=== PATIENT | female | born 1965 | race Caucasian/White ===

== ENCOUNTER 2018-04-21 09:03 | Emergency (ER) | payer MEDICAID, SELFPAY ==
--- NOTE | 2018-04-21 09:15 | W.ED.GENAD ---
Discharge Plan Disposition Patient Disposition: HOME Condition: Good Discharge Details Chief Complaint: Nk/Back Pain Clinical Impression: Muscle strain, UTI (urinary tract infection) Primary Care Provider: Chantel Ruiz ED Provider: Romero Edwards Home Meds and New Rx's Prescriptions: New cyclobenzaprine 10 mg tablet 10 mg PO TID Qty: 14 RF: 0 sulfamethoxazole-trimethoprim [Bactrim DS] 800-160 mg tablet 1 tab PO Q12H 10 Days Qty: 20 RF: 0 Discharge Instructions Instructions: Muscle Strain (ED), Urinary Tract Infection in Women (ED) Additional Instructions: Please take the muscle relaxant pill as needed. Please take Tylenol and Motrin as needed for pain. Please continue to use a heating pad as often as possible. If you notice any worsening of your symptoms, or any new symptoms such as vomiting, diarrhea, fever, chills, shortness of breath, chest pain, numbness, weakness, or fainting , please return immediately to the emergency department for reevaluation. Please follow up with your primary care provider as soon as possible for reassessment and reevaluation. As always, it was a pleasure participating in your medical care today. While taking the medication you should not drive, operate machinery, climb heights (such as a ladder), swim, or bathe alone or do anything else which could be dangerous as the medication may make you slightly sleepy. Referrals: Chantel Ruiz [Primary Care Provider] - Medical Decision Making This is a very pleasant 52-year-old female who presents with right-sided back pain. She denies any recent trauma or falls. She denies any concerning red flags of saddle anesthesia or bowel or bladder incontinence, numbness tingling or weakness. The pain is located in the right back, no midline spinal tenderness. No significant reproducible pain on palpation. She describes it as an achiness. No concerning physical exam findings for cauda equina syndrome or spinal impingement. Because of the patient's history will evaluate for UTI however I feel this very unlikely. No concern for referred gallbladder pain with no abdominal tenderness or GI symptoms. I feel her symptoms are clinically consistent with a musculoskeletal strain is her symptoms improved completely with a heating pad. We will get a urine to rule out infection however I feel this unlikely. Patient will be given a Lidoderm patch and Flexeril. I feel that she can be safely discharged home with close follow-up pending UA. 10 AM After application of Lidoderm patch and Flexeril the patient has complete resolution of her symptoms. Patient's urinalysis has returned and the urinalysis does demonstrate positive leuk esterase, as well as RBCs and WBCs. The patient has no history of kidney stones and no family history of kidney stones. With no reproducible pain, flank or CVA tenderness, or signs or symptoms consistent with urolithiasis I do not think CT imaging is indicated at this time. However I did discuss this with the patient and gave the option and she would like to hold off on imaging at this time as well. I do feel that the patient does likely have a mild urinary tract infection though, we will treat for this. We will continue the musculoskeletal treatment component, with recommendations for close PCP follow-up. I have extensively reviewed the treatment plan and discharge instructions with the patient. I have addressed all patient concerns at this time. The patient was made aware of what symptoms to monitor for that would warrant a return to the emergency department. Discussed the plan with the patient, they demonstrate verbal understanding and agreement with our assessment and plan at this time. HPI General Date/Time Provider Initiated Documentation: 04/21/18 09:07. HPI Narrative: This is a pleasant 52-year-old female with no significant past medical history who presents today for evaluation of right flank/back pain. Patient states that the symptoms have been present for the last week. She does not recall any inciting event. Pain is made worse with movement particularly when trying to rotate right. Improved by a heating pad. She has no associated radiation of the pain to the abdomen flank or groin. She denies any dysuria, hematuria or increase in urinary frequency. She denies a history of kidney stones or recent UTI. She denies any numbness or tingling in the groin. She denies any bowel or bladder incontinence. She denies any weakness or numbness or tingling in her legs. She denies any previous abdominal surgeries. She denies any nausea, vomiting, diarrhea, chest pain, shortness of breath. Patient denies any other modifying factors. She has no other complaints at this time. Related Data Home Medications Medication Instructions Recorded Confirmed cyclobenzaprine 10 mg PO TID #14 tab 04/21/18 sulfamethoxazole-trimethoprim 1 tab PO Q12H 10 Days #20 tab 04/21/18 [Bactrim DS] Previous Rx's Medication Instructions Recorded cyclobenzaprine 10 mg PO TID #14 tab 04/21/18 sulfamethoxazole-trimethoprim 1 tab PO Q12H 10 Days #20 tab 04/21/18 [Bactrim DS] Allergies Allergy/AdvReac Type Severity Reaction Status Date / Time Penicillins Allergy Mild Hives Unverified 04/21/18 09:23 seasonal Allergy Mild uri smptoms Uncoded 04/21/18 09:23 General Stated Complaint: Nk/Back Pain SABINA: 4 Review of Systems Review of Systems All systems reviewed & are unremarkable except as noted in HPI and below PFSH Social History Smoking and Tabacco status: Former Tobacco Use Exam Narrative Exam Narrative: 1.Const: Well-nourished, Well-developed, appearing stated age 2.Eyes: PERRL, no conjunctival injection, and symmetrical lids. 3.ENT: Atraumatic external nose and ears. Moist MM. Neck: Symmetric, trachea midline, No thyromegaly. 4.CVS: +S1/S2, No murmurs or gallops. Peripheral pulses 2+ and equal in all extremities. Brisk capillary refill in all extremities. 5.RESP: Unlabored respiratory effort. Clear to auscultation bilaterally. No wheezes rales or rhonchi 6.GI: Soft, Nontender/Nondistended, No hepatosplenomegaly. No guarding or rebound. No tenderness in the right upper quadrant, negative Vences sign, no pain at McBurney's point. No CVA tenderness. 7.MSK: Normocephalic/Atraumatic, Extremities w/o deformity or ttp No cyanosis or clubbing, Normal movement of all extremities. No midline tenderness to palpation over the CTLS spine. Normal ROM in flexion, extension, side bend, and rotation. Patient has +5 out of 5 strength in the lower extremities in dorsiflexion and plantarflexion, knee flexion and extension, hip flexion and extension. There is +2 over 2 dorsalis pedis pulses bilaterally. There is normal sensation to the skin with light touch at the foot, knee, and hip. Normal saddle sensation. Good sensation over the deep sural nerve area bilaterally. Rectal exam deferred. Reflexes are +2 over 4 in the patellar reflex bilaterally. +5 out of 5 strength in the medial, ulnar, radial nerve distribution bilaterally in the hands as well as intact light touch sensation to these dermatomes on the hands. Negative straight leg raise. 8.Skin: Warm, Dry. No rashes or lesions. 9.Neuro: stack yield engineer II-XII grossly intact. Sensation grossly intact, no focal neurologic deficits. 10.Psych: (AAO) x3. Appropriate mood and affect
[2018-04-21] MEDS: Lidocaine 5% Patch 1 PATCH TP (09:19)
[2018-04-21] MEDS: Cyclobenzaprine 10 MG TAB PO (09:19)
[2018-04-21 09:21] VITALS: BP 151/82; PULSE 65; RESP 15; TEMP 36.3; O2SAT 96
--- NOTE | 2018-04-21 09:28 | NUR.NOTE ---
patient medicated per MDOrder Nursing Note:
[2018-04-21 09:46] LABS: Bilirubin Negative (Negative); Blood Large (Negative); Clarity Cloudy; Glucose Negative (Negative); Ketones Negative (Negative); Leukocyte Esterase Moderate (Negative); Nitrite Negative (Negative); Specific Gravity 1.025 (1.005-1.025); Urobilinogen 0.2 EU/dL (Up TO 0.2); pH 5.5 (5-8)
[2018-04-21 09:54] LABS: Bacteria Moderate HPF (Negative); C & S Indicated? No/Sq. Contamination; Casts Negative LPF (Negative); Crystals Negative HPF (Negative); Epithelial Cells Many HPF (Negative); Mucus Trace (Negative); RBC >50 (0-2); WBC >50 HPF (0-5)
[2018-04-21 10:12] VITALS: BP 151/82; PULSE 65; RESP 15; TEMP 36.3; O2SAT 96
== END 2018-04-21 10:12 | disposition home or self-care (01) ==
PROVIDERS: Emergency Provider Student in an Organized Health Care Education/Training Program; PCP Nurse Practitioner Family
DX: S29.012A Strain of muscle and tendon of back wall of thorax, initial encounter (principal); N39.0 Urinary tract infection, site not specified; X58.XXXA Exposure to other specified factors, initial encounter
CPT/HCPCS: 99283; 81003; 81015

== ENCOUNTER 2020-08-10 19:43 | Outpatient (REF) | payer MEDICAID, SELFPAY ==
--- NOTE | 2020-08-10 17:30 | PAPFT_PTH ---
PATIENT: Lynn King LOC: [facility]#:[id number] AGE/SX: 55/F ROOM: RE08/10/[address]: Trent Varner : 1965 BED: DIS: 08/10/2020 SPEC #: [id number] RECD: 08/13/20 12:35 STATUS: LAVINIA REMya #: [id number] ENRICO: 08/10/20 17:[address]: Trent Varner [facility] Cytology RECD BY: Tenisha Ibarra ENTERED: 08/13/20 12:36 SP TYPE: PAPFT OTHR DR: Chantel Ruiz Tissues: 1 - CX/ENDOCX FOR PAP SMEARS Procedures: PAP THIN PREP/UVM Screening HPV DNA PROBE Comments: [id number]
[2020-08-10 19:25] LABS: Calculated LDL 74 mg/dL (<100); Cholesterol 135 mg/dL (<200); HDL Cholesterol 40 mg/dL (40-60); Triglyceride 105 mg/dL (<150); Vitamin B12 438 pg/mL (193-986)
[2020-08-13 10:03] LABS: Hepatitis C Ab w Rflx HCV PCR Negative (Negative)
== END 2020-08-10 19:44 | disposition home or self-care (01) ==
LOC: NCHCN 19:43
PROVIDERS: PCP Nurse Practitioner Family; Visit Provider Family Medicine
DX: R20.0 Anesthesia of skin (principal); Z11.59 Encounter for screening for other viral diseases; Z12.4 Encounter for screening for malignant neoplasm of cervix; Z11.51 Encounter for screening for human papillomavirus (HPV); R87.619 Unspecified abnormal cytological findings in specimens from cervix uteri
CPT/HCPCS: 80061; 86803; 88142; 82607; 87624

== ENCOUNTER 2020-08-24 04:19 | Outpatient (CLI) | payer MEDICAID, SELFPAY ==
--- NOTE | 2020-08-24 12:25 | DI.MAMMO_ITS ---
Exam(s) MAMMO SCREENING EXAM: MAMMO SCREENING CLINICAL HISTORY: SCREENING, [facility],Z00.00 TECHNIQUE: Mammograms were interpreted according to the usual protocol including computer analysis w [employer] CAD system, tomosynthesis and C-view imaging. COMPARISON: 2017 FINDINGS: The breasts are composed of mainly fatty density , Breast Density category A. No suspicious masses or suspicious microcalcifications are seen. No skin thickening or abnormal axillary lymph nodes are seen. There has been no significant change from prior exams. IMPRESSION: BI-RADS Category 1, Negative mammogram Yearly screening mammography is recommended. Breast Density - Category A, fatty density. A negative radiographic report should not delay biopsy if a dominant or clinically suspicious mass is present. Up to ten percent of cancers are not identified on mammography. A negative report may reinforce clinical impression. Adenosis and dense breasts may obscure an underlying neoplasm. False positive reports average 6 to 10%. Patient will receive a letter notifying them of these results.
== END 2020-08-24 04:39 ==
PROVIDERS: PCP Nurse Practitioner Family; Visit Provider Family Medicine
DX: Z12.31 Encounter for screening mammogram for malignant neoplasm of breast (principal)
CPT/HCPCS: 77063; 77067

== ENCOUNTER 2020-11-03 14:51 | Outpatient (REF) | payer MEDICAID, SELFPAY ==
[2020-11-03 15:22] LABS: ALT 52 U/L (14-59); AST 32 U/L (15-37); Albumin 3.5 g/dL (3.4-5.0); Alkaline Phosphatase 85 U/L (46-116); Anion Gap 6.1 mmol/L (3-11); BUN 12 mg/dL (7-18); Bilirubin, Total 0.4 mg/dL (0.2-1.0); CO2 29.9 mmol/L (21.0-32.0); CREATININE 0.7 mg/dL (0.55-1.02); Calcium 8.7 mg/dL (8.5-10.1); Chloride 105 mmol/L (98-107); Glucose 224 mg/dL (74-106); Potassium 3.9 mmol/L (3.5-5.1); Sodium 141 mmol/L (136-145); Total Protein 6.9 g/dL (6.4-8.2)
== END 2020-11-03 14:52 | disposition home or self-care (01) ==
LOC: LBN 14:51
PROVIDERS: PCP Nurse Practitioner Family; Visit Provider Nurse Practitioner Family
DX: R73.9 Hyperglycemia, unspecified (principal); R03.0 Elevated blood-pressure reading, without diagnosis of hypertension
CPT/HCPCS: 80053

== ENCOUNTER 2020-11-20 15:50 | Outpatient (REF) | payer MEDICAID, SELFPAY ==
--- NOTE | 2020-11-20 12:10 | ENDOMET_PTH ---
PATIENT: Lynn King LOC: [facility] U#:[id number] AGE/SX: 55/F ROOM: RE11/20/[address]: Andria Marlow MD : 1965 BED: DIS: 11/20/2020 SPEC #: [id number] RECD: 11/20/20 16:15 STATUS: LAVINIA REQ #: [id number] ENRICO: 11/20/20 12:[address]: Andria Marlow DEPT: Surgical Specimen RECD BY: Tenisha Ibarra ENTERED: 11/20/20 16:16 SP TYPE: Endomet OTHR DR: Chantel Ruiz Tissues: 1 - ENDOMETRIUM BX/CARLOS Procedures: GROSS AND MICRO LEVEL 4 IMMUNOPEROXIDASE STAIN Comments: [id number]
== END 2020-11-20 15:51 | disposition home or self-care (01) ==
LOC: LBN 15:50
PROVIDERS: PCP Nurse Practitioner Family; Visit Provider Obstetrics & Gynecology
DX: N84.0 Polyp of corpus uteri (principal); R87.610 Atypical squamous cells of undetermined significance on cytologic smear of cervix (ASC-US); N85.01 Benign endometrial hyperplasia
CPT/HCPCS: 88305; 88361

== ENCOUNTER 2021-11-26 20:26 | Outpatient (REF) | payer MEDICAID, SELFPAY ==
[2021-11-26 18:30] LABS: ALT 31 U/L (14-59); AST 20 U/L (15-37); Albumin 3.7 g/dL (3.4-5.0); Alkaline Phosphatase 72 U/L (46-116); Anion Gap 7.7 mmol/L (3-11); BUN 22 mg/dL (7-18); Bilirubin, Total 0.4 mg/dL (0.2-1.0); CO2 28.3 mmol/L (21.0-32.0); CREATININE 0.8 mg/dL (0.55-1.02); Calcium 9.1 mg/dL (8.5-10.1); Chloride 106 mmol/L (98-107); Glucose 99 mg/dL (74-106); Potassium 4.1 mmol/L (3.5-5.1); Sodium 142 mmol/L (136-145); Total Protein 7.3 g/dL (6.4-8.2)
== END 2021-11-26 20:27 | disposition home or self-care (01) ==
LOC: NCHCN 20:26
PROVIDERS: PCP Nurse Practitioner Family; Visit Provider Family Medicine
DX: E11.9 Type 2 diabetes mellitus without complications (principal)
CPT/HCPCS: 80053

== ENCOUNTER → 2022-01-07 02:34 | Outpatient (CLI) | payer MEDICAID, SELFPAY ==
--- NOTE | 2022-01-07 | DI.MAMMO_ITS ---
Exam(s) MAMMO SCREENING EXAM: MAMMO SCREENING CLINICAL HISTORY: SCREENING,[facility], Z00.00 TECHNIQUE: Bilateral full field digital CC and MLO mammographic images were obtained with 3D tomosyn thesis and utilizing computer aided detection (CAD). COMPARISON: Available for comparison. FINDINGS: Masses/Architectural Distortion: None seen. Microcalcifications: No suspicious pleomorphic-type are seen. Skin Thickening/Nipple Retraction: None. IMPRESSION: 1. No significant interval change with no specific features of malignancy noted. 2. Unless there is more urgent need, screening mammography is recommended, as per [place] [employer] guidelines. BI-RADS Category 1 - Negative Breast Density - Category B - Scattered areas of fibroglandular density Breast density category C or D implies that the patient has dense breast tissue. Dense breast tissue is very common and is not abnormal but dense breast tissue can make it harder to find cancer on a ma mmogram. Also, dense breast tissue may increase their breast cancer risk. This information about the result of the mammogram report was provided to the patient to raise their awareness. Use this report when you speak with the patient about their risks for breast cancer, which includes their family hist ory. At that time, you may recommend for more screening tests (Ultrasound or MRI) as they might be us eful based on their risk. A negative radiographic report should not delay biopsy if a dominant or clinically suspicious mass is present. Up to ten percent of cancers are not identified on mammography. A negative report may reinforce clinical impression. Adenosis and dense breasts may obscure an underlying neoplasm. False positive reports average 6 to 10%. Patient will receive a letter notifying them of these results.
== END ==
PROVIDERS: PCP Nurse Practitioner Family; Visit Provider Family Medicine
DX: Z12.31 Encounter for screening mammogram for malignant neoplasm of breast (principal); R92.8 Other abnormal and inconclusive findings on diagnostic imaging of breast
CPT/HCPCS: 77063; 77067

== ENCOUNTER 2022-02-10 07:32 | Emergency (ER) | payer MEDICAID, SELFPAY ==
[2022-02-10] VITALS (33 sets, daily range): BP systolic 118–195; BP diastolic 65–122; PULSE 63–104; RESP 20; TEMP 36.8–36.9; O2SAT 91–100
--- NOTE | 2022-02-10 08:24 | W.ED.GENAD ---
Discharge Plan Disposition Patient Disposition: Home Condition: Stable Discharge Details Clinical Impression: Cough, Bronchitis, Hypoxia Primary Care Provider: Trent Varner ED Provider: Avery Rai Home Meds and New Rx's Prescriptions: New doxycycline hyclate 100 mg tablet 100 mg PO BID Qty: 13 0RF albuterol sulfate 90 mcg/actuation HFA aerosol inhaler 2 puff inhalation Q6H PRNQty: 8.5 0RF prednisone 20 mg tablet 40 mg PO DAILY Qty: 8 0RF Continued metformin 500 mg tablet 1,000 mg PO BID ibuprofen 200 mg tablet 200 mg PO Q6H PRN losartan 25 mg tablet 25 tab PO DAILY atorvastatin 10 mg tablet 10 tab PO HS Label Comments: TAKE ONE TABLET BY MOUTH EVERY DAY AT BEDTIME TO PREVENT HEART DISEASE Discharge Instructions Instructions: Acute Bronchitis (ED) Additional Instructions: Please contact your primary care physician to arrange follow-up. I am concerned that you may have COPD and should have pulmonary testing performed. Please discuss this with your doctor soon as possible. Return to the ER immediately for any worsening or new concerning symptoms. Referrals: Trent Varner [Primary Care Provider] - Discharge Data Discharge Date/Time-TO BE ENTERED AT DEPARTURE: 02/10/22 11:43 Medical Decision Making 829 --56-year-old female with history of jke-gikfofn-ltpbncxtg diabetes, hypertension, former smoker, here with shortness of breath persistent and progressive over the past 3 to 4 days, associated orthopnea and dyspnea on exertion, nonproductive cough. Patient is afebrile. Hypertensive on arrival, saturating in the upper 80s - low 90s on room air with mild respiratory distress. Patient does have some expiratory wheeze bilaterally. I will trial DuoNeb. Concern for acute CHF exacerbation versus pneumonia versus less likely COPD. 1053--labs reviewed and nondiagnostic. BNP is negative. Troponin is negative. No leukocytosis. Chest x-ray was reviewed and interpreted by radiology: No acute cardiopulmonary disease. Patient was reassessed after neb treatment and notes significant improvement. She states she was able to get up and walk to the bathroom without any difficulty. I suspect she has bronchitis with COPD exacerbation. Plan to continue treatment with albuterol inhaler, prednisone, and doxycycline. Usual customary discharge instructions reviewed with the patient. Lab Data Lab results reviewed: Yes I reviewed the patient's lab results. Sign Out No HPI General Mode of arrival: ambulatory. Date/Time Provider Initiated Documentation: 02/10/22 07:34. Limitations to Documentation: no limitations. Information obtained by: patient. HPI Narrative: 56-year-old female former smoker, history of cje-cfxepmn-eyyqsnghy diabetes, hypertension, here with chief complaint of shortness of breath. Patient notes progressive shortness of breath over the past 4 days. She notes shortness of breath is worse with exertion and with lying flat. She has associated nonproductive cough. She denies associated leg swelling. No calf pain. No chest pain. Patient notes she has felt similar in the past when she has had bronchitis. Patient denies associated fever. Related Data Home Medications Medication Instructions Recorded Confirmed ibuprofen 200 mg tablet 200 mg PO Q6H PRN 09/25/20 02/10/22 metformin 500 mg tablet 1,000 mg PO BID 12/04/20 02/10/22 albuterol sulfate 90 mcg/actuation 2 puff inhalation Q6H PRN #8.5 02/10/22 aerosol inhaler grams atorvastatin 10 mg tablet 10 tab PO HS 02/10/22 02/10/22 doxycycline hyclate 100 mg tablet 100 mg PO BID #13 tabs 02/10/22 losartan 25 mg tablet 25 tab PO DAILY 02/10/22 02/10/22 prednisone 20 mg tablet 40 mg PO DAILY #8 tabs 02/10/22 Previous Rx's Medication Instructions Recorded albuterol sulfate 90 mcg/actuation 2 puff inhalation Q6H PRN #8.5 02/10/22 aerosol inhaler grams doxycycline hyclate 100 mg tablet 100 mg PO BID #13 tabs 02/10/22 prednisone 20 mg tablet 40 mg PO DAILY #8 tabs 02/10/22 Allergies Allergy/AdvReac Type Severity Reaction Status Date / Time Penicillins Allergy Mild Hives Unverified 02/10/22 07:41 seasonal Allergy Mild uri smptoms Uncoded 02/10/22 07:41 General Stated Complaint: SOB SABINA: 3 Review of Systems All systems reviewed & are unremarkable except as noted in HPI and below Constitutional Constitutional: Denies fever(s) Respiratory Respiratory: Reports as per HPI PFSH All Active Problems (Updated 02/20/22 @ 13:50 by Latoya Aguilar RN) Cough (Acute) Bronchitis (Acute) Hypoxia (Acute) Hypertension (Chronic) Complex atypical endometrial hyperplasia (Acute) BMI 40.0-44.9, adult (Acute) Diabetes (Chronic) Screening for colon cancer (Acute) Medical History (Updated 02/20/22 @ 13:50 by Latoya Aguilar RN) Atypical glandular cells on cervical Pap smear Endometrial cancer Hirsutism History of tobacco use Numbness in feet Surgical History Delivery by section Social History Smoking/Tobacco Use Status: Former Tobacco Use Smoking risk assessment performed?: Yes Alcohol Intake: never Drug use: Never Substance use type: does not use Household members: spouse Number of Children: 2 What type of physical activity do you participate in: walking Do you feel safe in your relationship?: Yes Female Reproductive History Menstrual Age of Menarche: 15 Duration of menses: 3-5 days control method: permanent sterilization History Past Pregnancies Del. Date GA/Weeks # Preg Succ Route Wgt Sex Labor Lgth Anesthesia Location [facility] 11/26/90 42 Male [place] 10/23/92 40 Male [place] Exam Const General: cooperative and no acute distress HENMT Head: normocephalic Eyes Conjunctivae: normal conjunctivae Sclera: normal sclerae Neck Neck: trachea midline Resp Effort & Inspection: able to speak in complete sentences, labored and tachypneic Auscultation: no rales, no rhonchi, wheezes (trace) expiratory wheezes and other (diminished bs b/l) Cardio Rate: regular rate and not tachycardic Rhythm: regular rhythm GI Palpation: soft, not firm, no guarding, no masses, not rigid and nontender Skin General skin exam: no rashes or lesions noted Neuro General: patient alert, patient awake, patient oriented x3 and tone normal Extrem General: no calf tenderness and edema Laterality: bilateral (trace b/l) Psych Appearance: grossly normal Mental Status: mental status grossly normal Course Vital Signs Vital signs: Vital Signs Temperature 36.8 C 02/10/22 07:35 Pulse 63 02/10/22 07:35 Respiratory Rate 20 02/10/22 07:35 Blood Pressure 195/73 H 02/10/22 07:35 Pulse Oximetry 94 02/10/22 07:35 Temperature 36.8 C 02/10/22 07:35 Temperature Source Temporal Artery Scan 02/10/22 07:35 Pulse 63 02/10/22 07:35 Respiratory Rate 20 02/10/22 07:42 Respiratory Effort 02/10/22 07:42 Respiratory Depth Shallow 02/10/22 07:42 Respiratory Pattern Normal 02/10/22 07:42 Blood Pressure 195/73 H 02/10/22 07:35 Pulse Oximetry 94 02/10/22 07:35 Oxygen Delivery Method Room Air 02/10/22 07:35 Oxygen Flow Rate 0 02/10/22 07:35 Pain Level 0 02/10/22 07:35
[2022-02-10 08:29] LABS: Abs Immature Grans 0.02 10^3/uL (0.0-0.06); Absolute Basophil Count 0.07 10^3/uL (0.0-0.2); Absolute Eosinophil Count 0.54 10^3/uL (0.0-0.7); Absolute Lymphocyte Count 0.76 10^3/uL (1.2-3.4); Absolute Monocyte Count 0.75 10^3/uL (0.1-0.8); Absolute Neutrophil Count 8.65 10^3/uL (1.2-6.7); Basophils % 0.6; HCT 41.7 % (36.0-46.0); HGB 13.1 g/dL (11.2-15.7); Immature Grans % 0.2; MCH 26.9 pg (27.0-33.0); MCHC 31.4 % (32.0-36.0); MCV 86 fL (80-95); MPV 9.6 fL (8.0-11.0); Neutrophils % 80.2; Platelet Count 249 10^3/uL (130-400); RBC 4.87 10^6/uL (3.93-5.22); RDW 14.2 % (11.7-14.6); RDW-SD 44.9 fL; WBC 10.79 10^3/uL (4.4-10.8)
--- NOTE | 2022-02-10 08:30 | RT.EKG_ITS ---
APPROVED REPORT Exam: Resting ECG Reason for Exam: sob Patient Location: E HR:106 bpm ECG Measurements Heart Rate 106 AXIS [place] 171 P 56 QRSd 86 QRS 46 QT 283 T 38 QTc 377 Conclusion Sinus tachycardia...rate> 99 Multiple ventricular premature complexes...V complexes w/ short R-R intervls Nonspecific repol abnormality, diffuse leads...ST dep, T flat/neg, ant/lat/inf
[2022-02-10] MEDS: Albuterol/Ipratropium 3 ML UPD VIAL UPD (08:38)
[2022-02-10 08:51] LABS: ALT 31 U/L (14-59); AST 19 U/L (15-37); Albumin 3.8 g/dL (3.4-5.0); Alkaline Phosphatase 76 U/L (46-116); Anion Gap 7.6 mmol/L (3-11); BUN 12 mg/dL (7-18); Bilirubin, Total 0.6 mg/dL (0.2-1.0); CO2 29.4 mmol/L (21.0-32.0); CREATININE 0.7 mg/dL (0.55-1.02); Calcium 8.9 mg/dL (8.5-10.1); Chloride 101 mmol/L (98-107); Estimated GFR 102.71 (mL/min/1.73m2); Glucose 138 mg/dL (74-106); NT-proBNP 219 pg/mL (<300); Potassium 3.6 mmol/L (3.5-5.1); Sodium 138 mmol/L (136-145); Total Protein 8.1 g/dL (6.4-8.2); Troponin I < 50 ng/L (<or=60)
[2022-02-10 08:58] LABS: COVID-19 PCR Negative (Negative); Influenza A PCR Negative (Negative); Influenza B PCR Negative (Negative); RSV PCR Negative (Negative)
[2022-02-10 09:14] LABS: Source Nasopharynx
--- NOTE | 2022-02-10 09:27 | DI.RAD_ITS ---
Exam(s) XR PORTABLE CHEST AP EXAM: XR PORTABLE CHEST AP CLINICAL HISTORY: sob, pui. TECHNIQUE: 2D digital imaging was performed. COMPARISON: No exams were available for comparison FINDINGS: Single AP portable view. Heart size is upper normal. The mediastinum is not widened. Lungs are clear. No infiltrates nor obvious pleural effusions. Scoliosis convex right-mild IMPRESSION: No acute pulmonary findings on this single AP portable view of the chest. DATA REPOSITORY: RADIATION DOSE DELIVERED:
[2022-02-10] MEDS: predniSONE 20 MG TAB 60 MG PO (10:44)
[2022-02-10] MEDS: Doxycycline Hyclate 100 MG CAP PO (11:03)
[2022-02-10] MEDS: Inhaler, Assist Device 1 EACH MC (11:30)
[2022-02-10] MEDS: Albuterol HFA 8 GM 60 PUFF INH IH (11:31)
[2022-02-10 11:33] LABS: Troponin I < 50 ng/L (<or=60)
== END 2022-02-10 11:43 | disposition home or self-care (01) ==
PROVIDERS: Emergency Provider Student in an Organized Health Care Education/Training Program; PCP Family Medicine
DX: J40 Bronchitis, not specified as acute or chronic (principal); R09.02 Hypoxemia; E11.9 Type 2 diabetes mellitus without complications; I10 Essential (primary) hypertension; Z87.891 Personal history of nicotine dependence; Z79.84 Long term (current) use of oral hypoglycemic drugs; Z20.822 Contact with and (suspected) exposure to COVID-19
CPT/HCPCS: 80053; 87637; 93005; 99284; 71045; 83735; 83880; 84484; 85025; 93010; 99285; J7512; J7620

== ENCOUNTER 2022-06-02 06:42 | Day surgery (SDC) | payer MEDICAID, SELFPAY ==
--- NOTE | 2022-06-02 06:32 | ANES.PREOP_ITS ---
General Info Date of Service Date Performed: 06/02/22 Height: 5 ft 3.5 in Weight: 97.522 kg Body Mass Index (BMI): 37.5 Surgical Procedure: Operation Date: 06/02/22 08:40 Proposed Procedure Side Surgeon p Cataract Extraction with IOL Implant Left Noel Campbell MD Meds Allergies and Home Medications Allergies Allergy/AdvReac Type Severity Reaction Status Date / Time Penicillins Allergy Mild Hives Unverified 06/02/22 07:10 lisinopril Allergy Other (See Unverified 06/02/22 07:10 Comment) seasonal Allergy Mild uri smptoms Uncoded 06/02/22 07:10 Home Medication Medication Instructions Recorded ibuprofen 200 mg tablet 200 mg PO Q6H PRN 09/25/20 metformin 500 mg tablet 1,000 mg PO BID 12/04/20 albuterol sulfate 90 mcg/actuation 2 puff inhalation Q6H PRN #8.5 02/10/22 aerosol inhaler grams atorvastatin 10 mg tablet 10 tab PO HS 02/10/22 doxycycline hyclate 100 mg tablet 100 mg PO BID #13 tabs 02/10/22 losartan 25 mg tablet 25 tab PO DAILY 02/10/22 Current Visit Medications: Current Medications Generic Name Dose Route Start Last Admin Trade Name Freq PRN Reason Stop Dose Admin Acetaminophen 1,000 mg 06/02/22 06:00 Acetaminophen 500 Mg Tab PO Q4H PRN PRN Miscellaneous Medication 0 ml 06/02/22 06:00 Tropicam./Phenyleph. 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 eye H25.042 Nuclear age-related cataract, left eye H25.12 Screening for colon cancer Z12.11 BMI 40.0-44.9, adult Z68.41 Diabetes E11.9 Complex atypical endometrial hyperplasia N85.02 Hypertension I10 Medical History Medical History (Updated 03/31/23 @ 13:35 by Noel Campbell MD) Atypical glandular cells on cervical Pap smear Endometrial cancer Hirsutism History of tobacco use Numbness in feet Surgical History Surgical History (Updated 05/30/22 @ 10:31 by Damon Brooks) Delivery by section History of hysterectomy Tobacco Smoking/Tobacco Use Status: Former Tobacco Use Alcohol Alcohol Intake: never Substance Use Substance use: Never Substance use type: does not use Prental History Past Pregnancies Del. Date GA/Weeks # Preg Succ Route Wgt Sex Labor Lgth Anesth esia Location Prov Complic 11/26/90 42 Male [place] 10/23/92 40 Male [place] Vital Signs and Lab Results Vital Signs Most Recent Vital Signs in EMR: Temp Pulse Resp BP Pulse Ox 36.5 C 80 18 176/90 H 96 06/02/22 06:57 06/02/22 06:57 06/02/22 06:57 06/02/22 06:57 06/02/22 06:57 Lab Results Blood Type / Crossmatch: No Data to Display Complete Blood Count: No Data to Display Complete Metabolic Panel: No Data to Display Liver Function Panel: No Data to Display Coagulation Panel: No Data to Display Cardiac Panel: No Data to Display Arterial Blood Gas: No Data to Display Venous Blood Gas: No Data to Display Pancreas Panel: No Data to Display Thyroid Panel: No Data to Display Infectious Disease: No Data to Display Blood Cultures: No Data to Display Toxicology Panel: No Data to Display Panel: No Data to Display Imaging and Studies Imaging and Studies Study information below may be from another EMR and interpreted by another provider. Please see original notes in EMR for more complete details. EKG Summary: 02/20: sinus tach, PVCs, nonspecific repol abnormality. Anesthesia Assessment and Plan Anesthesia History Personal History: No History of Anesthesia Complications Family History: No Family History of Anesthesia Complications Exercise Tolerance Exercise Tolerance: Metabolic Equivalents>4 Cardiac & Pulmonary Exam Cardiac Exam: Normal S1/S2 Heart Sounds Pulmonary Exam: Clear Bilateral Breath Sounds Implantable Cardiac Device Does patient have a Pacemaker or an ICD?: No Airway Exam Known Difficult Airway: No Mallampati Class: 3 Mouth Opening: Narrow (< 3cm) Thyromental Distance: Less than 3 cm Neck Range of Motion: Full ROM Neck Circumference: Thick Teeth Condition: Generalized Poor Dentition ASA Classification ASA Score: ASA 2 Emergency Case?: No NPO Status NPO Status: NPO Clears >2 hours, Solids >8 hours Status Status: Not Relevant due to Medical History Anesthesia Plan Resuscitation Status: Full Code Anesthesia Technique: MAC Anesthesia Airway Planned: Natural Airway Monitors Used: Standard Monitors Preoperative Comments:: 56 yo female for cataract removal. Sig PMHx: DM (metformin), HTN (losartan), former smoker. Does not want MKO/sedation.
[2022-06-02 06:57] VITALS: BP 176/90; PULSE 80; RESP 18; TEMP 36.5; O2SAT 96
[2022-06-02 07:11] VITALS: BMI 37.5
[2022-06-02] MEDS: Tropicam./Phenyleph. (1/2.5%) 5 ML BTL OS ×3 (07:19→07:30)
[2022-06-02] MEDS: Tetracaine 0.5% 4 ML BTL OS (08:10)
[2022-06-02] MEDS: Lidocaine 1% Pres-Free 5 ML VIAL (08:10)
[2022-06-02] MEDS: Duovisc Viscoelastic System EACH 1 EACH (08:11)
[2022-06-02] MEDS: Balanced Salt Soln.-PLUS 500 ML BAG (08:11)
[2022-06-02] MEDS: Phenylephrine/Lidocaine (15/10) MG/ML 1 ML VIAL (08:12)
[2022-06-02] MEDS: Povidone-Iodine Ophth 30 ML BTL (08:12)
[2022-06-02 08:25] VITALS: BP 172/95; PULSE 62; RESP 18; TEMP 36.1; O2SAT 100
--- NOTE | 2022-06-02 08:25 | W.PM.DSUDISC ---
Date of service: 06/02/22 Time of Service: 08:25 Discharge Plan Disposition Patient Disposition: Home Discharge Details Attending Provider: Noel Campbell Primary Care Provider: Trent Varner [place] Meds and New Rx's Prescriptions: No Action metformin 500 mg tablet 1,000 mg PO BID ibuprofen 200 mg tablet 200 mg PO Q6H PRN losartan 25 mg tablet 25 tab PO DAILY atorvastatin 10 mg tablet 10 tab PO HS Patient Comments: TAKE ONE TABLET BY MOUTH EVERY DAY AT BEDTIME TO PREVENT HEART DISEASE doxycycline hyclate 100 mg tablet 100 mg PO BID Qty: 13 0RF albuterol sulfate 90 mcg/actuation HFA aerosol inhaler 2 puff inhalation Q6H PRNQty: 8.5 0RF Discharge Instructions Stand Alone Forms: Post-op Topical Cataract, Erlinda Mcknight (DSU) Discharge Orders Discharge Orders: Discharge Order (Routine); Ordered 06/02/22 Ordered By: Noel Campbell DS: Diagnosis Discharge Diagnosis (1) Posterior subcapsular age-related cataract of left eye: Status: Resolved (2) Nuclear age-related cataract, left eye: Status: Resolved
--- NOTE | 2022-06-02 08:25 | W.PM.OP ---
Date of service: 06/02/22 Time of Service: 08:25 Operative Note Operative Note DATE OF PROCEDURE: 06/02/22 PRE-OP DIAGNOSIS: Nuclear/posterior subcapsular cataract, left eye POST-OP DIAGNOSIS: same PROCEDURE: Cataract extraction using phacoemulsification with intraocular lens implant, left eye SURGEON: Noel Campbell ANESTHESIA TYPE: Local By Surgeon and MAC Refer to Anesthesia Record PATHOLOGY: none sent COMPLICATIONS: None Patient was transported to: same day Patient's condition: stable Implants: Gerald and Gerald Tecnis Eyhance DIB00 Indications: Progressive decreased vision due to cataract, left eye Procedure Description: CATARACT SURGERY OPERATIVE REPORT PREOPERATIVE DIAGNOSIS: 1. Nuclear/posterior subcapsular cataract, left eye POSTOPERATIVE DIAGNOSIS: Same OPERATION: 1. Cataract extraction using phacoemulsification with posterior chamber intraocular lens implant, left eye. IOL: IOL Tire Builder Operator/Model: Greald & Gerald Tecnis Eyhance DIB00 IOL Power: + 19.5 diopters IOL Serial Number: [id number] Optic Diameter: 6.0 mm Haptic/Overall Diameter: 13.0 mm PHACO INFO: CarlIntellioneurion Vision System with OZil and Active Fluidics Cumulative Dispersed Energy (CDE): 5.80 seconds SURGEON: Noel Campbell MD, TERRIE ANESTHESIA: Monitored A [facility] (MAC), with local sub-tenon's anesthetic infiltration COMPLICATIONS: None SPECIMENS: None INDICATIONS FOR PROCEDURE: The patient is a 56-year-old lady with history of diminished visual acuity in her left eye. She is noted to have a significant nuclear/posterior subcapsular cataract in the left eye. The option of cataract surgery was offered to the patient and she felt she was symptomatic enough that she wished to proceed. PROCEDURE: The correct surgical eye was identified and marked as the left eye and the pupil was dilated in the preoperative area using mydriatics and cycloplegics. The dilated pupil size was 7.0 mm. . The patient elected to proceed without oral sedation. The patient was brought to the operating room where cardiopulmonary monitoring was instituted and surgical time-out was performed, confirming the correct operative eye and IOL power. Topical anesthesia was administered and ophthalmic povidone-iodine 5% was instilled into the conjunctival fornices. Lidocaine gel was applied to the cornea and the lópez-ocular area was prepped with Betadine 10% solution and draped in the usual sterile fashion for intraocular surgery, including an aperture drape. A Tegaderm transparent film dressing was cut in half and used to cover the lashes and lid margins. Care was taken to sequester the lashes and lid margins under the Tegaderm dressing. A lid speculum was placed between the lids of the operative eye and the Carl LuxOR Revalia operating microscope was maneuvered into position. Madina scissors were then used to make a conjunctival buttonhole approximately 6mm posterior to the limbus in the inferonasal quadrant. Blunt dissection was carried out to expose bare sclera, and a blunt-tipped sub-tenon?s anesthesia cannula was introduced and passed posteriorly along the globe where non-preserved plain lidocaine was injected into posterior sub-Tenon?s space. A sideport knife was used to make a paracentesis port superiorly/superiortemporally. Intraocular phenylephrine/lidocaine was injected int the anterior chamber.. The anterior chamber was filled with viscoelastic. A keratome knife was used to construct a 2-plane near-clear corneal tunnel extending 2.0mm into clear cornea temporally. A flap was raised on the anterior capsule and capsulorhexis forceps were used to complete a continuous curvilinear capsulorhexis of 5.5 mm. Balanced salt solution was then used to perform cortical cleaving hydrodissection and nuclear hydrodelineation until the lens could be freely rotated within the capsular bag. The lens nucleus was then disassembled and removed within the capsular bag and iris plane using phacoemulsification. Residual cortical material was removed using the 45-degree angled silicone I/A tip with 0.3mm port. The posterior capsule was carefully polished to remove as much residual lens epithelial cells as safely possible. The capsular bag was then inflated and the anterior chamber deepened with viscoelastic. The lens implant described above was inserted into the capsular bag using the Gerald and Gerald Simplicity pre-loaded injector. . A Kuglen hook was used to dial the IOL into position. Residual viscoelastic was then removed first from posterior to the IOL, then from the anterior chamber using the I/A handpiece. The lens implant was noted to center nicely within the capsular bag. The incisions were stromally hydrated, and the anterior chamber was reformed using BSS. Then 0.5cc of moxifloxacin 1.0mg/ml were injected into the capsular bag and anterior chamber. The incisions were checked with a Weck spear and found to be secure. Several drops of ophthalmic povidone-iodine 5% were then applied to the eye followed by two drops of Imprimis combination prednisolone/moxifloxacin/nepafenac solution. The drapes were removed and a clear plastic protective eye shield was placed over the eye. The patient was then returned to Same Day Surgery in stable condition.
--- NOTE | 2022-06-02 08:52 | W.ANESPOSTOP ---
Postoperative Evaluation Date, Time and Location Date Performed: 06/02/22 Time Performed: 08:34 Patient Location: Day Surgery Unit Vital Signs Most Recent Imported Vital Signs: Most Recent Vital Signs Temp Pulse Resp BP Pulse Ox 36.5 C 80 18 176/90 H 96 06/02/22 06:57 06/02/22 06:57 06/02/22 06:57 06/02/22 06:57 06/02/22 06:57 Pain Score Most Recent Pain Score: Most Recent Pain Score Pain Level 0 06/02/22 06:57 Assessment Mental Status: Awake (Alert & Oriented to Patient Baseline) Airway and Respiratory Function: Patent airway with normal (patient baseline) respiratory exam Cardiovascular Function: Hemodynamically Stable Hydration Status: Adequately Hydrated Nausea & Vomiting: No Nausea or Vomiting Pain: Pt. Denies Any Pain Peripheral Nerve Block: Patient did not receive a nerve block Postoperative Comments:: vss stable, see DSU documentation.
== END 2022-06-02 08:38 | disposition home or self-care (01) ==
LOC: SUR 06:42
PROVIDERS: PCP Family Medicine; Visit Provider Ophthalmology
PROC: (CPT 66984; principal; 2022-06-02 08:30)
DX: H25.042 Posterior subcapsular polar age-related cataract, left eye (principal); H25.12 Age-related nuclear cataract, left eye; E11.9 Type 2 diabetes mellitus without complications; I10 Essential (primary) hypertension; Z87.891 Personal history of nicotine dependence
CPT/HCPCS: 66984; V2632

== ENCOUNTER 2022-09-25 12:38 | Day surgery (SDC) | payer MEDICAID, SELFPAY ==
--- NOTE | 2022-09-25 12:52 | W.PM.DSUDISC ---
Date of service: 09/25/22 Time of Service: 12:52 Discharge Plan Disposition Patient Disposition: Home Condition: Good Discharge Details Reason For Visit: colon scope Attending Provider: Aggie Diana Primary Care Provider: Trent Varner Home Meds and New Rx's Prescriptions: Continued metformin 500 mg tablet 500 mg PO BID ibuprofen 200 mg tablet 200 mg PO Q6H PRN atorvastatin 10 mg tablet 10 mg PO HS Patient Comments: TAKE ONE TABLET BY MOUTH EVERY DAY AT BEDTIME TO PREVENT HEART DISEASE losartan 25 mg tablet 25 mg PO DAILY Discontinued bisacodyl [Dulcolax (bisacodyl)] 5 mg tablet,delayed release (DR/EC) 5 mg PO ONCE Qty: 4 0RF Rx Instructions: Take per colonoscopy instructions provided by ordering providers office polyethylene glycol 3350 17 gram/dose powder 17 g PO ONCE Qty: 238 0RF Rx Instructions: Take per colonoscopy instructions provided by ordering providers office Discharge Instructions Additional Instructions: DSU Colonoscopy Post-Op Instructions Instructions for Everyone who is given Anesthesia: For your safety, please do the following for the next twenty-four (24) hours: *Do Not operate a motor vehicle (car, truck, motorcycle, etc.) *Do Not drink alcoholic beverages or use any recreational drugs for the first 24 hours or while taking pain medications. The medications in your body may have a reaction that can be dangerous. *Do Not make any important decisions or sign any important papers. Findings: normal colon Follow up: Repeat in 10 yrs time 1. No lifting over 20 pounds or strenuous activity for the first 24 hours after your procedure. After 24 hours there are no restrictions on your activity but you may feel fatigued for a few days. 2. After you arrive home you may have a light meal and return to your normal diet as you can tolerate it without feeling sick to your stomach. 3. You may have a bloated, gaseous feeling in your belly (abdomen) after a colonoscopy. Passing gas and belching will help. Walking or lying down on your left side with your knees flexed may relieve the discomfort. Call the office at [phone] (Office) or [phone] (Hospital) right away if you notice any of the following: a.Vomiting of blood or ?coffee ground stools?. b.Rectal bleeding 1Tbsp, blood clots or continuous bleeding. c.Severe belly (abdominal) pain. d.A hard distended belly (abdomen) and an inability to pass gas. 4. Please don?t expect to have a normal BM (bowel movement) for 2-3 days after your procedure. 5. If there are questions regarding the findings of your procedure, please contact your doctor 6. If you are unable to contact your doctor with a problem, contact the hospital at [phone]. 7. Continue all your regular medications unless directed otherwise. I understand the above instructions and have no questions. Signature of Patient or Adult Escort Name of Responsible Adult Escort Signature of Nurse Date/Time Activity:: see above Diet:: see above Discharge Orders Discharge Orders: Discharge Order (Routine); Ordered 09/25/22 Ordered By: Aggie Diana DS: Diagnosis Discharge Diagnosis (1) Screening for malignant neoplasm performed: Status: Acute Asessment and Plan: ? The patient is seen and examined after their colonoscopy.? The patient has been able to pass gas.? They are not having abdominal pain.? They have been able to tolerate liquids and a snack.? They do not have any nausea or vomiting.? They are not having any chest pain or shortness of breath.??? They are not having any rectal bleeding. Their vital signs have been stable-see nursing notes.? ? We discussed findings during their colonoscopy, and any biopsies that were done/polyps that were removed. The patient will be sent a letter with any biopsy results, and when to repeat the colonoscopy.-see discharge instructions.? ? Patient was given explicit instructions to follow-up regarding colonoscopy-refer to discharge instructions.? We reviewed resumption of medications.? Patient verbalized understanding and discharged in stable and satisfactory condition- See nursing notes.?
[2022-09-25 13:02] VITALS: BP 175/82; PULSE 56; RESP 16; TEMP 36.3; O2SAT 100
--- NOTE | 2022-09-25 20:18 | W.COLOREPORT ---
Date of service: 09/25/22 Time of Service: 20:18 Colonoscopy Report Date of procedure: 09/25/22 Pre-op diagnosis general: crc screening Post-op diagnosis procedure note: same Surgeon: Aggie Diana Anesthesia Type: General:No Airway Estimated blood loss (mL): 0 Pathology: none sent Complications: None Disposition: no change Prep: Miralax/Dulcolax Retraction Time: 10 Procedure Description: After informed consent was obtained the patient was taken to the procedure room and placed in a left decubitous position. Monitors were applied and a time out was done. The patients name, date of , procedure, allergies to medications and metal in their body was reviewed. The patient was then sedated. Once sedated and comfortable a rectal exam was done. External exam was normal. Internal exam revealed a normal sphincter tone and no palpable masses. The scope was then introduced and retrofelexed. No internal hemorrhoids were identified. The scope was then advanced to the cecum without difficulty. The TI and appendiceal orifice were identified. The prep was a BBPS 3 in all segments for total of 9. The scope was then slowly retracted over 10 minutes back into the rectum. There are no polyps, AVMs, or diverticula visualized today. The mucosa is pink and healthy with a normal vascular pattern. The scope was removed and the patient was woken up and taken back to Same day surgery in stable condition. The patient tolerated the procedure well and there were no immediate complications. Follow up: The patient should follow up in 10 years unless they develop changes in bowel habits or other new gastrointestinal complaints.
== END 2022-09-25 14:55 | disposition home or self-care (01) ==
PROVIDERS: PCP Family Medicine; Visit Provider Surgery
PROC: 0DJD8ZZ Inspection of Lower Intestinal Tract, Via Natural or Artificial Opening Endoscopic (ICD-10-PCS; CPT 45378; principal; 2022-09-25 13:00)
DX: Z12.11 Encounter for screening for malignant neoplasm of colon (principal); E11.9 Type 2 diabetes mellitus without complications; Z79.84 Long term (current) use of oral hypoglycemic drugs; I10 Essential (primary) hypertension; E78.5 Hyperlipidemia, unspecified
CPT/HCPCS: 45378

== ENCOUNTER 2023-01-08 09:51 | Outpatient (REF) | payer MEDICAID, SELFPAY ==
[2023-01-08 16:25] LABS: Anion Gap 7.7 mmol/L (3-11); BUN 11 mg/dL (7-18); CO2 29.3 mmol/L (21.0-32.0); CREATININE 0.7 mg/dL (0.55-1.02); Calcium 9.3 mg/dL (8.5-10.1); Chloride 106 mmol/L (98-107); Estimated GFR 102.07 (mL/min/1.73m2); Glucose 116 mg/dL (74-106); Potassium 3.9 mmol/L (3.5-5.1); Sodium 143 mmol/L (136-145)
== END 2023-01-08 09:52 | disposition home or self-care (01) ==
LOC: NCHCN 09:51
PROVIDERS: PCP Family Medicine; Visit Provider Family Medicine
DX: I10 Essential (primary) hypertension (principal)
CPT/HCPCS: 80048

== ENCOUNTER → 2023-01-13 00:30 | Outpatient (CLI) | payer MEDICAID, SELFPAY ==
--- NOTE | 2023-01-13 | DI.MAMMO_ITS ---
Exam(s) MAMMO SCREENING EXAM: MAMMO SCREENING CLINICAL HISTORY: prevenative Z00.00, screening TECHNIQUE: Mammograms were interpreted according to the usual protocol including computer analysis w ReaMetrix CAD system, tomosynthesis and C-view imaging. COMPARISON: 2016 through 2021 FINDINGS: The breasts are composed of mainly fatty density , Breast Density category A. No suspicious masses or suspicious microcalcifications are seen. No skin thickening or abnormal axillary lymph nodes are seen. There has been no significant change from prior exams. IMPRESSION: BI-RADS Category 1, Negative mammogram Yearly screening mammography is recommended. Breast Density - Category A, fatty density. A negative radiographic report should not delay biopsy if a dominant or clinically suspicious mass is present. Up to ten percent of cancers are not identified on mammography. A negative report may reinforce clinical impression. Adenosis and dense breasts may obscure an underlying neoplasm. False positive reports average 6 to 10%. Patient will receive a letter notifying them of these results.
== END ==
PROVIDERS: PCP Family Medicine; Visit Provider Family Medicine
DX: Z12.31 Encounter for screening mammogram for malignant neoplasm of breast (principal)
CPT/HCPCS: 77063; 77067

== ENCOUNTER 2023-11-13 15:24 | Outpatient (REF) | payer MEDICAID, SELFPAY ==
--- OUTSIDE RECORDS SUMMARY | 2023-11-13 15:26 | XMS_ITS | Encounter Summary ---
Author Organization [facility] Address [address] [place] [address] Care Team Providers Care Iron Caster Name Role Phone Unavailable Primary Care Provider Unavailabl e Encounter Details Date Type Department Care Team (Late st Contact Info) Description 04/28/2012 Results Only [facility] - [facility] ([facility] [address], [place] [id number] Mariana Yoon NP [address] [facility],[address] [id number] Social History Tobacco Use Types Packs/Day Years Used Date Smoking Tobacco: Never Assessed Sex and Gender Information Value Date Recorded Sex Assigned at Not on file Gender Identity Not on file Sexual Orientation Not on file documented as of this encounter Plan of Treatment Not on file documented as of this encounter Procedures Procedure Name Priority Date/Time Associated Diagnosis Comments PAP TEST- RESULT ONLY Routine 04/28/2012 0:00 EST documented in this encounter Results * PAP TEST- RESULT ONLY (04/28/2012 0:00 EST) Pathology Report: CYTOPATHOLOGY REPORT Reports generated via electronic interface contain original data; however they are lacking the format of the original report. Caution should be taken when reading/interpreti ng unformatted reports. Name: ? DEEPAK MUNGUIAA ? Accession #: ? [id number] : ? 1965 (Age: 46) ??F ?Collect Date: ? 04/28/2012 Location: ? [facility] ? Receive Date: ? 04/29/2012 Provider: ?MARIANA YOON [employer] INSTITUTIONAL CLEANER Copy to: ? Specimen/Source: ?Pap Test, Cervix/Endocervix, ThinPrep Imaging System with manual evaluation Last Menstrual Period: ? 04/12/2012 Hormonal/Contracep tive Status: ? Tubal ligation ? SPECIMEN ADEQUACY ? Satisfactory for Evaluation - transformation zone component present GENERAL CATEGORIZATION ? Negative for Intraepithelial Lesion or Malignancy INTERPRETATION ? Reactive cellular changes associated with inflammation present (includes repair). ? Document reviewed and electronically signed by: ? ALMA ANGULO MD ? Report Date: ??05/05/2012 16:31 HPV with Pap Test ? Date Ordered: ? 05/05/2012 ? Status: ?? Signed Out ?Date Complete: ? 05/07/2012 ? By: ??System Interface ? Date Reported: ? 05/07/2012 ? Interpretation RESULT: Negative for HPV. No E6 or E7 mRNA is detected from HPV types 16,18,31,33,35, 39,45,51,52,56,58, 59,66, and 68 by medical imaging tech mediated amplification. Comments Document reviewed and electronically signed by: ? System Interface ? Report date: 05/07/2012 By the signature above, the attending physician certifies that he/she has personally conducted a gross and/or microscopic examination of the described specimens and rendered or confirmed the above diagnosis. End of Report [facility] 04/28/2012 04/29/2012 Mariana Yoon NP PATHOLOGY ORDERABLES Performing Organization Address City/State/[facility] Co de Phone Number [facility] [address] [place] [address] documented in this encounter Visit Diagnoses Not on filedocumented in this encounter
--- OUTSIDE RECORDS SUMMARY | 2023-11-13 15:26 | XMS_ITS | Encounter Summary ---
Author Organization [place] [address] Care Team Providers Care Press Breaker Name Role Phone Trent Varner MD Primary Care Provider [phone] Encounter Details Date Type Department Care Team (Late st Contact Info) Description 03/01/2021 Telephone Obstetrics [place] [address] Juani Daly MD [facility] DR OBSTETRICS & [place] [address] Social History Tobacco Use Types Packs/Day Years Used Date Smoking Tobacco: Former Cigarettes 0.3 21 0 07/1980 - 2001 Smokeless Tobacco: Never Alcohol Use Standard Drinks/Week Comments Not Currently 0 (1 standard drink = 0.6 oz pur e alcohol) Sex and Gender Information Value Date Recorded Sex Assigned at Not on file Gender Identity Not on file Sexual Orientation Not on file documented as of this encounter Miscellaneous Notes * Telephone Encounter - Juani Daly MD - 03/01/2021 6:04 PM EST Called this patient to check in and ask that she collect her HgA1C prior to her surgery on Thursday.Patient reports that she had her HgA1C drawn on 02/08 with her primary care physician and that it was 5.6%. She will bring her paperwork in on the day of her surgery. Juani Dlay MD PGY-4 documented in this encounter Plan of Treatment Not on file documented as of this encounter Visit Diagnoses Not on filedocumented in this encounter Care Teams Press Breaker Relationship Specialty Start Date End Date Trent Varner MD PCP - General Family Medicine 12/17/20 documented as of this encounter
--- OUTSIDE RECORDS SUMMARY | 2023-11-13 15:26 | XMS_ITS | Encounter Summary ---
Author Organization [facility] [place] [address] Care Team Providers Care Change Management Lead Name Role Phone Trent Varner MD Primary Care Provider [phone] Encounter Details Date Type Department Care Team (Late st Contact Info) Description 04/23/2021 Notes Only Radiation Oncology at [address] [phone] America Wise, [facility] OFFICE OF CARE MANAGEMENT Social History Tobacco Use Types Packs/Day Years Used Date Smoking Tobacco: Former Cigarettes 0.3 21 0 07/1980 - 2001 Smokeless Tobacco: Never Alcohol Use Standard Drinks/Week Comments Not Currently 0 (1 standard drink = 0.6 oz pur e alcohol) Overall Financial Resource Strain (CARDIA) Answe r Date Recorded How hard is it for you to pa y for the very basics like food, housing, medical care, and heating? Not hard at all 04/08/2021 Hunger Vital Sign Answer Date Recorded Within the past 12 months, y ou worried that your food would run out before you got the money to buy more. Never true 04/08/19 22 Ran Out of Food in the Last Year Not on file 04/08/2021 PRAPARE - Transportation Answer Date Re corded In the past 12 months, has l ack of transportation kept you from medical appointments or from getting medications? No 04/08/2021 Lack of Transportation (Non-Medical) Not on file 04/08/2021 Housing Stability Vital Sign Answer Bharath e Recorded In the last 12 months, was t here a time when you were not able to pay the mortgage or rent on time? No 04/08/2021 In the last 12 months, how many places have you lived? 1 04/08/2021 In the last 12 months, was t here a time when you did not have a steady place to sleep or slept in a chcf (including now)? No 04/08/2021 Sex and Gender Information Value Date Recorded Sex Assigned at Not on file Gender Identity Not on file Sexual Orientation Not on file documented as of this encounter Progress Notes * America Wise MSW - 04/23/2021 9:12 AM EST Reason for Referral: Brief assessment of social and emotional needs. Met with pt after her sim today to introduce myself and role of social work job titles to assess/address barriers to getting to and throughtreatments; address support needs and connect with community services and resources as needed. Family/Social Supports: Pt identified her of 21 years as her primary support. She has 2 sons. One lives in [place] and the other lives in [place]. Pt also identified her mother in law as a support. Living Situation/Daily Activities/Transportation:Pt lives with her and dog. She lives localto this facility. Pt manages her daily chores and activities. [place] [facility]. She does not expect any issues with transportation. 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 She and her are able to manage their financial obligations. She has Medicaid for insurance. Advance Directives: Pt indicated she has completed her directives and requested a copy for her record. Utilization of Community Resources: Food assistance; fuel assistance Adjustment to Illness/Mental Health Concerns: Pt indicated she is coping as best she can. She has support from her and others. Offered support. Identified Needs: Pt did not identify any specific needs at this time. Referrals: None at this time. Social Work Interventions: Brief assessment Supportive Counseling Plan: Informed pt of DUST COLLECTOR TREATER availability and contact information. Will follow to assess/address psychosocial needs. ALVIN Cui, BOOKBINDER APPRENTICE, OSW-C Regional Clinical Director [facility] documented in this encounter Plan of Treatment Not on file documented as of this encounter Visit Diagnoses Not on filedocumented in this encounter Care Teams Change Management Lead Relationship Specialty Start Date End Date Trent Varner MD PCP - General Family Medicine 12/17/20 documented as of this encounter
--- OUTSIDE RECORDS SUMMARY | 2023-11-13 15:26 | XMS_ITS | Encounter Summary ---
Author Organization Formerly [facility] [place] [address] Care Team Providers Care Radio Interference Expert Name Role Phone Trent Varner MD Primary Care Provider [phone] Encounter Details Date Type Department Care Team (Latest Contact Info) Description 12/19/2020 11:20 AM EDT - 12/19/2020 11:59 PM EDT [place] [id number] Discharge Disposition: Home Social History Tobacco Use Types Packs/Day Years Used Date Smoking Tobacco: Never Assessed Sex and Gender Information Value Date Recorded Sex Assigned at Not on file Gender Identity Not on file Sexual Orientation Not on file documented as of this encounter Medications at Time of Discharge Medication Sig Dispensed Refills Start Date End Date OneTouch Ultra2 Meter Misc USE TWICE DAILY 11/06/2020 documented as of this encounter Plan of Treatment Not on file documented as of this encounter Procedures Procedure Name Priority Date/Time Associated Diagnosis Comments SURGICAL PATHOLOGY REPORT Routine 12/19/2020 11:20 AM EDT documented in this encounter Results * Surgical Pathology Report (12/19/2020 11:20 AM EDT) Final Diagnosis [id number] ? Location: [facility] The signing pathologist has (i) examined the relevant preparation(s) for the specimen(s) and (ii) rendered or confirmed the diagnosis(es). . ?Surgical Pathology DIAGNOSIS CONSULTATION CASE Outside slides labeled [id number], collection date 11/20/2020. A - Endometrium (procedure not specified): ??- Fragments of endometrial polyp(s) with focal complex atypical ?hyperplasia. ??- Endocervical mucosa with microglandular hyperplasia. Electronically signed by: ?Vy ARAYA, Francia Diehl Verified: ??12/25/2020 9:25 ?? Pathologist Performed at: ??-[facility] [place] Dept. of Pathology, [place], [place] SPECIMEN(S) SUBMITTED CONSULTATION CASE A - 12 slides labeled [id number], collection date 11/20/2020. [id number] Report to: [facility] Surgical Pathology Department [facility], [facility], [address]nd Floor [address], [place] ??[address] CLINICAL INFORMATION Atypical endometrial cells on PAP SPECIMEN PROCESSING [facility] ([facility]) pathology slide(s) are reviewed. ??Refer to Diagnosis and Specimen Submitted for specific case information. For the full text of the [facility] report(s) please refer to Non- Documentation Pathology in the electronic health record ( ?? eDH). 12/25/2020 9:25 AM EDT [facility] Consult Case 12/19/2020 11:2 0 AM EDT 12/19/2020 11:20 AM EDT Tayo Blanco MD PATHOLOGY/CYTOLOGY O RDERABLES [facility] [place] [address] documented in this encounter Visit Diagnoses Not on filedocumented in this encounter Care Teams Radio Interference Expert Relationship Specialty Start Date End Date Trent Varner MD PCP - General Family Medicine 12/17/20 documented as of this encounter
--- OUTSIDE RECORDS SUMMARY | 2023-11-13 15:26 | XMS_ITS | Referral Summary ---
Author Organization [facility] Address [address] [place] [address] Care Team Providers Care Datapower Developer Name Role Phone Joseph Chantel Alves TENONER OPERATOR Primary Care Provider [phone] Social History Tobacco Use Types Packs/Day Years Used Date Smoking Tobacco: Never Assessed Sex and Gender Information Value Date Recorded Sex Assigned at Not on file Gender Identity Not on file Sexual Orientation Not on file Plan of Treatment Not on file Procedures Procedure Name Priority Date/Time Associated Diagnosis Comments HEPATITIS C AB W REFLEX TO HCV RNA BY PCR Routine 08/10/2020 17:00 EDT from Last 3 Months or Most Recently Relevant to Health Maintenance Results * HEPATITIS C AB W REFLEX TO HCV RNA BY PCR (08/10/2020 17:00 EDT) Hep C Antibody Negative Negative 08/13/2020 9:58 EDT [facility] Blood VENOUS BLOOD / Unknown 08/10/2020 17:00 EDT 08/12/2020 15:57 EDT Provider Outr Resulting Lab CHEMISTRY & BLOOD GAS ORDERABLES [facility] [address] [place] [address] from Last 3 Months or Most Recently Relevant to Health Maintenance Care Teams Datapower Developer Relationship Specialty Start Date End Date Chantel Ruiz NP [address] [place] [address] PCP - General 07/31/20
--- OUTSIDE RECORDS SUMMARY | 2023-11-13 15:26 | XMS_ITS | Encounter Summary ---
Author Organization [facility] Address [address] [place] [address] Care Team Providers Care High School Coordinator Name Role Phone Joseph Chantel Joselyn FIRER LOCOMOTIVE CRANE Primary Care Provider [phone] Encounter Details Date Type Department Care Team (Late st Contact Info) Description 11/21/2020 Lab Requisition [facility] Pathology & Laboratory Medicine - [facility] [address] [place] [address] Andria Marlow MD [address] [place] [phone] Encounter for other general examination Social History Tobacco Use Types Packs/Day Years Used Date Smoking Tobacco: Never Assessed Sex and Gender Information Value Date Recorded Sex Assigned at Not on file Gender Identity Not on file Sexual Orientation Not on file documented as of this encounter Plan of Treatment Not on file documented as of this encounter Procedures Procedure Name Priority Date/Time Associated Diagnosis Comments SURGICAL PATHOLOGY Today 11/20/2020 12 :10 EDT Encounter for other general examination documented in this encounter Results * SURGICAL PATHOLOGY (11/20/2020 12:10 EDT) Note to Patient The following pathology results have been interpreted by your pathologist and may be available to you before your health provider has had the opportunity to review them. Please allow time for your provider to receive these results and explore management options, if applicable. 11/27/2020 14:30 EDT [facility] Final Diagnosis A. ENDOMETRIUM, PROCEDURE NOT SPECIFIED: - Endometrial polyp with focal complex atypical hyperplasia. See comment. - Endocervical tissue with microglandular hyperplasia. 11/27/2020 14:30 [facility] Diagnosis Comment Deeper sections of (A1)-(A5) have been examined. Appliance Repairer slides of this case were reviewed at the intradepartmental consultation conference. Immunostaining for PAX-2 (EP235, Cell Xiang) shows reduced expression in the crowded atypical glandular foci (block A3). The atypical endometrial cells on the Pap test ([id number]) show cytologic features similar to the atypical endometrial glands seen in this specimen. If this tissue was procured via biopsy, endometrial curettage may be considered. NOTE: One or more of the reagents used in immunoperoxidase testing in this case may not have been cleared or approved by the U.S. Food and Drug Administration (FDA). The FDA has determined that such clearance or approval is not necessary. These tests are used for clinical purposes. They should not be regarded as investigational or for research. These reagents' performance characteristics have been determined by [facility] and/or by the referring laboratory. The positive and negative controls worked appropriately. If immunoperoxidase staining has been performed on alcohol fixed cytology specimens, which has not been fully validated, the assays should be interpreted with caution and correlated with clinical data. This laboratory is certified under the Clinical Laboratory Improvement Amendments of 1988 (CLIA-88) as qualified to perform high complexity clinical laboratory testing.? 11/27/2020 14:30 [facility] Attestation By the signature below, the attending physician certifies that they have 1) personally conducted a gross and/or microscopic examination of the described specimen(s), and/or personally interpreted the results of laboratory testing of the described specimen(s), and 2) personally rendered or confirmed the above diagnosis. 11/27/2020 14:30 [facility] at 1430 Clinical History Atypical endometrial cells on PAP 11/27/2020 14:30 [facility] Gross Description A. Received in formalin labelled with proper patient identification (initials M, C) and endometrium is an aggregate of herrera-brown opaque mucus and dark brown blood clot (4.1 x 2.1 x 0.6 cm). The specimen is submitted entirely in A1 to A5. HALIMA CASPER(ASCP) 11/21/2020 9:03 11/27/2020 14:30 EDT [facility] Performing Lab [facility] 11/27/2020 14:30 EDT [facility] Scanned Images 11/27/2020 14:30 EDT [facility] Tissue ENTIRE ENDOMETRIUM / Unknown 11/20/2020 12:10 EDT 11/21/2020 8:27 EDT Andria Marlow MD PATHOLOGY ORDERABLES [facility] [address] [place] [address] documented in this encounter Visit Diagnoses Diagnosis Encounter for other general examination documented in this encounter Care Teams High School Coordinator Relationship Specialty Start Date End Date Chantel Ruiz, FIRER LOCOMOTIVE CRANE [address] [place] [address] PCP - General 07/31/20 documented as of this encounter
--- OUTSIDE RECORDS SUMMARY | 2023-11-13 15:26 | XMS_ITS | Encounter Summary ---
Author Organization [facility] Address [address] [place] [address] Care Team Providers Care Truck Washer Name Role Phone Unavailable Primary Care Provider Unavailabl e Encounter Details Date Type Department Care Team (Late st Contact Info) Description 11/01/2003 Results Only [facility] - Maple conversion [address] [place] [address] Mariana Yoon, TIMI [address] [place] [address],[address] [phone] Social History Tobacco Use Types Packs/Day Years Used Date Smoking Tobacco: Never Assessed Sex and Gender Information Value Date Recorded Sex Assigned at Not on file Gender Identity Not on file Sexual Orientation Not on file documented as of this encounter Plan of Treatment Not on file documented as of this encounter Procedures Procedure Name Priority Date/Time Associated Diagnosis Comments CYTOPATHOLOGY Routine 11/01/2003 0:00 EDT documented in this encounter Results * CYTOPATHOLOGY (11/01/2003 0:00 EDT) Pathology Report: CYTOPATHOLOGY REPORT Reports generated via electronic interface contain original data; however they are lacking the format of the original report. Caution should be taken when reading/interpreti ng unformatted reports. Name: ? BECKY MUNGUIA ? Accession #: ? [id number] : ? 1965 (Age: 38) ??F ?Collect Date: ? 11/01/2003 Location: ? [facility] ? Receive Date: ? 11/03/2003 Provider: ?MARIANA YOON NP Copy to: ? Specimen/Source: ?ThinPrep Pap Test, Vagina/Cervix Last Menstrual Period: ? 10/23/03 ? SPECIMEN ADEQUACY ? Satisfactory for Evaluation - transformation zone component present GENERAL CATEGORIZATION ? Negative for Intraepithelial Lesion or Malignancy ? Document reviewed and electronically signed by: ? Sherley Gunderson, SCT(ASCP) ? Report Date: ??11/07/2003 16:23 End of Report [facility] 11/01/2003 11/03/2003 Mariana Yoon NP PATHOLOGY ORDERABLES [facility] [address] [place] [address] documented in this encounter Visit Diagnoses Not on filedocumented in this encounter
--- OUTSIDE RECORDS SUMMARY | 2023-11-13 15:26 | XMS_ITS | Encounter Summary ---
[place] [address] Care Team Providers Care Manager Income Tax Name Role Phone Trent Varner MD Primary Care Provider [phone] Reason for Visit * Reason Comments Establish Care endometrial intraepi thelial neoplasia * Consultation (Routine) - Closed Specialty Diagnoses / Procedures Referred By Contac t Referred To Contact Gynecology Oncology Diagnoses Endometrial intraepithelial neoplasia (EIN) Andria Marlow MD [address] [place] [place] [address] [facility] [employer] [address] [place] [address] Referral ID Status Reason Start Date Expiration Date V isits Requested Visits Authorized [id number] Closed Consult, Test & Treat Connection [facility] PCP Updated and/or Approved 12/12/2020 12/12/2021 6 6 Encounter Details Date Type Department Care Team (Late st Contact Info) Description 01/04/2021 10:00 AM EDT Office Visit [place] [address] Nimisha Prado MD [facility] [place] [address] Endometrial hyperplasia with atypia (Primary Dx) Social History Tobacco Use Types Packs/Day Years [...] on file documented as of this encounter Last Filed Vital Signs Vital Sign Reading Time Taken Comments Blood Pressure 148/98 01/04/2021 9:56 AM EDT Pulse 70 01/04/2021 9:56 AM EDT Temperature 37.1 ??C (98.7 ??F) 01/04/2021 9:56 AM ED T Respiratory Rate 18 01/04/2021 9:56 AM EDT Oxygen Saturation 98% 01/04/2021 9:56 AM EDT Inhaled Oxygen Concentration - - Weight 95.3 kg (210 lb) 01/04/2021 9:56 AM EDT Height 161.3 cm (5' 3.5) 01/04/2021 9:56 AM EDT Body Mass Index 36.62 01/04/2021 9:56 AM EDT documented in this encounter Progress Notes * Keiko Bhat MD - 01/04/2021 10:00 AM EDT Images from the original note were not included. Division of Gynecologic Oncology Liana Sanabria MD [facility] Nimisha Prado MD [facility] [place] [address] Tesha Hawk MD New Outpatient Visit: Reason for Visit: Lynn King is a 55 y.o. female is being seen in the clinic today at the request of Andria Marlow MD [address] [place] [address] [place] [address] for the evaluation of endometrial intraepithelial neoplasia. I have reviewed the available records,interviewed and examined the patient. History of Present Illness: Lynn is a 55 yo female with DM with peripheral neuropathy (diagnosed 10/2020, started on metformin, HbA1c 10%), HTN (on lisinopril), elevated BMI (40.9), hirsutism, remote hx of tobacco use (40yrs,quit in 2001), and new diagnosis of endometrial intraepithelial neoplasia. Lynn receives her care at [facility]. A routine pap smear on 08/10/20 showed atypical glandular/endometrial cells, HPV negative, which was followed by a endometrial biopsy on 11/20/20 which revealed endometrial polyp with focal complex atypical hyperplasia and endocervical tissue with microglandular hyperplasia. Lynn presents today to discuss treatment for EIN. She reports she reached menopause in March 2018; however, she has not had 1 year free of periods. Her periods became more irregular since that time, but per her report, she has generally had monthly periods that are sometimes heavy and sometimes just spotting. She follows with her PCP and was recently diagnosed in DM, having a blood sugar >200 in clinic and was started on metformin in October. Her HbA1c at that time was around 10%. Shestates her doctor has considered starting her on insulin. She has made a lot of dietary changes to decrease her sugar intake (stopped drinking renzo aid, iced tea) and is working on increasing her exercise (walks to work, does not have a car). She reports her sugars have ranged from 97 to a high of 233 when she checks at home. Past Medical History: Diagnosis Date ??? Abnormal Pap smear of cervix 08/10/2020 atypical glandular cells ??? Diabetes would like numbers better-working on ??? 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 High blood pressure usually controlled with medication ??? Hirsutism ??? Hypertension Obstetric History OB History Para Term AB Living 2 1 1 0 0 0 SAB IAB Ectopic Multiple Live Births 0 0 0 0 2 11/26/90 - G1, male, c/s 10/23/92 - G2, male, c/s Gynecologic History/Health Maintenance Menarche 15 LMP/Menopause - pt reports 03/02/2018 as date of menopause; appears that is when periods became more irregular, patient reports monthly/cyclic bleeding Contraception - s/p BTL OCP/Hormone use - took OCPs before having children (30 years ago Last Pap 08/10/20 - glandular cell abnormality, atypical endometrial cells, HPV negative Last mammogram - 2020 Last colonoscopy - 03/2021 scheduled History reviewed. No pertinent surgical history. Two sections Current Outpatient Medications on File Prior to Visit Medication Sig Dispense Refill ??? OneTouch Ultra Test Strip TEST TWICE DAILY ??? OneTouch Ultra2 Meter Misc USE TWICE DAILY ??? OneTouch Delica Plus Lancet 30 gauge Misc TEST TWICE DAILY ??? metFORMIN (GLUCOPHAGE) 1,000 mg Tablet Take 1 tablet by mouth 2 times daily. ??? lisinopriL (Zestril) 10 mg Tablet Take 10 mg by mouth daily. Take one 10 mg tablet by mouth daily No current facility-administered medications on file prior to visit. Allergies Allergen Reactions ??? Penicillins Hives PAT Penicillin Allergy Risk Assessment 01/04/2021: Low risk penicillin allergy. OK to receive full dose of cefazolin, cefuroxime, or any 3rd or 4th+ generation cephalosporin. 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 Physical Exam Constitutional: Appearance: Normal appearance. She is obese. HENT: Head: Normocephalic and atraumatic. Eyes: Extraocular Movements: Extraocular movements intact. Conjunctiva/sclera: Conjunctivae normal. Pupils: Pupils are equal, round, and reactive to light. Cardiovascular: Rate and Rhythm: Normal rate and regular rhythm. Pulmonary: Effort: Pulmonary effort is normal. Musculoskeletal: General: Normal range of motion. Neurological: General: No focal deficit present. Mental Status: She is alert and oriented to person, place, and time. Psychiatric: Mood and Affect: Mood normal. Behavior: Behavior normal. Vitals reviewed. Labs - n/a Imaging - n/a Impression/Plan: Lynn is a 55 y.o. with a biopsy revealing EIN. The pathology was [place] [facility] [place] [facility] and is inagreement with the outside pathology. Upon review of these findings with Lynn, I explained that this finding is a precancerous condition that can develop into uterine cancer. Based on these findings, a decision was made to proceed with surgery for definitive treatment, specifically a robotic-assisted hysterectomy and bilateral salpingo-oophorectomy and lymph node dissection. I reassured Lynn that in the majority of endometrial cancer cases, they are diagnosed early and that the intent of therapy is curative. I told her that in as many has half of cases, there is invasive cancer present at the time of surgery, which is why we do a lymph node dissection and typically remove 1-2 lymph nodes in the pelvis to check for spread. We also discussed the link between obesity and this most common obesity associated cancer, endometrial cancer. Obesity is thought to account for approximately 20% of all malignancies. I also mentioned that there approximately a dozen obesity associated malignancies. In a meta-analysis of 141 studies that included 282,137 cancer cases, in women, a 5 kg/m2 increase was associated with endometrial, gallbladder, esophageal, and renal cancers (RR 1.59, 1.59, 1.51, and 1.34, respectively). Conversionof peripheral androgens to estrogen in adipose tissue was briefly reviewed. The importance of weight control was also reviewed and will be readdressed in the postoperative setting as obesity also increases the likelihood of dying from cancer. We discussed that given her recent diagnosis of diabetes, with a HbA1c of 10%, we would like her to continue to work on her diet and exercise regimen in anticipation of surgery. We discussed that when you have high blood sugars, it is harder to heal from howell rgery, and one is more prone is complications such as hernia formation and infection. We will plan to recheck her HbA1c 1 week prior to surgery, with the hope that the medication and lifestyle changes will have brought her HbA1c down to less than 8%. Freda Foster will assist with helping this patient get her HbA1c checked prior to surgery. With the aid of a diagram, I reviewed the surgical approach, need for general anesthesia, and the expected postoperative recovery. The patient was informed that patient's undergoing this procedure typically are safe to go home the day of surgery. We discussed that the pain from minimally invasive surgery is often quite tolerable usually requiring the use of ibuprofen and Tylenol alternating. A heating pad can also be very soothing. I will also prescribe her 5 oxycodone tablets with the expectation that she should not fill this prescription unless she needs it. Additionally, I discussed the risks of the procedure including infection, bleeding, chronic leg swelling (lymphedema), DVT/PE, , damage to pelvic or abdominal structures such as the bowel, bladder, ureters, blood vessels, nerves, and the possibility of needing to convert to an open surgery. All of Lynn's questions were answered to her satisfaction and she verbalized understanding of the plan of care. Surgical consent wasobtained and surgery was scheduled. Surgical date: 02/05/21 Procedure: robotic assisted total laparoscopic hysterectomy, bilateral, sentinel lymphadenectomy Discharge: Same day Surgical site infection bundle to be followed Preop antibiotics: Ancef and Flagyl. VTE prophylaxis: SCDs, heparin 5000 units OCTOR Additional notes: HbA1c to be checked 1 week prior, please notify if >8% Thank you for referring this serge patient to [facility] [place] her [place]. I will keep you apprised of her progress. Patient seen and the plan formulated with Dr. Nimisha Prado, Gynecologic Oncologist. Keiko Bhat MD, PGY1 Obstetrics and Gynecology 01/05/2021 I have seen and examined the patient and reviewed and edited the resident's above history and I agree with the details as written. The assessment and plan were formulated in discussion with me and I agree with them as documented. Nimisha Prado MD documented in this encounter Plan of Treatment Not on file documented as of this encounter Results * Creatinine (01/04/2021 12:37 PM EDT) Creatinine 0.76 0.70 - 1.20 mg/dL [facility] Est Glomerular Filtration Rate 90 >=60 mL/min/1. 73 m?? [facility] Comment: This patient? s estimated glomerular filtration rate (eGFR) is between 90 mL/min/1.73 m2 (patients with less muscle mass) and 104 mL/min/1.73 m2 (patients with more muscle mass) as determined by the CKD-EPI equation. Assessment of eGFR is not appropriate when creatinine concentrations are rapidly changing. For clinical decisions where creatinine clearance will affect therapy, a 24-hour urine creatinine clearance may be advised. Assignment of CKD stage 1 - 5 for patients with an eGFR near the transition point between stages may be based on clinical assessment of muscle mass and symptoms in addition to eGFR. Blood 01/04/2021 12:3 7 PM EDT 01/04/2021 12:46 PM EDT Narrative Resulting Agency Comment Spec In Lab Nimisha Prado MD CHEMISTRY ORDERABLES [facility] [place] [address] documented in this encounter Visit Diagnoses Diagnosis Endometrial hyperplasia with atypia- Primary documented in this encounter Care Teams Manager Income Tax Relationship Specialty Start Date End Date Trent Varner MD PCP - General Family Medicine 12/17/20 documented as of this encounter
--- OUTSIDE RECORDS SUMMARY | 2023-11-13 15:26 | XMS_ITS | Encounter Summary ---
Author Organization [facility] Address [facility] [place] [address] Care Team Providers Care Software Test Technician Name Role Phone Trent Varner MD Primary Care Provider [phone] Reason for Visit * Consultation (Routine) - Closed Specialty Diagnoses / Procedures Referred By Efrain mims Referred To Contact Radiation Oncology Diagnoses Endometrial ca Procedures Simulation for Radiation Therapy Planning Jemima Woods MD [facility] [place] [address] [facility] Rad Onc Office [address] [place] [phone] Referral ID Status Reason Start Date Expiration Date V isits Requested Visits Authorized [id number] Closed Consult, Test & Treat 04/08/2021 04/08/2022 1 1 Encounter Details Date Type Department Care Team (Latest Contact Info) Description 04/23/2021 8:00 AM EST Ancillary Appointment Radiation Oncology at [address] [address] Jemima Woods MD [facility] [place] [address] Endometrial ca Social History Tobacco Use Types Packs/Day Years [...] place to sleep or slept in a residential (including now)? No 04/08/2021 Sex and Gender Information Value Date Recorded Sex Assigned at Not on file Gender Identity Not on file Sexual Orientation Not on file documented as of this encounter Patient Instructions * Patient Instructions* Dyana Padilla RN - 04/23/2021 8:14 AM EST General instructions for Radiation therapy Radiation Oncology Team Radiation Oncologist -The doctor who will direct all aspects of your radiation treatments Nurse Practitioner - They assist your doctor in treating your side effects and with follow up appointments. Registered Nurse - They assist you in learning about you radiation treatments, , and things you shell to help manage the side effects. Matlab Developer - They take the doctors radiation prescription and customize it into doses (or days of treatments) specific for you. Physicist - They make sure all the machines are operating correctly and double check calculations for your treatment. Radiation Technologists - They operate the machines which deliver your radiation. You see them daily and they schedule your treatments. Simulation CT/ Planning Session Your first step after deciding to start radiation treatments is done on a special CAT scanner in the radiation department. The images obtained are used to plan your treatments. This may be scheduled the same day you meet your doctor or in a separate visit. This usually takes between 30 minutes to one hour. You may need an IV for contrast. If so our nurse will let you know that day along with any other special instructions. During this visit we may hayder Your skin with a tiny ???tattoos?? , take pictures or make special molds or masks to help us place you in the exact treatment position every day. After this session it takes up to two weeks for your plan to be developed and checked by your doctor, the dosimetrists and the physicist. Skin Care - Your nurse will provide you with the necessary creams and supplies as you need them during your treatments. Please make sure you keep the treatment area clean and dry. Be sure to notice if your clothing rubs or digs into the treatment area and try to wear clothes which are less abrasive, like cotton or loose fitting. Do not use harsh soaps, ointments, deodorants or tapes in the treatment area unless directed by your nurse or doctor. Keep the treatment area out of the sun during treatments. General precautions DO NOT USE heating pads, hot water bottles, hot poultices, heat lamps, heat in any form, or ice packs to the area of your body being treated. It is common to start feeling fatigue after a few weeks of being treated. You can help minimize this by getting regular exercise or walking and getting plenty of rest. In general a well balanced diet is recommended. The car wash attendant automatic and nurse will inform you of any special diet requirements. Avoid shaving the treatment area with a razor. If you must shave use an electric razor. >>>>Please remember: Do not urinate before your radiation treatment. Try to have a comfortably full bladder if possible. This will help reduce side effects on the long run. If you have any questions or concerns about these directions,please inform your nurse. >>> >Diarrhea management for patients receiving pelvic radiation: For watery stools: Follow a low roughage, low fiber diet.Also avoid any foods/beverages with high acid content. For example:Tomatoes, citrus and vinegar. Drink plenty of water;8-10 glasses/day Take 1 imodium tablet after each loose watery stool. Do not take more than 8 tabs per day. Notify physician if diarrhea is not relieved after 8 tabs. You will have a weekly on-treatment visit every Thursday with Dr Woods after your treatment. Nursing is available daily if needed. Contact numbers Section of Radiation Oncology Our normal business hours are: Thursday - Thursday 8 AM to [address] [facility] phone# [phone] [facility] If you have questions about your radiation appointments please ask to speak to one of our secretarystaff. If you have questions for a nurse/doctor about radiation treatments, radiation side effects or you are not feeling well it is best to call early in the day. This allows a nurse to return your call by5 PM the same day. If you call after 4 PM, a nurse will return your call by 5 PM the following day unless it is emergent. If you experience any of the following you need to seek emergency care immediately by calling 911 1. Sudden and unexpected breathing difficulty without any exertion 2. Sudden onset of chest pain 3. Sudden onset of severe pain or uncontrolled pain 4. Sudden onset of severe weakness and/or unable to ambulate 5. Sudden new onset of a seizure 6. Fall resulting in injury A Radiation Oncology doctor is tennis professional after our normal hours and on weekends. To call for urgent medical issues from radiation treatments that can not wait until normal business hours, please call for either location and have the pole lift operator page the Radiation Oncologist tennis professional. documented in this encounter Progress Notes * Jemima Woods MD - 04/23/2021 8:00 AM EST Here for sim. Sim: Full bladder, 25 mm universal stump cylinder placed into vagina flush w/apex; CT through pelvis; 3D isodose brachytherapy planned. She tolerated sim well, w/o problem. Tx Plan: Intravaginal brachytherapy w/cylinder; 3D isodose plan. Start xrt 04/26/21. documented in this encounter Plan of Treatment Scheduled Orders Name Type Priority Associated Diagnoses Orde r Schedule Simulation for Radiation Therapy Planning Procedures Routine Endometrial ca Ordered: 04/08/2021 documented as of this encounter Visit Diagnoses Diagnosis Endometrial ca Malignant neoplasm of corpus uteri, except isthmus documented in this encounter Care Teams Software Test Technician Relationship Specialty Start Date End Date Trent Varner MD PCP - General Family Medicine 12/17/20 documented as of this encounter
--- OUTSIDE RECORDS SUMMARY | 2023-11-13 15:26 | XMS_ITS | Encounter Summary ---
Author Organization [facility] Address [address] [place] [address] Care Team Providers Care Gambling Cashier Name Role Phone Unavailable Primary Care Provider Unavailabl e Encounter Details Date Type Department Care Team (Late st Contact Info) Description 11/14/2004 Results Only [facility] [address] [place] [address] Mariana Yoon, TIMI [address] [place] [address],[address] [address] Social History Tobacco Use Types [...] Priority Date/Time Associated Diagnosis Comments CYTOPATHOLOGY Routine 11/14/2004 0:00 EDT documented in this encounter Results * CYTOPATHOLOGY (11/14/2004 0:00 EDT) Pathology Report: CYTOPATHOLOGY REPORT Reports generated via electronic interface contain original data; however they are lacking the format of the original report. Caution should be taken when reading/interpreti ng unformatted reports. Name: ? BECKY MUNGUIA ? Accession #: ? [id number] : ? 1965 (Age: 39) ??F ?Collect Date: ? 11/14/2004 Location: ? [facility] ? Receive Date: ? 11/18/2004 Provider: ?MARIANA YOON NP Copy to: ? Specimen/Source: ?ThinPrep Pap Test, Cervix/Endocervix, processed on SpokenLayer ThinPrep Imaging System, with manual evaluation Last Menstrual Period: ? 11/04/04 Other: ? HPVA - HPV testing requested if ASC-US on the current ThinPrep Pap test. ? SPECIMEN ADEQUACY ? Satisfactory for Evaluation - transformation zone component present GENERAL CATEGORIZATION ? Negative for Intraepithelial Lesion or Malignancy INTERPRETATION ? Reactive cellular changes associated with inflammation present (includes repair). ? Document reviewed and electronically signed by: ? GABE AIKEN MD ? Report Date: ??11/26/2004 15:00 End of Report LAQUITA NAVA 11/14/2004 11/18/2004 Mariana Yoon NP PATHOLOGY ORDERABLES Performing Organization Address City/State/[facility] Co de Phone Number LAQUITA NAVA [address] [place] [address] documented in this encounter Visit Diagnoses Not on filedocumented in this encounter
--- OUTSIDE RECORDS SUMMARY | 2023-11-13 15:26 | XMS_ITS | Encounter Summary ---
Author Organization [facility] [place] [address] Care Team Providers Care Transformation Manager Name Role Phone Trent Varner MD Primary Care Provider Encounter Details Date Type Department Care Team (Late st Contact Info) Description 01/29/2021 Notes Only [place] [address] Freda Foster, TIME STUDY STATISTICIAN [facility] OBSTETR[facility] [place] [address] Social History Tobacco Use Types Packs/Day Years [...] on filedocumented in this encounter Care Teams Transformation Manager Relationship Specialty Start Date End Date Trent Varner MD PCP - General Family Medicine 12/17/20 documented as of this encounter
--- OUTSIDE RECORDS SUMMARY | 2023-11-13 15:26 | XMS_ITS | Encounter Summary ---
Author Organization [facility] [place] [address] Care Team Providers Care Prop Setter Name Role Phone Trent Varner MD Primary Care Provider [phone] Encounter Details Date Type Department Care Team (Late st Contact Info) Description 04/01/2021 Telephone [place] [phone] Ibis Loya RN Social History Tobacco Use Types Packs/Day Years [...] encounter Miscellaneous Notes * Telephone Encounter - Ibis Loya RN - 04/01/2021 3:54 PM EST Patient called back to our clinic. Informed patient that per she will need to follow up with her local personnel research scientist for the first 3-month follow up. Patient verbalized understanding and states that she [facility] in [facility]. Denies any questions or concerns at thistime. * Telephone Encounter - Ibis Loya RN - 04/01/2021 8:24 AM EST Attempted to call patient, no answer. Left message on voicemail with phone number for patient to call the clinic back. Called to inform patient that per , patient needs a follow-up with herlocal personnel research scientist in 3 months. * Telephone Encounter - Ibis Loya RN - 04/01/2021 8:24 AM EST ----- Message from Nimisha Prado MD sent at 03/28/2021 2:39 PM EST ----- Please refer to radiation oncology in [place] for vaginal cuff brachytherapy. When she is done with this treatment she will then need to see her local personnel research scientist for her first 3-month follow-up. Thank you documented in this encounter Plan of Treatment Not on file documented as of this encounter Visit Diagnoses Not on filedocumented in this encounter Care Teams Prop Setter Relationship Specialty Start Date End Date Trent Varner MD PCP - General Family Medicine 12/17/20 documented as of this encounter
--- OUTSIDE RECORDS SUMMARY | 2023-11-13 15:26 | XMS_ITS | Encounter Summary ---
Author Organization [facility] [place] [address] Care Team Providers Care Relief Driller Name Role Phone Trent Varner MD Primary Care Provider [phone] Encounter Details Date Type Department Care Team (Late st Contact Info) Description 04/11/2021 Telephone [place] [phone] Blessing Walton Social History Tobacco Use Types Packs/Day Years [...] place to sleep or slept in a [facility] (including now)? No 04/08/2021 Sex and Gender Information Value Date Recorded Sex Assigned at Not on file Gender Identity Not on file Sexual Orientation Not on file documented as of this encounter Plan of Treatment Not on file documented as of this encounter Visit Diagnoses Not on filedocumented in this encounter Care Teams Relief Driller Relationship Specialty Start Date End Date Trent Varner MD PCP - General Family Medicine 12/17/20 documented as of this encounter
--- OUTSIDE RECORDS SUMMARY | 2023-11-13 15:26 | XMS_ITS | Encounter Summary ---
[place] [address] Care Team Providers Care Director Regulatory Affairs Name Role Phone Trent Varner MD Primary Care Provider [phone] Reason for Referral * Consultation (Routine) - Closed Specialty Diagnoses / Procedures Referred By Contjeff t Referred To Contact Radiation Oncology Diagnoses Endometrial intraepithelial neoplasia (EIN) Nimisha Prado MD [facility] [place] [address] [address] Rad Onc Treatment [address] [place] [phone] Referral ID Status Reason Start Date Expiration Date V isits Requested Visits Authorized [id number] Closed Consult, Test & Treat 03/28/2021 03/28/2022 1 1 Encounter Details Date Type Department Care Team (Late st Contact Info) Description 03/28/2021 Orders Only Gyne[place] [address] Ibis Loya RN Endometrial intraepithelial neoplasia (EIN) Social History Tobacco Use Types Packs/Day Years [...] as of this encounter Plan of Treatment Scheduled Referrals Name Type Priority Associated Diagnoses Orde r Schedule Referral to Radiation Oncology Outpatient Referral Routine Endometrial intraepithelial neoplasia (EIN) Ordered: 03/28/2021 documented as of this encounter Visit Diagnoses Diagnosis Endometrial intraepithelial neoplasia (EIN) documented in this encounter Care Teams Director Regulatory Affairs Relationship Specialty Start Date End Date Trent Varner MD PCP - General Family Medicine 12/17/20 documented as of this encounter
--- OUTSIDE RECORDS SUMMARY | 2023-11-13 15:26 | XMS_ITS | Encounter Summary ---
Author Organization [facility] Address [address] [place] [address] Care Team Providers Care Paper Sorter And Counter Name Role Phone Jonomavis Chantel Mavis NYLON HOT WIRE CUTTER Primary Care Provider [phone] Encounter Details Date Type Department Care Team (Latest Contact Info) Description 08/14/2020 Lab Requisition [facility] Pathology & Laboratory Medicine - [facility] [address] [place] [address] Trent Varner MD [address] [place], [place] [address] Encounter for general adult medical examination without abnormal findings; Encounter for screening for malignant neoplasm of cervix; Encounter for screening for human papillomavirus (HPV) Social History Tobacco Use Types Packs/Day Years Used Date Smoking Tobacco: Never Assessed Sex and Gender Information Value Date Recorded Sex Assigned at Not on file Gender Identity Not on file Sexual Orientation Not on file documented as of this encounter Plan of Treatment Not on file documented as of this encounter Procedures Procedure Name Priority Date/Time Associated Diagnosis Comments PAP TEST Today 08/10/2020 17:30 EDT Encounter for general adult medical examination without abnormal findings Encounter for screening for malignant neoplasm of cervix Encounter for screening for human papillomavirus (HPV) HPV DNA DETECTION WITH GENOTYPING, PCR Today 08/10/2020 17:30 EDT Encounter for general adult medical examination without abnormal findings Encounter for screening for malignant neoplasm of cervix Encounter for screening for human papillomavirus (HPV) documented in this encounter Results * HUMAN PAPILLOMAVIRUS (HPV) DETECTION-HIGH RISK TYPES (08/10/2020 17:30 EDT) HPV other High Risk types, PCR Negative Negative 08/24/2020 14:40 T [facility] Comment:No E6 or E7 mRNA is detected from HPV types 16,18,31,33,35,39,45,51,52,56,58,59,66, and 68 by soil science teacher mediated amplification. Papanicolaou smear specimen (specimen) CERVIX UTERI STRUCTURE / Unknown 08/10/2020 17:30 EDT 08/23/2020 14:14 EDT Trent Varner MD MICROBIOLOGY - GENER AL ORDERABLES Performing Organization Address City/State/[facility] Co de Phone Number [facility] [address] [place] [address] * PAP TEST (08/10/2020 17:30 EDT) Specimens A. Cervix and/or Endocervix , ThinPrep Imaging System with Manual Evaluation 08/24/2020 14:40 [facility] Specimen Adequacy Satisfactory for Evaluation - transformation zone component present Scant squamous epithelial component 08/24/2020 14:40 [facility] General Categorization Epithelial Cell Abnormality 08/24/2020 14:40 [facility] Descriptive Diagnosis Glandular Cell Abnormality - Atypical endometrial cells. 08/24/2020 14:40 [facility] Educational Comments [facility] recommends following ASCCP's 2012 Updated Consensus Guidelines for the Management of Abnormal Cervical Cancer Screening Tests and Cancer Precursors (JLGTD, 2013; 17(5):S1-S27). Consensus guidelines are available online at www.asccp.org. 08/24/2020 14:40 [facility] Attestation By the signature below, the attending physician certifies that they have personally conducted a gross and/or microscopic examination of the described specimens and rendered or confirmed the above diagnosis. 08/24/2020 14:40 [facility] at 1440 Clinical History See below 08/25/19 14:40 [facility] HPV The result for the Human Papillomavirus (HPV) Detection-High Risk Types is Negative. No E6 or E7 mRNA is detected from HPV types 16,18,31,33,35,3 9,45,51,52,56,58 ,59,66, and 68 by soil science teacher mediated amplification.Te sting was performed on specimen [id number] and was resulted on 08/24/2020 1435 EDT by GABE, LAB INSTRUMENT RESULTS IN 08/24/2020 14:40 EDT [facility] Performing Lab [facility] 08/24/2020 14:40 EDT [facility] Scanned Images 08/24/2020 14:40 EDT [facility] Papanicolaou smear specimen (specimen) CERVIX UTERI STRUCTURE / Unknown 08/10/2020 17:30 EDT 08/14/2020 15:06 EDT Trent Varner MD PATHOLOGY ORDERABLES Performing Organization Address City/State/[facility] Co de Phone Number [facility] [address] [place] [address] documented in this encounter Visit Diagnoses Diagnosis Encounter for general adult medical examination without abnormal findings Unspecified general medical examination Encounter for screening for malignant neoplasm of cervix Screening for malignant neoplasm of the cervix Encounter for screening for human papillomavirus (HPV) Special screening examination for human papillomavirus (HPV) documented in this encounter Care Teams Paper Sorter And Counter Relationship Specialty Start Date End Date Chantel Ruiz NP [address] [place] [address] PCP - General 07/31/20 documented as of this encounter
--- OUTSIDE RECORDS SUMMARY | 2023-11-13 15:26 | XMS_ITS | Encounter Summary ---
Author Organization [facility] Address [facility] [place] [address] Care Team Providers Care Design Printing Machine Setter Name Role Phone Trent Varner MD Primary Care Provider [phone] Encounter Details Date Type Department Care Team (Late st Contact Info) Description 05/17/2021 Notes Only [place] [address] Jemima Woods MD [facility] [place] [address] Social History Tobacco Use Types Packs/Day Years [...] place to sleep or slept in a intermediate (including now)? No 04/08/2021 Sex and Gender Information Value Date Recorded Sex Assigned at Not on file Gender Identity Not on file Sexual Orientation Not on file documented as of this encounter Progress Notes * Jemima Woods MD - 05/17/2021 11:59 PM EDT Lynn King has completed xrt for endometrial ca, endometrioid type w/squamous diff, FIGO gr 1, s/p laparoscopic robotic assisted total hys-BSO, B SNB, pT1b pN0, FIGO stage IB, tumor > 3 cm. The course of xrt is summarized as follows: Treatment was given from 05/03/21 to 05/17/21. 21 Gy in 3 fxs was given to vaginal apex with Ir-192 HDR using a vaginal cylinder, dose @ 0.5 cm depth. The course of xrt was tolerated well. Exam near completion of xrt showed no vulvovaginal abnlty. Rtc 08/12/21. documented in this encounter Plan of Treatment Not on file documented as of this encounter Visit Diagnoses Not on filedocumented in this encounter Care Teams Design Printing Machine Setter Relationship Specialty Start Date End Date Trent Varner MD PCP - General Family Medicine 12/17/20 documented as of this encounter
--- OUTSIDE RECORDS SUMMARY | 2023-11-13 15:26 | XMS_ITS | Encounter Summary ---
[place] [address] Care Team Providers Care Information Security Director Name Role Phone Trent Varner MD Primary Care Provider [phone] Encounter Details Date Type Department Care Team (Latest Contact Info) Description 01/04/2021 12:15 PM EDT Laboratory Appointment Lab [address] [place] [phone] Endometrial hyperplasia with atypia Social History Tobacco Use Types Packs/Day Years [...] Procedure Name Priority Date/Time Associated Diagnosis Comments HC VENIPUNCTURE Routine 01/04/2021 12:37 PM EDT Endometrial hyperplasia with atypia documented in this encounter Results * Creatinine (01/04/2021 12:37 PM EDT) Creatinine 0.76 0.70 - 1.20 mg/dL [facility] Est Glomerular Filtration Rate 90 >=60 mL/min/1. 73 m?? [facility] Comment: This patient? s estimated glomerular [...] In Lab Nimisha Prado MD CHEMISTRY ORDERABLES [facility] [place] [place] [address] documented in this encounter Visit Diagnoses Diagnosis Endometrial hyperplasia with atypia documented in this encounter Care Teams Information Security Director Relationship Specialty Start Date End Date Trent Varner MD PCP - General Family Medicine 12/17/20 documented as of this encounter
--- OUTSIDE RECORDS SUMMARY | 2023-11-13 15:26 | XMS_ITS | Encounter Summary ---
Author Organization [facility] Address [facility] [place] [address] Care Team Providers Care Grocery Checker Name Role Phone Trent Varner MD Primary Care Provider [phone] Reason for Visit * Auth/Cert Specialty Diagnoses / Procedures Referred By Efrain t Referred To Contact Diagnoses Endometrial intraepithelial neoplasia (EIN) EIN Procedures PRO LAPAROSCOPY W TOT HYSTERECTUTERUS <=250 GRAM W TUBE/OVARY PRO LAP, PELVIC LYMPHADENECTOMY/BX PRO INTRAOP SENTINEL LYMPH ID W/DYE INJECTION LAPAROSCOPY,TOTAL HYST, UTERUS<250GM, REM TUBE &/OR OVARY, ROBOTIC ASSIST (WRVU 15) LAPAROSCOPY,W\BILATERAL TOTAL PELVIC LYMPHADENECTOMY, PERIAORTIC LYMPH NODE SAMPLING, ROBOTIC (WRVU 15.6) INTRAOPERATIVE ID (MAPPING) SENTINEL LYMPH NODE,INCLUDES INJECTION (WRVU 2.5) MODIFIER ROBOT,DAVINCI XI Referral ID Status Reason Start Date Expiration Date Visits Re quested Visits Authorized [id number] 1 1 Encounter Details Date Type Department Care Team (Latest Contact Info) Description 03/05/2021 8:27 AM EST - 03/05/2021 6:38 PM [facility] Hospital [place] [id number] Maribell Cowan MD [facility] [address] G[place]EC[place] [address] Endometrial intraepithelial neoplasia (EIN) Discharge Disposition: Home Social History Tobacco Use [...] Sign Reading Time Taken Comments Blood Pressure 157/91 03/05/2021 4:15 PM EST Pulse 59 03/05/2021 4:15 PM EST Temperature 36.4 ??C (97.5 ??F) 03/05/2021 10:[address] Respiratory Rate 9 03/05/2021 4:15 PM EST Oxygen Saturation 100% 03/05/2021 4:15 PM EST Inhaled Oxygen Concentration - - Weight 95.3 kg (210 lb 1.6 oz) 03/05/2021 10:44 AM EST Height 161.3 cm (5' 3.5) 03/05/2021 10:44 AM ES T Body Mass Index 36.63 03/05/2021 10:44 AM EST documented in this encounter Discharge Instructions * Patient Instructions* Juani Daly MD - 03/05/2021 9:23 AM EST Images from the original note were not included. PATIENT DISCHARGE INSTRUCTIONS Gynecologic Oncology phone number: [phone]. After hours and on weekends please call hospital cable ferry operator at [phone] and ask for Gynecologic Oncologist monomer recovery supervisor. Call your doctor if you develop: --A fever over 101 degrees --Severe pain --Increasing pain, redness, or discharge at any of your incisions --Heavy vaginal bleeding-soaking through a pad an hour --It is normal to have continuous or intermittent light spotting from the vagina for up to 6 weeks following hysterectomy -Follow-up with Dr. Cowan on 03/28/2021, 9 AM, telehealth visit . Future Appointments Date Time Provider Department Center 03/28/2021 9:00 AM Maribell Cowan MD [facility]ACHINE STRIPER 3K [facility] Activity level: Let your body guide you- try to avoid grunting/groaning/straining for about 2 weeks. If you feel you did too much please listen to your body and back off. No sexual intercourse, no tampons, nothing in the vagina for 8 weeks. Diet: You may resume your regular diet. Be sure you drink plenty of fluids. Bowel Regimen: Please use lópez-colace (senna-S or docusate-senna) 1-2 tablets twice daily for the entire time that you are taking narcotic pain medication to keep your bowel movements soft and regular. You may consider using this post- operatively even if you are not using narcotic pain medication. You can increase this to up to 8 tablets a day (and may take 6-12 hours for effect). If you are constipated or have not had a bowel movement in 2 days, you may add in polyethylene glycol (Miralax) 17g(one capful) 1-2 times daily (may take 1-2 days for effect). If this is ineffective you may add Milk of Magnesia 30mL (2 Tablespoons) daily (may take 30minutes - 6 hours to work). The next step is to use Magnesium Citrate 1 bottle (295mL)- this usually produces a bowel movement in 30 minutes-3 hours. Please call if you have not had a bowel movement in 3-4 days. Driving: Do not drive until you are off of all narcotic medications and you are not feeling pain; usually between a couple of days to 2 weeks. Shower/Bath: Showering is fine. Short baths are okay but you should avoid having any abdominal incision submerged for more than 10-15 minutes for the next 2 weeks. Wound Care: Your incisions are closed with dissolvable stitches and surgical glue. The glue will dissolve on its own over time - do not pick at or rub the glue. The stitches do not need to be removed- they will dissolve on their own. Pain Control: For your post-operative pain please use ibuprofen, acetaminophen, heating pad, and narcotic pain medication (oxycodone) for your pain management. Your goal is to be able to take severalshort walks every day (increase the duration each day) and to be able to sleep at night. If you areunable to do these things using the ibuprofen and acetaminophen and heating pad then you will need to use the narcotic pain medication (oxycodone) for breakthrough pain. You should be able to use less oxycodone every couple days and require no breakthrough narcotic pain medication in about 1-4 days. Do not use ibuprofen (Advil/Motrin) or naproxen (Aleve/Naprosyn) as you are using . 1. Please use ibuprofen (Advil/Motrin) 600mg every 6 hours around the clock (with food) for the next 5-7 days. After that, use as needed. 2. Please use acetaminophen (Tylenol) 650mg every 6 hours as needed (or 1000mg every 8 hours as needed). Do not exceed 3000mg of acetaminophen from any source in 24 hours. 3. Please use oxycodoneevery 4-6 hours as needed for pain that ???breaks through?? the ibuprofen and acetaminophen. Please take your medication exactly as prescribed. Read all instructions that come with your medication. ?? Using narcotic pain medication (such as oxycodone, hydrocodone, hydromorphone [Dilaudid], morphine, fentanyl, or tramadol [Ultram]) may cause addiction. While addiction is more common in people with a personal or family history of addiction, it can occur in anyone. ?? Taking more than the prescribed amount of medication or using with alcohol or other drugs can cause you to stop breathing resulting in coma, brain damage, or . ?? Opioids (oxycodone, hydrocodone, hydromorphone [Dilaudid], morphine, fentanyl, tramadol [Ultram]) can slow reaction time, cause drowsiness, or cloud judgement. It is unsafe for you to drive or operate heavy machinery while taking this medication. ?? Opioids (oxycodone, hydrocodone, hydromorphone [Dilaudid], morphine, fentanyl, tramadol [Ultram]) are at risk of being diverted by anyone with access to your home. Opioids should be stored in a safe and secure place, such as a locked cabinet or safe. Unused opioids (oxycodone, hydrocodone, hydromorphone [Dilaudid], morphine, fentanyl, tramadol [Ultram]) should be disposed of according to the label or patient information. If there are no specific instructions, medications may be returned to a take-back location or mixed with a small amount of water and an undesirable waste substance such as coffee grounds or cat litter. documented in this encounter Medications at Time of Discharge Medication Sig Dispensed Refills Start Date End Date acetaminophen (Tylenol) 325 mg Tablet Take 2 tablets by mouth every 6 hours as needed for Pain. 30 tablet 03/05/2021 ibuprofen (Advil) 600 mg Tablet Take 1 tablet by mouth every 6 hours as needed for Pain. 30 tablet 12 03/05/2021 OneTouch Ultra Test Strip TEST TWICE DAILY 12/20/2020 OneTouch Ultra2 Meter Misc USE TWICE DAILY 11/06/2020 OneTouch Delica Plus Lancet 30 gauge Misc TEST TWICE DAILY 12/20/2020 metFORMIN (GLUCOPHAGE) 1,000 mg Tablet Take 1 tablet by mouth 2 times daily. 12/29/2020 lisinopriL (Zestril) 10 mg Tablet Take 10 mg by mouth daily. Take one 10 mg tablet by mouth daily 12/29/2020 oxyCODONE (Roxicodone) 5 mg Tablet Take 1 tablet by mouth every 6 hours as needed for Pain. 10 tablet 03/05/2021 04/23/2021 polyethylene glycoL (Miralax) 17 gram/dose Powder Take 17 g by mouth daily. 255 g 03/05/2021 04/23/2021 documented as of this encounter Progress Notes * Anila Mclean RN - 03/05/2021 6:34 PM EST Bladder backfill performed per MD order, pt tolerated procedure well. Pt attempted to void but unable to do so. Per MD order, mendiola catheter re-inserted. AVS reviewed with pt with good understanding.IV removed without difficulty. Pt meets discharge criteria at this time. Pt discharged home with . Tyree JAIN documented in this encounter H&P Notes * Maribell Cowan MD - 03/05/2021 10:17 AM EST MACHINE STRIPER H&P Patient Active Problem List Diagnosis Code ??? Endometrial intraepithelial neoplasia (EIN) N85.02 ??? Diabetes mellitus E11.9 ??? Hypertension I10 ??? Hirsutism L68.0 ID/CC: Lynn is a 55 yo female with DM with peripheral neuropathy (diagnosed 10/2020, started on metformin, HbA1c 10%), HTN (on lisinopril), elevated BMI (40.9), hirsutism, remote hx of tobacco use (40yrs, quit in 2001), and new diagnosis of endometrial intraepithelial neoplasia. A routine pap smear on 08/10/20 showed atypical glandular/endometrial cells, HPV negative, which wasfollowed by a endometrial biopsy on 11/20/20 which revealed endometrial polyp with focal complex atypical hyperplasia and endocervical tissue with microglandular hyperplasia. She reports that her glucoses are under better control, with a recent HbA1c of ~5.6% (she has her papers with her). Past Medical History: Diagnosis Date ??? Abnormal Pap smear of cervix 08/10/2020 atypical glandular cells ??? Diabetes would like numbers better-working on ??? 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 High blood pressure usually controlled with medication ??? Hirsutism ??? Hypertension No past surgical history on file. 2 CS No current facility-administered medications on file prior to encounter. Current Outpatient Medications on File Prior to Encounter Medication Sig Dispense Refill ??? OneTouch Ultra [...] one 10 mg tablet by mouth daily ??? Ibuprofen 200 mg Capsule Take 1-2 capsules by mouth 4 times daily as needed. Allergies Allergen Reactions ??? Penicillins Hives PAT Penicillin Allergy Risk Assessment 01/04/2021: Low risk penicillin allergy. OK to receive full dose of cefazolin, cefuroxime, or any 3rd or 4th+ generation cephalosporin. Vitals No data found. Vitals are pending. GEN: NAD Card: RRR, nl S1 S2 REsp: CTAB Abd: soft nondistended, large panniculus overlying her Ext: no edema A/P: Lynn King is a 55 y.o. P2 who presents today for her surgery. She reports improved glucose control and reports no changes to her history. --Surgical consent was signed previously in clinic. --ORT - Low risk (negative to all questions) , Opioid consent signed, Rx to [facility] --CHX washes complete --planning for surgery and same day discharge Juani Daly MD PGY-4?? I have seen and examined the patient and reviewed and edited the resident's above history and I agree with the details as written. The assessment and plan were formulated in discussion with me and I agree with them as documented. Maribell Cowan MD documented in this encounter Miscellaneous Notes * Op Note - Maribell Cowan MD - 03/05/2021 11:54 AM EST [facility] Operative [place] Patient Name: Lynn King : [id number] MR#: [id number] Case Date: 03/05/2021 Surgeon: Surgeon(s) and Role: * Maribell Cowan MD - Primary * Juani Daly MD - Resident Registered Nurse Regional Sales Director: Kriss Harper RN Preoperative diagnosis: Endometrial intraepithelial neoplasia Postoperative diagnosis: same Procedure(s) (LRB): LAPAROSCOPY,TOTAL HYST, UTERUS<250GM, REM TUBE &/OR OVARY, ROBOTIC ASSIST (WRVU 15) (N/A) LAPAROSCOPY,W\BILATERAL TOTAL PELVIC LYMPHADENECTOMY, PERIAORTIC LYMPH NODE SAMPLING, ROBOTIC (WRVU15.6) (N/A) INTRAOPERATIVE ID (MAPPING) SENTINEL LYMPH NODE,INCLUDES INJECTION (WRVU 2.5) (N/A) MODIFIER ROBOT,LEONA XI (N/A) Anesthesia: General Estimated Blood Loss: 50 mL Specimens removed during surgery: Order Name Source Comment Collection Info Order Time SPECIMEN TO PATHOLOGY EIN left pelvic sentinel lymph nodes biopsy 03/05/2021 12:42 PM Time specimen removed from patient: 12:42 PM Number of tissue samples (in container) 1 SPECIMEN TO PATHOLOGY EIN uterus cervix tubes ovaries resection 03/05/2021 12:59 PM Time specimen removed from patient: 12:58 PM Number of tissue samples (in container) 1 SPECIMEN TO PATHOLOGY EIN right pelvic sentinel lymph node biopsy 03/05/2021 12:59 PM Time specimen removed from patient: 12:59 PM Number of tissue samples (in container) 1 Drains: * No LDAs found * Surgical Closure: Primary Closure - skin incision is completely closed without any wires, bess, drains or other devices Disposition: awakened from anesthesia, extubated and taken to the recovery room in a stable condition, having suffered no apparent untoward event. Condition: doing well without problems (Please see the Surgical Encounter Summary for any Implant and Specimen details pertinent to this patient.) HPI/Surgical Indications: Lynn King is a 55 y.o. female with a preoperative biopsy in [facility] of postmenopausal bleeding which revealed endometrial intraepithelial neoplasia. She is here after informed consent for definitive surgical treatment. Procedure Description: The patient was identified and consent was reaffirmed. She was taken to the operating room and placed in low lithotomy position with yellowfin stirrups after induction of anesthesia. Her arms were tucked at her sides and padded with gelpads in a neurophysiologically neutral position. An exam was conducted and there was a small anteverted uterus. An antiseptic preparation of the abdomen, perineum, and vagina was performed and the patient was sterilely draped. A surgical pause was performed, correctly identifying the intended procedures, for this patient. A Mendiola catheter was inserted into the bladder. Exam under anesthesia was conducted with unremarkable findings as above. Isocyanine green was injectedinto the cervix, 1 cc at 3:00 and 9:00 submucosally followed by 1 cc at the same locations 1 cm deep into the substance of the cervix. A Wishdatesare uterine manipulator was placed without perforation. An 8-mm transverse incision was made at the umbilicus, through which a Veress needle was inserted and the abdomen was insufflated to tympany with carbon dioxide gas. An 8mm trocar was then inserted and the camera was placed, verifying a successful atraumatic entry. 3 additional 8-mm trocars and an 8-mm right upper quadrant freezer assistant port were placed in the usual locations without difficulty, under direct visualization for a total of 5 ports. The patient was placed in steep Trendelenburg position. Using sharp and electrosurgical dissection, the round ligaments were desiccated and divided bilaterally. The retroperitoneum was opened and the ureters identified. The pelvic jose e basins were opened and the ureter, obturator nerve, superior vesicle artery, psoas muscle and iliac vessels delineated bilaterally. Using the Firefly technology, the sentinel lymph nodes were assessed. The nodes mapped bilaterally to the obturator space and these were removed with cautery and sent as such. Next, the hysterectomy ensued.The ovarian vessels were identified and taking care not to injure theunderlying ureter, a window was created in the pelvic sidewall peritoneum. The vessels were cauterized with bipolar cautery and divided. The mesosalpinx was then opened to the level of the uterine vessels. A bladder flap was developed to a point over the upper vagina with sharp and electrosurgical dissection advancing the bladder off of the lower uterine segment, cervix and upper vagina. The uterine vessels were skeletonized and then cauterized with bipolar cautery and divided bilaterally as were the uterosacral ligaments. The hysterectomy was completed by making a circumferential colpotomy incision over the VCare cup with monopolarcautery and then the specimen was withdrawn through the vagina. This was difficult due to her narrow introitus and ultimately, the uterus needed to be placed in an endocatch bag for retrieval. There was a left vaginal sidewall laceration notedthat was repaired from above with the 2-0 v-loc suture for excellent hemostasis. The vaginal cuff was closed in the usual fashion with 2-0 VLoc suture in a running fashion. The robot was undocked. The skin incisions were closed with 4-0 Vicryl. Dermaflex was applied to each site. The vagina was inspected and noted to be intact and hemostatic after the above-noted repair. The patient was returned to a supine position as anesthesia was discontinued. She was then extubated and taken to the PACU in stable condition, and accompanied by the anesthesiologist and surgeons. Dr. Maribell Cowan, the attending physician, was present for the entire procedure.[facility] Sharp and sponge counts were correct x two. No surgical instrument counts were performed as per [facility] policy. Complications: None. DVT Prophylaxis: 5000 units of heparin subcutaneously and SCDs continuously applied to the lower extremities. Infection Bundle used? Yes Infection present at time of surgery?: No Chlorhexidine wipes in Same Day prior to surgery: Yes Expected bowel surgery? No. Fingerstick glucose checked in Same Day: Yes Chlorhexidine-alcohol skin prep: Yes Pre-op IV antibiotics: Cefazolin + Metronidazole Vaginal prep: Yes. Chlorhexidine Open case? No. Attestation: Case Date: 03/05/2021 I was present and I participated during the entire procedure (does not need to include opening and closing). MARIBELL COWAN MD 03/05/2021 documented in this encounter Plan of Treatment Not on file documented as of this encounter Procedures Procedure Name Priority Date/Time Associated Diagnosis Comments POCT GLUCOSE Routine 03/05/2021 2:22 PM EST SPECIMEN TO PATHOLOGY Routine 03/05/2021 12:59 PM EST SPECIMEN TO PATHOLOGY Routine 03/05/2021 12:59 PM EST SURGICAL PATHOLOGY REPORT Routine 03/05/2021 12:42 PM EST SPECIMEN TO PATHOLOGY Routine 03/05/2021 12:42 PM EST MODIFIER ROBOT,DAVINCI XI 03/05/2021 11:12 AM EST EIN Intraop [place] Lymph Id W/Dye Injection (22579) 03/05/2021 11:12 AM EST EIN Lap, Pelvic Lymphadenectomy/Bx (29994) 03/05/2021 11:12 AM EST EIN Laparoscopy W Tot Hysterectuterus <=250 Gram W Tube/Ovary (14867) 03/05/2021 11:12 AM EST EIN POCT GLUCOSE Routine 03/05/2021 10:35 AM EST documented in this encounter Results * POCT Glucose (03/05/2021 2:22 PM EST) Glucose, POC 120 65 - 199 mg/dL [facility] Comment: Supplemental ranges: <140 mg/dL before meals <180 mg/dL all other times of the day Blood 03/05/2021 2:22 PM EST 03/05/2021 2:22 PM EST Maribell Cowan MD POINT OF CARE TEST O LEONEL Performing Organization Address [facility] [place] [address] * Specimen to Pathology (03/05/2021 12:59 PM EST) AP Specimen 03/05/2021 12:5 9 PM EST 03/05/2021 12:59 PM EST Narrative [facility] - 03/05/2021 12:59 PM EST Specimen requisition ordered. ??Separate Pathology report to follow Maribell Cowan MD PATHOLOGY/CYTOLOGY O LEONEL Performing Organization Address [facility] [place] [address] * Specimen to Pathology (03/05/2021 12:59 PM EST) AP Specimen 03/05/2021 12:5 9 PM EST 03/05/2021 12:59 PM EST Narrative [facility] - 03/05/2021 12:59 PM EST Specimen requisition ordered. ??Separate Pathology report to follow Maribell Cowan MD PATHOLOGY/CYTOLOGY O LEONEL Performing Organization Address [facility] [place] [address] * Surgical Pathology Report (03/05/2021 12:42 PM EST) Final Diagnosis [id number] ? Location: [facility]; [facility]; A The signing pathologist has (i) examined the relevant preparation(s) for the specimen(s) and (ii) rendered or confirmed the diagnosis(es). . ? Immunohistochemistry DIAGNOSIS Endometrial carcinoma with intact nuclear staining for ??MLH1, MSH2, MSH6, and PMS2 in tumor cells. Electronically signed by: ?Bryan Rodriguez MD Verified: ??03/12/2021 12:34 ??Pathologist Performed at: ??-[facility] Dept. [place], [place], [place] INTERPRETATION Block ? Antibody ? Result (Positive/Negative) B-11 ? MLH1 ?Positive, intact nuclear staining ? MSH2 ?Positive, intact nuclear staining ? MSH6 ?Positive, intact nuclear staining ? PMS2 ?Positive, intact nuclear staining Interpretation: Immunostains for MLH1, MSH2, MSH6, and PMS2 reveal intact nuclear staining in tumor cells. ??In a very small percentage of tumors, there may still be an underlying hereditary defect in these DNA mismatch repair genes despite intact nuclear expression of the protein in tumor cells ?? . Genetic counseling and/or additional workup is indicated in patients with a family history that meets current criteria for HNPCC screening. Immunohistochemical assay was performed on paraffin-embedded tissue sections fixed in 10% neutral buffered formalin for 6-72 hours using the polymer system technique with appropriate controls. The assay was performed according to the cryptologic linguist's intructions using anti-MLH-1 ([id number]), anti-MSH-2 ([id number]), anti-MSH-6 (44), and anti-PMS-2 ([id number]) antibodies. ?Surgical Pathology DIAGNOSIS A - Left pelvic sentinel lymph nodes, excision: ?Two lymph nodes, no evidence of malignancy (0/2). B - Uterus, bilateral fallopian tubes and ovaries ?(hysterectomy and bilateral salpingo-oophorectomy): ?1. 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 into the outer 1/2 of the myometrium (see Synoptic ? report). ?2. Adenomyosis involved by carcinoma with ? squamous morule formation (see Discussion). ?3. Uterine leiomyomas. ?4. Bilateral benign fallopian tubes and ovaries. ?5. Ovarian stromal hyperthecosis. ?6. Paratubal cysts. ?7. Tumor hormonal status: ? a. Estrogen receptors - Positive. ? b. Progesterone receptors - Positive. C - Right pelvic sentinel lymph nodes, excision: ?Three lymph nodes, no evidence of malignancy (0/3). . DIAGNOSIS CR-0 Electronically signed by: ?Michael ARAYA, Bryan Cobb Verified: ??03/12/2021 12:34 ??Pathologist Performed at: ??-[facility]. [place], [place], [place] SYNOPTIC Specimen ? Procedure: ??Total hysterectomy and bilateral salpingo-oophorectomy; ?Bilateral pelvic sentinel lymph nodes, excision Tumor ? Tumor Size: ??Cannot be determined - Not clearly grossly discernible; greater ?than 3.0 cm in diameter ? Histologic Type: ??Endometrioid carcinoma, NOS ?Histologic Type Comment: ??With squamous differentiation ? Histologic Grade: ??FIGO grade 1 ? Two-Tier Grading System: ??Low grade (encompassing FIGO 1 and 2) ? Myometrial Invasion: ??Present ?Depth of Myometrial Invasion: ??10.0 mm ?Myometrial Thickness: ??15.0 mm ?Percentage of Myometrial Invasion: ??67% ? Adenomyosis: ??Present, involved by carcinoma ? Uterine Serosa Involvement: ??Not identified ? Lower Uterine Segment Involvement: ??Not identified ? Cervical Stromal Involvement: ??Not identified ? Other Tissue / Organ Involvement: ??Not identified ? Peritoneal / Ascitic Fluid: ??Not submitted / unknown ? Lymphovascular Invasion (LVI): ??Not identified Regional Lymph Nodes ? Regional Lymph Node Status: ??All regional lymph nodes negative for tumor ?cells ? Lymph Nodes Examined ?Total Number of Pelvic Nodes Examined: ??5 ?Number of Pelvic [place] Nodes Examined: ??5 ?Total Number of Para-aortic Nodes Examined: ??0 Pathologic Stage Classification (pTNM, AJCC 8th Edition) ? pT Category: ??pT1b ? pN Category: ??pN0 FIGO Stage ? FIGO Stage: ??IB Tumor Block(s): ??B7-B9 Normal Block(s): ??B2 CAP eCC December 2020 Release DISCUSSION There is extensive adenomyosis involved by squamous morules admixed with neoplastic glands also with squamous morules which in foci are associated with a stromal reaction compatible with invasive carcinoma. Immunohistochemical HNPCC studies are pending and a supplemental report will follow. The sentinel lymph node protocol as [facility] (referenced below) was followed for each of the lymph node tissue blocks that lacked metastatic tumor on routine H&E sections. Alondra CH, Melly RA, et al. Pathologic Ultrastaging Improves Micrometastasis Detection in [place] Lymph Nodes During Endometrial Cancer Staging. ?Int J Gynecol Cancer 2013;23: 964-970. Scanned slides: [id number] . DISCUSSION [id number] ADDITIONAL STUDIES IHC [place] Lymph Node Protocol For Endometrial Carcinoma: Formalin-fixed, paraffin-embedded tissue sections are studied using the B-SA system technique with appropriate positive and negative controls. Block ? Antibody ?Result (Degree of immunoreactivity) A-1 Level 1 ?CKAE1/3 ?Negative A-1 Level 2 ?CKAE1/3 ?Negative A-2 Level 1 ?CKAE1/3 ?Negative A-2 Level 2 ?CKAE1/3 ?Negative A-3 Level 1 ?CKAE1/3 ?Negative A-3 Level 2 ?CKAE1/3 ?Negative C-1 Level 1 ?CKAE1/3 ?Negative C-1 Level 2 ?CKAE1/3 ?Negative C-2 Level 1 ?CKAE1/3 ?Negative C-2 Level 2 ?CKAE1/3 ?Negative C-3 Level 1 ?CKAE1/3 ?Negative C-3 Level 2 ?CKAE1/3 ?Negative C-4 Level 1 ?CKAE1/3 ?Negative C-4 Level 2 ?CKAE1/3 ?Negative C-5 Level 1 ?CKAE1/3 ?Negative C-5 Level 2 ?CKAE1/3 ?Negative C-6 Level 1 ?CKAE1/3 ?Negative C-6 Level 2 ?CKAE1/3 ?Negative B-11 ? ER ? Positive B-11 ? ND ? Positive IHC studies provide the pathologist with adjunctive diagnostic information. Antibody specificity has been verified by testing antibodies on a series of in-house tissues with known immunohistochemical performance characteristics. The clinical interpretation of any antibody positive staining or its absence is evaluated within the context of clinical presentation, morphology, ??histopathological criteria and other diagnostic tests. SPECIMEN(S) SUBMITTED A - Left pelvic sentinel lymph nodes, excision B - Uterus, cervix, tubes, and ovaries, resection C - Right pelvic sentinel lymph nodes, excision CLINICAL INFORMATION EIN SPECIMEN PROCESSING A - Labeled/Fixative: Left pelvic sentinel lymph nodes, fresh. Quantity/Size: Single, 2.8 x 2.3 x 0.8 cm. Tissue Description: Adipose tissue with two lymph nodes, up to 2.4 cm. Entirely submitted in 3 cassettes as follows: ?A1: Smaller node ?A2-A3: Larger node B - Labeled/Fixative: Uterus, cervix tubes and ovaries, fresh. Quantity: Single. Cornu to cornu: 6.7 cm. Anterior to posterior: 5.2 cm. Dome to Cervix: 9.9 cm. . SPECIMEN PROCESSING Weight (overall): 160.0 grams. Tissue Description: Intact total hysterectomy and bilateral salpingo-oophorectomy. UTERUS Endometrium: Up to 0.7 cm, granular, martinez-pink. Myometrium: Averages 1.4 cm, with a bulging posterior wall mass, 3.4 x 2.5 cm with whorled martinez-white cut surfaces. A second smaller 0.8 cm nodule is also noted in the posterior wall. Serosa: Glistening and pink-martinez. CERVIX Diameter: 2.8 cm. Os: 0.8 cm, slit-like. RIGHT OVARY ?? Size: 2.5 x 1.3 x 0.9 cm. ?? Outer Surface: Martinez-pink, smooth. ?? Cut Surface: Unremarkable. Right Fallopian Tube: 5.7 x 0.5 cm, fimbriated. LEFT OVARY ?? Size: 1.9 x 1.5 x 1.1 cm. ?? Outer Surface: Martinez-pink, cerebriform. ?? Cut Surface: Unremarkable. Left Fallopian Tube: 3.1 x 0.4 cm, fimbriated. Range Technician sections in 68 cassettes as follows: ?B1: Anterior cervix, blue endometrial side ?B2-B4: Anterior lower uterine segment, blue cervical side ?B5-B15: Anterior endomyometrium, full thickness sections in B5-B7 ?B16: Posterior cervix, blue ink endometrial sign ?B17-B20: Posterior lower uterine segment, blue ink cervical side ?B21-B35: Posterior endomyometrium including full-thickness sections and B21-B23 ?B36-B39: Circumscribed masses, posterior wall ?B40: Range Technician right ovary ?B41-B43: Right fallopian tube ?B44: Range Technician left ovary ?B45-B46: Left fallopian tube ?B47-B51: Remaining myometrium from LEONARDO, cervical aspect inked red ?B52-B68: Remaining myometrium C - Labeled/Fixative: Right pelvic sentinel lymph node, fresh. Quantity/Size: Single, 6.1 x 3.4 x 1.1 cm. Tissue Description: Adipose tissue with three lymph nodes, up to 3.8 cm. The jose e tissue is totally submitted. Range Technician sections in 6 cassettes as follows: ?C1: Single node ?C2: Single node ?C3-C6: Largest node pps 03/12/2021 12:34 PM EST [facility] SENTINEL LYMPH NODE / Unknown 03/05/2021 12:42 PM EST 03/05/2021 12:42 PM EST Uterine Corpus 03/05/2021 12 :42 PM EST 03/05/2021 12:42 PM EST SENTINEL LYMPH NODE / Unknown 03/05/2021 12:42 PM EST 03/05/2021 12:42 PM EST Maribell Cowan MD PATHOLOGY/CYTOLOGY O RDAMALIA Performing Organization Address City/[facility]/ZIP Co de Phone Number [facility] [place] [place] [address] * Specimen to Pathology (03/05/2021 12:42 PM EST) AP Specimen 03/05/2021 12:4 2 PM EST 03/05/2021 12:42 PM EST Narrative [facility] - 03/05/2021 12:42 PM EST Specimen requisition ordered. ??Separate Pathology report to follow Maribell Cowan MD PATHOLOGY/CYTOLOGY O LEONEL Performing Organization Address [facility] Co de Phone Number [facility] [place] [address] * POCT Glucose (03/05/2021 10:35 AM EST) Glucose, POC 99 65 - 199 mg/dL [facility] Comment: Supplemental ranges: <140 mg/dL before meals <180 mg/dL all other times of the day Blood 03/05/2021 10:3 5 AM EST 03/05/2021 10:35 AM EST Maribell Cowan MD POINT OF CARE TEST O LEONEL Performing Organization Address [facility] Co de Phone Number [facility] [place] [address] documented in this encounter Visit Diagnoses Diagnosis Endometrial intraepithelial neoplasia (EIN) documented in this encounter Administered Medications Inactive Administered Medications - up to 3 most recent administrations Medication Order MAR Action Action Date Dose Rate Site acetaminophen (Tylenol) tablet 1,000 mg 1,000 mg, Oral, ONCE, 1 dose, On Thu03/05/21 at 1100, Administer with SIP of H2O only., Day of Surgery (Day of Procedure), Routine Given 03/05/2021 10:59 AM EST 1,000 mg heparin (porcine) (5,000 units/1 mL) subcutaneous injection 5,000 Units 5,000 Units, Subcutaneous, ONCE, 1 dose, On Thu03/05/21 at 1100, Day of Surgery (Day of Procedure), Routine Given 03/05/2021 10:58 AM EST 5,000 Units Left Lower Quadrant documented in this encounter Active and Recently Administered Medications Times are shown in EST. Scheduled Medication Order 03/03/2021 03/04/2021 03/05/2021 acetaminophen (Tylenol) tablet 1,000 mg (COMPLETED) 1,000 mg, Oral, ONCE, 1 dose, On Thu03/05/21 at 1100, Administer with SIP of H2O only., Day of Surgery (Day of Procedure), Routine 1059 (Given - Provid er: Teresita Abrams RN) ceFAZolin (Ancef) 2 g in dextrose 5% 100 mL infusion (COMPLETED)(Linked Group 1) 2 g, Intravenous, ONCE, 1 dose, On Thu03/05/21 at 1100, Administer over 30 Minutes, White Goods Appliance Tech to OR Infuse over 30 minutes., Day of Surgery (Day of Procedure), Indication for (Active or Suspected): Prophylaxis 1126 (Given - Provid er: Blessing Dennis CRNA) heparin (porcine) (5,000 units/1 mL) subcutaneous injection 5,000 Units (COMPLETED) 5,000 Units, Subcutaneous, ONCE, 1 dose, On Thu03/05/21 at 1100, Day of Surgery (Day of Procedure), Routine 1058 (Given - Provid er: Teresita Abrams RN) metroNIDAZOLE (Flagyl) 500 mg in sodium chloride 0.9% 100 mL infusion (COMPLETED)(Linked Group 1) 500 mg, Intravenous, ONCE, 1 dose, On Thu03/05/21 at 1100, Administer over 30 Minutes, White Goods Appliance Tech to OR Infuse over 30 minutes., Day of Surgery (Day of Procedure), Indication for (Active or Suspected): Prophylaxis 1140 (Given - Provid er: Blessing Dennis CRNA) Continuous Medication Order 03/03/2021 03/04/2021 03/05/2021 lactated ringers infusion 1,000 mL, at 100 mL/hr, Intravenous, CONTINUOUS, Starting on Thu03/05/21 at 1415, Until Thu03/05/21 at 2043 1415 (Due) PRN Medication Order 03/03/2021 03/04/2021 03/05/2021 acetaminophen (Tylenol) tablet 650 mg 650 mg, Oral, EVERY 6 HOURS PRN, Starting on Thu03/05/21 at 1352, Until Thu03/05/21 at 2042, Pain, If multiple pain medications ordered, use acetaminophen first. Maximum dose of acetaminophen is 4000 mg from all sources in 24 hours. When ordered for pain, acetaminophen should be given even when other ordered pain medications are indicated., Routine BUpivacaine (pf) (Marcaine) (5 mg/mL) 0.5% injection (CANCELED) ONCE PRN, Starting on Thu03/05/21 at 1209, Until Thu03/05/21 at 2042, Intra-Operative (Intra-Procedure), Routine 1209 (Given - Provid er: Maribell Cowan MD)1337 (Given - Provider: Juani Daly MD) indocyanine green (Ic-Green) injection (CANCELED) ONCE PRN, Starting on Thu03/05/21 at 1210, Until Thu03/05/21 at 2042, Intra-Operative (Intra-Procedure), Routine 1210 (Given - Provid er: Maribell Cowan MD) oxyCODONE (Roxicodone) tablet 5-10 mg 5-10 mg, Oral, EVERY 3 HOURS PRN, Starting on Thu03/05/21 at 1352, Until Thu03/05/21 at 2042, Pain, - If multiple pain medications ordered, use acetaminophen first. - If pain not relieved by acetaminophen first, administer oxycodone. - Initial dose 5 mg. - If pain control not adequate in 60 minutes, give additional 5 mg., Routine Linked Groups Order Group 1: ceFAZolin (Ancef) 2 g in dextrose 5% 100 mL infusion (COMPLETED)Jump to med 2 g, Intravenous, ONCE, 1 dose, On Thu03/05/21 at 1100, Administer over 30 Minutes, White Goods Appliance Tech to OR Infuse over 30 minutes., Day of Surgery (Day of Procedure), Indication for (Active or Suspected): Prophylaxis And metroNIDAZOLE (Flagyl) 500 mg in sodium chloride 0.9% 100 mL infusion (COMPLETED)Jump to med 500 mg, Intravenous, ONCE, 1 dose, On Thu03/05/21 at 1100, Administer over 30 Minutes, White Goods Appliance Tech to OR Infuse over 30 minutes., Day of Surgery (Day of Procedure), Indication for (Active or Suspected): Prophylaxis documented in this encounter Care Teams Grocery Checker Relationship Specialty Start Date End Date Trent Varner MD PCP - General Family Medicine 12/17/20 documented as of this encounter
--- OUTSIDE RECORDS SUMMARY | 2023-11-13 15:26 | XMS_ITS | Encounter Summary ---
[place] [address] Care Team Providers Care Mangle Tender Cloth Name Role Phone Trent Varner MD Primary Care Provider [phone] Encounter Details Date Type Department Care Team (Latest Contact Info) Description 03/07/2021 11:00 AM EST Clinical Support [place] [id number] Cash Management Coordinator, Onc Nurse Encounter for Lundberg catheter removal Social History Tobacco Use Types Packs/Day Years [...] as of this encounter Progress Notes * Ibis Loya RN - 03/07/2021 11:00 AM EST Voiding Trial Instilled 225 cc's of saline into bladder via catheter before removed. Catheter then removed and patient voided 300 cc's. Results Allowed for Catheter removed. Results routed to . Reviewed s/s of UTI with patient. Patient left with no questions or concerns. documented in this encounter Plan of Treatment Not on file documented as of this encounter Visit Diagnoses Diagnosis Encounter for Lundberg catheter removal Fitting and adjustment of urinary device documented in this encounter Care Teams Mangle Tender Cloth Relationship Specialty Start Date End Date Trent Varner MD PCP - General Family Medicine 12/17/20 documented as of this encounter
--- OUTSIDE RECORDS SUMMARY | 2023-11-13 15:26 | XMS_ITS | Clinical Summary ---
Author Organization [facility] Address [address] [place] [address] Care Team Providers Care Mechanism Inspector Name Role Phone Chantel Ruiz BUSINESS RISK ANALYST Primary Care Provider [phone] Social History Tobacco Use Types Packs/Day Years Used Date Smoking Tobacco: Never Assessed Sex and Gender Information Value Date Recorded Sex Assigned at Not on file Gender Identity Not on file Sexual Orientation Not on file Plan of Treatment Health Maintenance Due Date Last Done Comments Hepatitis B Vaccine (1 of 3 - 19+ 3-dose series) 06/09 COVID-19 Vaccine ( season) 2023 Hepatitis C Screen Completed 08/10/2020 Procedures Procedure Name Priority Date/Time Associated Diagnosis Comments HEPATITIS C AB W REFLEX TO HCV RNA BY PCR Routine 08/10/2020 17:00 EDT from Last 3 Months or Most Recently Relevant to Health Maintenance Results * HEPATITIS C AB W REFLEX TO HCV RNA BY PCR (08/10/2020 17:00 EDT) Hep C Antibody Negative Negative 08/13/2020 9:58 EDT [facility] Blood VENOUS BLOOD / Unknown 08/10/2020 17:00 EDT 08/12/2020 15:57 EDT Provider Outr Resulting Lab CHEMISTRY & BLOOD GAS ORDERABLES [facility] [address] [place] [address] from Last 3 Months or Most Recently Relevant to Health Maintenance Care Teams Mechanism Inspector Relationship Specialty Start Date End Date Chantel Ruiz NP [address] [place] [address] PCP - General 07/31/20
--- OUTSIDE RECORDS SUMMARY | 2023-11-13 15:26 | XMS_ITS | Encounter Summary ---
Author Organization [facility] [place] [address] Care Team Providers Care Turn Laster Name Role Phone Trent Varner MD Primary Care Provider Encounter Details Date Type Department Care Team (Late st Contact Info) Description 01/07/2021 Orders Only [place] [address] Freda Foster APRN [facility] [place] [address] Type 2 diabetes mellitus with diabetic neuropathy, without long-term current use of insulin Social History Tobacco Use Types Packs/Day Years [...] as of this encounter Visit Diagnoses Diagnosis Type 2 diabetes mellitus with diabetic neuropathy, without long-term current use of insulin documented in this encounter Care Teams Turn Laster Relationship Specialty Start Date End Date Trent Varner MD PCP - General Family Medicine 12/17/20 documented as of this encounter
--- OUTSIDE RECORDS SUMMARY | 2023-11-13 15:26 | XMS_ITS | Encounter Summary ---
Author Organization [facility] [place] [address] Care Team Providers Care Geriatric Care Manager Name Role Phone Trent Varner MD Primary Care Provider [phone] Encounter Details Date Type Department Care Team (Latest Contact Info) Description 03/14/2021 Multidisciplinary Ca re Committee [place] [phone] Ibis Loya RN Social History Tobacco Use [...] Progress Notes * Ibis Loya RN - 03/14/2021 8:44 AM EST Presenting Symptoms: EIN after a routine pap demonstrated glandular cells Imaging/Labs: none Surgery: ??- RATLH-BSO, SLND Path: Stage 1B grade 1 endometrial carcinoma Genetics: Valenzuela intact Recommendations: Per NCCN, vaginal brachytherapy is preferred. documented in this encounter Plan of Treatment Not on file documented as of this encounter Visit Diagnoses Not on filedocumented in this encounter Care Teams Geriatric Care Manager Relationship Specialty Start Date End Date Trent Varner MD PCP - General Family Medicine 12/17/20 documented as of this encounter
--- OUTSIDE RECORDS SUMMARY | 2023-11-13 15:26 | XMS_ITS | Encounter Summary ---
Author Organization [facility] Address [facility] [place] [address] Care Team Providers Care Child Care Attendant Name Role Phone Trent Varner MD Primary Care Provider [phone] Reason for Visit * Reason Comments Procedure Encounter Details Date Type Department Care Team (Late st Contact Info) Description 05/03/2021 1:00 PM EST Procedure visit [place] [address] Jemima Woods MD [facility] [place] [address] Endometrial ca Social History Tobacco Use Types [...] place to sleep or slept in a fpc (including now)? No 04/08/2021 Sex and Gender Information Value Date Recorded Sex Assigned at Not on file Gender Identity Not on file Sexual Orientation Not on file documented as of this encounter Last Filed Vital Signs Vital Sign Reading Time Taken Comments Blood Pressure 150/90 05/03/2021 12:56 PM EST Pulse 69 05/03/2021 12:56 PM EST Temperature 36.4 ??C (97.5 ??F) 05/03/2021 12:[address] Respiratory Rate 20 05/03/2021 12:56 PM EST Oxygen Saturation 100% 05/03/2021 12:56 PM EST Inhaled Oxygen Concentration - - Weight 93.6 kg (206 lb 6.4 oz) 05/03/2021 12:56 PM EST Height - - Body Mass Index 35.99 03/05/2021 10:44 AM EST documented in this encounter Patient Instructions * Patient Instructions* Jemima Woods MD - 05/03/2021 1:38 PM EST Drink lots of water over the next 48 hours. If you have a burning sensation in bladder, drinking cranberry juice can decrease the burning. A medication called AZO, which is available over the counterwithout a prescription can be used to decrease burning sensation in bladder; take as directed. If you develop diarrhea, cut back on fresh fruits & veges, foods with fiber/roughage & greasy food. Imodium is a medication available over the counter without a prescription which can be usedto treat the diarrhea; take as directed. For questions/concerns during radiotherapy, call the Radiation Oncology clinic @ [phone] during clinic hours. When the clinic is closed (@ night/on weekend), call the [facility] hospital enhanced environmental operator @ [phone] & ask for the radiation oncologist solution advisor. documented in this encounter Progress Notes * Jemima Woods MD - 05/03/2021 1:00 PM EST Images from the original note were not included. DIAGNOSIS: Endometrial ca, endometrioid type w/squamous diff, FIGO gr 1, s/p laparoscopic robotic assisted total hys-BSO, B SNB, pT1b pN0, FIGO stage IB, tumor > 3 cm. Here to start intravag brachy. CURRENT TREATMENT DOSE: 0 Gy (seen prior to brachy) ANTICIPATED TOTAL DOSE: 21 Gy Current # of xrt received: 0 (seen prior to brachy) Anticipated total # of xrt txs: 3 Evaluation of port verification films: Approved. For details, see electronic film record in [employer] System. Changes in Medical Condition: None. Pain?: No. Your Medications Accurate as of May 03, 2021 2:38 PM. If you have any questions, ask your nurse or doctor. Continued medications, unchanged Dose Details acetaminophen 325 mg Tab Commonly known as: Tylenol Take 2 tablets by mouth every 6 hours as needed for Pain. 650 mg Quantity: 30 tablet Refills: 0 ibuprofen 600 mg Tab Commonly known as: Advil Take 1 tablet by mouth every 6 hours as needed for Pain. 600 mg Quantity: 30 tablet Refills: 12 lisinopriL 10 mg Tab Commonly known as: Zestril Take 10 mg by mouth daily. Take one 10 mg tablet by mouth daily 10 mg Refills: 0 metFORMIN 1,000 mg Tab Commonly known as: GLUCOPHAGE Take 1 tablet by mouth 2 times daily. 1 tablet Refills: 0 OneTouch Delica Plus Lancet 30 gauge Misc TEST TWICE DAILY Generic drug: lancets Refills: 0 OneTouch Ultra Test Strp TEST TWICE DAILY Generic drug: blood sugar diagnostic strips Refills: 0 OneTouch Ultra2 Meter Misc USE TWICE DAILY Generic drug: Blood-Glucose Meter Refills: 0 Physical Exam: 206.5 lbs 97.5 F 69 20 150/90 SpO2 100% A&Ox3, NAD. No vulvovag abnlty. Imagin04/23/21 Dx'ic Rad Interp CTsim: No suspicious lesion. Performance Status: KPS 100% Response to xrt: As expected. Irradiation Related Symptoms: None. Treatment for Symptom Control: None needed. Pain Management: Not needed. Recommendation on Continuing Course of xrt: Start intravag brachy today. After drinking water to fill bladder, Lynn was brought to brachytherapy suite and she was positioned supine on brachytherapy stretcher wearing fancy pants. Timeout by physician & nurse with patient confirmed patient identity, allergies, medications & procedure to be performed. [id number] mm universal stump cylinder then inserted into patient's vagina until resistance from vaginal apex encountered. Cylinder secured in place with velcro flap. Patient's ankles placed on triangle cushion. Dummy seeded catheter then threaded into hollow tube in cylinder. Fluoro used to confirm correct cylinder position. Dummy seeded catheter then removed & cylinder connected to vault with connecting tube. Physicist, physician & nurse then exited room, maintaining audio & visual contact with Lynn. Timeout by physicist, physician & nurse confirmed patient name, cylinder size & radiotherapy dose to be given. Patient then treated with afterloading Ir-192 HDR, delivering 7 Gy @ 0.5 cm depth. After treatment completed, physicist surveyed brachytherapy suite with [place] counter, confirming return of Ir-192 source into vault. Physician & nurse then re-entered treatment room. Cylinder removed. Patient informed of possible side effects from the treatment & given printout with instructions for managing side effects and appointment for next brachytherapy. She tolerated procedure well, without adverse effect. documented in this encounter Plan of Treatment Not on file documented as of this encounter Visit Diagnoses Diagnosis Endometrial ca Malignant neoplasm of corpus uteri, except isthmus documented in this encounter Care Teams Child Care Attendant Relationship Specialty Start Date End Date Trent Varner MD PCP - General Family Medicine 12/17/20 documented as of this encounter
--- OUTSIDE RECORDS SUMMARY | 2023-11-13 15:26 | XMS_ITS | Encounter Summary ---
Author Organization [facility] [place] [address] Care Team Providers Care Deputy Sheriff/Investigator Name Role Phone Trent Varner MD Primary Care Provider [phone] Reason for Visit * Auth/Cert Specialty Diagnoses [...] SENTINEL LYMPH NODE,INCLUDES INJECTION (WRVU 2.5) MODIFIER ROBOT,SANCHOI XI Referral ID Status Reason Start Date Expiration Date Visits Re quested Visits Authorized [id number] 1 1 Encounter Details Date Type Department Care Team (Late st Contact Info) Description 03/05/2021 11:13 AM EST Anesthesia [place] [address] Melida Sultana MD [facility] [place] [address] Anesthesia Record Procedure Summary Procedure Name Responsible Anesthesiologist Anesthesia Start Time Anesthesia Stop Time ROBOTIC LAPAROSCOPY,TOTAL HYST, UTERUS<250GM, REM TUBE &/OR OVARY (WRVU 15) (Uterus) Melida Sultana MD 03/05/21 1113 03/05/21 1432 Events Date Time Event Comment 03/05/2021 1044 1113 AN Verify 1113 Start 1113 An Start Data 1119 An Induction 1124 An Intubation 1124 Anesthesia Ready 1128 IV Start 1150 Procedure Start 1153 Quick Note Local infiltrat ion 1200 Quick Note Abdominal insuf flation 1330 Quick Note Robot dedocked 1337 Quick Note Local infiltrat ion 1339 Procedure Stop 1430 Extubation/LMA Out 1431 an stop data 1432 Recovery or ICU Handoff Alice ent care was transferred to the destination unit staff after review of the patient's medical history, current anesthetic/surgical status and plan, according to the Provider Handoff Checklist. 1432 Stop Meds Name Total fentaNYL 150 mcg Propofol 130 mg Rocuronium 90 mg ePHEDrine 10 mg Ondansetron 4 mg Neostigmine 3 mg Glycopyrrolate 0.6 mg Dexmedetomidine INF 82.28 mcg Propofol INF 2,216.68 mg ceFAZolin (Ancef) 2 g in dextrose 5% 100 mL infusion 2 g metroNIDAZOLE (Flagyl) 500 mg in sodium chloride 0.9% 100 mL infusion 500 mg Esmolol 10 mg ketorolac (Toradol) (30 mg/mL) injection 15 mg Sugammadex 200 mg Lactated Ringers 900 mL Lactated Ringers 500 mL * Agents Name O2 Air N2O Sevoflurane (et) * Blood No blood administrations on file. Lines, Drains, and Airways Type Details Placement Removal Incision 03/05/21; Bilateral; abdomen; laparoscopic puncture 03/05/21 0000 by Luly Sabillon RN Urethral Catheter 03/05/21; Physician order; indwelling double lumen catheter; latex; 14; inserted at this facility; 1; 10; 10; drainage bag to dependent drainage; 03/05/21; 1650 03/05/21 0000 by Luly Sabillon RN 03/05/21 1650 by Anila Mclean RN (RETIRED) Peripheral IV Line - Single Lumen 03/05/21; 1109; median vein (underside of arm), left; [id number] catheter system; Anatomical Landmarks; US Not Used; 22 gauge; Aliza RN; distraction, intradermal injection, tolerated well, appears comfortable; 03/05/21; 1829 03/05/21 1109 by Teresita Abrams RN 03/05/211828 by Jessica Nascimento RN ETT Mask Ventilation: Adjunct (2); ETT Type: Cuffed; ETT Size: 7.5 mm; Mac Blade: 3; Notes: Asleep, Pre-O2, Cricoid Pressure, Stylette; Attempts: 1; Laryngoscopy Grade: 1; ETT Placement Verified By: Auscultation, Capnometry, Visual; Secured at Teeth: 22 cm; Inserted by: Blessing Dennis CRNA; Removal Date: 03/05/21; Removal Time: 14303/05/21 112 by Blessing Dennis CRNA 03/05/21 1430 by Blessing Dennis CRNA (RETIRED) Peripheral IV Line - Single Lumen 03/05/21; 1128; dorsal arch vein (top of hand), right; [id number] catheter system; Anatomical Landmarks; 18 gauge; Dr. Knight; 03/05/21; 18203/05/21 112 by Blessing Dennis CRNA 03/05/211828 by Jessica Nascimento RN documented in this encounter Social History Tobacco Use Types Packs/Day Years [...] on file documented as of this encounter OR Notes * Anesthesia Postprocedure Evaluation - Melida Sultana MD - 03/05/2021 6:02 PM EST Department of Anesthesiology Post-procedure Note Patient: Lynn King Procedure Summary Date: 03/05/21 Room / Location: [facility] MAIN OR Anesthesia Start: 1113 Anesthesia Stop: 1431 Procedures: LAPAROSCOPY,TOTAL HYST, UTERUS<250GM, REM TUBE &/OR OVARY, ROBOTIC ASSIST (WRVU 15) (N/A Uterus) LAPAROSCOPY,W\BILATERAL TOTAL PELVIC LYMPHADENECTOMY, PERIAORTIC LYMPH NODE SAMPLING, ROBOTIC (WRVU15.6) (N/A Uterus) INTRAOPERATIVE ID (MAPPING) SENTINEL LYMPH NODE,INCLUDES INJECTION (WRVU 2.5) (N/A ) MODIFIER ROBOT,DAVINCI XI (N/A ) Diagnosis: (EIN) Surgeons: Nimisha Prado MD Responsible Provider: Melida Sultana MD Anesthesia Type: general ASA Status: 3 All Anesthesia Providers: Anesthesiologist: Melida Sultana MD HEALTH ADVOCATE: Blessing Dennis CRNA Vitals Value Taken Time BP 157/91 03/05/21 1615 Temp Pulse 58 03/05/21 1629 Resp 11 03/05/21 1629 SpO2 100 % 03/05/21 1629 Pain Level 0 03/05/21 1439 Vitals shown include unvalidated device data. Patient Location: PACU/[facility] Level of Consciousness: Conscious but Sleepy Pain Management: Satisfactory Analgesia PONV: None Cardiovascular Status: At Baseline Respiratory Status: At Baseline Postoperative Fluid Status: Intravascular EUvolemia Possible Anesthetic Complications: NONE apparent at time of evaluation Final Primary Anesthesia Type: General (The anesthetic type performed was the same as planned.) Comments: Slow emergence but otherwise no issues. * Anesthesia Preprocedure Evaluation - Melida Sultana MD - 03/05/2021 10:34 AM EST Pre-Anesthesia Evaluation for: Lynn King a 55 y.o. female. Procedure(s): LAPAROSCOPY,TOTAL HYST, UTERUS<250GM, REM TUBE &/OR OVARY, ROBOTIC ASSIST (WRVU 15) LAPAROSCOPY,W\BILATERAL TOTAL PELVIC LYMPHADENECTOMY, PERIAORTIC LYMPH NODE SAMPLING, ROBOTIC (WRVU15.6) INTRAOPERATIVE ID (MAPPING) SENTINEL LYMPH NODE,INCLUDES INJECTION (WRVU 2.5) MODIFIER ROBOT,DAVINCI XI Patient Active Problem List Diagnosis ??? Endometrial intraepithelial neoplasia (EIN) ??? Diabetes mellitus ??? Hypertension ??? Hirsutism Past Medical History: Diagnosis Date ??? Abnormal Pap smear of cervix 08/10/2020 atypical glandular cells ??? Diabetes would like numbers better-working on ??? 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 High blood pressure usually controlled with medication ??? Hirsutism ??? Hypertension No past surgical history on file. Social History Tobacco Use ??? Smoking status: Former Smoker Packs/day: 0.25 Years: 21.00 Pack years: 5.25 Types: Cigarettes Quit date: 2001 Years since quittin.6 ??? Smokeless tobacco: Never Used Substance Use Topics ??? Alcohol use: Not Currently Alcohol/week: 0.0 standard drinks Social History Substance and Sexual Activity Drug Use Never Allergies Allergen Reactions ??? Penicillins Hives PAT Penicillin Allergy Risk Assessment 01/04/2021: Low risk penicillin allergy. OK to receive full dose of cefazolin, cefuroxime, or any 3rd or 4th+ generation cephalosporin. Medications: MAR and/or home medications have been reviewed. Physical Exam: Preprocedure Vitals Current as of 03/05/21 1034 No BP, pulse, respiration, SpO2, or temperature recorded. Height: Weight: BMI: IBW: Airway Assessment: Mallampati: II TM distance: >3 FB Neck ROM: limited Cardiovascular Assessment: Rhythm: regular Pulmonary Assessment: unlabored breathing Dental Assessment: Comment: Poor dentition Misc Assessment: IV access: Peripheral line Last Filed Perioperative Cognitive Screening None Anesthesia Plan: ASA 3 general, with a(n) intravenous induction 55 year old female with a PMH significant for obesity (BMI 37), HTN, DM2, and uterine CA who presents for robotic hysterectomy. She has recently increased her activity and watched her diet resulting in a 20 pound weight loss. 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 She quit smoking over 20 years ago. Denies any cardiopulmonary symptoms Otherwise negative ROS Had COVID around thanksgiving but did not require hospitalization. Appropriately NPO Plan: GETA; risks/benefits discussed, questions answered and patient wishes to proceed. Region - Other Informed Consent: Anesthetic plan and risks discussed with patient. Use of blood products discussed with who consented to blood products. Plan discussed with HEALTH ADVOCATE. Anesthesia Screening documented in this encounter Plan of Treatment Not on file documented as of this encounter Visit Diagnoses Not on filedocumented in this encounter Administered Medications Inactive Administered Medications - up to 3 most recent administrations Medication Order MAR Action Action Date Dose Rate Site ceFAZolin (Ancef) 2 g in dextrose 5% 100 mL infusion 2 g, Intravenous, ONCE, 1 dose, On Thu03/05/21 at 1100, Administer over 30 Minutes, Food Products Tester to OR Infuse over 30 minutes., Day of Surgery (Day of Procedure), Indication for (Active or Suspected): Prophylaxis Given 03/05/2021 11:26 AM EST 2 g dexmedetomidine (Precedex) (4 mcg/mL) in sodium chloride 0.9% 50 mL infusion Intravenous, CONTINUOUS PRN, Starting on Thu03/05/21 at 1119, Until Thu03/05/21 at 1432, Anesthesia Intra-op Rate/Dose Change 03/05/2021 1:22 PM EST 0.4 mcg/kg/hr 9.53 mL/hr Rate/Dose Change 03/05/2021 12:55 PM EST 0.6 mcg/kg/hr 14. 295 mL/hr Rate/Dose Change 03/05/2021 11:51 AM EST 0.4 mcg/kg/hr 9.5 3 mL/hr ePHEDrine sulfate (5 mg/mL) multi-dose injection Intravenous, PRN, Starting on Thu03/05/21 at 1154, Until Thu03/05/21 at 1432, Anesthesia Intra-op, Routine Given 03/05/2021 11:54 AM EST 10 mg esmoloL (Brevibloc) (10 mg/mL) injection Intravenous, PRN, Starting on Thu03/05/21 at 1201, Until Thu03/05/21 at 1432, Anesthesia Intra-op, Routine Given 03/05/2021 12:01 PM EST 10 mg fentaNYL (pf) (50 mcg/mL) multi-dose injection Intravenous, PRN, Starting on Thu03/05/21 at 1119, Until Thu03/05/21 at 1432, Anesthesia Intra-op, Routine Given 03/05/2021 1:02 PM EST 50 mcg Given 03/05/2021 11:19 AM EST 100 mcg glycopyrrolate (Robinul) (0.2 mg/mL) multi-dose injection Intravenous, PRN, Starting on Thu03/05/21 at 1338, Until Thu03/05/21 at 1432, Anesthesia Intra-op, Routine Given 03/05/2021 1:38 PM EST 0.6 mg ketorolac (Toradol) (30 mg/mL) injection Intravenous, PRN, Starting on Thu03/05/21 at 1331, Until Thu03/05/21 at 1432, Anesthesia Intra-op, Routine Given 03/05/2021 1:31 PM EST 15 mg lactated ringers infusion Intravenous, CONTINUOUS PRN, Starting on Thu03/05/21 at 1113, Until Thu03/05/21 at 1432, Anesthesia Intra-op New Bag 03/05/2021 11:13 AM EST lactated ringers infusion Intravenous, CONTINUOUS PRN, Starting on Thu03/05/21 at 1128, Until Thu03/05/21 at 1432, Anesthesia Intra-op New Bag 03/05/2021 11:28 AM EST metroNIDAZOLE (Flagyl) 500 mg in sodium chloride 0.9% 100 mL infusion 500 mg, Intravenous, ONCE, 1 dose, On Thu03/05/21 at 1100, Administer over 30 Minutes, Food Products Tester to OR Infuse over 30 minutes., Day of Surgery (Day of Procedure), Indication for (Active or Suspected): Prophylaxis Given 03/05/2021 11:40 AM EST 500 mg neostigmine (Bloxiver) (1 mg/mL) injection Intravenous, PRN, Starting on Thu03/05/21 at 1338, Until Thu03/05/21 at 1432, Anesthesia Intra-op, Routine Given 03/05/2021 1:38 PM EST 3 mg ondansetron (pf) (Zofran) (2 mg/mL) injection Intravenous, PRN, Starting on Thu03/05/21 at 1334, Until Thu03/05/21 at 1432, Anesthesia Intra-op, Routine Given 03/05/2021 1:34 PM EST 4 mg propofoL (Diprivan) (10 mg/mL) infusion Intravenous, CONTINUOUS PRN, Starting on Thu03/05/21 at 1119, Until Thu03/05/21 at 1432, Anesthesia Intra-op, Routine Rate/Dose Change 03/05/2021 1:25 PM EST 75 mcg/kg/min 42.885 mL/hr Rate/Dose Change 03/05/2021 1:17 PM EST 100 mcg/kg/min 57. 18 mL/hr Rate/Dose Change 03/05/2021 1:14 PM EST 175 mcg/kg/min 100 .065 mL/hr propofoL (Diprivan) 10 mg/mL bolus injection (Anesthesia) Intravenous, PRN, Starting on Thu03/05/21 at 1119, Until Thu03/05/21 at 1432, Anesthesia Intra-op Given 03/05/2021 11:21 AM EST 30 mg Given 03/05/2021 11:19 AM EST 100 mg rocuronium (Zemuron) (10 mg/mL) multi-dose injection Intravenous, PRN, Starting on Thu03/05/21 at 1121, Until Thu03/05/21 at 1432, Anesthesia Intra-op, Routine Given 03/05/2021 12:57 PM EST 10 mg Given 03/05/2021 11:54 AM EST 30 mg Given 03/05/2021 11:21 AM EST 50 mg sugammadex (Bridion) 100 mg/mL injection Intravenous, PRN, Starting on Thu03/05/21 at 1410, Until Thu03/05/21 at 1432, Anesthesia Intra-op, Routine Given 03/05/2021 2:10 PM EST 200 mg documented in this encounter Care Teams Deputy Sheriff/Investigator Relationship Specialty Start Date End Date Trent Varner MD PCP - General Family Medicine 12/17/20 documented as of this encounter
--- OUTSIDE RECORDS SUMMARY | 2023-11-13 15:26 | XMS_ITS | Encounter Summary ---
Author Organization [facility] [place] [address] Care Team Providers Care Director Diabetes Name Role Phone Trent Varner MD Primary Care Provider [phone] Reason for Visit * Reason Comments Follow-up Encounter Details Date Type Department Care Team (Late st Contact Info) Description 08/12/2021 4:00 PM EDT Office Visit Radiation Oncology at [address] [phone] Jemima Woods MD [facility] [place] [address] S/P radiotherapy Social History Tobacco Use Types Packs/Day Years [...] place to sleep or slept in a detention (including now)? No 04/08/2021 Sex and Gender Information Value Date Recorded Sex Assigned at Not on file Gender Identity Not on file Sexual Orientation Not on file documented as of this encounter Last Filed Vital Signs Vital Sign Reading Time Taken Comments Blood Pressure 124/67 08/12/2021 4:07 PM EDT Pulse 77 08/12/2021 4:07 PM EDT Temperature 36.7 ??C (98.1 ??F) 08/12/2021 4 :07 PM EDT Respiratory Rate 18 08/12/2021 4:07 PM EDT Oxygen Saturation 100% 08/12/2021 4:0 7 PM EDT Inhaled Oxygen Concentration - - Weight 92.6 kg (204 lb 3.2 oz) 08/12/2021 4:07 PM EDT with flip flops Height - - Body Mass Index 35.61 03/05/2021 10:44 AM EST documented in this encounter Patient Instructions * Patient Instructions* Jemima Woods MD - 08/12/2021 4:40 PM EDT VAGINAL DILATOR What is a vaginal dilator? A vaginal dilator, also called an obturator, is a smooth plastic tube measuring four inches in length and one-half inch or one inch in circumference. Why do I need to use the dilator? A potential side effect of radiation treatment is the formation of scar tissue which can result in closure of the vagina. Over time radiation causes a decrease in blood supply to treated areas. Decreased blood supply shrinks or slows the growth of the cancer but can also lead to less elastic, veneer drier, tender tissues in the vagina. This can be prevented in two ways: by regularly using the dilator with a prescribed cream or jelly, or by having regular sexual intercourse. Use of the dilator or intercourse will keep the vagina open and the tissues more supple. This is important as it provides more comfort during pelvic exams. How do I use the dilator? 1. Wash the dilator with hot soapy water and rinse well before use. 2. Lie down with your knees bent and apart. 3. Put the cream your physician ordered on the rounded end of the dilator. Use K-Y Jelly or anotherwater-based lubricant if estrogen cream has not been prescribed for you. Do NOT use Vaseline, baby oil, or other oil based lubricants because they can irritate your vagina. 4. Separate your labia, and with firm gentle pressure, put the rounded end into your vagina as far as possible. 5. When you have the dilator inserted as far as possible, use continuous gentle pressure for 5 to 10 minutes to hold it in place. 6. Remove the dilator. Wash it with hot soapy water, rinse well and let dry. When do I need to dilate my vagina? Use the dilator 2 times/week, 5-10 minutes each time. You will need to do this for the rest of yourlife to keep your vagina healthy. There may be some spotting of blood after using the dilator. If you have heavy bleeding, call your physician. Your exam is without worrisome finding. Start with the small dilator & once that fits comfortably, then change to the medium dilator. Agoal of vaginal dilation is to stretch the vaginal clark & prevent vaginal narrowing/shortening. Someone will contact you to schedule followup with me in 6 months. documented in this encounter Progress Notes * Jemima Woods MD - 08/12/2021 4:00 PM EDT Images from the original note were not included. CC: Sched'd followup s/p brachytherapy completion. HPI: Lynn is a 56 y/o f who completed intravaginal brachytherapy 3 mos ago (05/17/21) for endometrial ca, endometrioid type w/squamous diff, FIGO gr 1, s/p laparoscopic robotic assisted total hys-BSO, B SNB, pT1b pN0, FIGO stage IB, tumor > 3 cm. Subjective: No pain. No vag disch/bleeding. No bowel/bladder problem. No swelling of lower exts. Energy level good. Continues to work as teacher. Past Medical History: Diagnosis Date ??? Abnormal Pap smear of cervix 08/10/2020 atypical glandular cells ??? Diabetes would like numbers better-working on ??? 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 High blood pressure usually controlled with medication ??? Hirsutism ??? Hypertension No lupus/scleroderma. Past Surgical History: Procedure Laterality Date ??? PRO INTRAOP SENTINEL LYMPH ID W/DYE INJECTION N/A 03/05/2021 INTRAOPERATIVE ID (MAPPING) SENTINEL LYMPH NODE,INCLUDES INJECTION (WRVU 2.5) performed by Nimisha Prado MD at [facility] MAIN OR ??? PRO LAP, PELVIC LYMPHADENECTOMY/BX N/A 03/05/2021 LAPAROSCOPY,W\BILATERAL TOTAL PELVIC LYMPHADENECTOMY, PERIAORTIC LYMPH NODE SAMPLING, ROBOTIC (WRVU15.6) performed by Nimisha Prado MD at [facility] MAIN OR ? ? PRO LAPAROSCOPY W TOT HYSTERECTUTERUS <=250 GRAM W TUBE/OVARY N/A 03/05/2021 LAPAROSCOPY,TOTAL HYST, UTERUS<250GM, REM TUBE &/OR OVARY, ROBOTIC ASSIST (WRVU 15) performed by Nimisha Prado MD at [facility] MAIN OR Your Medications Accurate as of August 12, 2021 11:59 PM. If you have any questions, ask your nurse or doctor. Continued medications, unchanged Dose Details acetaminophen 325 mg Tab Commonly known as: Tylenol Take 2 tablets by mouth every 6 hours as needed for Pain. 650 mg Quantity: 30 tablet Refills: 0 atorvastatin 10 mg Tab Commonly known as: Lipitor Take 10 mg by mouth nightly. 10 mg Refills: 0 ibuprofen 600 mg Tab Commonly known as: Advil Take 1 tablet by mouth every 6 hours as needed for Pain. 600 mg Quantity: 30 tablet Refills: 12 lisinopriL 10 mg Tab Commonly known as: Zestril Take 10 mg by mouth daily. Take one 10 mg tablet by mouth daily 10 mg Refills: 0 metFORMIN 1,000 mg Tab Commonly known as: Glucophage Take 1 tablet by mouth 2 times daily. 1 tablet Refills: 0 OneTouch Delica Plus Lancet 30 gauge Misc TEST TWICE DAILY Generic drug: lancets Refills: 0 OneTouch Ultra Test Strp TEST TWICE DAILY Generic drug: blood sugar diagnostic strips Refills: 0 OneTouch Ultra2 Meter Misc USE TWICE DAILY Generic drug: Blood-Glucose Meter Refills: 0 Physical Exam Constitutional: General: She is not in acute distress. Comments: BP 124/67 (Patient Position: Sitting) Pulse 77 Temp 36.7 ??C (98.1 ??F) (Temporal) Resp 18 Wt 92.6 kg (204 lb 3.2 oz) Comment: with flip flops SpO2 100% BMI 35.61 kg/m?? HENT: Head: Normocephalic. Eyes: General: No scleral icterus. Right eye: No discharge. Left eye: No discharge. Extraocular Movements: Extraocular movements intact. Conjunctiva/sclera: Conjunctivae normal. Pulmonary: Effort: Pulmonary effort is normal. No respiratory distress. Breath sounds: Normal breath sounds. No stridor. No wheezing, rhonchi or rales. Chest: Breasts: Right: No supraclavicular adenopathy. Left: No supraclavicular adenopathy. Abdominal: General: There is no distension. Palpations: Abdomen is soft. There is no mass. Tenderness: There is no abdominal tenderness. There is no guarding or rebound. Genitourinary: General: Normal vulva. Vagina: No vaginal discharge. Rectum: Normal. Comments: Pelvic exam in dorsolithotomy position showed nl external genitalia w/1.5 cm soft skin tag R perianal area. Speculum exam showed nl urethra & vag vault w/o lesion. Bimanual & rectovag exams w/o worrisome finding. Musculoskeletal: Cervical back: Normal range of motion and neck supple. No tenderness. Right lower leg: No edema. Left lower leg: No edema. Lymphadenopathy: Head: Right side of head: No submental, submandibular, preauricular, posterior auricular or occipital adenopathy. Left side of head: No submental, submandibular, preauricular, posterior auricular or occipital adenopathy. Cervical: No cervical adenopathy. Upper Body: Right upper body: No supraclavicular adenopathy. Left upper body: No supraclavicular adenopathy. Lower Body: No right inguinal adenopathy. No left inguinal adenopathy. Skin: General: Skin is warm and dry. Neurological: Mental Status: She is alert and oriented to person, place, and time. Coordination: Coordination normal. Gait: Gait normal. Psychiatric: Mood and Affect: Mood normal. Behavior: Behavior normal. Thought Content: Thought content normal. Judgment: Judgment normal. A: Healing well s/p xrt. P: Vag dilator given (Thompson small & med); explained rationale for use & gave instructions. Rtc 6 mos. documented in this encounter Plan of Treatment Not on file documented as of this encounter Visit Diagnoses Diagnosis S/P radiotherapy Convalescence following radiotherapy documented in this encounter Care Teams Director Diabetes Relationship Specialty Start Date End Date Trent Varner MD PCP - General Family Medicine 12/17/20 documented as of this encounter
--- OUTSIDE RECORDS SUMMARY | 2023-11-13 15:26 | XMS_ITS | Encounter Summary ---
Author Organization [facility] Address [address] [place] [address] Care Team Providers Care Baseball Club Manager Name Role Phone Unavailable Primary Care Provider Unavailabl e Encounter Details Date Type Department Care Team (Late st Contact Info) Description 11/23/2002 Results Only [facility] - [facility] conversion [address] [place] [address] Mariana Yoon, TIMI [address] [place] [address],[address] [phone] Social History Tobacco Use Types [...] Priority Date/Time Associated Diagnosis Comments CYTOPATHOLOGY Routine 11/23/2002 0:00 EDT documented in this encounter Results * CYTOPATHOLOGY (11/23/2002 0:00 EDT) Pathology Report: CYTOPATHOLOGY REPORT Reports generated via electronic interface contain original data; however they are lacking the format of the original report. Caution should be taken when reading/interpreti ng unformatted reports. Name: ? BECKY MUNGUIA ? Accession #: ? [id number] : ? 1965 (Age: 37) ??F ?Collect Date: ? 11/23/2002 Location: ? [facility] ? Receive Date: ? 11/25/2002 Provider: ?MARIANA YOON TELEPHONE REPAIRER Copy to: ? Specimen/Source: ?ThinPrep Pap Test, Cervix/Endocervix Last Menstrual Period: ? 11/02/02 Other: ? HPVL - HPV testing requested if LSIL/ASCUS/SANTIAGO on the current ThinPrep Pap test. ? SPECIMEN ADEQUACY ? Satisfactory for Evaluation - transformation zone component present GENERAL CATEGORIZATION ? Negative for Intraepithelial Lesion or Malignancy ? Document reviewed and electronically signed by: ? RENETTA Baltazar(ASCP) ? Report Date: ??11/30/2002 08:07 End of Report LAQUITA NAVA 11/23/2002 11/25/2002 Mariana Yoon NP PATHOLOGY ORDERABLES LAQUITA NAVA [address] [place] [address] documented in this encounter Visit Diagnoses Not on filedocumented in this encounter
--- OUTSIDE RECORDS SUMMARY | 2023-11-13 15:26 | XMS_ITS | Encounter Summary ---
Author Organization [facility] Address [address] [place] [address] Care Team Providers Care Cake Icer Name Role Phone Unavailable Primary Care Provider Unavailabl e Encounter Details Date Type Department Care Team (Late st Contact Info) Description 07/18/2008 Orders Only [facility] Laboratory Services - [facility] [place] [address] [place] [address] Mariana Yoon, TIMI [address] [facility],[address] [phone] Social History Tobacco Use Types Packs/Day Years Used Date Smoking Tobacco: Never Assessed Sex and Gender Information Value Date Recorded Sex Assigned at Not on file Gender Identity Not on file Sexual Orientation Not on file documented as of this encounter Plan of Treatment Not on file documented as of this encounter Procedures Procedure Name Priority Date/Time Associated Diagnosis Comments CYTOPATHOLOGY Routine 07/18/2008 0:00 EDT documented in this encounter Results * CYTOPATHOLOGY (07/18/2008 0:00 EDT) Pathology Report: CYTOPATHOLOGY REPORT ? Reports generated via electronic interface contain original data; ? however they are lacking the format of the original report. ? Caution should be taken when reading/interpreti ng unformatted reports. ? Name: ? BECKY MUNGUIA ? Accession #: ? [id number] ? : ? 1965 (Age: 43) ??F ?Collect Date: ? 07/18/2008 ? Location: ? [facility] ? Receive Date: ? 07/19/2008 ? Provider: ?MARIANA YOON PREVOCATIONAL/REHABILITATION COUNSELOR ? Copy to: ? Specimen/Source: ?Pap Test, Cervix/Endocervix, ThinPrep Imaging System ? with manual evaluation ? Last Menstrual Period: ? 05/09/09 ? Hormonal/Contracep tive Status: ? Tubal ligation ? Other: ? HPVA - HPV testing requested if ASC-US on the current ThinPrep Pap test. ? SPECIMEN ADEQUACY ? Satisfactory for Evaluation ? - transformation zone component present ? GENERAL CATEGORIZATION ? Negative for Intraepithelial Lesion or Malignancy ? Document reviewed and electronically signed by: ? Manju Galvan. Ivanna, SCT(ASCP) ? Report Date: ??07/21/2008 09:22 ? End of Report ? LAQUITA NAVA 07/18/2008 07/19/2008 Mariana Yoon PREVOCATIONAL/REHABILITATION COUNSELOR PATHOLOGY ORDERABLES [facility] [address] [place] [address] documented in this encounter Visit Diagnoses Not on filedocumented in this encounter
--- OUTSIDE RECORDS SUMMARY | 2023-11-13 15:26 | XMS_ITS | Encounter Summary ---
Author Organization [facility] Address [facility] [place] [address] Care Team Providers Care Cancer Researcher Name Role Phone Trent Varner MD Primary Care Provider Reason for Referral * Consultation (Routine) - Closed Specialty Diagnoses / Procedures Referred By Contac t Referred To Contact Radiation Oncology Diagnoses Endometrial ca Procedures Simulation for Radiation Therapy Planning Jemima Woods MD [facility] [place] [address] [facility] Rad Onc Office [address] [place] [phone] Referral ID Status Reason Start Date Expiration Date V isits Requested Visits Authorized [id number] Closed Consult, Test & Treat 04/08/2021 04/08/2022 1 1 Reason for Visit * Reason Comments Radiation Consult * Consultation (Routine) - Closed Specialty Diagnoses / Procedures Referred By Contac t Referred To Contact Radiation Oncology Diagnoses Endometrial intraepithelial neoplasia (EIN) Nimisha Prado MD [facility] [place] [address] [facility] Rad Onc Treatment [address] [place] [phone] Referral ID Status Reason Start Date Expiration Date V isits Requested Visits Authorized [id number] Closed Consult, Test & Treat 03/28/2021 03/28/2022 1 1 Encounter Details Date Type Department Care Team (Late st Contact Info) Description 04/08/2021 10:00 AM EST Office Visit Radiation Oncology at [address] [phone] Jemima Woods MD [facility] [place] [address] Endometrial ca Social History Tobacco Use Types [...] place to sleep or slept in a correction (including now)? No 04/08/2021 Sex and Gender Information Value Date Recorded Sex Assigned at Not on file Gender Identity Not on file Sexual Orientation Not on file documented as of this encounter Last Filed Vital Signs Vital Sign Reading Time Taken Comments Blood Pressure 136/75 04/08/2021 9:56 AM EST Pulse - - Temperature 36.9 ??C (98.5 ??F) 04/08/2021 9 :56 AM EST Respiratory Rate 18 04/08/2021 9:56 AM EST Oxygen Saturation 100% 04/08/2021 9:5 6 AM EST Inhaled Oxygen Concentration - - Weight 95.7 kg (211 lb) 04/08/2021 9:56 AM EST with boots (reports 195# yesterday first thing in morning) Height - - Body Mass Index 36.79 03/05/2021 10:44 AM EST documented in this encounter Patient Instructions * Patient Instructions* Jemima Woods MD - 04/08/2021 4:29 PM EST Someone will call you to schedule CTsimulation to be done T., 04/23/21 & 1st radiotherapy will likely be given F., 04/26/21. documented in this encounter Progress Notes * Nydia Guzman RN - 04/08/2021 10:00 AM EST RADIATION ONCOLOGY NURSING INITIAL NURSING ASSESSMENT IDENTIFICATION: Lynn King is a 55 y.o. year-old female with EIN. PRESENTING SYMPTOMS/CHIEF COMPLAINT: Abnormal routine pap 08/10/20. REVIEW OF SYSTEMS: Review of Systems Constitutional: Negative for appetite change and unexpected weight change. Genitourinary: Negative for difficulty urinating, dysuria, vaginal bleeding (first week post op only) and vaginal discharge. Musculoskeletal: Negative for back pain. Neurological: Negative for dizziness. IN THE PAST 12 MONTHS HAVE YOU: Fallen more than one time? No Injured yourself as result of the fall? N/A Experienced difficulty with walking/problems with balance? No Do you use any assistive devices? No Any history of collagen vascular diseases:No Any Implanted Devices/Hardware: No If yes please put alert in ARIA patient summary Prior Radiotherapy: No Prior Chemotherapy: No Prior Hormone Therapy: No LEARNING ASSESSMENT REVIEWED: No ADVANCED DIRECTIVE: PAIN ASSESSMENT: 0 out of 10 *eD-H Adult PCS Flow Sheet if 4 or above SOCIAL ASSESSMENT: See EDH social assessment information entered. Support Systems: family Barriers to treatment: works Referrals/Interventions: GENERAL OFFICE DISPATCHER per routine RADIATION SPECIFIC TEACHING: [facility] Radiation Therapy and You Site specific teaching : Site specific teaching to be done by nursing on day of simulation. Other: PLAN: Per Dr. Woods * Jemima Woods MD - 04/08/2021 10:00 AM EST Images from the original note were not included. CC: Referred by Dr. Varner for eval for xrt for endometrial ca. HPI: Lynn is a 55 y/o f who presented w/routine pap smear 08/10/20 showing glandular cell abnormality-atypical endometrial calls, HPV neg. 11/20/20 endometrial bx. Path: Endometrial polyp w/focal complex atypical hyperplasia & endocervical tissue w/microglandular hyperplasia. 01/04/21 Dr. Prado, h/o irregular menses. 03/05/21 laparoscopic robotic assisted total hys-BSO, SNB, repair of L vaginal sidewall laceration. Path: Endometrioid ca w/squamous diff, FIGO gr 1, > 3 cm diameter, 67% myometrial invasion (10 mm depth, 15 mm thickness), 2 L sentinel lymph nodes (both neg, 0/2), 3 R sentinel lymph nodes (all neg, 0/3), pT1b pN0, FIGO stage IB. 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 03/28/21 Dr. Prado postop, referral for vag cuff brachy, followup w/local sewing machinist. Subjective: Healing well. No pain. No vag disch/bleeding. Urinating w/o problem. No urinary incontinence. No bowel problem. No swelling lower exts. Energy level improving. 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 Past Medical History: Diagnosis Date ??? Abnormal Pap smear of cervix 08/10/2020 atypical glandular cells ??? Diabetes would like numbers better-working on ??? 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 High blood pressure usually controlled with medication ??? Hirsutism ??? Hypertension No lupus/scleroderma. No prior xrt. Past Surgical History: Procedure Laterality Date ??? PRO INTRAOP SENTINEL LYMPH ID W/DYE INJECTION N/A 03/05/2021 INTRAOPERATIVE ID (MAPPING) SENTINEL LYMPH NODE,INCLUDES INJECTION (WRVU 2.5) performed by Nimisha Prado MD at [facility] MAIN OR ??? PRO LAP, PELVIC LYMPHADENECTOMY/BX N/A 03/05/2021 LAPAROSCOPY,W\BILATERAL TOTAL PELVIC LYMPHADENECTOMY, PERIAORTIC LYMPH NODE SAMPLING, ROBOTIC (WRVU15.6) performed by Nimisha Prado MD at [facility] MAIN OR ? ? PRO LAPAROSCOPY W TOT HYSTERECTUTERUS <=250 GRAM W TUBE/OVARY N/A 03/05/2021 LAPAROSCOPY,TOTAL HYST, UTERUS<250GM, REM TUBE &/OR OVARY, ROBOTIC ASSIST (WRVU 15) performed by Nimisha Prado MD at [facility] MAIN OR Your Medications Accurate as of April 08, 2021 10:09 AM. If you have any questions, ask your [...] DAILY Generic drug: Blood-Glucose Meter Refills: 0 oxyCODONE 5 mg Tab Commonly known as: Roxicodone Take 1 tablet by mouth every 6 hours as needed for Pain. 5 mg Quantity: 10 tablet Refills: 0 polyethylene glycoL 17 gram/dose Powd Commonly known as: Miralax Take 17 g by mouth daily. 17 g Quantity: 255 g Refills: 0 FHx: + ca, breast in cousin, pancreas in fa P&SHx: Quit smoking 2001 Physical Exam Constitutional: General: She is not in acute distress. Comments: BP 136/75 Temp 36.9 ??C (98.5 ??F) (Temporal) Resp 18 Wt 95.7 kg (211 lb) Comment: with boots (reports 195# yesterday first thing in morning) SpO2 100% BMI 36.79 kg/m?? HENT: Head: Normocephalic. Eyes: General: No [...] General: Normal vulva. Vagina: No vaginal discharge. Comments: Pelvic exam in dorsolithotomy position showed nl external genitalia w/1.5 cm soft skin tag R perianal area. Speculum exam showed nl urethra & vag vault healing well, w/o lesion. Bimanual exam w/o worrisome finding. Musculoskeletal: Cervical back: Normal [...] Thought content normal. Judgment: Judgment normal. A: Endometrial ca, endometrioid type w/squamous diff, FIGO gr 1, s/p laparoscopic robotic assisted total hys-BSO, B SNB, pT1b pN0, FIGO stage IB, tumor > 3 cm. P: Intravaginal brachytherapy recommended to increase likelihood of cure. Intravaginal brachytherapy would be given @ [facility] in 3 fxs. Possible side effects/complications of intravag brachy discussed, w/acute/immediate side effects including: Diarrhea, increased frequency of urination, burning w/urination, vulvo-vaginal itchiness/irritation, tiredness. Acute/immediate side effects usually temporary. Late/nursing home side effects/complications discussed include: bowel obstruction, chronic diarrhea, chronic burning w/urination, urinary leakage, vaginal shrinkage/narrowing, irradiation associated 2ndmalignancy. Risk of occurrence of late/nursing home side effects small. Discussed vaginal dilator use to minimize vaginal shrinkage/narrowing. Need for CTsim prior to intravag brachy discussed. [facility] She would like to proceed w/intravag brachy & will return 04/23/21 for CTsim. 75 mins in encounter. documented in this encounter Plan of Treatment Scheduled Orders Name Type Priority Associated Diagnoses Orde r Schedule Simulation for Radiation Therapy Planning Procedures Routine Endometrial ca Ordered: 04/08/2021 documented as of this encounter Visit Diagnoses Diagnosis Endometrial ca Malignant neoplasm of corpus uteri, except isthmus documented in this encounter Care Teams Cancer Researcher Relationship Specialty Start Date End Date Tretn Varner MD PCP - General Family Medicine 12/17/20 documented as of this encounter
--- OUTSIDE RECORDS SUMMARY | 2023-11-13 15:26 | XMS_ITS | Encounter Summary ---
Author Organization [facility] [place] [id number] Care Team Providers Care Roll Capper Name Role Phone Trent Varner MD Primary Care Provider [phone] Encounter Details Date Type Department Care Team (Late st Contact Info) Description 01/07/2021 Notes Only [place] [phone] Freda Foster BEAUTY CULTURE TEACHER [facility] DR OBSTETRICS & [place] [address] Social History Tobacco Use Types Packs/Day Years [...] as of this encounter Progress Notes * Freda Foster APRN - 01/07/2021 10:25 AM EST Division of [place] [address] This filing writer received a message from one of our physician residents requesting that a hemoglobin A1cbe ordered at the end of December. also advised if the result is greater than 8 to please reach out to Dr. Nimisha Prado. This filing writer placed a call to the patient and there was no answer. This filing writer left a detailed message stating I was placing an order for the hemoglobin A1c to be drawn at [facility], and asked that she ideally have this done on 01/28/2021, so there is time for it to be resulted and received in this office with further action if indicated. Freda Foster APRN documented in this encounter Plan of Treatment Not on file documented as of this encounter Visit Diagnoses Not on filedocumented in this encounter Care Teams Roll Capper Relationship Specialty Start Date End Date Trent Varner MD PCP - General Family Medicine 12/17/20 documented as of this encounter
--- OUTSIDE RECORDS SUMMARY | 2023-11-13 15:26 | XMS_ITS | Clinical Summary ---
Author Organization [facility] Address [facility] [place] [address] Care Team Providers Care Clinic Charge Nurse Name Role Phone Trent Varner MD Primary Care Provider [phone] Allergies Active Allergy Reactions Criticality Noted Date Comments Penicillins Hives Medium 01/04/2021 PAT Penicillin Allergy Risk Assessment 01/04/2021: Low risk penicillin allergy. OK to receive full dose of cefazolin, cefuroxime, or any 3rd or 4th+ generation cephalosporin. Medications Medication Sig Dispensed Refills Start Date End Date Status OneTouch Ultra Test Strip TEST TWICE DAILY 12/20/2020 Active OneTouch Ultra2 Meter Misc USE TWICE DAILY 11/06/2020 Active OneTouch Delica Plus Lancet 30 gauge Misc TEST TWICE DAILY 12/20/2020 Active metFORMIN (GLUCOPHAGE) 1,000 mg Tablet Take 1 tablet by mouth 2 times daily. 12/29/2020 Active lisinopriL (Zestril) 10 mg Tablet Take 10 mg by mouth daily. Take one 10 mg tablet by mouth daily 12/29/2020 Active acetaminophen (Tylenol) 325 mg Tablet Take 2 tablets by mouth every 6 hours as needed for Pain. 30 tablet 03/05/2021 Active ibuprofen (Advil) 600 mg Tablet Take 1 tablet by mouth every 6 hours as needed for Pain. 30 tablet 12 03/05/2021 Active atorvastatin (Lipitor) 10 mg Tablet Take 10 mg by mouth nightly. 05/07/2021 Active Active Problems Problem Noted Date Diagnosed Date Endometrial intraepithelial neoplasia (EIN) 05/2020 Diabetes mellitus 01/03/2021 Hypertension 01/03/2021 Hirsutism 01/03/2021 Social History Tobacco Use Types Packs/Day Years [...] on file Sexual Orientation Not on file Last Filed Vital Signs Vital Sign Reading [...] 4:07 PM EDT with flip flops Height 161.3 cm (5' 3.5) 03/05/2021 10 :44 AM EST Body Mass Index 35.61 03/05/2021 10:44 AM EST Plan of Treatment Health Maintenance Due Date Last Done Comments CT Colonography 1967 Colonoscopy 1967 Colorectal Cancer Screening 1965 FIT DNA 1965 FIT 1965 Sigmoidoscopy (10 year) with FIT yearly 1965 Sigmoidoscopy 1965 Pneumococcal Vaccine: At-Risk 5-64yrs (1 of 2 - PCV) 0 06/09/1973 DM Hemoglobin A1c 06/09/1977 DM Opthalmology Exam 06/09/1977 DM Urine Microalbumin yearly 06/09/1977 HIV screen 06/09/1985 Hepatitis C Screening 06/09/1985 Hepatitis B vaccine (0-59 yrs) (1) 06/09/1986 Tdap adult 06/09/1986 Tetanus vaccine 06/09/1986 HPV test 06/09/1997 PAP Smear 06/09/1997 Breast Cancer Share Decision Needed 2007 Breast Cancer screening 2007 Zoster vaccine (1 of 2) 06/09/2017 DM Creatinine yearly 01/04/2022 01/04/2021 Advance Directive 06/09/2022 Covid-19 Vaccine (1 - 2022-24 season) 2023 Influenza (Flu) vaccine (1 o f 1 - Influenza standard series) 11/01/2023 Procedures Procedure Name Priority Date/Time Associated Diagnosis Comments HC VENIPUNCTURE Routine 01/04/2021 12:37 PM EDT Endometrial hyperplasia with atypia from Last 3 Months or Most Recently Relevant to Health Maintenance Results * Creatinine (01/04/2021 12:37 PM EDT) Creatinine 0.76 0.70 - 1.20 mg/dL [facility] Est Glomerular Filtration Rate 90 >=60 mL/min/1. 73 m?? [facility] Comment: This patient? s [...] In Lab Nimisha Prado MD CHEMISTRY ORDERABLES [facility] [place] [address] from Last 3 Months or Most Recently Relevant to Health Maintenance Care Teams Clinic Charge Nurse Relationship Specialty Start Date End Date Trent Varner MD PCP - General Family Medicine 12/17/20
--- OUTSIDE RECORDS SUMMARY | 2023-11-13 15:26 | XMS_ITS | Encounter Summary ---
Author Organization [facility]ly [facility] [place] [address] Care Team Providers Care Precision Lens Generator Name Role Phone Trent Varner MD Primary Care Provider [phone] Encounter Details Date Type Department Care Team (Latest Contact Info) Description 03/28/2021 9:00 AM EST TH Visit (TeleHealth) [place] [address] Maribell Cowan MD [facility] DR [place] [address] Post-operative state Social History Tobacco Use Types Packs/Day Years [...] as of this encounter Progress Notes * Maribell Cowan MD - 03/28/2021 9:00 AM EST Division [place] [address] Postoperative Visit: Done virtually due to the COVID-19 pandemic. Patient Active Problem List Diagnosis Code ??? Endometrial intraepithelial neoplasia (EIN) N85.02 ??? Diabetes mellitus E11.9 ??? Hypertension I10 ??? Hirsutism L68.0 Subjective: Lynn King is having a virtual telehealth visit today for her postoperative visit. On 03/05/21 she underwent a robotic hysterectomy/BSO with pelvic lymphadenectomy. Her postoperative course was uncomplicated. She has been doing well since surgery and is eager to get back to work as a [employer] member. She never narcotic pain medications and is having regular bowel movements. Her energy levelis improving and she is eating well. She denies fevers, chills, dysuria, incisional concerns, abdominal pain, vaginal bleeding, nausea, vomiting or diarrhea. Objective: There were no vitals filed for this visit. There is no height or weight on file to calculate BMI. There is no height or weight on file to calculate BSA. Physical Exam not done as this was a virtual visit. Surgical Pathology: ??Immunohistochemistry DIAGNOSIS Endometrial carcinoma with intact nuclear staining for ??MLH1, MSH2, MSH6, and PMS2 in tumor cells. INTERPRETATION Block ? Antibody ? Result (Positive/Negative) B-11 ? MLH1 ?Positive, intact nuclear staining ?MSH2 ?Positive, intact nuclear staining ?MSH6 ?Positive, intact nuclear staining ?PMS2 ?Positive, intact nuclear staining Interpretation: Immunostains for MLH1, MSH2, MSH6, and PMS2 reveal intact nuclear staining in tumor ??cells. ??In a very small percentage of tumors, there may still be an underlying ??hereditary defect in these DNA mismatch repair genes despite intact nuclear ??expression of the protein in tumor cells ?? . Genetic counseling and/or additional ??workup is indicated in patients with a family history that meets current criteria ??for HNPCC screening. Immunohistochemical assay was performed on paraffin-embedded tissue sections fixed ??in 10% neutral buffered formalin for 6-72 hours using the polymer system technique ??with appropriate controls. The assay was performed according to the sandblaster paint sprayer's ??intructions using anti-MLH-1 ([id number]), anti-MSH-2 ([id number]), anti-MSH-6 (44), and ??anti-PMS-2 (MRQ-28) antibodies. ? Surgical Pathology DIAGNOSIS A - Left pelvic sentinel lymph nodes, excision: ? Two lymph nodes, no evidence of malignancy (0/2). B - Uterus, bilateral fallopian tubes and ovaries ? (hysterectomy and bilateral salpingo-oophorectomy): ? 1. Endometrial carcinoma, endometrioid type with ?squamous differentiation, (FIGO grade 1) invasive ?into the outer 1/2 of the myometrium (see Synoptic ?report). ? 2. Adenomyosis involved by carcinoma with ?squamous morule formation (see Discussion). ? 3. Uterine leiomyomas. ? 4. Bilateral benign fallopian tubes and ovaries. ? 5. Ovarian stromal hyperthecosis. ? 6. Paratubal cysts. ? 7. Tumor hormonal status: ?a. Estrogen receptors - Positive. ?b. Progesterone receptors - Positive. C - Right pelvic sentinel lymph nodes, excision: ? Three lymph nodes, no evidence of malignancy (0/3). DIAGNOSIS CR-0 Electronically signed by: ?Michael ARAYA, Bryan Cobb Verified: ??03/12/2021 12:34 ??Pathologist Performed at: ??-[facility]. of [place]ology, [place], [place] SYNOPTIC Specimen ?Procedure: ??Total hysterectomy and bilateral salpingo-oophorectomy; ? Bilateral pelvic sentinel lymph nodes, excision Tumor ?Tumor Size: ??Cannot be determined - Not clearly grossly discernible; greater ? than 3.0 cm in diameter ?Histologic Type: ??Endometrioid carcinoma, NOS ? Histologic Type Comment: ??With squamous differentiation ?Histologic Grade: ??FIGO grade 1 ?Two-Tier Grading System: ??Low grade (encompassing FIGO 1 and 2) ?Myometrial Invasion: ??Present ? Depth of Myometrial Invasion: ??10.0 mm ? Myometrial Thickness: ??15.0 mm ? Percentage of Myometrial Invasion: ??67% ?Adenomyosis: ??Present, involved by carcinoma ?Uterine Serosa Involvement: ??Not identified ?Lower Uterine Segment Involvement: ??Not identified ?Cervical Stromal Involvement: ??Not identified ?Other Tissue / Organ Involvement: ??Not identified ?Peritoneal / Ascitic Fluid: ??Not submitted / unknown ?Lymphovascular Invasion (LVI): ??Not identified Regional Lymph Nodes ?Regional Lymph Node Status: ??All regional lymph nodes negative for tumor ? cells ?Lymph Nodes Examined ? Total Number of Pelvic Nodes Examined: ??5 ? Number of Pelvic [place] Nodes Examined: ??5 ? Total Number of Para-aortic Nodes Examined: ??0 Pathologic Stage Classification (pTNM, AJCC 8th Edition) ?pT Category: ??pT1b ?pN Category: ??pN0 FIGO Stage ?FIGO Stage: ??IB Tumor Block(s): ??B7-B9 Normal Block(s): ??B2 CAP eCC December 2020 Release DISCUSSION There is extensive adenomyosis involved by squamous morules admixed with neoplastic ??glands also with squamous morules which in foci are associated with a stromal ??reaction compatible with invasive carcinoma. Immunohistochemical HNPCC studies are pending and a supplemental report will follow. The sentinel lymph node protocol as outlined in the [facility] study (referenced below) was followed for each of the lymph node tissue ??blocks that lacked metastatic tumor on routine H&E sections. Alondra CH, Melly RA, et al. Pathologic Ultrastaging Improves Micrometastasis Detection ??in [place] Lymph Nodes During Endometrial Cancer Staging. ?Int J Gynecol Cancer ??2013;23: 964-970. Scanned slides: [id number] [id number] DISCUSSION [id number] [id number] [id number] [id number] Assessment and Plan: Lynn King is a 55 y.o. with stage IB, grade 1 endometrial cancer. She is doing well postoperatively and is advised that she may resume full activities at 6 weeks postoperatively. I reviewedher pathology with her and have given her copies of her pathology report and operative note for herrecords. Given her diagnosis of intermediate endometrial cancer, she is at an overall low risk of recurrence, ~10-12% over the remainder of her lifetime and we reviewed adjuvant therapy options to reduce thatrisk further, specifically vaginal cuff brachytherapy. As she lives in [place], she will bereferred there for this treatment. Once she has completed treatment, recommendations for surveillance of intermediate risk disease (stage IA, grade 3, stage IB, stage II) include follow-up visits every 3 months for one year, every 6 months for years 2-5 and yearly thereafter. These visits will include pelvic exam with visualization of the vaginal apex as well as a bimanual/rectovaginal exam. [Current Society of Gynecologic Oncologists (SGO) Surveillance Guidelines: Posttreatment surveillance and diagnosis of recurrence in womenwith gynecologic malignancies: Society of Gynecologic Oncologists recommendations (Renée et al; AJOG, July 2010)]. She prefers to return to her local lithographic etcher for follow-up and is kindly referred back. I will remain available should any questions or concerns arise. MARIBELL COWAN MD documented in this encounter Plan of Treatment Not on file documented as of this encounter Visit Diagnoses Diagnosis Post-operative state Other postprocedural status documented in this encounter Care Teams Precision Lens Generator Relationship Specialty Start Date End Date Trent Varner MD PCP - General Family Medicine 12/17/20 documented as of this encounter
--- OUTSIDE RECORDS SUMMARY | 2023-11-13 15:26 | XMS_ITS | Encounter Summary ---
Author Organization [facility] [place] [address] Care Team Providers Care Dining Room Host/Hostess Name Role Phone Trent Varner MD Primary Care Provider [phone] Reason for Visit * Reason Comments Follow-up Procedure Encounter Details Date Type Department Care Team (Late st Contact Info) Description 05/10/2021 1:00 PM EST Procedure visit [place] [address] Jemima Woods MD [facility] [place] [address] Endometrial ca Social History Tobacco Use Types [...] place to sleep or slept in a prison (including now)? No 04/08/2021 Sex and Gender Information Value Date Recorded Sex Assigned at Not on file Gender Identity Not on file Sexual Orientation Not on file documented as of this encounter Last Filed Vital Signs Vital Sign Reading Time Taken Comments Blood Pressure 157/90 05/10/2021 1:30 PM EST Pulse 74 05/10/2021 1:30 PM EST Temperature 36.1 ??C (96.9 ??F) 05/10/2021 1:30 PM ES T Respiratory Rate 16 05/10/2021 1:30 PM EST Oxygen Saturation 100% 05/10/2021 1:30 PM EST Inhaled Oxygen Concentration - - Weight - - Height - - Body Mass Index - - documented in this encounter Patient Instructions * Patient Instructions* Latoya Fitzgerald RN - 05/10/2021 1:56 PM EST Follow Up Care (After High Dose Rate Brachytherapy) Urinary symptoms, diarrhea and fatigue can develop as side effects of this treatment. Urinary Symptoms: Please try to drink at least two liters of low acid liquids or water for the first two days after your treatment. This will minimize the possibility of developing any urinary symptoms. Urinary frequency/ urgency can be an expected side effect from your treatment. If you develop these symptoms and/or painful urination, please call the Radiation Oncology department . There may be a medication we can order to control these symptoms. Diarrhea:If you develop diarrhea, change to a low fiber diet. You can take one imodium after each loose stool up to four a day. Call if this does not help control your symptoms. Fatigue can develop after each treatment and linger for up to 4 weeks after treatment is completed.Pace you activities and take rest periods as needed. Practice regular sleep routines. Daily exercise such as walking of at least 30 mins/day is helpful to increase your energy level. Sexuality: [place] can be resumed as soon as desired. Some women experience vaginal dryness after pelvic radiation. Using water based lubricants such as KY jelly can assist with lubrication to make intercourse more comfortable. If these measures do not help, some women find using an estrogen cream can help. If you do not have intercourse, your doctor will recommend the use of a vaginal dilator to maintain the elasticity of your vagina. This will be given to you with instructions on your follow up appointment. Warning Signs: Spotting after your procedure is normal but you should not experience bleeding similar to a period. or vaginal bleeding.Foul smelling discharge from your vagina is not normal. Please call us if you experience any of these symptoms. For serious problems or concerns which include a fever, sharp, continuous pain in the pelvic area or heavy red vaginal bleeding please go to the nearest emergency room. Follow Up:You will be called about a follow up appointment. Dr Jemima Woods For non-emergency questions or concerns please phone the Radiation Oncology department: [phone]. If you need to contact your physician after normal clinic hours (8AM to 5PM) call [phone] and ask to have the Radiation Oncologist reference and instruction librarian contacted documented in this encounter Progress Notes * Jemima Woods MD - 05/10/2021 1:00 PM EST Images from the original note were not included. DIAGNOSIS: Endometrial ca, endometrioid type w/squamous diff, FIGO gr 1, s/p laparoscopic robotic assisted total hys-BSO, B SNB, pT1b pN0, FIGO stage IB, tumor > 3 cm. Here for 2nd intravag brachy. CURRENT TREATMENT DOSE: 7 Gy (seen prior to brachy) ANTICIPATED TOTAL DOSE: 21 Gy Current # of xrt received: 1 (seen prior to brachy) Anticipated total # of xrt txs: 3 Evaluation of port verification films: Approved. For details, see electronic film record in [facility] [facility]. Changes in Medical Condition: None. Denies urinary symptom/diarrhea. No vulvovag itchiness/irritation. No tiredness. Pain?: No. Your Medications Accurate as of May 10, 2021 2:32 PM. If you have any questions, ask [...] drug: Blood-Glucose Meter Refills: 0 Physical Exam: BP 157/90 (BP Location (NBP): Left arm, Patient Position: Sitting) Pulse 74 Temp36.1 ??C (96.9 ??F) Resp 16 SpO2 100% A&Ox3, NAD. No vulvovag abnlty. Imagin04/23/21 Dx'ic Rad Interp CTsim: No suspicious lesion. Performance Status: KPS 100% Response to xrt: As expected. Irradiation Related Symptoms: None. Treatment for Symptom Control: None needed. Pain Management: Not needed. Recommendation on Continuing Course of xrt: Continue. After drinking water to fill bladder, Lynn was brought to brachytherapy suite and she was positioned supine on brachytherapy stretcher wearing fancy pants. Timeout by physician & nurse with patient confirmed patient identity, allergies, medications & procedure to be performed. [id number] mm universal stump cylinder then inserted into [...] treatment completed, physicist surveyed brachytherapy suite with Kelly counter, confirming return of Ir-192 source into vault. Physician & nurse then re-entered treatment room. Cylinder removed. Patient informed of possible side effects from the treatment & we discussed plan for followup @ [facility] after brachytherapy completion. She was given printout with instructions for managing side effects, contact information, appointment for next brachytherapy & a reminder about the plan for followup. She tolerated procedure well, without adverse effect. documented in this encounter Plan of Treatment Not on file documented as of this encounter Visit Diagnoses Diagnosis Endometrial ca Malignant neoplasm of corpus uteri, except isthmus documented in this encounter Care Teams Dining Room Host/Hostess Relationship Specialty Start Date End Date Trent Varner MD PCP - General Family Medicine 12/17/20 documented as of this encounter
--- OUTSIDE RECORDS SUMMARY | 2023-11-13 15:26 | XMS_ITS | Encounter Summary ---
[facility] Address [facility] [place] [address] Care Team Providers Care Automation/Controls Manager Name Role Phone Trent Varner MD Primary Care Provider [phone] Reason for Visit * Auth/Cert Specialty Diagnoses [...] Expiration Date Visits Re quested Visits Authorized [id number] 1 1 Encounter Details Date Type Department Care Team (Late st Contact Info) Description 03/05/2021 11:10 AM EST - 03/05/2021 2:29 PM EST Surgery [place] [id number] Maribell Cowan MD [facility] [place] [address] ROBOTIC LAPAROSCOPY,TOTAL HYST, UTERUS<250GM, REM TUBE &/OR OVARY (WRVU 15) Social History Tobacco Use Types Packs/Day Years [...] Sign Reading Time Taken Comments Blood Pressure 159/73 03/05/2021 10:44 AM EST Pulse 57 03/05/2021 10:44 AM EST Temperature 36.4 ??C (97.5 ??F) 03/05/2021 10:[address] Respiratory Rate 18 03/05/2021 10:44 AM EST Oxygen Saturation 100% 03/05/2021 10:44 AM EST Inhaled Oxygen Concentration - - [...] PATIENT DISCHARGE INSTRUCTIONS Gynecologic Oncology phone number: [phone]. After hours and on weekends please call hospital granulator machine operator at [phone] and ask for Gynecologic Oncologist conservation technician. Call your doctor if you develop: --A [...] Center 03/28/2021 9:00 AM Maribell Cowan MD [facility] SUPPORT WORKER 3K [facility] Activity level: Let your body guide you- [...] Cowan MD - 03/05/2021 10:17 AM EST SUPPORT WORKER H&P Patient Active Problem List Diagnosis Code [...] Cowan MD - 03/05/2021 11:54 AM EST [facility] Operative Note Patient Name: Lynn King : [id number] MR#: [id number] Case Date: 03/05/2021 Surgeon: Surgeon(s) and Role: * Maribell Cowan MD - Primary * Juani Daly MD - Resident Registered Nurse Ground Support Equipment Assembler: Kriss Harper RN 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 female with a preoperative biopsy in [facility] of postmenopausal bleeding which revealed endometrial intraepithelial [...] into the substance of the cervix. A [email or web address] uterine manipulator was placed without perforation. An 8-mm transverse incision was made at the umbilicus, through which a Veress needle was inserted and the abdomen was insufflated to tympany with carbon dioxide gas. An 8mm trocar was then inserted and the camera was placed, verifying a successful atraumatic entry. 3 additional 8-mm trocars and an 8-mm right upper quadrant social worker assistant port were placed in the usual [...] attending physician, was present for the entire procedure.[facility] Sharp and sponge counts were correct x two. No surgical instrument counts were performed as per [facility] OR policy. Complications: None. DVT Prophylaxis: 5000 [...] XI 03/05/2021 11:12 AM EST EIN Intraop [place] Lymph Id W/Dye Injection (45162) 03/05/2021 11:12 AM EST EIN Lap, Pelvic Lymphadenectomy/Bx (45787) 03/05/2021 11:12 AM EST EIN Laparoscopy W Tot Hysterectuterus <=250 Gram W Tube/Ovary ([id number]) 03/05/2021 11:12 AM EST EIN POCT GLUCOSE Routine 03/05/2021 10:35 AM EST documented in this encounter Results * POCT Glucose (03/05/2021 2:22 PM EST) Glucose, POC 120 65 - 199 mg/dL [facility] Comment: Supplemental ranges: <140 mg/dL before meals <180 mg/dL all other times of the day Blood 03/05/2021 2:22 PM EST 03/05/2021 2:22 PM EST Maribell Cowan MD POINT OF CARE TEST O LEONEL Performing Organization Address [facility] [place] [address] * Specimen to Pathology (03/05/2021 12:59 PM EST) AP Specimen 03/05/2021 12:5 9 PM EST 03/05/2021 12:59 PM EST Narrative [facility] - 03/05/2021 12:59 PM EST Specimen requisition ordered. ??Separate Pathology report to follow Maribell Cowan MD PATHOLOGY/CYTOLOGY O LEONEL Performing Organization Address [facility] [place] [address] * Specimen to Pathology (03/05/2021 12:59 PM EST) AP Specimen 03/05/2021 12:5 9 PM EST 03/05/2021 12:59 PM EST Narrative [facility] - 03/05/2021 12:59 PM EST Specimen requisition ordered. ??Separate Pathology report to follow Maribell Cowan MD PATHOLOGY/CYTOLOGY O LEONEL Performing Organization Address [facility] [place] [address] * Surgical Pathology Report (03/05/2021 12:42 PM EST) Final Diagnosis [id number] ? Location: [facility]; [facility]; A The signing pathologist has (i) examined the relevant preparation(s) for the specimen(s) and (ii) rendered or confirmed the diagnosis(es). . ? Immunohistochemistry DIAGNOSIS Endometrial carcinoma with intact nuclear staining for ??MLH1, MSH2, MSH6, and PMS2 in tumor cells. Electronically signed by: ?Michael ARAYA, Bryan Cobb Verified: ??03/12/2021 12:34 ??Pathologist Performed at: ??-[facility] Dept. of Pathology, [place], [place] INTERPRETATION Block ? Antibody ? Result [...] The assay was performed according to the fire extinguisher mechanic's intructions using anti-MLH-1 ([id number]), anti-MSH-2 ([id number]), anti-MSH-6 (44), and anti-PMS-2 (MRQ-28) antibodies. ?Surgical [...] Cobb Verified: ??03/12/2021 12:34 ??Pathologist Performed at: ??-[facility] Dept. of Pathology, [place], [place] SYNOPTIC Specimen ? Procedure: ??Total hysterectomy [...] Pelvic Nodes Examined: ??5 ?Number of Pelvic [place] Nodes Examined: ??5 ?Total Number of Para-aortic [...] lymph node protocol as outlined in the [facility] study (referenced below) was followed for each of the lymph node tissue blocks that lacked metastatic tumor on routine H&E sections. Alondra CH, Melly RA, et al. Pathologic Ultrastaging Improves Micrometastasis Detection in [place] Lymph Nodes During Endometrial Cancer Staging. ?Int J Gynecol Cancer 2013;23: 964-970. Scanned slides: [id number] . DISCUSSION [id number] [id number] [id number] ADDITIONAL STUDIES IHC [place] Lymph Node Protocol For Endometrial Carcinoma: Formalin-fixed, [...] B-11 ? ER ? Positive B-11 ? AK ? Positive IHC studies provide the pathologist [...] Fallopian Tube: 3.1 x 0.4 cm, fimbriated. Press Writer sections in 68 cassettes as follows: ?B1: Anterior cervix, blue endometrial side ?B2-B4: Anterior lower uterine segment, blue cervical side ?B5-B15: Anterior endomyometrium, full thickness sections in B5-B7 ?B16: Posterior cervix, blue ink endometrial sign ?B17-B20: Posterior lower uterine segment, blue ink cervical side ?B21-B35: Posterior endomyometrium including full-thickness sections and B21-B23 ?B36-B39: Circumscribed masses, posterior wall ?B40: Press Writer right ovary ?B41-B43: Right fallopian tube ?B44: Press Writer left ovary ?B45-B46: Left fallopian tube ?B47-B51: Remaining myometrium from LEONARDO, cervical aspect inked red ?B52-B68: Remaining myometrium C - Labeled/Fixative: Right pelvic sentinel lymph node, fresh. Quantity/Size: Single, 6.1 x 3.4 x 1.1 cm. Tissue Description: Adipose tissue with three lymph nodes, up to 3.8 cm. The jose e tissue is totally submitted. Press Writer sections in 6 cassettes as follows: ?C1: Single node ?C2: Single node ?C3-C6: Largest node pps 03/12/2021 12:34 PM EST [facility] SENTINEL LYMPH NODE / Unknown 03/05/2021 12:42 PM EST 03/05/2021 12:42 PM EST Uterine Corpus 03/05/2021 12 :42 PM EST 03/05/2021 12:42 PM EST SENTINEL LYMPH NODE / Unknown 03/05/2021 12:42 PM EST 03/05/2021 12:42 PM EST Maribell Cowan MD PATHOLOGY/CYTOLOGY O LEONEL Performing Organization Address [facility] Co de Phone Number [facility] [place] [address] * Specimen to Pathology (03/05/2021 12:42 PM EST) AP Specimen 03/05/2021 12:4 2 PM EST 03/05/2021 12:42 PM EST Narrative [facility] - 03/05/2021 12:42 PM EST Specimen requisition ordered. ??Separate Pathology report to follow Maribell Cowan MD PATHOLOGY/CYTOLOGY O LEONEL Performing Organization Address [facility] Co de Phone Number [facility] [place] [address] * POCT Glucose (03/05/2021 10:35 AM EST) Glucose, POC 99 65 - 199 mg/dL [facility] Comment: Supplemental ranges: <140 mg/dL before meals <180 mg/dL all other times of the day Blood 03/05/2021 10:3 5 AM EST 03/05/2021 10:35 AM EST Maribell Cowan MD POINT OF CARE TEST O RDAMALIA Performing Organization Address [facility] de Phone Number [facility] [place] [address] documented in this encounter Visit Diagnoses Not [...] Given 03/05/2021 10:59 AM EST 1,000 mg BUpivacaine (pf) (Marcaine) (5 mg/mL) 0.5% injection ONCE PRN, Starting on Thu03/05/21 at 1209, Until Thu03/05/21 at 2042, Intra-Operative (Intra-Procedure), Routine Given 03/05/2021 1:37 PM EST 10 mLs 19- Surgical Site Given 03/05/2021 12:09 PM EST 11 mLs 1 9- Surgical Site heparin (porcine) (5,000 units/1 mL) subcutaneous injection 5,000 Units 5,000 Units, Subcutaneous, ONCE, 1 dose, On Thu03/05/21 at 1100, Day of Surgery (Day of Procedure), Routine Given 03/05/2021 10:58 AM EST 5,000 Units Left Lower Quadrant indocyanine green (Ic-Green) injection ONCE PRN, Starting on Thu03/05/21 at 1210, Until Thu03/05/21 at 2042, Intra-Operative (Intra-Procedure), Routine Given 03/05/2021 12:10 PM EST 6.25 mg documented in this encounter Active and Recently [...] Thu03/05/21 at 1100, Administer over 30 Minutes, Trim Crew Supervisor to OR Infuse over 30 minutes., Day [...] Thu03/05/21 at 1100, Administer over 30 Minutes, Trim Crew Supervisor to OR Infuse over 30 minutes., Day of Surgery (Day of Procedure), Indication for (Active or Suspected): Prophylaxis 1140 (Given - Provid er: Blessing Dennis CRNA) Continuous Medication Order 03/03/2021 03/04/2021 03/05/2021 lactated ringers infusion 1,000 mL, at 100 mL/hr, Intravenous, CONTINUOUS, Starting on Thu03/05/21 at 1415, Until Thu03/05/21 at 2042 1415 (Due) PRN Medication Order 03/03/2021 03/04/2021 [...] Thu03/05/21 at 1100, Administer over 30 Minutes, Trim Crew Supervisor to OR Infuse over 30 minutes., Day of Surgery (Day of Procedure), Indication for (Active or Suspected): Prophylaxis And metroNIDAZOLE (Flagyl) 500 mg in sodium chloride 0.9% 100 mL infusion (COMPLETED)Jump to med 500 mg, Intravenous, ONCE, 1 dose, On Thu03/05/21 at 1100, Administer over 30 Minutes, Trim Crew Supervisor to OR Infuse over 30 minutes., Day of Surgery (Day of Procedure), Indication for (Active or Suspected): Prophylaxis documented in this encounter Care Teams Automation/Controls Manager Relationship Specialty Start Date End Date Trent Varner MD PCP - General Family Medicine 12/17/20 documented as of this encounter
--- OUTSIDE RECORDS SUMMARY | 2023-11-13 15:26 | XMS_ITS | Encounter Summary ---
Author Organization [facility] Address [facility] [place] [address] Care Team Providers Care Electronic Service Technician Name Role Phone Trent Varner MD Primary Care Provider [phone] Reason for Visit * Reason Comments Procedure Encounter Details Date Type Department Care Team (Late st Contact Info) Description 05/17/2021 12:30 PM EDT Procedure visit [place] [address] Lopez Singh MD [facility] [address] Endometrial ca Social History Tobacco Use Types [...] place to sleep or slept in a penitentiary (including now)? No 04/08/2021 Sex and Gender Information Value Date Recorded Sex Assigned at Not on file Gender Identity Not on file Sexual Orientation Not on file documented as of this encounter Last Filed Vital Signs Vital Sign Reading Time Taken Comments Blood Pressure 158/86 05/17/2021 11:56 AM EDT Pulse 71 05/17/2021 11:56 AM EDT Temperature 36.4 ??C (97.5 ??F) 05/17/2021 11:56 AM E DT Respiratory Rate 18 05/17/2021 11:56 AM EDT Oxygen Saturation 100% 05/17/2021 11:56 AM EDT Inhaled Oxygen Concentration - - Weight - - Height - - Body Mass Index - - documented in this encounter Progress Notes * Lopez Singh MD - 05/17/2021 12:30 PM EDT Images from the original note were not included. DIAGNOSIS: Endometrial ca, endometrioid type w/squamous diff, FIGO gr 1, s/p laparoscopic robotic assisted total hys-BSO, B SNB, pT1b pN0, FIGO stage IB, tumor > 3 cm. Here for 3rd intravag brachy. CURRENT TREATMENT DOSE: 14 Gy (seen prior to brachy) ANTICIPATED TOTAL DOSE: 21 Gy Current # of xrt received: 2 (seen prior to brachy) Anticipated total # of xrt txs: 3 Evaluation of port verification films: Approved. For details, see electronic film record in [employer]. Changes in Medical Condition: None. Denies urinary symptom/diarrhea. No vulvovag itchiness/irritation. No tiredness. Pain?: No. Your Medications Accurate as of May 17, 2021 1:08 PM. If you have any questions, ask [...] Blood-Glucose Meter Refills: 0 Physical Exam: BP 158/86 Pulse 71 Temp 36.4 ??C (97.5 ??F) Resp 18 SpO2 100% A&Ox3, NAD. No vulvovag abnlty. [...] allergies, medications & procedure to be performed. [id number] mm universal stump cylinder then inserted into [...] treatment completed, physicist surveyed brachytherapy suite with [place] counter, confirming return of Ir-192 source into vault. Physician & nurse then re-entered treatment room. Cylinder removed. Patient informed of possible side effects from the treatment & we discussed plan for followup @ [facility] after brachytherapy completion. She was given printout [...] isthmus documented in this encounter Care Teams Electronic Service Technician Relationship Specialty Start Date End Date Trent Varner MD PCP - General Family Medicine 12/17/20 documented as of this encounter
--- OUTSIDE RECORDS SUMMARY | 2023-11-13 15:26 | XMS_ITS | Encounter Summary ---
Author Organization [facility] Address [address] [place] [address] Care Team Providers Care Rolled Glass Crosscutter Name Role Phone Joseph Chantel K SUPPORT SERVICES REP Primary Care Provider [phone] Encounter Details Date Type Department Care Team (Late st Contact Info) Description 08/11/2020 Lab Requisition [facility] Pathology & Laboratory Medicine - [address] [address] Outr Resulting Lab, Provider Social History Tobacco Use Types Packs/Day Years [...] RNA BY PCR Routine 08/10/2020 17:00 EDT documented in this encounter Results * HEPATITIS C AB W REFLEX TO HCV RNA BY PCR (08/10/2020 17:00 EDT) Hep C Antibody Negative Negative 08/13/2020 9:58 EDT [facility] Blood VENOUS BLOOD / Unknown 08/10/2020 17:00 EDT 08/12/2020 15:57 EDT Provider Outr Resulting Lab CHEMISTRY & BLOOD GAS ORDERABLES [facility] [address] [place] [address] documented in this encounter Visit Diagnoses Not on filedocumented in this encounter Care Teams Rolled Glass Crosscutter Relationship Specialty Start Date End Date Chantel Ruiz NP [address] [place] [address] PCP - General 07/31/20 documented as of this encounter
--- OUTSIDE RECORDS SUMMARY | 2023-11-13 15:26 | XMS_ITS | Encounter Summary ---
Author Organization [facility] [place] [address] Care Team Providers Care Operations Manager Assistant Name Role Phone Trent Varner MD Primary Care Provider [phone] Encounter Details Date Type Department Care Team (Late st Contact Info) Description 01/04/2021 11:30 AM EDT Clinical [place] [phone] Social History Tobacco Use Types Packs/Day Years [...] as of this encounter Progress Notes * Raquel Camara RN - 01/04/2021 11:30 AM EDT Anesthesia questionnaire reviewed with patient while in the [facility]. Pre-operative instruction booklet reviewed. Patient verbalizes a good understanding of all information reviewed.Has not had COVID or COVID symptoms in the past 3 months. PLAN: Testing: Sent to for blood work. Special medication instructions: None Procedure date: 02-05 [facility] Penicillin Allergy Risk Assessment 01/04/2021: Low risk penicillin allergy. OK to receive full dose of cefazolin, cefuroxime, or any 3rd or 4th+ generation cephalosporin. documented in this encounter Plan of Treatment Not on file documented as of this encounter Visit Diagnoses Not on filedocumented in this encounter Care Teams Operations Manager Assistant Relationship Specialty Start Date End Date Trent Varner MD PCP - General Family Medicine 12/17/20 documented as of this encounter
[2023-11-13 15:46] LABS: Anion Gap 10.1 mmol/L (3-11); BUN 19 mg/dL (7-18); CO2 29.9 mmol/L (21.0-32.0); CREATININE 0.7 mg/dL (0.55-1.02); Calcium 8.8 mg/dL (8.5-10.1); Calculated LDL 44 mg/dL (<100); Chloride 103 mmol/L (98-107); Cholesterol 115 mg/dL (<200); Estimated GFR 101.44 (mL/min/1.73m2); Glucose 98 mg/dL (74-106); HDL Cholesterol 63 mg/dL (40-60); Magnesium 2.3 mg/dL (1.8-2.4); Potassium 3.8 mmol/L (3.5-5.1); Sodium 143 mmol/L (136-145); Triglyceride 43 mg/dL (<150)
[2023-11-13 16:39] LABS: COMMENT (LAB VIEW ONLY) 69.42 mg/dL; Microalb ug/mg Crea 9.2 ug/mg Cr
== END 2023-11-13 15:25 | disposition home or self-care (01) ==
LOC: NCHCN 15:24
PROVIDERS: PCP Family Medicine; Visit Provider Student in an Organized Health Care Education/Training Program
DX: E11.9 Type 2 diabetes mellitus without complications (principal); I10 Essential (primary) hypertension
CPT/HCPCS: 80048; 80061; 82043; 82570; 83735

== ENCOUNTER 2023-12-03 06:30 | Emergency (ER) | payer MEDICAID, SELFPAY ==
[2023-12-03 06:32] VITALS: BP 175/88; PULSE 69; RESP 16; TEMP 36.2; O2SAT 98
--- NOTE | 2023-12-03 07:00 | DI.RAD_ITS ---
Exam(s) XR LUMBAR SPINE COMPLETE EXAM: XR LUMBAR SPINE COMPLETE CLINICAL HISTORY: lumbar back pain. TECHNIQUE: 2D digital imaging was performed. Five views. COMPARISON: No exams were available for comparison FINDINGS: BONES: No fracture or destructive lesion. Vertebral body heights are maintained. Endplate osteophy marga noted in the lower thoracic and upper lumbar levels. Mild facet hypertrophy identified . DISKS: Intervertebral disc spaces are maintained. ALIGNMENT: Lumbar spinal alignment is within normal limits. SOFT TISSUE: Normal. IMPRESSION: Mild degenerative changes. DATA REPOSITORY: RADIATION DOSE DELIVERED:
--- NOTE | 2023-12-03 07:00 | DI.RAD_ITS ---
Exam(s) XR HIP LT COMPLETE AP PELVIS EXAM: XR HIP LT COMPLETE AP PELVIS CLINICAL HISTORY: left hip pain. TECHNIQUE: 2D digital imaging was performed. Three views. COMPARISON: No exams were available for comparison FINDINGS: BONES: No acute fracture is present. No bony destructive lesion is seen. JOINTS: No dislocation present. Hip joint spaces are maintained. The SI joints and pubic symphysis are unremarkable. SOFT TISSUE: Normal. IMPRESSION: Unremarkable radiographs of the left hip. Unremarkable radiographs of the pelvis DATA REPOSITORY: RADIATION DOSE DELIVERED:
--- NOTE | 2023-12-03 07:15 | ED.GENADUL_ITS ---
Discharge Plan Disposition Patient Disposition: Home Condition: Stable Discharge Details Clinical Impression: Leg pain, posterior Primary Care Provider: Trent Varner ED Provider: Edwin West Home Meds and New Rx's Prescriptions: New cyclobenzaprine 10 mg tablet 10 mg PO TID PRNQty: 30 0RF gabapentin 300 mg capsule 300 mg PO TID PRNQty: 60 0RF Continued metformin 500 mg tablet 500 mg PO BID ibuprofen 200 mg tablet 200 mg PO Q6H PRN atorvastatin 10 mg tablet 10 mg PO HS Patient Comments: TAKE ONE TABLET BY MOUTH EVERY DAY AT BEDTIME TO PREVENT HEART DISEASE losartan 25 mg tablet 25 mg PO DAILY No Action gabapentin 100 mg capsule 100 mg PO TID PRN Patient Comments: TAKE ONE CAPSULE BY MOUTH UP TO THREE TIMES A DAY FOR NEUROPATHIC PAIN Discharge Instructions Additional Instructions: Your x-rays do not show any concerning findings at this time In addition to the prescribed meds you can also take 600 mg of ibuprofen and 1000 mg of acetaminophen every 6 hours as needed Follow-up with your primary care provider within 1 to 2 weeks especially if you are not improving If you feel more ill or have new symptoms such as high fevers or difficulty urinating return to the emergency department for reevaluation HPI General Mode of arrival: ambulatory . Date/Time Provider Initiated Documentation: 12/03/23 07:00 . Limitations to Documentation: no limitations . Information obtained by: patient . History of Present Illness 58 year old F presents to the emergency department with the chief complaint of shooting pain down left leg, described as severe, Quality is described as sharp and constant, and is localized to the left and lower extremity. Patient started experiencing this day(s) (2) and it has been constant. Other factors that worsen symptoms (bending down) . Patient notes denies chest pain, fe prabhakar/chills, shortness of breath and weakness. Related Data Home Medications ?Medication ?Instructions ?Recorded ?Confirmed ibuprofen 200 mg tablet 200 mg PO Q6H PRN 09/25/20 12/03/23 atorvastatin 10 mg tablet 10 mg PO HS 09/04/22 12/03/23 losartan 25 mg tablet 25 mg PO DAILY 09/04/22 12/03/23 metformin 500 mg tablet 500 mg PO BID 09/04/22 12/03/23 cyclobenzaprine 10 mg tablet 10 mg PO TID PRN #30 tabs 12/03/23 gabapentin 100 mg capsule 100 mg PO TID PRN 12/03/23 12/03/23 gabapentin 300 mg capsule 300 mg PO TID PRN #60 caps 12/03/23 Previous Rx's ?Medication ?Instructions ?Recorded cyclobenzaprine 10 mg tablet 10 mg PO TID PRN #30 tabs 12/03/23 gabapentin 300 mg capsule 300 mg PO TID PRN #60 caps 12/03/23 Allergies Allergy/AdvReac Type Severity Reaction Status Date / Time Penicillins Allergy Mild Hives Unverified 09/25/22 13:02 lisinopril AdvReac cough Unverified 09/25/22 13:02 seasonal Allergy Mild uri smptoms Uncoded 09/25/22 13:02 General Stated Complaint: Nk/Back Pain SABINA: 4 Review of Systems All systems reviewed & are unremarkable except as noted in HPI and below Constitutional Constitutional: Denies chills, Denies fever(s) and Denies weakness Cardiovascular Cardiovascular: Denies chest pain and Denies dyspnea Respiratory Respiratory: Denies cough and Denies dyspnea Gastrointestinal Gastrointestinal: Denies abdominal pain, Denies nausea and Denies vomiting Musculoskeletal Musculoskeletal: Denies joint swelling, Denies numbness and Reports radiating pain into limb Neurologic Neurologic: Denies numbness and Denies weakness Exam Const General: no acute distress Orientation: alert HENMT Head: normal to inspection Ears: external ears normal General nose exam: external nose normal Mouth: moist mucous membranes Eyes General: appearance normal, both eyes and all related structures Neck Neck: normal visual inspection Resp Effort & Inspection: normal respiratory effort and able to speak in complete sentences Cardio Rate: regular rate GI Palpation: soft and nontender Back/Spine/Pelvis Back: no CVA tenderness Thoracic/Lumbar Spine: No thoracic spinal tenderness and No lumbar spinal tenderness Skin General skin exam: no rashes or lesions noted Neuro General: patient alert and patient oriented x3 Extrem General: normal to inspection, full ROM, capillary refill normal, no calf tenderness bilaterally, no cyanosis and no edema Psych Mental Status: mental status grossly normal Course Vital Signs Vital signs: Vital Signs Temperature 36.2 C L 12/03/23 06:32 Pulse 69 12/03/23 06:32 Respiratory Rate 16 12/03/23 06:32 Blood Pressure 175/88 H 12/03/23 06:32 Pulse Oximetry 98 12/03/23 06:32 Temperature 36.2 C L 12/03/23 06:32 Pulse 69 12/03/23 06:32 Respiratory Rate 16 12/03/23 06:32 Respiratory Effort Normal, Non-Labored 12/03/23 06:36 Blood Pressure 175/88 H 12/03/23 06:32 Blood Pressure Position Sitting 12/03/23 06:32 Pulse Oximetry 98 12/03/23 06:32 Oxygen Delivery Method Room Air 12/03/23 06:32 Oxygen Flow Rate 0 12/03/23 06:32 Pain Level 10 12/03/23 06:38 Medical Decision Making 58-year-old female with a history of hypertension, diabetes, comes in with 2 days of nontraumatic pain that shoots down the posterior aspect of her left leg. She says it starts at the left lower back and shoots down the leg. She denies any falls, fevers, chills, IV drug use. She denies any changes in urination or bowel movements. She says bending over makes the pain worse. She is in no distress on exam. She has reproducible tenderness in the left lower back, no midline tenderness, no saddle anesthesia, no leg swelling, intact distal sensation and pulses. There is no swelling of the leg or calf tenderness. Reflexes are intact and normal. Suspect musculoskeletal back pain versus sciatica, there is no findings on exam or history to suggest cauda equina or spinal epidural abscess do not feel emergent MRI indicated. She has no infectious symptoms so doubt osteomyelitis. She has intact pulses and no discoloration of the leg so doubt arterial occlusion and she has no swelling of the leg or calf tenderness without DVT. Will obtain x-rays of the hip and lumbar spine to exclude pathological fracture and treat her pain with Toradol, gabapentin and cyclobenzaprine and reassess. X-ray showed no acute findings on my read or Dr. Florence's from radiology read. Patient is stable and feeling improved. Still has no saddle anesthesia or other concerning neurological findings. Suspect musculoskeletal back pain versus sciatica. I will provide her a short course of as needed Flexeril and increase her gabapentin from 100 mg to 300 mg as needed. Advised to follow-up with her PCP and return precautions given Differential Diagnosis Differential Diagnosis: Muscle spasm, strain, disc herniation, sciatica Quality:SDOH Health Related Social Needs: No Data to Display PFSH All Active Problems (Updated 12/03/23 @ 08:43 by Edwin West MD) Leg pain, posterior (Acute) Screening for malignant neoplasm performed (Acute) Screening for colon cancer (Acute) BMI 40.0-44.9, adult (Acute) Diabetes (Chronic) Complex atypical endometrial hyperplasia (Acute) Hypertension (Chronic) Medical History (Updated 12/03/23 @ 08:43 by Edwin West MD) Endometrial cancer Atypical glandular cells on cervical Pap smear Hirsutism History of tobacco use Numbness in feet Surgical History (Updated 09/26/22 @ 07:49 by Lexie Lara) History of colonoscopy History of hysterectomy Delivery by section Social History Smoking/Tobacco Use Status: Former Tobacco Use Quit Date: 03/02/01 Smoking risk assessment performed?: Yes Alcohol Intake: never Drug use: Never Substance use type: does not use Household members: spouse Housing: apartment Number of Children: 2 What type of physical activity do you participate in: walking Do you feel safe at home: Yes Do you feel safe in your relationship?: Yes Female Reproductive History Menstrual Age of Menarche: 15 Duration of menses: 3-5 days control method: permanent sterilization History Past Pregnancies Del. Date GA/Weeks # Preg Succ Route Wgt Sex Labor Lgth Anesth esia Location Prov Complic 11/26/90 42 Male [place] on 10/23/92 42 Male [place]
[2023-12-03] MEDS: Cyclobenzaprine 10 MG TAB PO (08:06)
[2023-12-03] MEDS: Gabapentin 300 MG CAP PO (08:06)
[2023-12-03] MEDS: Ketorolac 15 MG/ML VIAL IM (08:07)
[2023-12-03 08:11] VITALS: BP 149/51; PULSE 53; RESP 20; O2SAT 97
== END 2023-12-03 09:00 | disposition home or self-care (01) ==
PROVIDERS: Emergency Provider Emergency Medicine; PCP Family Medicine
DX: M79.605 Pain in left leg (principal); M54.50 Low back pain, unspecified; I10 Essential (primary) hypertension; E11.9 Type 2 diabetes mellitus without complications; Z79.84 Long term (current) use of oral hypoglycemic drugs
CPT/HCPCS: 96372; 99284; 72110; 73502; 99283; J1885

== ENCOUNTER 2024-01-15 00:28 | Outpatient (CLI) | payer MEDICAID, SELFPAY ==
--- NOTE | 2024-01-15 | DI.MAMMO_ITS ---
Exam(s) MAMMO SCREENING EXAM: MAMMO SCREENING CLINICAL HISTORY: SCREENING MAMMO Z12.31,COUSIN WITH BREAST CA TECHNIQUE: Mammograms were interpreted according to the usual protocol including computer analysis w [employer] CAD system, tomosynthesis and C-view imaging. COMPARISON: 2016 through 2022 FINDINGS: The breasts are composed of mainly fatty density , Breast Density category A. No suspicious masses or suspicious microcalcifications are seen. No skin thickening or abnormal axillary lymph nodes are seen. There has been no significant change from prior exams. IMPRESSION: BI-RADS Category 1, Negative mammogram Yearly screening mammography is recommended. Breast Density - Category A, fatty density. A negative radiographic report should not delay biopsy if a dominant or clinically suspicious mass is present. Up to ten percent of cancers are not identified on mammography. A negative report may reinforce clinical impression. Adenosis and dense breasts may obscure an underlying neoplasm. False positive reports average 6 to 10%. Patient will receive a letter notifying them of these results.
--- OUTSIDE RECORDS SUMMARY | 2024-01-15 00:32 | XMS_ITS | Encounter Summary ---
Author Organization [facility] Address [facility] [place] [address] Care Team Providers Care Cupola Man Name Role Phone Trent Varner MD Primary Care Provider [phone] Reason for Visit * Auth/Cert Specialty Diagnoses [...] Expiration Date Visits Re quested Visits Authorized [id number] 1 1 Encounter Details Date Type Department Care Team (Late st Contact Info) Description 03/05/2021 11:10 AM EST - 03/05/2021 2:29 PM EST Surgery [place] [id number] Maribell Cowan MD [facility] DR GYNECOLOGY [place] [address] ROBOTIC LAPAROSCOPY,TOTAL HYST, UTERUS<250GM, REM TUBE &/OR [...] PATIENT DISCHARGE INSTRUCTIONS Gynecologic Oncology phone number: [phone]. After hours and on weekends please call hospital rubbing bed operator at [phone] and ask for Gynecologic Oncologist dental receptionist. Call your doctor if you develop: --A [...] Center 03/28/2021 9:00 AM Maribell Cowan MD [facility] FINISH REPAIR WORKER 3K [facility] Activity level: Let your body guide you- [...] Cowan MD - 03/05/2021 10:17 AM EST FINISH REPAIR WORKER H&P Patient Active Problem List Diagnosis [...] Cowan MD - 03/05/2021 11:54 AM EST [facility] Operative Note Patient Name: Lynn King : [id number] MR#: [id number] Case Date: 03/05/2021 Surgeon: Surgeon(s) and Role: * Maribell Cowan MD - Primary * Juani Daly MD - Resident Registered Nurse Gallery Intern: Kriss Harper RN Preoperative diagnosis: Endometrial intraepithelial [...] y.o. female with a preoperative biopsy in [facility] of postmenopausal bleeding which revealed endometrial [...] into the substance of the cervix. A [employer] uterine manipulator was placed without perforation. An 8-mm transverse incision was made at the umbilicus, through which a Veress needle was inserted and the abdomen was insufflated to tympany with carbon dioxide gas. An 8mm trocar was then inserted and the camera was placed, verifying a successful atraumatic entry. 3 additional 8-mm trocars and an 8-mm right upper quadrant child center assistant port were placed in the usual [...] attending physician, was present for the entire procedure.[facility] Sharp and sponge counts were correct x two. No surgical instrument counts were performed as per [facility] OR policy. Complications: None. DVT Prophylaxis: 5000 [...] XI 03/05/2021 11:12 AM EST EIN Intraop Ulysses Lymph Id W/Dye Injection ([id number]) 03/05/2021 11:12 AM EST EIN Lap, Pelvic Lymphadenectomy/Bx ([id number]) 03/05/2021 11:12 AM EST EIN Laparoscopy W Tot Hysterectuterus <=250 Gram W Tube/Ovary ([id number]) 03/05/2021 11:12 AM EST EIN POCT GLUCOSE Routine 03/05/2021 10:35 AM EST documented in this encounter Results * POCT Glucose (03/05/2021 2:22 PM EST) Glucose, POC 120 65 - 199 mg/dL [facility] Comment: Supplemental ranges: <140 mg/dL before meals <180 mg/dL all other times of the day Blood 03/05/2021 2:22 PM EST 03/05/2021 2:22 PM EST Maribell Cowan MD POINT OF CARE TEST O LEONEL Performing Organization Address [facility] [place] [address] * Specimen to Pathology (03/05/2021 12:59 PM EST) AP Specimen 03/05/2021 12:5 9 PM EST 03/05/2021 12:[address] [facility] - 03/05/2021 12:59 PM EST Specimen requisition ordered. ??Separate Pathology report to follow Maribell Cowan MD PATHOLOGY/CYTOLOGY O LEONEL Performing Organization Address [facility] [place] [address] * Specimen to Pathology (03/05/2021 12:59 PM EST) AP Specimen 03/05/2021 12:5 9 PM EST 03/05/2021 12:[address] [facility] - 03/05/2021 12:59 PM EST Specimen requisition ordered. ??Separate Pathology report to follow Maribell Cowan MD PATHOLOGY/CYTOLOGY O LEONEL Performing Organization Address [facility] [place] [address] * Surgical Pathology Report (03/05/2021 12:42 PM EST) Final Diagnosis [id number] ? Location: [facility]; [facility]; A The signing pathologist has (i) examined the relevant preparation(s) for the specimen(s) and (ii) rendered or confirmed the diagnosis(es). . ? Immunohistochemistry DIAGNOSIS Endometrial carcinoma with intact nuclear staining for ??MLH1, MSH2, MSH6, and PMS2 in tumor cells. Electronically signed by: ?Michael ARAYA, Bryan Cobb Verified: ??03/12/2021 12:34 ??Pathologist Performed at: ??-[facility] Dept. of Pathology, [place], [place] INTERPRETATION Block ? Antibody ? Result [...] The assay was performed according to the precast worker's intructions using anti-MLH-1 ([id number]), anti-MSH-2 ([id number]), anti-MSH-6 (44), and anti-PMS-2 (MRQ-28) antibodies. ?Surgical [...] Cobb Verified: ??03/12/2021 12:34 ??Pathologist Performed at: ??-[facility] Dept. of Pathology, [place], [place] SYNOPTIC Specimen ? Procedure: ??Total hysterectomy [...] Pelvic Nodes Examined: ??5 ?Number of Pelvic Ulysses Nodes Examined: ??5 ?Total Number of Para-aortic [...] lymph node protocol as outlined in the [facility] study (referenced below) was followed for each of the lymph node tissue blocks that lacked metastatic tumor on routine H&E sections. Alondra CH, Melly RA, et al. Pathologic Ultrastaging Improves Micrometastasis Detection in Ulysses Lymph Nodes During Endometrial Cancer Staging. ?Int J Gynecol Cancer 2013;23: 964-970. Scanned slides: [id number] B7-1 [id number] B8-1 . DISCUSSION [id number] [id number] [id number] [id number] B59-1 [id number] B62-1 ADDITIONAL STUDIES IHC Ulysses Lymph Node Protocol For Endometrial Carcinoma: Formalin-fixed, [...] B-11 ? ER ? Positive B-11 ? NV ? Positive IHC studies provide the pathologist [...] Fallopian Tube: 3.1 x 0.4 cm, fimbriated. Crust Sorter sections in 68 cassettes as follows: ?B1: Anterior cervix, blue endometrial side ?B2-B4: Anterior lower uterine segment, blue cervical side ?B5-B15: Anterior endomyometrium, full thickness sections in B5-B7 ?B16: Posterior cervix, blue ink endometrial sign ?B17-B20: Posterior lower uterine segment, blue ink cervical side ?B21-B35: Posterior endomyometrium including full-thickness sections and B21-B23 ?B36-B39: Circumscribed masses, posterior wall ?B40: Crust Sorter right ovary ?B41-B43: Right fallopian tube ?B44: Crust Sorter left ovary ?B45-B46: Left fallopian tube ?B47-B51: Remaining myometrium from LEONARDO, cervical aspect inked red ?B52-B68: Remaining myometrium C - Labeled/Fixative: Right pelvic sentinel lymph node, fresh. Quantity/Size: Single, 6.1 x 3.4 x 1.1 cm. Tissue Description: Adipose tissue with three lymph nodes, up to 3.8 cm. The jose e tissue is totally submitted. Crust Sorter sections in 6 cassettes as follows: ?C1: Single node ?C2: Single node ?C3-C6: Largest node pps 03/12/2021 12:[address] [facility] SENTINEL LYMPH NODE / Unknown 03/05/2021 12:42 PM EST 03/05/2021 12:42 PM EST Uterine Corpus 03/05/2021 12 :42 PM EST 03/05/2021 12:42 PM EST SENTINEL LYMPH NODE / Unknown 03/05/2021 12:42 PM EST 03/05/2021 12:42 PM EST Maribell Cowan MD PATHOLOGY/CYTOLOGY O LEONEL Performing Organization Address [facility] Co de Phone Number [facility] [place] [address] * Specimen to Pathology (03/05/2021 12:42 PM EST) AP Specimen 03/05/2021 12:4 2 PM EST 03/05/2021 12:[address] [facility] - 03/05/2021 12:42 PM EST Specimen requisition ordered. ??Separate Pathology report to follow Maribell Cowan MD PATHOLOGY/CYTOLOGY O LEONEL Performing Organization Address [facility] Co de Phone Number [facility] [place] [address] * POCT Glucose (03/05/2021 10:35 AM EST) Glucose, POC 99 65 - 199 mg/dL [facility] Comment: Supplemental ranges: <140 mg/dL before meals <180 mg/dL all other times of the day Blood 03/05/2021 10:3 5 AM EST 03/05/2021 10:35 AM EST Maribell Cowan MD POINT OF CARE TEST O RDAMALIA Performing Organization Address [facility] de Phone Number [facility] [place] [address] documented in this encounter Visit Diagnoses Not [...] Thu03/05/21 at 1100, Administer over 30 Minutes, Resource Specialist to OR Infuse over 30 minutes., Day [...] Thu03/05/21 at 1100, Administer over 30 Minutes, Resource Specialist to OR Infuse over 30 minutes., Day [...] Thu03/05/21 at 1100, Administer over 30 Minutes, Resource Specialist to OR Infuse over 30 minutes., Day of Surgery (Day of Procedure), Indication for (Active or Suspected): Prophylaxis And metroNIDAZOLE (Flagyl) 500 mg in sodium chloride 0.9% 100 mL infusion (COMPLETED)Jump to med 500 mg, Intravenous, ONCE, 1 dose, On Thu03/05/21 at 1100, Administer over 30 Minutes, Resource Specialist to OR Infuse over 30 minutes., Day of Surgery (Day of Procedure), Indication for (Active or Suspected): Prophylaxis documented in this encounter Care Teams Cupola Man Relationship Specialty Start Date End Date Trent Varner MD PCP - General Family Medicine 12/17/20 documented as of this encounter
--- OUTSIDE RECORDS SUMMARY | 2024-01-15 00:32 | XMS_ITS | Encounter Summary ---
Author Organization [facility] Address [facility] [place] [address] Care Team Providers Care Testing Specialist Name Role Phone Trent Varner MD Primary Care Provider [phone] Reason for Visit * Auth/Cert Specialty Diagnoses [...] Expiration Date Visits Re quested Visits Authorized [id number] 1 1 Encounter Details Date Type Department Care Team (Latest Contact Info) Description 03/05/2021 8:27 AM EST - 03/05/2021 6:38 PM [facility] Hospital Encounter [place] [phone] Maribell Cowan MD [facility] [place] [address] Endometrial intraepithelial neoplasia (EIN) Discharge Disposition: Home [...] PATIENT DISCHARGE INSTRUCTIONS Gynecologic Oncology phone number: [phone]. After hours and on weekends please call hospital level glass forming machine operator at [phone] and ask for Gynecologic Oncologist security control center operator. Call your doctor if you develop: --A [...] Center 03/28/2021 9:00 AM Maribell Cowan MD [facility] TELLER SUPERVISOR 3K [facility] Activity level: Let your body guide you- [...] Cowan MD - 03/05/2021 10:17 AM EST TELLER SUPERVISOR H&P Patient Active Problem List Diagnosis Code [...] Cowan MD - 03/05/2021 11:54 AM EST [facility] Operative Note Patient Name: Lynn King : [id number] MR#: [id number] Case Date: 03/05/2021 Surgeon: Surgeon(s) and Role: * Maribell Cowan MD - Primary * Juani Daly MD - Resident Registered Nurse Tariff Publishing Agent: Kriss Harper RN Preoperative diagnosis: Endometrial intraepithelial [...] y.o. female with a preoperative biopsy in [facility] of postmenopausal bleeding which revealed [...] into the substance of the cervix. A BioAnalytixare uterine manipulator was placed without perforation. An 8-mm transverse incision was made at the umbilicus, through which a Veress needle was inserted and the abdomen was insufflated to tympany with carbon dioxide gas. An 8mm trocar was then inserted and the camera was placed, verifying a successful atraumatic entry. 3 additional 8-mm trocars and an 8-mm right upper quadrant clerical assistant port were placed in the usual [...] by the anesthesiologist and surgeons. Dr. Maribell Coawn, the attending physician, was present for the entire procedure.[facility] Sharp and sponge counts were correct x two. No surgical instrument counts were performed as per [facility] [place] policy. Complications: None. DVT Prophylaxis: 5000 [...] XI 03/05/2021 11:12 AM EST EIN Intraop Katy Lymph Id W/Dye Injection ([id number]) 03/05/2021 11:12 AM EST EIN Lap, Pelvic Lymphadenectomy/Bx ([id number]) 03/05/2021 11:12 AM EST EIN Laparoscopy W Tot Hysterectuterus <=250 Gram W Tube/Ovary ([id number]) 03/05/2021 11:12 AM EST EIN POCT GLUCOSE Routine 03/05/2021 10:35 AM EST documented in this encounter Results * POCT Glucose (03/05/2021 2:22 PM EST) Glucose, POC 120 65 - 199 mg/dL [facility] Comment: Supplemental ranges: <140 mg/dL before meals <180 mg/dL all other times of the day Blood 03/05/2021 2:22 PM EST 03/05/2021 2:22 PM EST Maribell Cowan MD POINT OF CARE TEST O LEONEL Performing Organization Address [facility] [place] [address] * Specimen to Pathology (03/05/2021 12:59 PM EST) AP Specimen 03/05/2021 12:5 9 PM EST 03/05/2021 12:59 PM EST Narrative [facility] - 03/05/2021 12:59 PM EST Specimen requisition ordered. ??Separate Pathology report to follow Maribell Cowan MD PATHOLOGY/CYTOLOGY O LEONEL Performing Organization Address [facility] [place] [address] * Specimen to Pathology (03/05/2021 12:59 PM EST) AP Specimen 03/05/2021 12:5 9 PM EST 03/05/2021 12:59 PM EST Narrative [facility] - 03/05/2021 12:59 PM EST Specimen requisition ordered. ??Separate Pathology report to follow Maribell Cowan MD PATHOLOGY/CYTOLOGY O LEONEL Performing Organization Address [facility] [place] [address] * Surgical Pathology Report (03/05/2021 12:42 PM EST) Final Diagnosis [id number] ? Location: [facility]; [facility]; A The signing pathologist has (i) examined the relevant preparation(s) for the specimen(s) and (ii) rendered or confirmed the diagnosis(es). . ? Immunohistochemistry DIAGNOSIS Endometrial carcinoma with intact nuclear staining for ??MLH1, MSH2, MSH6, and PMS2 in tumor cells. Electronically signed by: ?Bryan Rodriguez MD Verified: ??03/12/2021 12:34 ??Pathologist Performed at: ??-[facility] Dept. of Pathology, [place], [place] INTERPRETATION Block ? Antibody ? Result [...] The assay was performed according to the dynamo repairer's intructions using anti-MLH-1 ([id number]), anti-MSH-2 ([id number]), anti-MSH-6 (44), and anti-PMS-2 (MRQ-28) antibodies. ?Surgical [...] Cobb Verified: ??03/12/2021 12:34 ??Pathologist Performed at: ??-[facility] Dept. of Pathology, [place], [place] SYNOPTIC Specimen ? Procedure: ??Total hysterectomy [...] Pelvic Nodes Examined: ??5 ?Number of Pelvic Katy Nodes Examined: ??5 ?Total Number of Para-aortic [...] lymph node protocol as outlined [facility] study (referenced below) was followed for each of the lymph node tissue blocks that lacked metastatic tumor on routine H&E sections. Alondra CH, Melly RA, et al. Pathologic Ultrastaging Improves Micrometastasis Detection in Katy Lymph Nodes During Endometrial Cancer Staging. ?Int J Gynecol Cancer 2013;23: 964-970. Scanned slides: [id number] B7-1 [id number] B8-1 . DISCUSSION [id number] [id number] [id number] B55-1 [id number] B59-1 [id number] B62-1 ADDITIONAL STUDIES IHC Katy Lymph Node Protocol For Endometrial Carcinoma: Formalin-fixed, [...] B-11 ? ER ? Positive B-11 ? MS ? Positive IHC studies provide the pathologist [...] Fallopian Tube: 3.1 x 0.4 cm, fimbriated. Dowel Inspector sections in 68 cassettes as follows: ?B1: Anterior cervix, blue endometrial side ?B2-B4: Anterior lower uterine segment, blue cervical side ?B5-B15: Anterior endomyometrium, full thickness sections in B5-B7 ?B16: Posterior cervix, blue ink endometrial sign ?B17-B20: Posterior lower uterine segment, blue ink cervical side ?B21-B35: Posterior endomyometrium including full-thickness sections and B21-B23 ?B36-B39: Circumscribed masses, posterior wall ?B40: Dowel Inspector right ovary ?B41-B43: Right fallopian tube ?B44: Dowel Inspector left ovary ?B45-B46: Left fallopian tube ?B47-B51: Remaining myometrium from LEONARDO, cervical aspect inked red ?B52-B68: Remaining myometrium C - Labeled/Fixative: Right pelvic sentinel lymph node, fresh. Quantity/Size: Single, 6.1 x 3.4 x 1.1 cm. Tissue Description: Adipose tissue with three lymph nodes, up to 3.8 cm. The jose e tissue is totally submitted. Dowel Inspector sections in 6 cassettes as follows: ?C1: Single node ?C2: Single node ?C3-C6: Largest node pps 03/12/2021 12:34 PM EST [facility] SENTINEL LYMPH NODE / Unknown 03/05/2021 12:42 PM EST 03/05/2021 12:42 PM EST Uterine Corpus 03/05/2021 12 :42 PM EST 03/05/2021 12:42 PM EST SENTINEL LYMPH NODE / Unknown 03/05/2021 12:42 PM EST 03/05/2021 12:42 PM EST Maribell Cowan MD PATHOLOGY/CYTOLOGY O RDAMALIA Performing Organization Address City/[facility]/ZIP Co de Phone Number [facility] [place] [address] * Specimen to Pathology (03/05/2021 12:42 PM EST) AP Specimen 03/05/2021 12:4 2 PM EST 03/05/2021 12:42 PM EST Narrative [facility] - 03/05/2021 12:42 PM EST Specimen requisition ordered. ??Separate Pathology report to follow Maribell Cowan MD PATHOLOGY/CYTOLOGY O LEONEL Performing Organization Address [facility] Co de Phone Number [facility] [place] [address] * POCT Glucose (03/05/2021 10:35 AM EST) Glucose, POC 99 65 - 199 mg/dL [facility] Comment: Supplemental ranges: <140 mg/dL before meals <180 mg/dL all other times of the day Blood 03/05/2021 10:3 5 AM EST 03/05/2021 10:35 AM EST Maribell Cowan MD POINT OF CARE TEST O LEONEL Performing Organization Address [facility] Co de Phone Number [facility] [place] [address] documented in this encounter Visit Diagnoses Diagnosis [...] Thu03/05/21 at 1100, Administer over 30 Minutes, Operating Room Manager to OR Infuse over 30 minutes., Day [...] Thu03/05/21 at 1100, Administer over 30 Minutes, Operating Room Manager to OR Infuse over 30 minutes., Day [...] Thu03/05/21 at 1100, Administer over 30 Minutes, Operating Room Manager to OR Infuse over 30 minutes., Day of Surgery (Day of Procedure), Indication for (Active or Suspected): Prophylaxis And metroNIDAZOLE (Flagyl) 500 mg in sodium chloride 0.9% 100 mL infusion (COMPLETED)Jump to med 500 mg, Intravenous, ONCE, 1 dose, On Thu03/05/21 at 1100, Administer over 30 Minutes, Operating Room Manager to OR Infuse over 30 minutes., Day of Surgery (Day of Procedure), Indication for (Active or Suspected): Prophylaxis documented in this encounter Care Teams Testing Specialist Relationship Specialty Start Date End Date Trent Varner MD PCP - General Family Medicine 12/17/20 documented as of this encounter
--- OUTSIDE RECORDS SUMMARY | 2024-01-15 00:32 | XMS_ITS | Encounter Summary ---
[place] [address] Care Team Providers Care Pattern Duplicator Name Role Phone Trent Varner MD Primary Care Provider [phone] Reason for Referral * Consultation (Routine) - Closed Specialty Diagnoses / Procedures Referred By Contjeff t Referred To Contact Radiation Oncology Diagnoses Endometrial intraepithelial neoplasia (EIN) Nimisha Prado MD [facility] [place] [address] St Rad Onc Treatment [address] [place] [phone] Referral ID Status Reason Start Date Expiration Date V isits Requested Visits Authorized [id number] Closed Consult, Test & Treat 03/28/2021 03/28/2022 1 1 Encounter Details Date Type Department Care Team (Late st Contact Info) Description 03/28/2021 Orders Only [place] [address] Ibis Loya RN Endometrial intraepithelial neoplasia (EIN) [...] (EIN) documented in this encounter Care Teams Pattern Duplicator Relationship Specialty Start Date End Date Trent Varner MD PCP - General Family Medicine 12/17/20 documented as of this encounter
--- OUTSIDE RECORDS SUMMARY | 2024-01-15 00:32 | XMS_ITS | Encounter Summary ---
[place] [address] Care Team Providers Care Automotive Buyer Name Role Phone Trent Varner MD Primary Care Provider [phone] Reason for Visit * Reason Comments Establish Care endometrial intraepi thelial neoplasia * Consultation (Routine) - Closed Specialty Diagnoses / Procedures Referred By Contac t Referred To Contact Gynecology Oncology Diagnoses Endometrial intraepithelial neoplasia (EIN) Andria Marlow MD [address] [place] [id number] [facility] Sociology Teacher [address] [place] [address] Referral ID Status Reason Start Date Expiration Date V isits Requested Visits Authorized [id number] Closed Consult, Test & Treat [facility] PCP Updated and/or Approved 12/12/2020 12/12/2021 6 6 Encounter Details Date Type Department Care Team (Late st Contact Info) Description 01/04/2021 10:00 AM EDT Office Visit [place] [address] Nimisha Prado MD [facility] DR [place] [address] Endometrial hyperplasia with atypia (Primary [...] Division of Gynecologic Oncology Liana Sanabria MD [facility] Nimisha Prado MD [facility] [place] [address] Tesha Hawk MD New Outpatient Visit: Reason for Visit: Lynn King is a 55 y.o. female is being seen in the clinic today at the request of Andria Marlow MD [address] [place] [address] [place] [address] for the evaluation of endometrial intraepithelial neoplasia. [...] intraepithelial neoplasia. Lynn receives her care at [facility]. A routine pap smear on 08/10/20 showed [...] cephalosporin. 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 The pathology was reviewed here at [facility] and is inagreement with the outside pathology. [...] you for referring this serge patient to [facility] for her care. I will keep you [...] MD CHEMISTRY ORDERABLES [facility] [place] [address] documented in this encounter Visit Diagnoses Diagnosis Endometrial hyperplasia with atypia- Primary documented in this encounter Care Teams Automotive Buyer Relationship Specialty Start Date End Date Trent Varner MD PCP - General Family Medicine 12/17/20 documented as of this encounter
--- OUTSIDE RECORDS SUMMARY | 2024-01-15 00:32 | XMS_ITS | Encounter Summary ---
Author Organization [facility] Address [address] [place] [address] Care Team Providers Care Welder Oxyhydrogen Name Role Phone Unavailable Primary Care Provider Unavailabl e Encounter Details Date Type Department Care Team (Late st Contact Info) Description 07/18/2008 Orders Only [facility] Laboratory Services - [facility] ([facility] [address], [place] [address] Mariana Yoon, TIMI [address] [facility],[address] [phone] Social History Tobacco Use Types Packs/Day Years Used Date Smoking Tobacco: Never Assessed Comments Unknown Sex and Gender Information Value Date Recorded Sex Assigned at Not on file Legal Sex Female 18:32 EST Gender Identity Not on file Sexual Orientation [...] ? BECKY MUNGUIA ? Accession #: ? [id number] ? : ? 1965 (Age: 43) ??F ?Collect Date: ? 07/18/2008 ? Location: ? [facility] ? Receive Date: ? 07/19/2008 ? Provider: ?MARIANA YOON SEARCH ENGINEER ? Copy to: ? Specimen/Source: ?Pap Test, [...] reviewed and electronically signed by: ? Manju N. Ivanna, SCT(ASCP) ? Report Date: ??07/21/2008 09:22 ? End of Report ? [facility] 07/18/2008 07/19/2008 us Mariana Yoon SEARCH ENGINEER PATHOLOGY ORDERABLES Final R esult [facility] [address] [place] [address] documented in this encounter Visit Diagnoses Not on filedocumented in this encounter
--- OUTSIDE RECORDS SUMMARY | 2024-01-15 00:32 | XMS_ITS | Encounter Summary ---
Author [facility] [place] [address] Care Team Providers Care Parking Meter Installer Name Role Phone Trent Varner MD Primary Care Provider [phone] Encounter Details Date Type Department Care Team (Latest Contact Info) Description 03/14/2021 Multidisciplinary Ca re Committee [place] [phone] Ibis Loya RN Social History Tobacco Use [...] on filedocumented in this encounter Care Teams Parking Meter Installer Relationship Specialty Start Date End Date Trent Varner MD PCP - General Family Medicine 12/17/20 documented as of this encounter
--- OUTSIDE RECORDS SUMMARY | 2024-01-15 00:32 | XMS_ITS | Encounter Summary ---
Author Organization [facility] Address [address] [place] [address] Care Team Providers Care Bakery Machine Mechanic Supervisor Name Role Phone Unavailable Primary Care Provider Unavailabl e Encounter Details Date Type Department Care Team (Late st Contact Info) Description 04/28/2012 Results Only [facility] Laboratory Services - [facility] [address] [place], [place] [address] Mariana Yoon, TIMI [address] [facility],[address] [address] Social History Tobacco Use Types [...] when reading/interpreti ng unformatted reports. Name: ? EZRA BECKY ? Accession #: ? [id number] : ? 1965 (Age: 46) ??F ?Collect Date: ? 04/28/2012 Location: ? [facility] ? Receive Date: ? 04/29/2012 Provider: ?MARIANA YOON CONTROL SYSTEMS DESIGNER Copy to: ? Specimen/Source: ?Pap Test, Cervix/Endocervix, [...] types 16,18,31,33,35, 39,45,51,52,56,58, 59,66, and 68 by shoe maker mediated amplification. Comments Document reviewed and electronically signed by: ? System Interface ? Report date: 05/07/2012 By the signature above, the attending physician certifies that he/she has personally conducted a gross and/or microscopic examination of the described specimens and rendered or confirmed the above diagnosis. End of Report [facility] 04/28/2012 04/29/2012 us Mariana Yoon NP PATHOLOGY ORDERABLES Final R esult [facility] [address] [place] [address] documented in this encounter Visit Diagnoses Not on filedocumented in this encounter
--- OUTSIDE RECORDS SUMMARY | 2024-01-15 00:32 | XMS_ITS | Encounter Summary ---
Author Organization [facility] [place] [address] Care Team Providers Care Chief Data Officer Name Role Phone Trent Varner MD Primary Care Provider [phone] Encounter Details Date Type Department Care Team (Late st Contact Info) Description 04/01/2021 Telephone [place] [phone] Ibis Loya RN Social History Tobacco Use [...] need to follow up with her local strategy manager for the first 3-month follow up. Patient verbalized understanding and states that she [facility]. Denies any questions or concerns at thistime. * Telephone Encounter - Ibis Loya RN - 04/01/2021 8:24 AM EST Attempted to call patient, no answer. Left message on voicemail with phone number for patient to call the clinic back. Called to inform patient that per , patient needs a follow-up with herlocal strategy manager in 3 months. * Telephone Encounter - Ibis Loya RN - 04/01/2021 8:24 AM EST ----- Message from Nimisha Prado MD sent at 03/28/2021 2:39 PM EST ----- Please refer to radiation oncology in [place] for vaginal cuff brachytherapy. When she is done with this treatment she will then need to see her local strategy manager for her first 3-month follow-up. Thank you documented in this encounter Plan of Treatment Not on file documented as of this encounter Visit Diagnoses Not on filedocumented in this encounter Care Teams Chief Data Officer Relationship Specialty Start Date End Date Trent Varner MD PCP - General Family Medicine 12/17/20 documented as of this encounter
--- OUTSIDE RECORDS SUMMARY | 2024-01-15 00:32 | XMS_ITS | Encounter Summary ---
Author Organization [facility] [place] [id number] Care Team Providers Care Billet Examiner Name Role Phone Trent Varner MD Primary Care Provider [phone] Encounter Details Date Type Department Care Team (Late st Contact Info) Description 01/07/2021 Notes Only Gynecology [place] [address] Freda Foster CONTACT LENS FITTER [facility] DR OBSTETRICS & [place] [address] Social History Tobacco Use Types Packs/Day Years [...] 10:25 AM EST Division [place] [address] This selling underwriter received a message from one of our physician residents requesting that a hemoglobin A1cbe ordered at the end of December. also advised if the result is greater than 8 to please reach out to Dr. Nimisha Prado. This selling underwriter placed a call to the patient and there was no answer. This selling underwriter left a detailed message stating I was placing an order for the hemoglobin A1c to be drawn at [facility], and asked that she ideally have this done on 01/28/2021, so there is time for it to be resulted and received in this office with further action if indicated. Freda Foster APRN documented in this encounter Plan of Treatment Not on file documented as of this encounter Visit Diagnoses Not on filedocumented in this encounter Care Teams Billet Examiner Relationship Specialty Start Date End Date Trent Varner MD PCP - General Family Medicine 12/17/20 documented as of this encounter
--- OUTSIDE RECORDS SUMMARY | 2024-01-15 00:32 | XMS_ITS | Encounter Summary ---
Author Organization [facility] [place] [address] Care Team Providers Care Hospital Pharmacist Name Role Phone Trent Varner MD Primary Care Provider Encounter Details Date Type Department Care Team (Late st Contact Info) Description 01/07/2021 Orders Only [place] [address] Freda Foster APRN [facility]STET[facility]ICS [place] [address] Type 2 diabetes mellitus with diabetic neuropathy, [...] insulin documented in this encounter Care Teams Hospital Pharmacist Relationship Specialty Start Date End Date Trent Varner MD PCP - General Family Medicine 12/17/20 documented as of this encounter
--- OUTSIDE RECORDS SUMMARY | 2024-01-15 00:32 | XMS_ITS | Encounter Summary ---
Author Organization [facility] Address [facility] [place] [address] Care Team Providers Care Sound Ranging Crewmember Name Role Phone Trent Varner MD Primary Care Provider [phone] Reason for Referral * Consultation (Routine) - Closed Specialty Diagnoses / Procedures Referred By Contac t Referred To Contact Radiation Oncology Diagnoses Endometrial ca Procedures Simulation for Radiation Therapy Planning Jemima Woods MD [facility] [place] [place] [address] [facility] Rad Onc Office [address] [place] [phone] Referral ID Status Reason Start Date Expiration Date V isits Requested Visits Authorized [id number] Closed Consult, Test & Treat 04/08/2021 04/08/2022 1 1 Reason for Visit * Reason Comments Radiation Consult * Consultation (Routine) - Closed Specialty Diagnoses / Procedures Referred By Contac t Referred To Contact Radiation Oncology Diagnoses Endometrial intraepithelial neoplasia (EIN) Nimisha Prado MD [facility] [place] [address] [facility] Rad Onc Treatment [address] [place] [phone] Referral ID Status Reason Start Date Expiration Date V isits Requested Visits Authorized [id number] Closed Consult, Test & Treat 03/28/2021 03/28/2022 1 1 Encounter Details Date Type Department Care Team (Late st Contact Info) Description 04/08/2021 10:00 AM EST Office Visit Radiation Oncology at [address] [address] [facility] [place] [address] Endometrial ca Social History Tobacco Use Types [...] place to sleep or slept in a skilled nursing (including now)? No 04/08/2021 Sex and Gender [...] Systems: family Barriers to treatment: works Referrals/Interventions: SENIOR CENTER DIRECTOR per routine RADIATION SPECIFIC TEACHING: NCI Radiation [...] 0/3), pT1b pN0, FIGO stage IB. 03/14/21 Bus And Trolley Dispatcher Onc Tumor Bd: Rec vag brachy. 03/28/21 Dr. Prado postop, referral for vag cuff brachy, followup w/local needle loom operator. Subjective: Healing well. No pain. No vag disch/bleeding. Urinating w/o problem. No urinary incontinence. No bowel problem. No swelling lower exts. Energy level improving. 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 PRO LAP, PELVIC LYMPHADENECTOMY/BX N/A 03/05/2021 LAPAROSCOPY,W\BILATERAL TOTAL PELVIC LYMPHADENECTOMY, PERIAORTIC LYMPH NODE SAMPLING, ROBOTIC (WRVU15.6) performed by Nimisha Prado MD at [facility] MAIN OR ? ? PRO LAPAROSCOPY W TOT HYSTERECTUTERUS <=250 GRAM W TUBE/OVARY N/A 03/05/2021 LAPAROSCOPY,TOTAL HYST, UTERUS<250GM, REM TUBE &/OR OVARY, ROBOTIC ASSIST (WRVU 15) performed by Nimisha Prado MD at [facility] MAIN OR Your Medications Accurate as [...] itchiness/irritation, tiredness. Acute/immediate side effects usually temporary. Late/continuous churn buttermaker side effects/complications discussed include: bowel obstruction, chronic diarrhea, chronic burning w/urination, urinary leakage, vaginal shrinkage/narrowing, irradiation associated 2ndmalignancy. Risk of occurrence of late/correction side effects small. Discussed vaginal dilator use to minimize vaginal shrinkage/narrowing. Need for CTsim prior to intravag brachy discussed. [facility]sim can be done in [facility]. She would like to proceed w/intravag brachy [...] isthmus documented in this encounter Care Teams Sound Ranging Crewmember Relationship Specialty Start Date End Date Trent Varner MD PCP - General Family Medicine 12/17/20 documented as of this encounter
--- OUTSIDE RECORDS SUMMARY | 2024-01-15 00:32 | XMS_ITS | Encounter Summary ---
[place] [address] Care Team Providers Care House Cleaner Supervisor Name Role Phone Trent Varner MD Primary Care Provider [phone] Encounter Details Date Type Department Care Team (Latest Contact Info) Description 01/04/2021 12:15 PM EDT Laboratory Appointment Lab [address] [place] [phone] Endometrial hyperplasia with atypia Social History Tobacco [...] EDT) Creatinine 0.76 0.70 - 1.20 mg/dL [facility] Est Glomerular Filtration Rate 90 >=60 mL/min/1. 73 m?? [facility] Comment: This patient? s estimated [...] In Lab Nimisha Prado MD CHEMISTRY ORDERABLES [facility] [place] [address] documented in this encounter Visit Diagnoses Diagnosis Endometrial hyperplasia with atypia documented in this encounter Care Teams House Cleaner Supervisor Relationship Specialty Start Date End Date Trent Varner MD PCP - General Family Medicine 12/17/20 documented as of this encounter
--- OUTSIDE RECORDS SUMMARY | 2024-01-15 00:32 | XMS_ITS | Encounter Summary ---
Author Organization [facility] [place] [address] Care Team Providers Care Premium Service Representative Name Role Phone Trent Varner MD Primary Care Provider [phone] Encounter Details Date Type Department Care Team (Latest Contact Info) Description 03/28/2021 9:00 AM EST TH Visit (TeleHealth) [place] [address] Maribell Cowan MD [facility] [place] [address] Post-operative state Social History Tobacco Use Types [...] 9:00 AM EST Division of [place] [address] Postoperative Visit: Done virtually due to the [...] 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 She never narcotic pain medications and is [...] The assay was performed according to the criminal justice program director's ??intructions using anti-MLH-1 (ES05), anti-MSH-2 ([id number]), anti-MSH-6 (44), and ??anti-PMS-2 (MRQ-28) antibodies. ? [...] Cobb Verified: ??03/12/2021 12:34 ??Pathologist Performed at: ??-[facility] Dept. of Pathology, [place], [place] SYNOPTIC Specimen ?Procedure: ??Total hysterectomy and [...] Nodes Examined: ??5 ? Number of Pelvic [place] Nodes Examined: ??5 ? Total Number of [...] lymph node protocol as outlined in the [facility] ??[facility] study (referenced below) was followed for each of the lymph node tissue ??blocks that lacked metastatic tumor on routine H&E sections. Alondra CH, Melly RA, et al. Pathologic Ultrastaging Improves Micrometastasis Detection ??in [place] Lymph Nodes During Endometrial Cancer Staging. ?Int J Gynecol Cancer ??2013;23: 964-970. Scanned slides: [id number] DISCUSSION [id number] [id number] Assessment and Plan: Lynn King is [...] vaginal cuff brachytherapy. As she lives in [place], she will bereferred there for this treatment. [...] She prefers to return to her local bellows charger assembler for follow-up and is kindly referred back. I will remain available should any questions or concerns arise. MARIBELL COWAN MD documented in this encounter Plan of Treatment Not on file documented as of this encounter Visit Diagnoses Diagnosis Post-operative state Other postprocedural status documented in this encounter Care Teams Premium Service Representative Relationship Specialty Start Date End Date Trent Varner MD PCP - General Family Medicine 12/17/20 documented as of this encounter
--- OUTSIDE RECORDS SUMMARY | 2024-01-15 00:32 | XMS_ITS | Encounter Summary ---
Author Organization [facility] [place] [address] Care Team Providers Care Forest Scientist Name Role Phone Trent Varner MD Primary Care Provider [phone] Encounter Details Date Type Department Care Team (Late st Contact Info) Description 04/11/2021 Telephone Radiation [place] [phone] Blessing Walton Social History Tobacco Use Types [...] place to sleep or slept in a retirement (including now)? No 04/08/2021 Sex and Gender Information Value Date Recorded Sex Assigned at Not on file Gender Identity Not on file Sexual Orientation Not on file documented as of this encounter Plan of Treatment Not on file documented as of this encounter Visit Diagnoses Not on filedocumented in this encounter Care Teams Forest Scientist Relationship Specialty Start Date End Date Trent Varner MD PCP - General Family Medicine 12/17/20 documented as of this encounter
--- OUTSIDE RECORDS SUMMARY | 2024-01-15 00:32 | XMS_ITS | Encounter Summary ---
Author Organization [facility] [place] [address] Care Team Providers Care Motor Electrician Name Role Phone Trent Varner MD Primary Care Provider [phone] Encounter Details Date Type Department Care Team (Late st Contact Info) Description 03/01/2021 Telephone Obstetrics [place] [address] Juani Daly MD [facility] DR OBSTETRICS & [place] [address] Social History Tobacco Use Types Packs/Day Years [...] on the day of her surgery. Juani Daly MD PGY-4 documented in this encounter Plan of Treatment Not on file documented as of this encounter Visit Diagnoses Not on filedocumented in this encounter Care Teams Motor Electrician Relationship Specialty Start Date End Date Trent Varner MD PCP - General Family Medicine 12/17/20 documented as of this encounter
--- OUTSIDE RECORDS SUMMARY | 2024-01-15 00:32 | XMS_ITS | Encounter Summary ---
Author Organization [facility] [place] [address] Care Team Providers Care Residential Designer Name Role Phone Trent Varner MD Primary Care Provider [phone] Reason for Visit * Auth/Cert Specialty Diagnoses [...] Expiration Date Visits Re quested Visits Authorized [id number] 1 1 Encounter Details Date Type Department Care Team (Late st Contact Info) Description 03/05/2021 11:13 AM EST Anesthesia Event [place] [address] Melida Sultana MD [facility] [place] [address] Anesthesia Record Procedure Summary Procedure Name Responsible [...] 1109; median vein (underside of arm), left; gjmg-zof-ocwflx catheter system; Anatomical Landmarks; US Not Used; [...] dorsal arch vein (top of hand), right; elfn-tcy-dkqmjb catheter system; Anatomical Landmarks; 18 gauge; Dr. [...] Procedure Summary Date: 03/05/21 Room / Location: [facility] OR [facility] MAIN OR Anesthesia Start: 1113 Anesthesia Stop: [...] All Anesthesia Providers: Anesthesiologist: Melida Sultana MD MANAGER QUANTITATIVE: Blessing Dennis CRNA Vitals Value Taken Time BP 157/91 03/05/21 1615 Temp Pulse 58 03/05/21 1629 Resp 11 03/05/21 1629 SpO2 100 % 03/05/21 1629 Pain Level 0 03/05/21 1439 Vitals shown include unvalidated device data. Patient Location: PACU/[facility] Level of Consciousness: Conscious but Sleepy Pain [...] pound weight loss. 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 Plan discussed with MANAGER QUANTITATIVE. Anesthesia Screening documented in this encounter Plan [...] Thu03/05/21 at 1100, Administer over 30 Minutes, Calender Runner to OR Infuse over 30 minutes., Day [...] Thu03/05/21 at 1100, Administer over 30 Minutes, Calender Runner to OR Infuse over 30 minutes., Day [...] mg documented in this encounter Care Teams Residential Designer Relationship Specialty Start Date End Date Trent Varner MD PCP - General Family Medicine 12/17/20 documented as of this encounter
--- OUTSIDE RECORDS SUMMARY | 2024-01-15 00:32 | XMS_ITS | Encounter Summary ---
Author Organization [facility] Address [address] [place] [address] Care Team Providers Care Trains Dispatcher Supervisor Name Role Phone Joseph Chantel Joselyn GOVERNOR ASSEMBLER Primary Care Provider [phone] Encounter Details Date Type Department Care Team (Late st Contact Info) Description 11/21/2020 Lab Requisition [facility] Pathology & Laboratory Medicine - [facility] [address] [place] [address] Andria Marlow MD [address] [place] [phone] Encounter for other general examination Social History [...] management options, if applicable. 11/27/2020 14:30 EDT [facility] Final Diagnosis A. ENDOMETRIUM, PROCEDURE NOT SPECIFIED: - Endometrial polyp with focal complex atypical hyperplasia. See comment. - Endocervical tissue with microglandular hyperplasia. 11/27/2020 14:30 [facility] Diagnosis Comment Deeper sections of (A1)-(A5) have been examined. Shipboard Intelligence Analyst slides of this case were reviewed at the intradepartmental consultation conference. Immunostaining for PAX-2 (EP235, Cell Xiang) shows reduced expression in the crowded atypical glandular foci (block A3). The atypical endometrial cells on the Pap test ([id number]) show cytologic features similar to the atypical [...] performance characteristics have been determined by [facility] and/or by the referring laboratory. The [...] high complexity clinical laboratory testing.? 11/27/2020 14:30 [facility] Attestation By the signature below, the attending physician certifies that they have 1) personally conducted a gross and/or microscopic examination of the described specimen(s), and/or personally interpreted the results of laboratory testing of the described specimen(s), and 2) personally rendered or confirmed the above diagnosis. 11/27/2020 14:30 [facility] at 1430 Clinical History Atypical endometrial cells on PAP 11/27/2020 14:30 [facility] Gross Description A. Received in formalin labelled with proper patient identification (initials M, C) and endometrium is an aggregate of herrera-brown opaque mucus and dark brown blood clot (4.1 x 2.1 x 0.6 cm). The specimen is submitted entirely in A1 to A5. HALIMA CASPER(ASCP) 11/21/2020 9:03 11/27/2020 14:30 EDT [facility] Performing Lab [facility] 11/27/2020 14:30 EDT [facility] Scanned Images 11/27/2020 14:30 EDT [facility] Tissue ENTIRE ENDOMETRIUM / Unknown 11/20/2020 12:10 EDT 11/21/2020 8:27 EDT us Andria Marlow MD PATHOLOGY ORDERABLES Final R esult [facility] [address] [place] [address] documented in this encounter Visit Diagnoses Diagnosis Encounter for other general examination documented in this encounter Care Teams Trains Dispatcher Supervisor Relationship Specialty Start Date End Date Chantel Ruiz, GOVERNOR ASSEMBLER [address] [place] [address] PCP - General 07/31/20 documented as of this encounter
--- OUTSIDE RECORDS SUMMARY | 2024-01-15 00:32 | XMS_ITS | Encounter Summary ---
Author Organization [facility] [place] [address] Care Team Providers Care Gizzard Skin Remover Name Role Phone Trent Varner MD Primary Care Provider Encounter Details Date Type Department Care Team (Late st Contact Info) Description 01/29/2021 Notes Only [place] [address] Freda Foster, CORE OVEN TENDER [facility] OBSTETRICS & [place] [address] Social History Tobacco Use Types Packs/Day Years [...] on filedocumented in this encounter Care Teams Gizzard Skin Remover Relationship Specialty Start Date End Date Trent Varner MD PCP - General Family Medicine 12/17/20 documented as of this encounter
--- OUTSIDE RECORDS SUMMARY | 2024-01-15 00:32 | XMS_ITS | Encounter Summary ---
Author Organization [facility] Address [address] [place] [address] Care Team Providers Care Manual Arts Teacher Name Role Phone Joseph Chantel K COLLECTION SPECIALIST Primary Care Provider [phone] Encounter Details Date Type Department Care Team (Late st Contact Info) Description 08/11/2020 Lab Requisition [facility] Pathology & Laboratory Medicine - [facility] [address] [place] [address] Outr Resulting Lab, Provider Social History Tobacco [...] C Antibody Negative Negative 08/13/2020 9:58 EDT [facility] Blood VENOUS BLOOD / Unknown 08/10/2020 17:00 EDT 08/12/2020 15:57 EDT us Provider Outr Resulting Lab CHEMISTRY & BLOOD GA S ORDERABLES Final Result [facility] [address] [place] [address] documented in this encounter Visit Diagnoses Not on filedocumented in this encounter Care Teams Manual Arts Teacher Relationship Specialty Start Date End Date Chantel Ruiz NP [address] [place] [phone] PCP - General 07/31/20 documented as of this encounter
--- OUTSIDE RECORDS SUMMARY | 2024-01-15 00:32 | XMS_ITS | Encounter Summary ---
Author Organization [facility] Address [address] [place] [address] Care Team Providers Care Elderly Caregiver Name Role Phone Joseph Chantel Joselyn PETROLEUM SAMPLER Primary Care Provider [phone] Encounter Details Date Type Department Care Team (Latest Contact Info) Description 08/14/2020 Lab Requisition [facility] Pathology & Laboratory Medicine - [facility] [address] [place] [address] Trent Varner MD [address] [place], [place] [id number] Encounter for general adult medical examination without [...] Risk types, PCR Negative Negative 08/24/2020 14:40 EDT [facility] Comment:No E6 or E7 mRNA is detected from HPV types 16,18,31,33,35,39,45,51,52,56,58,59,66, and 68 by form tamping machine operator mediated amplification. Papanicolaou smear specimen (specimen) CERVIX UTERI STRUCTURE / Unknown 08/10/2020 17:30 EDT 08/23/2020 14:14 EDT Trent Varner MD MICROBIOLOGY - GENERAL ORDERABLE S Final Result [facility] [address] [place] [address] * PAP TEST (08/10/2020 17:30 EDT) Specimens A. Cervix and/or Endocervix , ThinPrep Imaging System with Manual Evaluation 08/24/2020 14:40 EDT [facility] Specimen Adequacy Satisfactory for Evaluation - transformation zone component present Scant squamous epithelial component 08/24/2020 14:40 EDT [facility] General Categorization Epithelial Cell Abnormality 08/24/2020 14:40 EDT [facility] Descriptive Diagnosis Glandular Cell Abnormality - Atypical endometrial cells. 08/24/2020 14:40 T [facility] Educational Comments [facility] recommends following ASCCP's 2012 Updated Consensus Guidelines for the Management of Abnormal Cervical Cancer Screening Tests and Cancer Precursors (JLGTD, 2013; 17(5):S1-S27). Consensus guidelines are available online at www.asccp.org. 08/24/2020 14:40 [facility] Attestation By the signature below, the attending physician certifies that they have personally conducted a gross and/or microscopic examination of the described specimens and rendered or confirmed the above diagnosis. [facility]2020 [facility] Clinical History See below 08/25/19 14:40 EDT [facility] HPV The result for the Human Papillomavirus (HPV) Detection-High Risk Types is Negative. No E6 or E7 mRNA is detected from HPV types 16,18,31,33,35,3 9,45,51,52,56,58 ,59,66, and 68 by form tamping machine operator mediated amplification.Te sting was performed on specimen [id number] and was resulted on 08/24/2020 1435 EDT by GABE, LAB INSTRUMENT RESULTS IN 08/24/2020 14:40 EDT [facility] Performing Lab [facility] 08/24/2020 14:40 EDT [facility] Scanned Images 08/24/2020 14:40 EDT [facility] Papanicolaou smear specimen (specimen) CERVIX UTERI STRUCTURE / Unknown 08/10/2020 17:30 EDT 08/14/2020 15:06 EDT us Trent Varner MD PATHOLOGY ORDERABLES Final Resul t [facility] [address] [place] [address] documented in this encounter Visit Diagnoses Diagnosis Encounter for general adult medical examination without abnormal findings Unspecified general medical examination Encounter for screening for malignant neoplasm of cervix Screening for malignant neoplasm of the cervix Encounter for screening for human papillomavirus (HPV) Special screening examination for human papillomavirus (HPV) documented in this encounter Care Teams Elderly Caregiver Relationship Specialty Start Date End Date Chantel Ruiz NP [address] [place] [address] PCP - General 07/31/20 documented as of this encounter
--- OUTSIDE RECORDS SUMMARY | 2024-01-15 00:32 | XMS_ITS | Encounter Summary ---
Author Organization [facility] Address [address] [place] [address] Care Team Providers Care Investigator Claims Name Role Phone Unavailable Primary Care Provider Unavailabl e Encounter Details Date Type Department Care Team (Late st Contact Info) Description 11/23/2002 Results Only [facility] [address] [place] [address] Mariana Yoon, TIMI [address] [place] [address],[address] [address] Social History Tobacco Use Types [...] ? DEEPAK MUNGUIAA ? Accession #: ? [id number] : ? 1965 (Age: 37) ??F ?Collect Date: ? 11/23/2002 Location: ? [facility] ? Receive Date: ? 11/25/2002 Provider: ?MARIANA YOON PROPERTY CONTROLLER Copy to: ? Specimen/Source: ?ThinPrep Pap Test, [...] End of Report [facility] 11/23/2002 11/25/2002 us Mariana Yoon NP PATHOLOGY ORDERABLES Final R esult [facility] [address] [place] [address] documented in this encounter Visit Diagnoses Not on filedocumented in this encounter
--- OUTSIDE RECORDS SUMMARY | 2024-01-15 00:32 | XMS_ITS | Encounter Summary ---
[place] [address] Care Team Providers Care Crimper Operator Name Role Phone Trent Varner MD Primary Care Provider [phone] Encounter Details Date Type Department Care Team (Latest Contact Info) Description 03/07/2021 11:00 AM EST Clinical Support [place] [phone] Learning Consultant, Onc Nurse Encounter for Lundberg catheter removal [...] device documented in this encounter Care Teams Crimper Operator Relationship Specialty Start Date End Date Trent Varner MD PCP - General Family Medicine 12/17/20 documented as of this encounter
--- OUTSIDE RECORDS SUMMARY | 2024-01-15 00:32 | XMS_ITS | Encounter Summary ---
Author Organization [facility] [place] [address] Care Team Providers Care Hand Bender Name Role Phone Trent Varner MD Primary Care Provider [phone] Encounter Details Date Type Department Care Team (Latest Contact Info) Description 12/19/2020 11:20 AM EDT - 12/19/2020 11:59 PM EDT Hospital [place] [id number] Discharge Disposition: Home Social History Tobacco Use [...] Report (12/19/2020 11:20 AM EDT) Final Diagnosis [id number] ? Location: OPW The signing pathologist has (i) examined the relevant preparation(s) for the specimen(s) and (ii) rendered or confirmed the diagnosis(es). . ?Surgical Pathology DIAGNOSIS CONSULTATION CASE Outside slides labeled [id number], collection date 11/20/2020. A - Endometrium (procedure not specified): ??- Fragments of endometrial polyp(s) with focal complex atypical ?hyperplasia. ??- Endocervical mucosa with microglandular hyperplasia. Electronically signed by: ?Vy ARAYA, Francia Diehl Verified: ??12/25/2020 9:25 ?? Pathologist Performed at: ??-[facility] [place], [place], [place] SPECIMEN(S) SUBMITTED CONSULTATION CASE A - 12 slides labeled [id number], collection date 11/20/2020. [id number] Report to: [facility] Surgical Pathology Department [facility], [facility], 2nd Floor [address] [place], [place] ??[address] CLINICAL INFORMATION Atypical endometrial cells on PAP SPECIMEN PROCESSING [facility] ([facility]) pathology slide(s) are reviewed. ??Refer to Diagnosis and Specimen Submitted for specific case information. For the full text of the [facility] report(s) please refer to Non- Documentation Pathology in the electronic health record ( ?? eDH). 12/25/2020 9:25 AM EDT [facility] Consult Case 12/19/2020 11:2 0 AM EDT 12/19/2020 11:20 AM EDT Tayo Blanco MD PATHOLOGY/CYTOLOGY O RDERABLES [facility] [place] [address] documented in this encounter Visit Diagnoses Not on filedocumented in this encounter Care Teams Hand Bender Relationship Specialty Start Date End Date Trent Varner MD PCP - General Family Medicine 12/17/20 documented as of this encounter
--- OUTSIDE RECORDS SUMMARY | 2024-01-15 00:32 | XMS_ITS | Encounter Summary ---
Author Organization [facility] Address [facility] [place] [address] Care Team Providers Care Clerical Support Name Role Phone Trent Varner MD Primary Care Provider [phone] Reason for Visit * Consultation (Routine) - Closed Specialty Diagnoses / Procedures Referred By Efrain mims Referred To Contact Radiation Oncology Diagnoses Endometrial ca Procedures Simulation for Radiation Therapy Planning Jemima Woods MD [facility] [place] [address] [facility] Rad Onc Office [address] [place] [id number] Referral ID Status Reason Start Date Expiration Date V isits Requested Visits Authorized [id number] Closed Consult, Test & Treat 04/08/2021 04/08/2022 1 1 Encounter Details Date Type Department Care Team (Latest Contact Info) Description 04/23/2021 8:00 AM EST Ancillary Appointment Radiation Oncology at [address] [address] Jemima Woods MD [facility] [place] [address] Endometrial ca Social History Tobacco Use Types [...] place to sleep or slept in a long term (including now)? No 04/08/2021 Sex and Gender [...] shell to help manage the side effects. Acute Specialist - They take the doctors radiation prescription [...] a well balanced diet is recommended. The milk pasteurizer and nurse will inform you of any [...] - Thursday 8 AM to 5 PM [facility] phone# [phone] [facility] If you have questions about your radiation [...] in injury A Radiation Oncology doctor is configuration developer after our normal hours and on weekends. To call for urgent medical issues from radiation treatments that can not wait until normal business hours, please call for either location and have the communication center operator page the Radiation Oncologist configuration developer. documented in this encounter Progress Notes * [...] isthmus documented in this encounter Care Teams Clerical Support Relationship Specialty Start Date End Date Trent Varner MD PCP - General Family Medicine 12/17/20 documented as of this encounter
--- OUTSIDE RECORDS SUMMARY | 2024-01-15 00:32 | XMS_ITS | Encounter Summary ---
Author Organization [facility] [place] [address] Care Team Providers Care Ethnoarchaeologist Name Role Phone Trent Varner MD Primary Care Provider [phone] Reason for Visit * Reason Comments Follow-up Procedure Encounter Details Date Type Department Care Team (Late st Contact Info) Description 05/10/2021 1:00 PM EST Procedure visit [place] [address] [facility] [place] [address] Endometrial ca Social History Tobacco Use Types [...] place to sleep or slept in a mcc (including now)? No 04/08/2021 Sex and Gender [...] helpful to increase your energy level. Sexuality: [place] can be resumed as soon as desired. [...] concerns please phone the Radiation Oncology department: [phone]. If you need to contact your physician after normal clinic hours (8AM to 5PM) call [phone] and ask to have the Radiation Oncologist rehabilitation center manager contacted documented in this encounter Progress Notes [...] For details, see electronic film record in ChowNow System. Changes in Medical Condition: None. Denies [...] allergies, medications & procedure to be performed. [id number] mm universal stump cylinder then inserted into [...] treatment completed, physicist surveyed brachytherapy suite with [place] counter, confirming return of Ir-192 source into vault. Physician & nurse then re-entered treatment room. Cylinder removed. Patient informed of possible side effects from the treatment & we discussed plan for followup @ [facility] after brachytherapy completion. She was given [...] isthmus documented in this encounter Care Teams Ethnoarchaeologist Relationship Specialty Start Date End Date Trent Varner MD PCP - General Family Medicine 12/17/20 documented as of this encounter
--- OUTSIDE RECORDS SUMMARY | 2024-01-15 00:32 | XMS_ITS | Encounter Summary ---
Author Organization [facility] Address [facility] [place] [address] Care Team Providers Care Assistant Clinical Nurse Manager Name Role Phone Trent Varner MD Primary Care Provider [phone] Reason for Visit * Reason Comments Procedure Encounter Details Date Type Department Care Team (Late st Contact Info) Description 05/03/2021 1:00 PM EST Procedure visit [place] [address] Jemima Woods MD [facility] [place] [address] Endometrial ca Social History Tobacco Use Types [...] place to sleep or slept in a snf (including now)? No 04/08/2021 Sex and Gender [...] radiotherapy, call the Radiation Oncology clinic @ [phone] during clinic hours. When the clinic is closed (@ night/on weekend), call the [facility] hospital railway signal operator @ [phone] & ask for the radiation oncologist emanations analysis technician. documented in this encounter Progress Notes * [...] For details, see electronic film record in [employer] System. Changes in Medical Condition: None. Pain?: [...] allergies, medications & procedure to be performed. [id number] mm universal stump cylinder then inserted into [...] treatment completed, physicist surveyed brachytherapy suite with [place] counter, confirming return of Ir-192 source into [...] isthmus documented in this encounter Care Teams Assistant Clinical Nurse Manager Relationship Specialty Start Date End Date Trent Varner MD PCP - General Family Medicine 12/17/20 documented as of this encounter
--- OUTSIDE RECORDS SUMMARY | 2024-01-15 00:32 | XMS_ITS | Encounter Summary ---
Author Organization [facility] [place] [address] Care Team Providers Care Cork Sorter Name Role Phone Trent Varner MD Primary Care Provider [phone] Encounter Details Date Type Department Care Team (Late st Contact Info) Description 04/23/2021 Notes Only Radiation Oncology at [address] [address] America Wise, [facility] OFFICE OF CARE MANAGEMENT Social History Tobacco [...] place to sleep or slept in a usp (including now)? No 04/08/2021 Sex and Gender [...] to introduce myself and role of social sciences professor to assess/address barriers to getting to and throughtreatments; address support needs and connect with community services and resources as needed. Family/Social Supports: Pt identified her of 21 years as her primary support. She has 2 sons. One lives in [place] and the other lives in [place]. Pt also identified her mother in law as a support. Living Situation/Daily Activities/Transportation:Pt lives with her and dog. She lives localto this facility. Pt manages her daily chores and activities. She will be [facility]. She does not expect any issues with transportation. 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 [...] assessment Supportive Counseling Plan: Informed pt of PHYSICIAN CREDENTIALING SPECIALIST availability and contact information. Will follow to assess/address psychosocial needs. ALVIN Cui, FORK REPAIRER, OSW-C Project Administrator [facility] documented in this encounter Plan of Treatment Not on file documented as of this encounter Visit Diagnoses Not on filedocumented in this encounter Care Teams Cork Sorter Relationship Specialty Start Date End Date Trent Varner MD PCP - General Family Medicine 12/17/20 documented as of this encounter
--- OUTSIDE RECORDS SUMMARY | 2024-01-15 00:32 | XMS_ITS | Encounter Summary ---
Author Organization [facility] Address [facility] [place] [address] Care Team Providers Care Coffee Plantation Worker Name Role Phone Trent Varner MD Primary Care Provider [phone] Encounter Details Date Type Department Care Team (Late st Contact Info) Description 05/17/2021 Notes Only [place] [address] Jemima Woods MD [facility] [place] [address] Social History Tobacco Use Types Packs/Day Years [...] on filedocumented in this encounter Care Teams Coffee Plantation Worker Relationship Specialty Start Date End Date Trent Varner MD PCP - General Family Medicine 12/17/20 documented as of this encounter
--- OUTSIDE RECORDS SUMMARY | 2024-01-15 00:32 | XMS_ITS | Encounter Summary ---
Author Organization [facility] [place] [address] Care Team Providers Care Candle Maker Name Role Phone Trent Varner MD Primary Care Provider [phone] Reason for Visit * Reason Comments Follow-up Encounter Details Date Type Department Care Team (Late st Contact Info) Description 08/12/2021 4:00 PM EDT Office Visit Radiation Oncology at [address] [phone] [facility] [place] [address] S/P radiotherapy Social History Tobacco Use Types [...] but can also lead to less elastic, drier and grinder tender, tender tissues in the vagina. This can [...] 2.5) performed by Nimisha Prado MD at [facility] MAIN OR ??? PRO LAP, PELVIC LYMPHADENECTOMY/BX N/A 03/05/2021 LAPAROSCOPY,W\BILATERAL TOTAL PELVIC LYMPHADENECTOMY, PERIAORTIC LYMPH NODE SAMPLING, ROBOTIC (WRVU15.6) performed by Nimisha Prado MD at [facility] MAIN OR ? ? PRO LAPAROSCOPY W TOT HYSTERECTUTERUS <=250 GRAM W TUBE/OVARY N/A 03/05/2021 LAPAROSCOPY,TOTAL HYST, UTERUS<250GM, REM TUBE &/OR OVARY, ROBOTIC ASSIST (WRVU 15) performed by Nimisha Prado MD at [facility] MAIN OR Your Medications Accurate as of [...] well s/p xrt. P: Vag dilator given ([place] small & med); explained rationale for use & gave instructions. Rtc 6 mos. documented in this encounter Plan of Treatment Not on file documented as of this encounter Visit Diagnoses Diagnosis S/P radiotherapy Convalescence following radiotherapy documented in this encounter Care Teams Candle Maker Relationship Specialty Start Date End Date Trent Varner MD PCP - General Family Medicine 12/17/20 documented as of this encounter
--- OUTSIDE RECORDS SUMMARY | 2024-01-15 00:32 | XMS_ITS | Referral Summary ---
Author Organization [facility] Address [address] [place] [address] Care Team Providers Care Delivery Crew Worker Name Role Phone Joseph Chantel Alves WOOL BROKER Primary Care Provider [phone] Social History Tobacco Use Types Packs/Day Years [...] C Antibody Negative Negative 08/13/2020 9:58 EDT [facility] Blood VENOUS BLOOD / Unknown 08/10/2020 17:00 EDT 08/12/2020 15:57 EDT us Provider Outr Resulting Lab CHEMISTRY & BLOOD GA S ORDERABLES Final Result [facility] [address] [place] [address] from Last 3 Months or Most Recently Relevant to Health Maintenance Insurance MEDICAID ACO [place] Care Teams Delivery Crew Worker Relationship Specialty Start Date End Date Chantel Ruiz NP [address] [place] [address] PCP - General 07/31/20
--- OUTSIDE RECORDS SUMMARY | 2024-01-15 00:32 | XMS_ITS | Encounter Summary ---
Author Organization [facility] Address [facility] [place] [address] Care Team Providers Care Superintendent Colliery Name Role Phone Trent Varner MD Primary Care Provider [phone] Reason for Visit * Reason Comments Procedure Encounter Details Date Type Department Care Team (Late st Contact Info) Description 05/17/2021 12:30 PM EDT Procedure visit [place] [address] Lopez Singh MD [facility] [place] [address] Endometrial ca Social History Tobacco Use Types [...] For details, see electronic film record in [employer] System. Changes in Medical Condition: None. Denies [...] allergies, medications & procedure to be performed. [id number] mm universal stump cylinder then inserted into [...] & we discussed plan for followup @ [facility] after brachytherapy completion. She was given [...] isthmus documented in this encounter Care Teams Superintendent Colliery Relationship Specialty Start Date End Date Trent Varner MD PCP - General Family Medicine 12/17/20 documented as of this encounter
--- OUTSIDE RECORDS SUMMARY | 2024-01-15 00:32 | XMS_ITS | Clinical Summary ---
Author Organization [facility] Address [address] [place] [address] Care Team Providers Care Solderer Torch Name Role Phone Joseph Chantel Joselyn NEWS PRODUCTION ASSISTANT Primary Care Provider [phone] Social History Tobacco Use Types Packs/Day Years Used Date Smoking Tobacco: Never Assessed Comments Unknown Sex and Gender Information Value Date Recorded Sex Assigned at Not on file Legal Sex Female 18:32 EST Gender Identity Not on file Sexual Orientation Not on file Plan of Treatment Health Maintenance Due Date Last Done Comments Hepatitis B Vaccine (1 of - 19+ 3-dose series) 06/09 COVID-19 Vaccine [...] C Antibody Negative Negative 08/13/2020 9:58 EDT [facility] Blood VENOUS BLOOD / Unknown 08/10/2020 17:00 EDT 08/12/2020 15:57 EDT us Provider Outr Resulting Lab CHEMISTRY & BLOOD GA S ORDERABLES Final Result [facility] [address] [place] [address] from Last 3 Months or Most Recently Relevant to Health Maintenance Insurance MEDICAID A[place] Care Teams Solderer Torch Relationship Specialty Start Date End Date Chantel Ruiz, TIMI [address] [place] [address] PCP - General 07/31/20
--- OUTSIDE RECORDS SUMMARY | 2024-01-15 00:32 | XMS_ITS | Encounter Summary ---
Author Organization [facility] Address [address] [place] [address] Care Team Providers Care Fishing Rod Trimmer Name Role Phone Unavailable Primary Care Provider Unavailabl e Encounter Details Date Type Department Care Team (Late st Contact Info) Description 11/01/2003 Results Only [facility] [address] [place] [address] Mariana Yoon, TIMI [address] [place] [address],[address] [address] Social History Tobacco Use Types [...] ? DEEPAK MUNGUIAA ? Accession #: ? [id number] : ? 1965 (Age: 38) ??F ?Collect Date: ? 11/01/2003 Location: ? [facility] ? Receive Date: ? 11/03/2003 Provider: ?MARIANA YOON PLACE CHANGE ROOF BOLTER Copy to: ? Specimen/Source: ?ThinPrep Pap Test, Vagina/Cervix Last Menstrual Period: ? 10/23/03 ? SPECIMEN ADEQUACY ? Satisfactory for Evaluation - transformation zone component present GENERAL CATEGORIZATION ? Negative for Intraepithelial Lesion or Malignancy ? Document reviewed and electronically signed by: ? Sherley Gunderson, SCT(ASCP) ? Report Date: ??11/07/2003 16:23 End of Report [facility] 11/01/2003 11/03/2003 us Mariana Yoon NP PATHOLOGY ORDERABLES Final R esult [facility] [address] [place] [address] documented in this encounter Visit Diagnoses Not on filedocumented in this encounter
== END 2024-01-15 00:48 ==
LOC: DI 00:28
PROVIDERS: PCP Student in an Organized Health Care Education/Training Program; Visit Provider Student in an Organized Health Care Education/Training Program
DX: Z12.31 Encounter for screening mammogram for malignant neoplasm of breast (principal); R92.313 Mammographic fatty tissue density, bilateral breasts
CPT/HCPCS: 77063; 77067

== ENCOUNTER 2024-03-25 14:33 | Outpatient (CLI) | payer MEDICAID, SELFPAY ==
--- NOTE | 2024-03-25 14:17 | DI.RAD_ITS ---
Exam(s) XR CHEST 2V PA LATERAL EXAM: XR CHEST 2V PA LATERAL CLINICAL HISTORY: R05.1 Acute cough, 1 month of frequent cough, former smoker, R/O Pneumonia. TECHNIQUE: 2D digital imaging was performed. COMPARISON: CR XR PORTABLE CHEST AP from 02/10/2022 FINDINGS: 2 views: Heart size is normal. The mediastinum is not widened. Lungs are clear. No infiltrates nor pleural effusions. IMPRESSION: No acute pulmonary findings. DATA REPOSITORY: RADIATION DOSE DELIVERED:
--- OUTSIDE RECORDS SUMMARY | 2024-03-25 14:39 | XMS_ITS | Encounter Summary ---
Author Organization [facility] [place] [address] Care Team Providers Care Power Shovel Mechanic Name Role Phone Trent Varner MD Primary Care Provider [phone] Reason for Visit * Reason Comments Follow-up Encounter Details Date Type Department Care Team (Late st Contact Info) Description 08/12/2021 4:00 PM EDT Office Visit Radiation Oncology at [address] [phone] Jemima Woods MD [facility] [place] [address] S/P radiotherapy Social History Tobacco Use Types [...] but can also lead to less elastic, flash drier operator, tender tissues in the vagina. This can [...] 2.5) performed by Nimisha Prado MD at [facility] MAIN OR ??? PRO LAP, PELVIC LYMPHADENECTOMY/BX N/A 03/05/2021 LAPAROSCOPY,W\BILATERAL TOTAL PELVIC LYMPHADENECTOMY, PERIAORTIC LYMPH NODE SAMPLING, ROBOTIC (WRVU15.6) performed by Nimisha Prado MD at [facility] MAIN OR ? ? PRO LAPAROSCOPY W TOT HYSTERECTUTERUS <=250 GRAM W TUBE/OVARY N/A 03/05/2021 LAPAROSCOPY,TOTAL HYST, UTERUS<250GM, REM TUBE &/OR OVARY, ROBOTIC ASSIST (WRVU 15) performed by Nimisha Prado MD at [facility] MAIN OR Your Medications Accurate as [...] well s/p xrt. P: Vag dilator given ([place] small & med); explained rationale for use & gave instructions. Rtc 6 mos. documented in this encounter Plan of Treatment Not on file documented as of this encounter Visit Diagnoses Diagnosis S/P radiotherapy Convalescence following radiotherapy documented in this encounter Care Teams Power Shovel Mechanic Relationship Specialty Start Date End Date Trent Varner MD PCP - General Family Medicine 12/17/20 documented as of this encounter
--- OUTSIDE RECORDS SUMMARY | 2024-03-25 14:39 | XMS_ITS | Encounter Summary ---
Author Organization [facility] Address [facility] [place] [address] Care Team Providers Care Five Roll Refiner Batch Mixer Name Role Phone Trent Varner MD Primary Care Provider [phone] Reason for Visit * Reason Comments Procedure Encounter Details Date Type Department Care Team (Late st Contact Info) Description 05/03/2021 1:00 PM EST Procedure visit [place] [address] Jemima Woods MD [facility] [place] [address] Endometrial ca Social History Tobacco Use Types [...] radiotherapy, call the Radiation Oncology clinic @ [phone] during clinic hours. When the clinic is closed (@ night/on weekend), call the [facility] hospital truck operator @ [phone] & ask for the radiation oncologist strategic sourcing consultant. documented in this encounter Progress Notes * [...] For details, see electronic film record in InGameNow System. Changes in Medical Condition: None. Pain?: [...] allergies, medications & procedure to be performed. [id number] mm universal stump cylinder then inserted into [...] treatment completed, physicist surveyed brachytherapy suite with [place] counter, confirming return of Ir-192 source into [...] isthmus documented in this encounter Care Teams Five Roll Refiner Batch Mixer Relationship Specialty Start Date End Date Trent Varner MD PCP - General Family Medicine 12/17/20 documented as of this encounter
--- OUTSIDE RECORDS SUMMARY | 2024-03-25 14:39 | XMS_ITS | Encounter Summary ---
[place] [address] Care Team Providers Care Emergency Care Attendant Name Role Phone Trent Varner MD Primary Care Provider [phone] Encounter Details Date Type Department Care Team (Latest Contact Info) Description 03/07/2021 11:00 AM EST Clinical Support [place] [phone] Lead Business Analyst, Onc Nurse Encounter for Lundberg catheter removal [...] device documented in this encounter Care Teams Emergency Care Attendant Relationship Specialty Start Date End Date Trent Varner MD PCP - General Family Medicine 12/17/20 documented as of this encounter
--- OUTSIDE RECORDS SUMMARY | 2024-03-25 14:39 | XMS_ITS | Encounter Summary ---
Author Organization [facility] Address [address] [place] [address] Care Team Providers Care Bread And Pastry Baker Name Role Phone Unavailable Primary Care Provider Unavailabl e Encounter Details Date Type Department Care Team (Late st Contact Info) Description 11/01/2003 Results Only [facility] [address] [place] [address] Mariana Yoon, TIMI [address] [place] [address],[address] [address] Social History Tobacco Use Types [...] ? DEEPAK MUNGUIAA ? Accession #: ? [id number] : ? 1965 (Age: 38) ??F ?Collect Date: ? 11/01/2003 Location: ? [facility] ? Receive Date: ? 11/03/2003 Provider: ?MARIANA YOON FORMATION FRACTURING OPERATOR Copy to: ? Specimen/Source: ?ThinPrep Pap Test, [...] ORDERABLES Final R esult [facility] N[facility] [address] [place] [address] documented in this encounter Visit Diagnoses Not on filedocumented in this encounter
--- OUTSIDE RECORDS SUMMARY | 2024-03-25 14:39 | XMS_ITS | Encounter Summary ---
Author Organization [facility] Address [address] [place] [address] Care Team Providers Care Video Production Specialist Name Role Phone Joseph Chantel K [employer] Primary Care Provider [phone] Encounter Details Date Type Department Care Team (Late st Contact Info) Description 08/11/2020 Lab Requisition [facility] Pathology & Laboratory Medicine - [facility] [address] [place] [address] Outr Resulting Lab, Provider Social History Tobacco [...] C Antibody Negative Negative 08/13/2020 9:[address] [facility] Blood VENOUS BLOOD / Unknown 08/10/2020 17:00 EDT 08/12/2020 15:57 EDT us Provider Outr Resulting Lab CHEMISTRY & BLOOD GA S ORDERABLES Final Result [facility] [address] [place] [address] documented in this encounter Visit Diagnoses Not on filedocumented in this encounter Care Teams Video Production Specialist Relationship Specialty Start Date End Date Chantel Ruiz NP [address] [place] [phone] PCP - General 07/31/20 documented as of this encounter
--- OUTSIDE RECORDS SUMMARY | 2024-03-25 14:39 | XMS_ITS | Encounter Summary ---
Author Organization [facility] Address [facility] [place] [address] Care Team Providers Care Preventive Medicine Officer Name Role Phone Trent Varner MD Primary Care Provider [phone] Reason for Visit * Consultation (Routine) - Closed Specialty Diagnoses / Procedures Referred By Efrain mims Referred To Contact Radiation Oncology Diagnoses Endometrial ca Procedures Simulation for Radiation Therapy Planning Jemima Woods MD [facility] [place] [address] [facility] Rad Onc Office [address] [place] [phone] Referral ID Status Reason Start Date Expiration Date V isits Requested Visits Authorized [id number] Closed Consult, Test & Treat 04/08/2021 04/08/2022 1 1 Encounter Details Date Type Department Care Team (Latest Contact Info) Description 04/23/2021 8:00 AM EST Ancillary Appointment Radiation Oncology at [address] [address] Jemima Woods MD [facility] [place] [address] Endometrial ca Social History Tobacco Use Types [...] place to sleep or slept in a fdc (including now)? No 04/08/2021 Sex and Gender [...] shell to help manage the side effects. Laundry Housekeeping Aide - They take the doctors radiation prescription [...] a well balanced diet is recommended. The electrical contractor and nurse will inform you of any [...] - Thursday 8 AM to 5 PM [facility] phone# [phone] [facility] If you have questions about your radiation [...] in injury A Radiation Oncology doctor is personal lines insurance advisor after our normal hours and on weekends. To call for urgent medical issues from radiation treatments that can not wait until normal business hours, please call for either location and have the envelope fold operator page the Radiation Oncologist personal lines insurance advisor. documented in this encounter Progress Notes [...] isthmus documented in this encounter Care Teams Preventive Medicine Officer Relationship Specialty Start Date End Date Trent Varner MD PCP - General Family Medicine 12/17/20 documented as of this encounter
--- OUTSIDE RECORDS SUMMARY | 2024-03-25 14:39 | XMS_ITS | Encounter Summary ---
Author Organization [facility] Address [facility] [place] [address] Care Team Providers Care Stereotype Caster Name Role Phone Trent Varner MD Primary Care Provider Reason for Referral * Consultation (Routine) - Closed Specialty Diagnoses / Procedures Referred By Contac t Referred To Contact Radiation Oncology Diagnoses Endometrial ca Procedures Simulation for Radiation Therapy Planning Jemima Woods MD [facility] [place] [address] [facility] Rad Onc Office [address] [place] [phone] Referral ID Status Reason Start Date Expiration Date V isits Requested Visits Authorized [id number] Closed Consult, Test & Treat 04/08/2021 04/08/2022 1 1 Reason for Visit * Reason Comments Radiation Consult * Consultation (Routine) - Closed Specialty Diagnoses / Procedures Referred By Contac t Referred To Contact Radiation Oncology Diagnoses Endometrial intraepithelial neoplasia (EIN) Nimisha Prado MD [facility] [place] [address] [facility] Rad Onc Treatment [address] [place] [phone] Referral ID Status Reason Start Date Expiration Date V isits Requested Visits Authorized [id number] Closed Consult, Test & Treat 03/28/2021 03/28/2022 1 1 Encounter Details Date Type Department Care Team (Late st Contact Info) Description 04/08/2021 10:00 AM EST Office Visit Radiation Oncology at [address] [phone] Jemima Woods MD [facility] [place] [address] Endometrial ca Social History Tobacco Use Types [...] family Barriers to treatment: works Referrals/Interventions: SENIOR MARKETING ENGINEER per routine RADIATION SPECIFIC TEACHING: NCI Radiation [...] 0/3), pT1b pN0, FIGO stage IB. 03/14/21 Cupola Tapper Helper Onc Tumor Bd: Rec vag brachy. 03/28/21 Dr. Prado postop, referral for vag cuff brachy, followup w/local commercial finance analyst. Subjective: Healing well. No pain. No vag disch/bleeding. Urinating w/o problem. No urinary incontinence. No bowel problem. No swelling lower exts. Energy level improving. 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 PRO LAP, PELVIC LYMPHADENECTOMY/BX N/A 03/05/2021 LAPAROSCOPY,W\BILATERAL TOTAL PELVIC LYMPHADENECTOMY, PERIAORTIC LYMPH NODE SAMPLING, ROBOTIC (WRVU15.6) performed by Nimisha Prado MD at [facility] MAIN OR ? ? PRO LAPAROSCOPY W TOT HYSTERECTUTERUS <=250 GRAM W TUBE/OVARY N/A 03/05/2021 LAPAROSCOPY,TOTAL HYST, UTERUS<250GM, REM TUBE &/OR OVARY, ROBOTIC ASSIST (WRVU 15) performed by Nimisha Prado MD at [facility] MAIN OR Your Medications Accurate [...] cure. [facility]. Possible side effects/complications of intravag brachy discussed, w/acute/immediate side effects including: Diarrhea, increased frequency of urination, burning w/urination, vulvo-vaginal itchiness/irritation, tiredness. Acute/immediate side effects usually temporary. Late/intermodal dispatcher side effects/complications discussed include: bowel obstruction, chronic diarrhea, chronic burning w/urination, urinary leakage, vaginal shrinkage/narrowing, irradiation associated 2ndmalignancy. Risk of occurrence of late/nursing home side effects small. Discussed vaginal dilator use to minimize vaginal shrinkage/narrowing. Need for CTsim prior to intravag brachy discussed. [facility]sim can be done in [facility]. She would like to proceed w/intravag [...] isthmus documented in this encounter Care Teams Stereotype Caster Relationship Specialty Start Date End Date Trent Varner MD PCP - General Family Medicine 12/17/20 documented as of this encounter
--- OUTSIDE RECORDS SUMMARY | 2024-03-25 14:39 | XMS_ITS | Encounter Summary ---
[place] [address] Care Team Providers Care Fruit Inspector Name Role Phone Trent Varner MD Primary Care Provider [phone] Reason for Visit * Auth/Cert Specialty Diagnoses [...] Expiration Date Visits Re quested Visits Authorized [id number] 1 1 Encounter Details Date Type Department Care Team (Late st Contact Info) Description 03/05/2021 11:10 AM EST - 03/05/2021 2:29 PM EST [place] [phone] Maribell Cowan MD ROBOTIC LAPAROSCOPY,TOTAL HYST, UTERUS<250GM, REM TUBE &/OR [...] PATIENT DISCHARGE INSTRUCTIONS Gynecologic Oncology phone number: [phone]. After hours and on weekends please call hospital electric detector operator at [phone] and ask for Gynecologic Oncologist diesel stationary engineer. Call your doctor if you develop: --A [...] Center 03/28/2021 9:00 AM Maribell Cowan MD [facility] MANAGER ELIGIBILITY 3K [facility] Activity level: Let your body guide you- [...] time. Pt discharged home with . Tyree RN documented in this encounter H&P Notes * Maribell Cowan MD - 03/05/2021 10:17 AM EST MANAGER ELIGIBILITY H&P Patient Active Problem List Diagnosis Code [...] Cowan MD - 03/05/2021 11:54 AM EST [facility] Operative Note Patient Name: Lynn King : [id number] MR#: [id number] Case Date: 03/05/2021 Surgeon: Surgeon(s) and Role: * Maribell Cowan MD - Primary * Juani Daly MD - Resident Registered Nurse Final Touch Up Painter: Kriss Harper RN Preoperative diagnosis: Endometrial intraepithelial [...] y.o. female with a preoperative biopsy [facility] of postmenopausal bleeding which revealed [...] into the substance of the cervix. A Vcare uterine manipulator was placed without perforation. An 8-mm transverse incision was made at the umbilicus, through which a Veress needle was inserted and the abdomen was insufflated to tympany with carbon dioxide gas. An 8mm trocar was then inserted and the camera was placed, verifying a successful atraumatic entry. 3 additional 8-mm trocars and an 8-mm right upper quadrant assistant financial accountant port were placed in the usual locations [...] attending physician, was present for the entire procedure.[facility] Sharp and sponge counts were correct x two. No surgical instrument counts were performed as per [facility] OR policy. Complications: None. DVT Prophylaxis: 5000 [...] XI 03/05/2021 11:12 AM EST EIN Intraop Center Lymph Id W/Dye Injection ([id number]) 03/05/2021 11:12 AM EST EIN Lap, Pelvic Lymphadenectomy/Bx ([id number]) 03/05/2021 11:12 AM EST EIN Laparoscopy W Tot Hysterectuterus <=250 Gram W Tube/Ovary ([id number]) 03/05/2021 11:12 AM EST EIN POCT GLUCOSE Routine 03/05/2021 10:35 AM EST documented in this encounter Results * POCT Glucose (03/05/2021 2:22 PM EST) Glucose, POC 120 65 - 199 mg/dL [facility] Comment: Supplemental ranges: <140 mg/dL before meals <180 mg/dL all other times of the day Blood 03/05/2021 2:22 PM EST 03/05/2021 2:22 PM EST Maribell Cowan MD POINT OF CARE TEST O RDERABLES Performing Organization Address City/State/[facility] de Phone Number [facility] [place] [address] * Specimen to Pathology (03/05/2021 12:59 PM EST) AP Specimen 03/05/2021 12:5 9 PM EST 03/05/2021 12:59 PM EST Narrative [facility] - 03/05/2021 12:59 PM EST Specimen requisition ordered. ??Separate Pathology report to follow Maribell Cowan MD PATHOLOGY/CYTOLOGY O LEONEL Performing Organization Address [facility] [place] [address] * Specimen to Pathology (03/05/2021 12:59 PM EST) AP Specimen 03/05/2021 12:5 9 PM EST 03/05/2021 12:59 PM EST Narrative [facility] - 03/05/2021 12:59 PM EST Specimen requisition ordered. ??Separate Pathology report to follow Maribell Cowan MD PATHOLOGY/CYTOLOGY O LEONEL Performing Organization Address [facility] [place] [address] * Surgical Pathology Report (03/05/2021 12:42 PM EST) Final Diagnosis [id number] ? Location: [facility]; [facility]; The signing pathologist has (i) examined the relevant preparation(s) for the specimen(s) and (ii) rendered or confirmed the diagnosis(es). . ? Immunohistochemistry DIAGNOSIS Endometrial carcinoma with intact nuclear staining for ??MLH1, MSH2, MSH6, and PMS2 in tumor cells. Electronically signed by: ?Michael ARAYABryan Verified: ??03/12/2021 12:34 ??Pathologist Performed at: ??-[facility] Dept. of Pathology, [place], [place] INTERPRETATION Block ? Antibody ? Result [...] The assay was performed according to the conditioning room worker's intructions using anti-MLH-1 (ES05), anti-MSH-2 ([id number]), anti-MSH-6 (44), and anti-PMS-2 (MRQ-28) antibodies. ?Surgical [...] Cobb Verified: ??03/12/2021 12:34 ??Pathologist Performed at: ??-[facility] Dept. of Pathology, [place], [place] SYNOPTIC Specimen ? Procedure: ??Total hysterectomy [...] Pelvic Nodes Examined: ??5 ?Number of Pelvic Center Nodes Examined: ??5 ?Total Number of Para-aortic [...] lymph node protocol as outlined [facility] study (referenced below) was followed for each of the lymph node tissue blocks that lacked metastatic tumor on routine H&E sections. Alondra CH, Melly RA, et al. Pathologic Ultrastaging Improves Micrometastasis Detection in Center Lymph Nodes During Endometrial Cancer Staging. ?Int J Gynecol Cancer 2013;23: 964-970. Scanned slides: [id number] B7-1 [id number] B8-1 . DISCUSSION [id number] B9-1 [id number] B55-1 [id number] B59-1 [id number] B62-1 ADDITIONAL STUDIES IHC Center Lymph Node Protocol For Endometrial Carcinoma: Formalin-fixed, [...] B-11 ? ER ? Positive B-11 ? [place] ? Positive IHC studies provide the pathologist [...] Fallopian Tube: 3.1 x 0.4 cm, fimbriated. Shank Stitcher sections in 68 cassettes as follows: ?B1: Anterior cervix, blue endometrial side ?B2-B4: Anterior lower uterine segment, blue cervical side ?B5-B15: Anterior endomyometrium, full thickness sections in B5-B7 ?B16: Posterior cervix, blue ink endometrial sign ?B17-B20: Posterior lower uterine segment, blue ink cervical side ?B21-B35: Posterior endomyometrium including full-thickness sections and B21-B23 ?B36-B39: Circumscribed masses, posterior wall ?B40: Shank Stitcher right ovary ?B41-B43: Right fallopian tube ?B44: Shank Stitcher left ovary ?B45-B46: Left fallopian tube ?B47-B51: Remaining myometrium from LEONARDO, cervical aspect inked red ?B52-B68: Remaining myometrium C - Labeled/Fixative: Right pelvic sentinel lymph node, fresh. Quantity/Size: Single, 6.1 x 3.4 x 1.1 cm. Tissue Description: Adipose tissue with three lymph nodes, up to 3.8 cm. The jose e tissue is totally submitted. Shank Stitcher sections in 6 cassettes as follows: ?C1: Single node ?C2: Single node ?C3-C6: Largest node pps 03/12/2021 12:34 PM EST [facility] SENTINEL LYMPH NODE / Unknown 03/05/2021 12:42 PM EST 03/05/2021 12:42 PM EST Uterine Corpus 03/05/2021 12 :42 PM EST 03/05/2021 12:42 PM EST SENTINEL LYMPH NODE / Unknown 03/05/2021 12:42 PM EST 03/05/2021 12:42 PM EST Maribell Cowan MD PATHOLOGY/CYTOLOGY O RDERABLES Performing Organization Address [facility] Co de Phone Number [facility] [place] [place] [address] * Specimen to Pathology (03/05/2021 12:42 PM EST) AP Specimen 03/05/2021 12:4 2 PM EST 03/05/2021 12:42 PM EST Narrative [facility] - 03/05/2021 12:42 PM EST Specimen requisition ordered. ??Separate Pathology report to follow Maribell Cowan MD PATHOLOGY/CYTOLOGY O LEONEL Performing Organization Address [facility] Co de Phone Number [facility] [place] [place] [address] * POCT Glucose (03/05/2021 10:35 AM EST) Glucose, POC 99 65 - 199 mg/dL [facility] Comment: Supplemental ranges: <140 mg/dL before meals <180 mg/dL all other times of the day Blood 03/05/2021 10:3 5 AM EST 03/05/2021 10:35 AM EST Maribell Cowan MD POINT OF CARE TEST O RDAMALIA Performing Organization Address [facility] Co de Phone Number [facility] [place] [place] [address] documented in this encounter Visit Diagnoses Not [...] on Thu03/05/21 at 1209, Until Thu03/05/21 at 2043, Intra-Operative (Intra-Procedure), Routine Given 03/05/2021 1:37 PM [...] on Thu03/05/21 at 1210, Until Thu03/05/21 at 2043, Intra-Operative (Intra-Procedure), Routine Given 03/05/2021 12:10 PM [...] Thu03/05/21 at 1100, Administer over 30 Minutes, Police Liaison Officer to OR Infuse over 30 minutes., Day [...] Thu03/05/21 at 1100, Administer over 30 Minutes, Police Liaison Officer to OR Infuse over 30 minutes., Day [...] Thu03/05/21 at 1100, Administer over 30 Minutes, Police Liaison Officer to OR Infuse over 30 minutes., Day of Surgery (Day of Procedure), Indication for (Active or Suspected): Prophylaxis And metroNIDAZOLE (Flagyl) 500 mg in sodium chloride 0.9% 100 mL infusion (COMPLETED)Jump to med 500 mg, Intravenous, ONCE, 1 dose, On Thu03/05/21 at 1100, Administer over 30 Minutes, Police Liaison Officer to OR Infuse over 30 minutes., Day of Surgery (Day of Procedure), Indication for (Active or Suspected): Prophylaxis documented in this encounter Care Teams Fruit Inspector Relationship Specialty Start Date End Date Trent Varner MD PCP - General Family Medicine 12/17/20 documented as of this encounter
--- OUTSIDE RECORDS SUMMARY | 2024-03-25 14:39 | XMS_ITS | Encounter Summary ---
Author Organization Counts Include [facility] [place] [address] Care Team Providers Care Marketing Technology Specialist Name Role Phone Trent Varner MD Primary Care Provider [phone] Reason for Visit * Auth/Cert Specialty Diagnoses [...] Expiration Date Visits Re quested Visits Authorized [id number] 1 1 Encounter Details Date Type Department Care Team (Late st Contact Info) Description 03/05/2021 11:13 AM EST Anesthesia Event [place] [address] Melida Sultana MD [facility] DR [place] [address] Anesthesia Record Procedure Summary Procedure Name Responsible [...] Luly Sabillon RN 03/05/21 1650 by Anila cMlean RN (RETIRED) Peripheral IV Line - Single Lumen 03/05/21; 1109; median vein (underside of arm), left; xppq-pob-phmxew catheter system; Anatomical Landmarks; US Not Used; [...] dorsal arch vein (top of hand), right; ozzc-hbu-awifom catheter system; Anatomical Landmarks; 18 gauge; Dr. [...] Procedure Summary Date: 03/05/21 Room / Location: [facility] OR Anesthesia Start: 1113 Anesthesia Stop: [...] All Anesthesia Providers: Anesthesiologist: Melida Sultana MD AUTOMATION ENGINEERING TECHNICIAN: Blessing Dennis CRNA Vitals Value Taken Time BP 157/91 03/05/21 1615 Temp Pulse 58 03/05/21 1629 Resp 11 03/05/21 1629 SpO2 100 % 03/05/21 1629 Pain Level 0 03/05/21 1439 Vitals shown include unvalidated device data. Patient Location: PACU/[facility] Level of Consciousness: Conscious but Sleepy [...] weight loss. 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 Plan discussed with AUTOMATION ENGINEERING TECHNICIAN. Anesthesia Screening documented in this encounter Plan [...] Thu03/05/21 at 1100, Administer over 30 Minutes, Lcac Radar Operator/Navigator to OR Infuse over 30 minutes., Day [...] Thu03/05/21 at 1100, Administer over 30 Minutes, Lcac Radar Operator/Navigator to OR Infuse over 30 minutes., Day [...] mg documented in this encounter Care Teams Marketing Technology Specialist Relationship Specialty Start Date End Date Trent Varner MD PCP - General Family Medicine 12/17/20 documented as of this encounter
--- OUTSIDE RECORDS SUMMARY | 2024-03-25 14:39 | XMS_ITS | Encounter Summary ---
Author Organization [facility] Address [address] [place] [address] Care Team Providers Care E Merchant Name Role Phone Unavailable Primary Care Provider Unavailabl e Encounter Details Date Type Department Care Team (Late st Contact Info) Description 11/23/2002 Results Only [facility] - Maple conversion [address] [place] [address] Mariana Yoon, TIMI [address] [place] [address],[address] [address] Social History Tobacco Use Types [...] ? DEEPAK MUNGUIAA ? Accession #: ? [id number] : ? 1965 (Age: 37) ??F ?Collect Date: ? 11/23/2002 Location: ? [facility] ? Receive Date: ? 11/25/2002 Provider: ?MARIANA YOON RETAIL SERVICE LEAD MERCHANDISER Copy to: ? Specimen/Source: ?ThinPrep Pap Test, [...] Final R esult [facility] [address] [place] [address] documented in this encounter Visit Diagnoses Not on filedocumented in this encounter
--- OUTSIDE RECORDS SUMMARY | 2024-03-25 14:39 | XMS_ITS | Encounter Summary ---
Author Organization [facility] [place] [address] Care Team Providers Care Fiber Heel Piece Shaper Name Role Phone Trent Varner MD Primary Care Provider [phone] Reason for Visit * Reason Comments Follow-up Procedure Encounter Details Date Type Department Care Team (Late st Contact Info) Description 05/10/2021 1:00 PM EST Procedure visit [place] [address] Jemima Woods MD [facility] [place] [address] Endometrial ca Social History Tobacco Use Types [...] place to sleep or slept in a group home (including now)? No 04/08/2021 Sex and Gender [...] helpful to increase your energy level. Sexuality: [place] can be resumed as soon as desired. [...] concerns please phone the Radiation Oncology department: [phone]. If you need to contact your physician after normal clinic hours (8AM to 5PM) call [phone] and ask to have the Radiation Oncologist fashion supervisor contacted documented in this encounter Progress Notes [...] For details, see electronic film record in [employer] System. Changes in Medical Condition: None. Denies [...] allergies, medications & procedure to be performed. [id number] mm universal stump cylinder then inserted into [...] treatment completed, physicist surveyed brachytherapy suite with Scarbro counter, confirming return of Ir-192 source into vault. Physician & nurse then re-entered treatment room. Cylinder removed. Patient informed of possible side effects from the treatment & we discussed plan for followup @ [facility] after brachytherapy completion. She was given printout [...] isthmus documented in this encounter Care Teams Fiber Heel Piece Shaper Relationship Specialty Start Date End Date rTent Varner MD PCP - General Family Medicine 12/17/20 documented as of this encounter
--- OUTSIDE RECORDS SUMMARY | 2024-03-25 14:39 | XMS_ITS | Encounter Summary ---
Author Organization [facility] Address [address] [place] [address] Care Team Providers Care Pharmacy Specialist Name Role Phone Unavailable Primary Care Provider Unavailabl e Encounter Details Date Type Department Care Team (Late st Contact Info) Description 04/28/2012 Results Only [facility] Laboratory Services - [facility] [address], [place] [address] Mariana Yoon, TIMI [address] [facility],[address] [address] Social History Tobacco Use Types [...] ? EZRA BECKY ? Accession #: ? [id number] : ? 1965 (Age: 46) ??F ?Collect Date: ? 04/28/2012 Location: ? [facility] ? Receive Date: ? 04/29/2012 Provider: ?MARIANA YOON VASCULAR TECHNOLOGIST Copy to: ? Specimen/Source: ?Pap Test, Cervix/Endocervix, [...] types 16,18,31,33,35, 39,45,51,52,56,58, 59,66, and 68 by entry level manager mediated amplification. Comments Document reviewed and electronically [...] Final R esult [facility] [address] [place] [address] documented in this encounter Visit Diagnoses Not on filedocumented in this encounter
--- OUTSIDE RECORDS SUMMARY | 2024-03-25 14:39 | XMS_ITS | Encounter Summary ---
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 She never narcotic pain medications and is [...] The assay was performed according to the power generation plant operator's ??intructions using anti-MLH-1 (ES05), anti-MSH-2 ([id number]), anti-MSH-6 (44), and ??anti-PMS-2 (MRQ-28) antibodies. ? [...] Cobb Verified: ??03/12/2021 12:34 ??Pathologist Performed at: ??[facility] [place], [place], [place] SYNOPTIC Specimen ?Procedure: ??Total hysterectomy and [...] Nodes Examined: ??5 ? Number of Pelvic [place] Nodes Examined: ??5 ? Total Number of [...] lymph node protocol as outlined in the [facility] study (referenced below) was followed for each of the lymph node tissue ??blocks that lacked metastatic tumor on routine H&E sections. Alondra AGOSTO, Melly RA, et al. Pathologic Ultrastaging Improves Micrometastasis Detection ??in [place] Lymph Nodes During Endometrial Cancer Staging. ?Int J Gynecol Cancer ??2013;23: 964-970. Scanned slides: [id number] B7-1 [id number] [id number] DISCUSSION [id number] B9-1 [id number] B55-1 [id number] B59-1 Assessment and Plan: Lynn King is [...] vaginal cuff brachytherapy. As she lives in [place], she will bereferred there for this treatment. [...] gynecologic malignancies: Society of Gynecologic Oncologists recommendations (Renée, et al; AJOG, July 2010)]. She prefers to return to her local tax director for follow-up and is kindly referred back. I will remain available should any questions or concerns arise. MARIBELL COWAN MD documented in this encounter Plan of Treatment Not on file documented as of this encounter Visit Diagnoses Diagnosis Post-operative state Other postprocedural status documented in this encounter Care Teams Clerical Office Worker Relationship Specialty Start Date End Date Trent Varner MD PCP - General Family Medicine 12/17/20 documented as of this encounter
--- OUTSIDE RECORDS SUMMARY | 2024-03-25 14:39 | XMS_ITS | Encounter Summary ---
Author Organization [facility] Address [address] [place] [address] Care Team Providers Care Roofer Vinyl Coating Name Role Phone Unavailable Primary Care Provider Unavailabl e Encounter Details Date Type Department Care Team (Late st Contact Info) Description 11/14/2004 Results Only [facility] - Maple conversion [address] [place] [address] Mariana Yoon, TIMI [address] [place] [address],[address] [address] Social History Tobacco Use Types [...] ? DEEPAK MUNGUIAA ? Accession #: ? [id number] : ? 1965 (Age: 39) ??F ?Collect Date: ? 11/14/2004 Location: ? [facility] ? Receive Date: ? 11/18/2004 Provider: ?MARIANA YOON INFORMATION SECURITY RISK ANALYST Copy to: ? Specimen/Source: ?ThinPrep Pap Test, Cervix/Endocervix, processed on [employer] ThinPrep Imaging System, with manual evaluation Last [...] End of Report [facility] 11/14/2004 11/18/2004 us Mariana Yoon NP PATHOLOGY ORDERABLES Final R esult [facility] [address] [place] [address] documented in this encounter Visit Diagnoses Not on filedocumented in this encounter
--- OUTSIDE RECORDS SUMMARY | 2024-03-25 14:39 | XMS_ITS | Encounter Summary ---
Author Organization [facility] [place] [address] Care Team Providers Care Architecture Technician Name Role Phone Trent Varner MD Primary Care Provider [phone] Encounter Details Date Type Department Care Team (Latest Contact Info) Description 03/14/2021 Multidisciplinary Ca re Committee [place] [phone] Ibis Loya RN Social History Tobacco Use [...] on filedocumented in this encounter Care Teams Architecture Technician Relationship Specialty Start Date End Date Trent Varner MD PCP - General Family Medicine 12/17/20 documented as of this encounter
--- OUTSIDE RECORDS SUMMARY | 2024-03-25 14:39 | XMS_ITS | Referral Summary ---
Author Organization [facility] Address [address] [place] [address] Care Team Providers Care Wall Attendant Name Role Phone Joseph Chantel Alves CIGARETTE PACKER Primary Care Provider [phone] Social History Tobacco Use Types Packs/Day Years [...] C Antibody Negative Negative 08/13/2020 9:58 EDT [facility] Blood VENOUS BLOOD / Unknown 08/10/2020 17:00 EDT 08/12/2020 15:57 EDT us Provider Outr Resulting Lab CHEMISTRY & BLOOD GA S ORDERABLES Final Result [facility] [address] [place] [address] from Last 3 Months or Most Recently Relevant to Health Maintenance Insurance MEDICAID ACO [place] Care Teams Wall Attendant Relationship Specialty Start Date End Date Chantel Ruiz NP [address] [place] [address] PCP - General 07/31/20
--- OUTSIDE RECORDS SUMMARY | 2024-03-25 14:39 | XMS_ITS | Encounter Summary ---
Author Organization [facility] Address [address] [place] [address] Care Team Providers Care Accounting Director Name Role Phone Joseph Chantel Joselyn LARRY CAR OPERATOR Primary Care Provider [phone] Encounter Details Date Type Department Care Team (Late st Contact Info) Description 11/21/2020 Lab Requisition [facility] Pathology & Laboratory Medicine - [facility] [address] [place] [address] Andria Marlow MD [address] [place] [phone] Encounter for other general examination Social History [...] management options, if applicable. 11/27/2020 14:30 EDT [facility] Final Diagnosis A. ENDOMETRIUM, PROCEDURE NOT SPECIFIED: - Endometrial polyp with focal complex atypical hyperplasia. See comment. - Endocervical tissue with microglandular hyperplasia. 11/27/2020 14:30 [facility] Diagnosis Comment Deeper sections of (A1)-(A5) have been examined. Jeweler Apprentice slides of this case were reviewed at the intradepartmental consultation conference. Immunostaining for PAX-2 (EP235, Cell Xiang) shows reduced expression in the crowded atypical glandular foci (block A3). The atypical endometrial cells on the Pap test ([id number]) show cytologic features similar to the atypical [...] performance characteristics have been determined by [facility] and/or by the referring laboratory. [...] high complexity clinical laboratory testing.? 11/27/2020 14:30 [facility] Attestation By the signature below, the attending physician certifies that they have 1) personally conducted a gross and/or microscopic examination of the described specimen(s), and/or personally interpreted the results of laboratory testing of the described specimen(s), and 2) personally rendered or confirmed the above diagnosis. 11/27/2020 14:30 [facility] at 1430 Clinical History Atypical endometrial cells on PAP 11/27/2020 14:30 [facility] Gross Description A. Received in formalin labelled with proper patient identification (initials M, C) and endometrium is an aggregate of herrera-brown opaque mucus and dark brown blood clot (4.1 x 2.1 x 0.6 cm). The specimen is submitted entirely in A1 to A5. HALIMA CASPER(ASCP) 11/21/2020 9:03 11/27/2020 14:30 EDT [facility] Performing Lab [facility] 11/27/2020 14:30 EDT [facility] Scanned Images 11/27/2020 14:30 EDT [facility] Tissue ENTIRE ENDOMETRIUM / Unknown 11/20/2020 12:10 EDT 11/21/2020 8:27 EDT us Andria Marlow MD PATHOLOGY ORDERABLES Final R esult [facility] [address] [place] [address] documented in this encounter Visit Diagnoses Diagnosis Encounter for other general examination documented in this encounter Care Teams Accounting Director Relationship Specialty Start Date End Date Chantel Ruiz, LARRY CAR OPERATOR [address] [place] [address] PCP - General 07/31/20 documented as of this encounter
--- OUTSIDE RECORDS SUMMARY | 2024-03-25 14:39 | XMS_ITS | Clinical Summary ---
Author Organization [facility] Address [address] [place] [address] Care Team Providers Care Home Care And Home Health Aides Teacher Name Role Phone Joseph Chantel Joselyn PLATE SLITTER AND INSPECTOR Primary Care Provider [phone] Social History Tobacco Use Types Packs/Day Years [...] Antibody Negative Negative 08/13/2020 9:58 EDT [facility] Blood VENOUS BLOOD / Unknown 08/10/2020 17:00 EDT 08/12/2020 15:57 EDT us Provider Outr Resulting Lab CHEMISTRY & BLOOD GA S ORDERABLES Final Result [facility] [address] [place] [address] from Last 3 Months or Most Recently Relevant to Health Maintenance Insurance MEDICAID ACO [place] Care Teams Home Care And Home Health Aides Teacher Relationship Specialty Start Date End Date Chantel Ruiz, TIMI [address] [place] [address] PCP - General 07/31/20
--- OUTSIDE RECORDS SUMMARY | 2024-03-25 14:39 | XMS_ITS | Encounter Summary ---
[place] [address] Care Team Providers Care Legal Examiner Name Role Phone Trent Varner MD Primary Care Provider [phone] Reason for Referral * Consultation (Routine) - Closed Specialty Diagnoses / Procedures Referred By Efrain t Referred To Contact Radiation Oncology Diagnoses Endometrial intraepithelial neoplasia (EIN) Nimisha Prado MD [facility] [place] [address] [facility] Rad Onc Treatment [address] [place] [phone] Referral ID Status Reason Start Date Expiration Date V isits Requested Visits Authorized [id number] Closed Consult, Test & Treat 03/28/2021 03/28/2022 1 1 Encounter Details Date Type Department Care Team (Late st Contact Info) Description 03/28/2021 Orders Only [place] [address] Ibis Loya, RN Endometrial intraepithelial neoplasia (EIN) Social History [...] (EIN) documented in this encounter Care Teams Legal Examiner Relationship Specialty Start Date End Date Trent Varner MD PCP - General Family Medicine 12/17/20 documented as of this encounter
--- OUTSIDE RECORDS SUMMARY | 2024-03-25 14:39 | XMS_ITS | Encounter Summary ---
Author Organization [facility] Address [address] [place] [address] Care Team Providers Care Payroll Assistant Name Role Phone Joseph Chantel Joselyn FUNERAL LIMOUSINE DRIVER Primary Care Provider [phone] Encounter Details Date Type Department Care Team (Latest Contact Info) Description 08/14/2020 Lab Requisition [facility] Pathology & Laboratory Medicine - [facility] [address] [place] [address] Trent Varner MD [address] [place], [place] [phone] Encounter for general adult medical examination without [...] types, PCR Negative Negative 08/24/2020 14:40 EDT [facility] Comment:No E6 or E7 mRNA is detected from HPV types 16,18,31,33,35,39,45,51,52,56,58,59,66, and 68 by flitch hanger mediated amplification. Papanicolaou smear specimen (specimen) CERVIX UTERI STRUCTURE / Unknown 08/10/2020 17:30 EDT 08/23/2020 14:14 EDT Trent Varner MD MICROBIOLOGY - GENERAL ORDERABLE S Final Result [facility] [address] [place] [address] * PAP TEST (08/10/2020 17:30 EDT) Specimens A. Cervix and/or Endocervix , ThinPrep Imaging System with Manual Evaluation 08/24/2020 14:40 EDT [facility] Specimen Adequacy Satisfactory for Evaluation - transformation zone component present Scant squamous epithelial component 08/24/2020 14:40 EDT [facility] General Categorization Epithelial Cell Abnormality 08/24/2020 14:40 EDT [facility] Descriptive Diagnosis Glandular Cell Abnormality - Atypical endometrial cells. 08/24/2020 14:40 T [facility] Educational Comments [facility] recommends following ASCCP's 2012 Updated Consensus Guidelines for the Management of Abnormal Cervical Cancer Screening Tests and Cancer Precursors (JLGTD, 2013; 17(5):S1-S27). Consensus guidelines are available online at www.asccp.org. 08/24/2020 14:40 [facility] Attestation By the signature below, the attending physician certifies that they have personally conducted a gross and/or microscopic examination of the described specimens and rendered or confirmed the above diagnosis. [facility]2020 [facility]40 Clinical History See below 08/25/19 14:40 EDT [facility] HPV The result for the Human Papillomavirus (HPV) Detection-High Risk Types is Negative. No E6 or E7 mRNA is detected from HPV types 16,18,31,33,35,3 9,45,51,52,56,58 ,59,66, and 68 by flitch hanger mediated amplification.Te sting was performed on specimen [id number] and was resulted on 08/24/2020 1435 EDT by GABE, LAB INSTRUMENT RESULTS IN 08/24/2020 14:40 EDT [facility] Performing Lab [facility] 08/24/2020 14:40 EDT [facility] Scanned Images 08/24/2020 14:40 EDT [facility] Papanicolaou smear specimen (specimen) CERVIX UTERI STRUCTURE / Unknown 08/10/2020 17:30 EDT 08/14/2020 15:06 EDT us Trent Varner MD PATHOLOGY ORDERABLES Final Resul t [facility] [address] [place] [address] documented in this encounter Visit Diagnoses Diagnosis Encounter for general adult medical examination without abnormal findings Unspecified general medical examination Encounter for screening for malignant neoplasm of cervix Screening for malignant neoplasm of the cervix Encounter for screening for human papillomavirus (HPV) Special screening examination for human papillomavirus (HPV) documented in this encounter Care Teams Payroll Assistant Relationship Specialty Start Date End Date Chantel Ruiz NP [address] [place] [address] PCP - General 07/31/20 documented as of this encounter
--- OUTSIDE RECORDS SUMMARY | 2024-03-25 14:39 | XMS_ITS | Encounter Summary ---
Author Organization [facility] Address [facility] [place] [address] Care Team Providers Care Carton Making Machinist Name Role Phone Trent Varner MD Primary Care Provider [phone] Encounter Details Date Type Department Care Team (Late st Contact Info) Description 05/17/2021 Notes Only [place] [address] Jemima Woods MD [facility] [place] [address] Social History Tobacco Use Types Packs/Day Years [...] place to sleep or slept in a assisted (including now)? No 04/08/2021 Sex and Gender [...] on filedocumented in this encounter Care Teams Carton Making Machinist Relationship Specialty Start Date End Date Trent Varner MD PCP - General Family Medicine 12/17/20 documented as of this encounter
--- OUTSIDE RECORDS SUMMARY | 2024-03-25 14:39 | XMS_ITS | Encounter Summary ---
Author [facility] [place] [address] Care Team Providers Care Cartoon Designer Name Role Phone Trent Varner MD Primary Care Provider [phone] Encounter Details Date Type Department Care Team (Late st Contact Info) Description 04/01/2021 Telephone [place] [phone] Ibis Loya RN Social History Tobacco Use [...] need to follow up with her local senior cyber security analyst for the first 3-month follow up. Patient verbalized understanding and states that [facility]. Denies any questions or concerns at thistime. * Telephone Encounter - Ibis Loya RN - 04/01/2021 8:24 AM EST Attempted to call patient, no answer. Left message on voicemail with phone number for patient to call the clinic back. Called to inform patient that per , patient needs a follow-up with herlocal senior cyber security analyst in 3 months. * Telephone Encounter - Ibis Loya RN - 04/01/2021 8:24 AM EST ----- Message from Nimisha Prado MD sent at 03/28/2021 2:39 PM EST ----- Please refer to radiation oncology in [place] for vaginal cuff brachytherapy. When she is done with this treatment she will then need to see her local senior cyber security analyst for her first 3-month follow-up. Thank you documented in this encounter Plan of Treatment Not on file documented as of this encounter Visit Diagnoses Not on filedocumented in this encounter Care Teams Cartoon Designer Relationship Specialty Start Date End Date Trent Varner MD PCP - General Family Medicine 12/17/20 documented as of this encounter
--- OUTSIDE RECORDS SUMMARY | 2024-03-25 14:39 | XMS_ITS | Encounter Summary ---
Author Organization [facility] Address [address] [place] [address] Care Team Providers Care Beverage Distiller Name Role Phone Unavailable Primary Care Provider Unavailabl e Encounter Details Date Type Department Care Team (Late st Contact Info) Description 07/18/2008 Orders Only [facility] Laboratory Services - [facility] [address] [place], [place] [address] Mariana Yoon, TIMI [address] [facility],[address] [phone] Social History Tobacco Use Types Packs/Day Years [...] ? BECKY MUNGUIA ? Accession #: ? [id number] ? : ? 1965 (Age: 43) ??F ?Collect Date: ? 07/18/2008 ? Location: ? [facility] ? Receive Date: ? 07/19/2008 ? Provider: ?MARIANA YOON NEW ACCOUNTS CLERK ? Copy to: ? Specimen/Source: ?Pap Test, [...] [facility] 07/18/2008 07/19/2008 us Mariana Yoon NEW ACCOUNTS CLERK PATHOLOGY ORDERABLES Final R esult [facility] [address] [place] [address] documented in this encounter Visit Diagnoses Not on filedocumented in this encounter
--- OUTSIDE RECORDS SUMMARY | 2024-03-25 14:39 | XMS_ITS | Clinical Summary ---
Author Organization [facility] Address [facility] [place] [address] Care Team Providers Care Pre Press Proofer Name Role Phone Trent Varner MD Primary Care Provider [phone] Allergies Active Allergy Reactions Criticality Noted Date [...] year) with FIT yearly 1965 Sigmoidoscopy 1965 DM Hemoglobin A1c 06/09/1977 DM Opthalmology Exam 06/09/1977 DM Urine Microalbumin yearly 06/09/1977 HIV screen 06/09/1985 Hepatitis C Screening 06/09/1985 Hepatitis B vaccine (0-59 yrs) (1) 06/09/1986 Pneumoccocal Vaccine: 50+ (1 of 2 - PCV) 06/09/1986 Tetanus/Diphtheria/Pertussis Vaccines (1 - Tdap) 06/09 HPV test 06/09/1997 PAP Smear 06/09/1997 Breast Cancer Share Decision Needed 2007 Breast Cancer screening 2007 Zoster vaccine (1 of 2) 06/09/2017 DM Creatinine yearly 01/04/2022 01/04/2021 Advance Directive 06/09/2022 Covid-19 Vaccine (1 - season) 2023 Influenza (Flu) vaccine (1 o f 1 - Influenza standard series) 11/01/2023 Procedures Procedure Name Priority Date/Time Associated Diagnosis Comments HC VENIPUNCTURE Routine 01/04/2021 12:37 PM EDT Endometrial hyperplasia with atypia from Last 3 Months or Most Recently Relevant to Health Maintenance Results * Creatinine (01/04/2021 12:37 PM EDT) Creatinine 0.76 0.70 - 1.20 mg/dL [facility] Est Glomerular Filtration Rate 90 >=60 mL/min/1. 73 m?? [facility] Comment: This patient? s estimated [...] In Lab Nimisha Prado MD CHEMISTRY ORDERABLES [place] [address] from Last 3 Months or Most Recently Relevant to Health Maintenance Care Teams Pre Press Proofer Relationship Specialty Start Date End Date Trent Varner MD PCP - General Family Medicine 12/17/20
--- OUTSIDE RECORDS SUMMARY | 2024-03-25 14:39 | XMS_ITS | Encounter Summary ---
Author Organization [facility] [place] [address] Care Team Providers Care Flamer Sealer Name Role Phone Trent Varner MD Primary Care Provider [phone] Encounter Details Date Type Department Care Team (Late st Contact Info) Description 04/23/2021 Notes Only Radiation Oncology at [address] [phone] America Wise, [facility] [...] today to introduce myself and role of director of social work to assess/address barriers to getting to and throughtreatments; address support needs and connect with community services and resources as needed. Family/Social Supports: Pt identified her of 21 years as her primary support. She has 2 sons. One lives in [place] and the other lives in [place]. Pt also identified her mother in law as a support. Living Situation/Daily Activities/Transportation:Pt lives with her and dog. She lives localto this facility. Pt manages her daily chores and activities. [place] [facility] She does not expect any issues with transportation. 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 Will follow to assess/address psychosocial needs. ALVIN Cui, SCARFER OPERATOR, OSW-C Analytical Data Miner [facility] documented in this encounter Plan of Treatment Not on file documented as of this encounter Visit Diagnoses Not on filedocumented in this encounter Care Teams Flamer Sealer Relationship Specialty Start Date End Date Trent Varner MD PCP - General Family Medicine 12/17/20 documented as of this encounter
--- OUTSIDE RECORDS SUMMARY | 2024-03-25 14:39 | XMS_ITS | Encounter Summary ---
Author Organization [facility] [place] [address] Care Team Providers Care Fabrication Inspector Name Role Phone Trent Varner MD Primary Care Provider [phone] Encounter Details Date Type Department Care Team (Late st Contact Info) Description 04/11/2021 Telephone Radiation [place] [phone] [place] Social History Tobacco Use Types [...] place to sleep or slept in a custodial (including now)? No 04/08/2021 Sex and Gender Information Value Date Recorded Sex Assigned at Not on file Gender Identity Not on file Sexual Orientation Not on file documented as of this encounter Plan of Treatment Not on file documented as of this encounter Visit Diagnoses Not on filedocumented in this encounter Care Teams Fabrication Inspector Relationship Specialty Start Date End Date Trent Varner MD PCP - General Family Medicine 12/17/20 documented as of this encounter
--- OUTSIDE RECORDS SUMMARY | 2024-03-25 14:39 | XMS_ITS | Encounter Summary ---
Author Organization [facility] Address [facility] [place] [address] Care Team Providers Care Supervisor Publications Production Name Role Phone Trent Varner MD Primary Care Provider [phone] Reason for Visit * Reason Comments Procedure Encounter Details Date Type Department Care Team (Late st Contact Info) Description 05/17/2021 12:30 PM EDT Procedure visit [place] [address] Lopez Singh MD [facility] [place] [address] Endometrial ca Social History Tobacco Use Types [...] For details, see electronic film record in [employer] System. Changes in Medical Condition: None. Denies [...] allergies, medications & procedure to be performed. [id number] mm universal stump cylinder then inserted into [...] & we discussed plan for followup @ [facility] after brachytherapy completion. She was given [...] isthmus documented in this encounter Care Teams Supervisor Publications Production Relationship Specialty Start Date End Date Trent Varner MD PCP - General Family Medicine 12/17/20 documented as of this encounter
--- OUTSIDE RECORDS SUMMARY | 2024-03-25 14:40 | XMS_ITS | Encounter Summary ---
[place] [address] Care Team Providers Care Clinical Massage Therapist Name Role Phone Trent Varner MD Primary Care Provider [phone] Reason for Visit * Auth/Cert Specialty Diagnoses [...] Expiration Date Visits Re quested Visits Authorized [id number] 1 1 Encounter Details Date Type Department Care Team (Latest Contact Info) Description 03/05/2021 8:27 AM EST - 03/05/2021 6:38 PM [facility] Hospital Encounter [place] [phone] Maribell Cowna MD Endometrial intraepithelial neoplasia (EIN) Discharge Disposition: Home [...] PATIENT DISCHARGE INSTRUCTIONS Gynecologic Oncology phone number: [phone]. After hours and on weekends please call hospital gasoline truck crane operator at [phone] and ask for Gynecologic Oncologist screen and cyclone repairer. Call your doctor if you develop: --A [...] 9:00 AM Maribell Cowan MD [facility] MAINTENANCE MAN 3K [facility] Activity level: Let your body guide you- [...] Cowan MD - 03/05/2021 10:17 AM EST MAINTENANCE MAN H&P Patient Active Problem List Diagnosis Code [...] - 03/05/2021 11:54 AM EST [facility] Operative Note Patient Name: Lynn King : [id number] MR#: [id number] Case Date: 03/05/2021 Surgeon: Surgeon(s) and Role: * Maribell Cowan MD - Primary * Juani Daly MD - Resident Registered Nurse Access Services Librarian: Kriss Harper RN Preoperative diagnosis: Endometrial intraepithelial [...] y.o. female with a preoperative biopsy in [facility] of postmenopausal bleeding which revealed endometrial [...] into the substance of the cervix. A [employer] uterine manipulator was placed without perforation. An 8-mm transverse incision was made at the umbilicus, through which a Veress needle was inserted and the abdomen was insufflated to tympany with carbon dioxide gas. An 8mm trocar was then inserted and the camera was placed, verifying a successful atraumatic entry. 3 additional 8-mm trocars and an 8-mm right upper quadrant apartment community assistant manager port were placed in the usual locations [...] counts were performed as per [facility] OR policy. Complications: None. DVT Prophylaxis: 5000 [...] XI 03/05/2021 11:12 AM EST EIN Intraop [place] Lymph Id W/Dye Injection ([id number]) 03/05/2021 11:12 AM EST EIN Lap, Pelvic Lymphadenectomy/Bx ([id number]) 03/05/2021 11:12 AM EST EIN Laparoscopy W Tot Hysterectuterus <=250 Gram W Tube/Ovary ([id number]) 03/05/2021 11:12 AM EST EIN POCT GLUCOSE Routine 03/05/2021 10:35 AM EST documented in this encounter Results * POCT Glucose (03/05/2021 2:22 PM EST) Glucose, POC 120 65 - 199 mg/dL [facility] Comment: Supplemental ranges: <140 mg/dL before meals <180 mg/dL all other times of the day Blood 03/05/2021 2:22 PM EST 03/05/2021 2:22 PM EST Maribell Cowan MD POINT OF C[place] [address] * Specimen to Pathology (03/05/2021 12:59 PM EST) AP Specimen 03/05/2021 12:5 9 PM EST 03/05/2021 12:59 PM EST Narrative [facility] - 03/05/2021 12:59 PM EST Specimen requisition ordered. ??Separate Pathology report to follow Maribell Cowan MD PATHOLOGY/CYTOLOGY O LEONEL Performing Organization Address [facility] [place] [address] * Specimen to Pathology (03/05/2021 12:59 PM EST) AP Specimen 03/05/2021 12:5 9 PM EST 03/05/2021 12:59 PM EST Narrative [facility] - 03/05/2021 12:59 PM EST Specimen requisition ordered. ??Separate Pathology report to follow Maribell Cowan MD PATHOLOGY/CYTOLOGY O LEONEL Performing Organization Address [facility] [place] [address] * Surgical Pathology Report (03/05/2021 12:42 PM EST) Pathologist [facility] Final Diagnosis [id number] ? Location: [facility]; A The signing pathologist has (i) examined the relevant preparation(s) for the specimen(s) and (ii) rendered or confirmed the diagnosis(es). . ? Immunohistochemistry DIAGNOSIS Endometrial carcinoma with intact nuclear staining for ??MLH1, MSH2, MSH6, and PMS2 in tumor cells. Electronically signed by: ?Michael ARAYA, Bryan Cobb Verified: ??03/12/2021 12:34 ??Pathologist Performed at: ??-[facility] Dept. of Pathology, [place], [place] INTERPRETATION Block ? Antibody ? Result [...] The assay was performed according to the legal collector's intructions using anti-MLH-1 ([id number]), anti-MSH-2 ([id number]), anti-MSH-6 (44), and anti-PMS-2 (MRQ-28) antibodies. ?Surgical [...] ??03/12/2021 12:34 ??Pathologist Performed at: ??-[facility] Dept. of Pathology, [place], [place] SYNOPTIC Specimen ? Procedure: ??Total hysterectomy [...] Pelvic Nodes Examined: ??5 ?Number of Pelvic [place] Nodes Examined: ??5 ?Total Number of Para-aortic [...] lymph node protocol as outlined in the [facility] study (referenced below) was followed for each of the lymph node tissue blocks that lacked metastatic tumor on routine H&E sections. Alondra CH, Melly RA, et al. Pathologic Ultrastaging Improves Micrometastasis Detection in [place] Lymph Nodes During Endometrial Cancer Staging. ?Int J Gynecol Cancer 2013;23: 964-970. Scanned slides: [id number] . DISCUSSION [id number] [id number] ADDITIONAL STUDIES IHC [place] Lymph Node Protocol For Endometrial Carcinoma: Formalin-fixed, [...] B-11 ? ER ? Positive B-11 ? [place] ? Positive IHC studies provide the pathologist [...] Fallopian Tube: 3.1 x 0.4 cm, fimbriated. Stock Transfer Clerk sections in 68 cassettes as follows: ?B1: Anterior cervix, blue endometrial side ?B2-B4: Anterior lower uterine segment, blue cervical side ?B5-B15: Anterior endomyometrium, full thickness sections in B5-B7 ?B16: Posterior cervix, blue ink endometrial sign ?B17-B20: Posterior lower uterine segment, blue ink cervical side ?B21-B35: Posterior endomyometrium including full-thickness sections and B21-B23 ?B36-B39: Circumscribed masses, posterior wall ?B40: Stock Transfer Clerk right ovary ?B41-B43: Right fallopian tube ?B44: Stock Transfer Clerk left ovary ?B45-B46: Left fallopian tube ?B47-B51: Remaining myometrium from LEONARDO, cervical aspect inked red ?B52-B68: Remaining myometrium C - Labeled/Fixative: Right pelvic sentinel lymph node, fresh. Quantity/Size: Single, 6.1 x 3.4 x 1.1 cm. Tissue Description: Adipose tissue with three lymph nodes, up to 3.8 cm. The jose e tissue is totally submitted. Stock Transfer Clerk sections in 6 cassettes as follows: ?C1: Single node ?C2: Single node ?C3-C6: Largest node pps 03/12/2021 12:34 PM EST [facility] SENTINEL LYMPH NODE / Unknown 03/05/2021 12:42 PM EST 03/05/2021 12:42 PM EST Uterine Corpus 03/05/2021 12 :42 PM EST 03/05/2021 12:42 PM EST SENTINEL LYMPH NODE / Unknown 03/05/2021 12:42 PM EST 03/05/2021 12:42 PM EST Maribell Cowan MD PATHOLOGY/CYTOLOGY O RDERABLES [facility] [place] [address] * Specimen to Pathology (03/05/2021 12:42 PM EST) AP Specimen 03/05/2021 12:4 2 PM EST 03/05/2021 12:42 PM EST Narrative [facility] - 03/05/2021 12:42 PM EST Specimen requisition ordered. ??Separate Pathology report to follow Maribell Cowan MD PATHOLOGY/CYTOLOGY O LEONEL Performing Organization Address [facility]/ZIP Co de Phone Number [facility] [place] [address] * POCT Glucose (03/05/2021 10:35 AM EST) Glucose, POC 99 65 - 199 mg/dL [facility] Comment: Supplemental ranges: <140 mg/dL before meals <180 mg/dL all other times of the day Blood 03/05/2021 10:3 5 AM EST 03/05/2021 10:35 AM EST Maribell Cowan MD POINT OF CARE TEST O LEONEL Performing Organization Address [facility] Co de Phone Number [facility] [place] [address] documented in this encounter Visit Diagnoses Diagnosis [...] Thu03/05/21 at 1100, Administer over 30 Minutes, Fudge Candy Maker to OR Infuse over 30 minutes., Day [...] Thu03/05/21 at 1100, Administer over 30 Minutes, Fudge Candy Maker to OR Infuse over 30 minutes., Day [...] on Thu03/05/21 at 1352, Until Thu03/05/21 at 2043, Pain, If multiple pain medications ordered, use [...] Thu03/05/21 at 1100, Administer over 30 Minutes, Fudge Candy Maker to OR Infuse over 30 minutes., Day of Surgery (Day of Procedure), Indication for (Active or Suspected): Prophylaxis And metroNIDAZOLE (Flagyl) 500 mg in sodium chloride 0.9% 100 mL infusion (COMPLETED)Jump to med 500 mg, Intravenous, ONCE, 1 dose, On Thu03/05/21 at 1100, Administer over 30 Minutes, Fudge Candy Maker to OR Infuse over 30 minutes., Day of Surgery (Day of Procedure), Indication for (Active or Suspected): Prophylaxis documented in this encounter Care Teams Clinical Massage Therapist Relationship Specialty Start Date End Date Trent Varner MD PCP - General Family Medicine 12/17/20 documented as of this encounter
--- OUTSIDE RECORDS SUMMARY | 2024-03-25 14:40 | XMS_ITS | Encounter Summary ---
[place] [address] Care Team Providers Care Computer Terminal Operator Name Role Phone Trent Varner MD Primary Care Provider [phone] Reason for Visit * Reason Comments Establish Care endometrial intraepi thelial neoplasia * Consultation (Routine) - Closed Specialty Diagnoses / Procedures Referred By Contac t Referred To Contact Gynecology Oncology Diagnoses Endometrial intraepithelial neoplasia (EIN) Andria Marlow MD [address] [place] [id number] [facility] [address] [place] [address] Referral ID Status Reason Start Date Expiration Date V isits Requested Visits Authorized [id number] Closed Consult, Test & Treat Connection Center PCP Updated and/or Approved 12/12/2020 12/12/2021 6 6 Encounter Details Date Type Department Care Team (Late st Contact Info) Description 01/04/2021 10:00 AM EDT Office Visit Gyne[place] [address] Nimisha Prado MD Endometrial hyperplasia with atypia (Primary Dx) Social [...] documented in this encounter Progress Notes * Keiok Bhat MD - 01/04/2021 10:00 AM EDT Images from the original note were not included. Division of Gynecologic Oncology Liana Sanabria MD [facility] Nimisha Prado MD [facility] [place] [address] Tesha Hawk MD New Outpatient Visit: Reason for Visit: Lynn King is a 55 y.o. female is being seen in the clinic today at the request of Andria Marlow MD [address] [place] [address] [place] [address] for the evaluation of endometrial intraepithelial neoplasia. [...] intraepithelial neoplasia. Lynn receives her care at [facility]. A routine pap smear on 08/10/20 showed [...] cephalosporin. 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 [...] referring this serge patient to [facility] for her care. I will keep you [...] EDT) Creatinine 0.76 0.70 - 1.20 mg/dL [facility] Est Glomerular Filtration Rate 90 >=60 mL/min/1. 73 m?? [facility] Comment: This patient? s estimated [...] In Lab Nimisha Prado MD [place] [address] documented in this encounter Visit Diagnoses Diagnosis Endometrial hyperplasia with atypia- Primary documented in this encounter Care Teams Computer Terminal Operator Relationship Specialty Start Date End Date Trent Varner MD PCP - General Family Medicine 12/17/20 documented as of this encounter
--- OUTSIDE RECORDS SUMMARY | 2024-03-25 14:40 | XMS_ITS | Encounter Summary ---
Author Organization [place] [address] Care Ct Scan Special Procedures Technologist Name Role Phone Trent Varner MD Primary Care Provider [phone] Encounter Details Date Type Department Care Team (Late st Contact Info) Description 03/01/2021 Telephone Obstetrics [place] [phone] Juani Daly MD Social History Tobacco Use Types Packs/Day Years [...] on filedocumented in this encounter Care Teams Ct Scan Special Procedures Technologist Relationship Specialty Start Date End Date Trent Varner MD PCP - General Family Medicine 12/17/20 documented as of this encounter
--- OUTSIDE RECORDS SUMMARY | 2024-03-25 14:40 | XMS_ITS | Encounter Summary ---
[facility] [place] [address] Care Team Providers Care Auto Body Mechanic Name Role Phone Trent Varner MD Primary Care Provider [phone] Encounter Details Date Type Department Care Team (Late st Contact Info) Description 01/04/2021 11:30 AM EDT Clinical [place] [phone] Social History Tobacco Use Types Packs/Day Years [...] Special medication instructions: None Procedure date: 02-05 [facility] Penicillin Allergy Risk Assessment 01/04/2021: Low risk penicillin allergy. OK to receive full dose of cefazolin, cefuroxime, or any 3rd or 4th+ generation cephalosporin. documented in this encounter Plan of Treatment Not on file documented as of this encounter Visit Diagnoses Not on filedocumented in this encounter Care Teams Auto Body Mechanic Relationship Specialty Start Date End Date Trent Varner MD PCP - General Family Medicine 12/17/20 documented as of this encounter
--- OUTSIDE RECORDS SUMMARY | 2024-03-25 14:40 | XMS_ITS | Encounter Summary ---
[place] [address] Care Team Providers Care Retail Marketing Manager Name Role Phone Trent Varner MD Primary Care Provider [phone] Encounter Details Date Type Department Care Team (Late st Contact Info) Description 01/29/2021 Notes Only [place] [phone] Freda Foster, NEWSPAPER JOURNALIST Social History Tobacco Use Types Packs/Day Years [...] on filedocumented in this encounter Care Teams Retail Marketing Manager Relationship Specialty Start Date End Date Trent Varner MD PCP - General Family Medicine 12/17/20 documented as of this encounter
--- OUTSIDE RECORDS SUMMARY | 2024-03-25 14:40 | XMS_ITS | Encounter Summary ---
[place] [address] Care Team Providers Care Lining Sewer Name Role Phone Trent Varner MD Primary Care Provider Encounter Details Date Type Department Care Team (Late st Contact Info) Description 01/07/2021 Notes Only [place] [address] Freda Foster, JEN Social History Tobacco Use Types Packs/Day Years [...] 10:25 AM EST Division [place] [address] This instructional writer received a message from one of our physician residents requesting that a hemoglobin A1cbe ordered at the end of December. also advised if the result is greater than 8 to please reach out to Dr. Nimisha Prado. This instructional writer placed a call to the patient and there was no answer. This instructional writer left a detailed message stating I was placing an order for the hemoglobin A1c to be drawn at [facility], and asked that she ideally have this done on 01/28/2021, so there is time for it to be resulted and received in this office with further action if indicated. Freda Foster APRN documented in this encounter Plan of Treatment Not on file documented as of this encounter Visit Diagnoses Not on filedocumented in this encounter Care Teams Lining Sewer Relationship Specialty Start Date End Date Trent Varner MD PCP - General Family Medicine 12/17/20 documented as of this encounter
--- OUTSIDE RECORDS SUMMARY | 2024-03-25 14:40 | XMS_ITS | Encounter Summary ---
[place] [address] Care Team Providers Care Window Shade Estimator Name Role Phone Trent Varner MD Primary Care Provider Encounter Details Date Type Department Care Team (Late st Contact Info) Description 01/07/2021 Orders Only [place] [address] Freda Foster, CORN LAB TECHNICIAN Type 2 diabetes mellitus with diabetic neuropathy, [...] insulin documented in this encounter Care Teams Window Shade Estimator Relationship Specialty Start Date End Date Trent Varner MD PCP - General Family Medicine 12/17/20 documented as of this encounter
--- OUTSIDE RECORDS SUMMARY | 2024-03-25 14:40 | XMS_ITS | Encounter Summary ---
[place] [address] Care Team Providers Care It Integration Architect Name Role Phone Trent Varner MD Primary Care Provider [phone] Encounter Details Date Type Department Care Team (Latest Contact Info) Description 01/04/2021 12:15 PM EDT Laboratory Appointment Lab [address] [place] [phone] Endometrial hyperplasia with atypia Social History Tobacco [...] EDT) Creatinine 0.76 0.70 - 1.20 mg/dL [facility] Est Glomerular Filtration Rate 90 >=60 mL/min/1. 73 m?? [facility] Comment: This patient? s estimated [...] In Lab Nimisha Prado MD CHEMISTRY ORDERABLES [facility] [place] [address] documented in this encounter Visit Diagnoses Diagnosis Endometrial hyperplasia with atypia documented in this encounter Care Teams It Integration Architect Relationship Specialty Start Date End Date Trent Varner MD PCP - General Family Medicine 12/17/20 documented as of this encounter
--- OUTSIDE RECORDS SUMMARY | 2024-03-25 14:40 | XMS_ITS | Encounter Summary ---
Author Organization [facility] [place] [address] Care Team Providers Care Pottery Striper Name Role Phone Trent Varner MD Primary Care Provider [phone] Encounter Details Date Type Department Care Team (Latest Contact Info) Description 12/19/2020 11:20 AM EDT - 12/19/2020 11:59 PM EDT Hospital [place] [phone] Discharge Disposition: Home Social History Tobacco Use [...] Report (12/19/2020 11:20 AM EDT) Final Diagnosis [id number] ? Location: [facility] The signing pathologist has (i) examined the relevant preparation(s) for the specimen(s) and (ii) rendered or confirmed the diagnosis(es). . ?Surgical Pathology DIAGNOSIS CONSULTATION CASE Outside slides labeled [id number], collection date 11/20/2020. A - Endometrium (procedure not specified): ??- Fragments of endometrial polyp(s) with focal complex atypical ?hyperplasia. ??- Endocervical mucosa with microglandular hyperplasia. Electronically signed by: ?Vy ARAYA, Francia Diehl Verified: ??12/25/2020 9:25 ?? Pathologist Performed at: ??-[facility] Dept. of Pathology, [place], [place] SPECIMEN(S) SUBMITTED CONSULTATION CASE A - 12 slides labeled [id number], collection date 11/20/2020. [id number] Report to: [facility] Surgical Pathology Department [facility], [facility], 2nd Floor [address] [place], [place] ??[address] CLINICAL INFORMATION Atypical endometrial cells on PAP SPECIMEN PROCESSING [facility] ([facility]) pathology slide(s) are reviewed. ??Refer to Diagnosis and Specimen Submitted for specific case information. For the full text of the [facility] report(s) please refer to Non- Documentation Pathology in the electronic health record ( ?? eDH). 12/25/2020 9:25 AM EDT [facility] Consult Case 12/19/2020 11:2 0 AM EDT 12/19/2020 11:20 AM EDT Tayo Blanco MD PATHOLOGY/CYTOLOGY O RDERABLES [facility] [place] [address] documented in this encounter Visit Diagnoses Not on filedocumented in this encounter Care Teams Pottery Striper Relationship Specialty Start Date End Date Trent Varner MD PCP - General Family Medicine 12/17/20 documented as of this encounter
== END 2024-03-25 14:53 ==
LOC: DI 14:38
PROVIDERS: PCP Student in an Organized Health Care Education/Training Program; Visit Provider Student in an Organized Health Care Education/Training Program
DX: R05.1 Acute cough (principal)
CPT/HCPCS: 71046

== ENCOUNTER 2024-03-25 15:46 | Outpatient (REF) | payer MEDICAID, SELFPAY ==
--- OUTSIDE RECORDS SUMMARY | 2024-03-25 15:51 | XMS_ITS | Encounter Summary ---
Author Organization [facility] Address [address] [place] [address] Care Team Providers Care Felt Cutter Name Role Phone Unavailable Primary Care Provider Unavailabl e Encounter Details Date Type Department Care Team (Late st Contact Info) Description 07/18/2008 Orders Only [facility] Laboratory Services - [facility] ([facility]) [address] [place], [place] [address] Mariana Yoon, TIMI [address] [facility],[address] [phone] Social History Tobacco Use Types Packs/Day Years [...] ? BECKY MUNGUIA ? Accession #: ? [id number] ? : ? 1965 (Age: 43) ??F ?Collect Date: ? 07/18/2008 ? Location: ? [facility] ? Receive Date: ? 07/19/2008 ? Provider: ?MARIANA YOON ROOM SERVICE ATTENDANT ? Copy to: ? Specimen/Source: ?Pap Test, [...] LAQUITA NAVA 07/18/2008 07/19/2008 us Mariana Yoon ROOM SERVICE ATTENDANT PATHOLOGY ORDERABLES Final R esult [facility] [address] [place] [address] documented in this encounter Visit Diagnoses Not on filedocumented in this encounter
--- OUTSIDE RECORDS SUMMARY | 2024-03-25 15:51 | XMS_ITS | Encounter Summary ---
Author Organization [facility] Address [facility] [place] [address] Care Team Providers Care Building Certifier Name Role Phone Trent Varner MD Primary Care Provider [phone] Reason for Visit * Reason Comments Procedure Encounter Details Date Type Department Care Team (Late st Contact Info) Description 05/03/2021 1:00 PM EST Procedure [place] [address] Jemima Woods MD [facility] [place] [address] Endometrial ca Social History Tobacco Use Types [...] radiotherapy, call the Radiation Oncology clinic @ [phone] during clinic hours. When the clinic is closed (@ night/on weekend), call the [facility] hospital fractionating still operator @ [phone] & ask for the radiation oncologist home sales service professional. documented in this encounter Progress Notes [...] For details, see electronic film record in [employer]. Changes in Medical Condition: None. Pain?: [...] allergies, medications & procedure to be performed. [id number] mm universal stump cylinder then inserted into [...] treatment completed, physicist surveyed brachytherapy suite with [place] counter, confirming return of Ir-192 source into [...] isthmus documented in this encounter Care Teams Building Certifier Relationship Specialty Start Date End Date Trent Varner MD PCP - General Family Medicine 12/17/20 documented as of this encounter
--- OUTSIDE RECORDS SUMMARY | 2024-03-25 15:51 | XMS_ITS | Clinical Summary ---
Author Organization [facility] Address [facility] [place] [address] Care Team Providers Care Fruit Harvest Machine Operator Name Role Phone Trent Varner MD Primary Care Provider [phone] Allergies Active Allergy Reactions Criticality Noted Date [...] EDT) Creatinine 0.76 0.70 - 1.20 mg/dL [facility] Est Glomerular Filtration Rate 90 >=60 mL/min/1. 73 m?? [facility] Comment: This patient? s estimated [...] In Lab Nimisha Prado MD CHEMISTRY ORDERABLES [facility] [place] [address] from Last 3 Months or Most Recently Relevant to Health Maintenance Care Teams Fruit Harvest Machine Operator Relationship Specialty Start Date End Date Trent Varner MD PCP - General Family Medicine 12/17/20
--- OUTSIDE RECORDS SUMMARY | 2024-03-25 15:51 | XMS_ITS | Encounter Summary ---
Author Organization [facility] [place] [address] Care Team Providers Care Swatch Maker Name Role Phone Trent Varner MD Primary Care Provider [phone] Encounter Details Date Type Department Care Team (Late st Contact Info) Description 04/11/2021 Telephone [place] [phone] Blessing Walton Social History Tobacco Use Types [...] on filedocumented in this encounter Care Teams Swatch Maker Relationship Specialty Start Date End Date Trent Varner MD PCP - General Family Medicine 12/17/20 documented as of this encounter
--- OUTSIDE RECORDS SUMMARY | 2024-03-25 15:51 | XMS_ITS | Encounter Summary ---
Author Organization [facility] Address [address] [place] [address] Care Team Providers Care Home Administrator Name Role Phone Unavailable Primary Care Provider Unavailabl e Encounter Details Date Type Department Care Team (Late st Contact Info) Description 11/14/2004 Results Only [facility] - Maple conversion [address] [place] [address] Mariana Yoon, TIMI [address] [place] [address],[address] [address] Social History Tobacco Use Types [...] ? DEEPAK MUNGUIAA ? Accession #: ? [id number] : ? 1965 (Age: 39) ??F ?Collect Date: ? 11/14/2004 Location: ? [facility] ? Receive Date: ? 11/18/2004 Provider: ?MARIANA YOON INSTRUCTIONAL SERVICES SPECIALIST Copy to: ? Specimen/Source: ?ThinPrep Pap Test, Cervix/Endocervix, processed on Tr[employer]ates ThinPrep Imaging System, with manual evaluation Last [...] Final R esult [facility] [address] [place] [address] documented in this encounter Visit Diagnoses Not on filedocumented in this encounter
--- OUTSIDE RECORDS SUMMARY | 2024-03-25 15:51 | XMS_ITS | Encounter Summary ---
Author Organization [facility] [address] Care Team Providers Care Superintendent Transmission Name Role Phone Trent Varner MD Primary Care Provider [phone] Encounter Details Date Type Department Care Team (Late st Contact Info) Description 04/01/2021 Telephone [place] [phone] Ibis Loya RN Social History Tobacco Use [...] need to follow up with her local pen and pencil repairer for the first 3-month follow up. Patient verbalized understanding and states that she [facility]. Denies any questions or concerns at thistime. * Telephone Encounter - Ibis Loya RN - 04/01/2021 8:24 AM EST Attempted to call patient, no answer. Left message on voicemail with phone number for patient to call the clinic back. Called to inform patient that per , patient needs a follow-up with herlocal pen and pencil repairer in 3 months. * Telephone Encounter - Ibis Loya RN - 04/01/2021 8:24 AM EST ----- Message from Nimisha Prado MD sent at 03/28/2021 2:39 PM EST ----- Please refer to radiation oncology in [place] for vaginal cuff brachytherapy. When she is done with this treatment she will then need to see her local pen and pencil repairer for her first 3-month follow-up. Thank you documented in this encounter Plan of Treatment Not on file documented as of this encounter Visit Diagnoses Not on filedocumented in this encounter Care Teams Superintendent Transmission Relationship Specialty Start Date End Date Trent Varner MD PCP - General Family Medicine 12/17/20 documented as of this encounter
--- OUTSIDE RECORDS SUMMARY | 2024-03-25 15:51 | XMS_ITS | Encounter Summary ---
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 She never narcotic pain medications and [...] The assay was performed according to the auto machinist's ??intructions using anti-MLH-1 (ES05), anti-MSH-2 ([id number]), anti-MSH-6 (44), and ??anti-PMS-2 (MRQ-28) antibodies. ? [...] Cobb Verified: ??03/12/2021 12:34 ??Pathologist Performed at: ??-[facility] Dept. of Pathology, [place], [place] SYNOPTIC Specimen ?Procedure: ??Total hysterectomy and [...] Nodes Examined: ??5 ? Number of Pelvic [place] Nodes Examined: ??5 ? Total Number of [...] node protocol as outlined in the [facility] ??[facility] study (referenced below) was followed for each of the lymph node tissue ??blocks that lacked metastatic tumor on routine H&E sections. Alondra AGOSTO, Melly RA, et al. Pathologic Ultrastaging Improves Micrometastasis Detection ??in [place] Lymph Nodes During Endometrial Cancer Staging. ?Int J Gynecol Cancer ??2013;23: 964-970. Scanned slides: [id number] [id number] [id number] [id number] DISCUSSION [id number] [id number] [id number] B55-1 [id number] [id number] Assessment and Plan: Lynn King is [...] vaginal cuff brachytherapy. As she lives in [place], she will bereferred there for this treatment. [...] She prefers to return to her local dietetic intern for follow-up and is kindly referred back. I will remain available should any questions or concerns arise. MARIBELL COWAN MD documented in this encounter Plan of Treatment Not on file documented as of this encounter Visit Diagnoses Diagnosis Post-operative state Other postprocedural status documented in this encounter Care Teams Loom Starter Relationship Specialty Start Date End Date Trent Varner MD PCP - General Family Medicine 12/17/20 documented as of this encounter
--- OUTSIDE RECORDS SUMMARY | 2024-03-25 15:51 | XMS_ITS | Encounter Summary ---
Author Organization [facility] [place] [address] Care Team Providers Care Clinical Biochemist Name Role Phone Trent Varner MD Primary Care Provider [phone] Reason for Visit * Reason Comments Follow-up Procedure Encounter Details Date Type Department Care Team (Late st Contact Info) Description 05/10/2021 1:00 PM EST Procedure [place] [address] Jemima Woods MD [facility] [place] [address] Endometrial ca Social History Tobacco Use Types [...] place to sleep or slept in a halfway (including now)? No 04/08/2021 Sex and Gender [...] helpful to increase your energy level. Sexuality: [place] can be resumed as soon as desired. [...] concerns please phone the Radiation Oncology department: [phone]. If you need to contact your physician after normal clinic hours (8AM to 5PM) call [phone] and ask to have the Radiation Oncologist flight reservations manager contacted documented in this encounter Progress [...] For details, see electronic film record in [employer]. Changes in Medical Condition: None. Denies [...] allergies, medications & procedure to be performed. [id number] mm universal stump cylinder then inserted into [...] treatment completed, physicist surveyed brachytherapy suite with [place] counter, confirming return of Ir-192 source into vault. Physician & nurse then re-entered treatment room. Cylinder removed. Patient informed of possible side effects from the treatment & we discussed plan for followup @ [place] [facility] after brachytherapy completion. She was given [...] isthmus documented in this encounter Care Teams Clinical Biochemist Relationship Specialty Start Date End Date Trent Varner MD PCP - General Family Medicine 12/17/20 documented as of this encounter
--- OUTSIDE RECORDS SUMMARY | 2024-03-25 15:51 | XMS_ITS | Encounter Summary ---
[place] [address] Care Team Providers Care Sale Professional Digital Marketing Name Role Phone Trent Varner MD Primary Care Provider [phone] Reason for Referral * Consultation (Routine) - Closed Specialty Diagnoses / Procedures Referred By Efrain t Referred To Contact Radiation Oncology Diagnoses Endometrial intraepithelial neoplasia (EIN) Nimisha Prado MD [facility] [place] [address] [facility] Rad Onc Treatment [address] [place] [phone] Referral ID Status Reason Start Date Expiration Date V isits Requested Visits Authorized [id number] Closed Consult, Test & Treat 03/28/2021 03/28/2022 1 1 Encounter Details Date Type Department Care Team (Late st Contact Info) Description 03/28/2021 Orders Only [place] [address] Ibis Loya, RN Endometrial intraepithelial neoplasia (EIN) [...] (EIN) documented in this encounter Care Teams Sale Professional Digital Marketing Relationship Specialty Start Date End Date Trent Varner MD PCP - General Family Medicine 12/17/20 documented as of this encounter
--- OUTSIDE RECORDS SUMMARY | 2024-03-25 15:51 | XMS_ITS | Encounter Summary ---
Author Organization [facility] Address [address] [place] [address] Care Team Providers Care Pricing Consultant Name Role Phone Joseph Chantel K TREE PLANTER Primary Care Provider [phone] Encounter Details Date Type Department Care Team (Late st Contact Info) Description 08/11/[address] [facility] Pathology & Laboratory Medicine - [facility] [address] [place] [address] Outr Resulting Lab, Provider Social History Tobacco [...] C Antibody Negative Negative 08/13/2020 9:58 EDT [facility] Blood VENOUS BLOOD / Unknown 08/10/2020 17:00 EDT 08/12/2020 15:57 EDT us Provider Outr Resulting Lab CHEMISTRY & BLOOD GA S ORDERABLES Final Result [facility] [address] [place] [address] documented in this encounter Visit Diagnoses Not on filedocumented in this encounter Care Teams Pricing Consultant Relationship Specialty Start Date End Date Chantel Ruiz NP [address] [place] [phone] PCP - General 07/31/20 documented as of this encounter
--- OUTSIDE RECORDS SUMMARY | 2024-03-25 15:51 | XMS_ITS | Encounter Summary ---
Author Organization [facility] Address [facility] [place] [address] Care Team Providers Care Sound Effects Manager Name Role Phone Trent Varner MD Primary Care Provider Reason for Referral * Consultation (Routine) - Closed Specialty Diagnoses / Procedures Referred By Contac t Referred To Contact Radiation Oncology Diagnoses Endometrial ca Procedures Simulation for Radiation Therapy Planning Jemima Woods MD [facility] [place] [address] [facility] Rad Onc Office [address] [place] [phone] Referral ID Status Reason Start Date Expiration Date V isits Requested Visits Authorized [id number] Closed Consult, Test & Treat 04/08/2021 04/08/2022 1 1 Reason for Visit * Reason Comments Radiation Consult * Consultation (Routine) - Closed Specialty Diagnoses / Procedures Referred By Contac t Referred To Contact Radiation Oncology Diagnoses Endometrial intraepithelial neoplasia (EIN) Nimisha Prado MD [facility] [place] [address] [facility] Rad Onc Treatment [address] [place] [phone] Referral ID Status Reason Start Date Expiration Date V isits Requested Visits Authorized [id number] Closed Consult, Test & Treat 03/28/2021 03/28/2022 1 1 Encounter Details Date Type Department Care Team (Late st Contact Info) Description 04/08/2021 10:00 AM EST Office Visit Radiation Oncology at [address] [address] Jemima Woods MD [facility] [place] [address] Endometrial ca Social History Tobacco Use Types [...] Systems: family Barriers to treatment: works Referrals/Interventions: OIL WELL LOGGER per routine RADIATION SPECIFIC TEACHING: NCI Radiation [...] 0/3), pT1b pN0, FIGO stage IB. 03/14/21 Building Coordinator Onc Tumor Bd: Rec vag brachy. 03/28/21 Dr. Prado postop, referral for vag cuff brachy, followup w/local entry table operator. Subjective: Healing well. No pain. No vag disch/bleeding. Urinating w/o problem. No urinary incontinence. No bowel problem. No swelling lower exts. Energy level improving. 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 PRO LAP, PELVIC LYMPHADENECTOMY/BX N/A 03/05/2021 LAPAROSCOPY,W\BILATERAL TOTAL PELVIC LYMPHADENECTOMY, PERIAORTIC LYMPH NODE SAMPLING, ROBOTIC (WRVU15.6) performed by Nimisha Prado MD at [facility] ? ? PRO LAPAROSCOPY W TOT HYSTERECTUTERUS <=250 GRAM W TUBE/OVARY N/A 03/05/2021 LAPAROSCOPY,TOTAL HYST, UTERUS<250GM, REM TUBE &/OR OVARY, ROBOTIC ASSIST (WRVU 15) performed by Nimisha Prado MD at [facility] Your Medications Accurate as [...] cure. [facility] Possible side effects/complications of intravag brachy discussed, w/acute/immediate side effects including: Diarrhea, increased frequency of urination, burning w/urination, vulvo-vaginal itchiness/irritation, tiredness. Acute/immediate side effects usually temporary. Late/oil heaterman side effects/complications discussed include: bowel obstruction, chronic diarrhea, chronic burning w/urination, urinary leakage, vaginal shrinkage/narrowing, irradiation associated 2ndmalignancy. Risk of occurrence of late/fci side effects small. Discussed vaginal dilator use to minimize vaginal shrinkage/narrowing. Need for CTsim prior to intravag brachy discussed. [facility]sim [facility] be done in [facility]. She would like to proceed [...] documented in this encounter Care Teams Sound Effects Manager Relationship Specialty Start Date End Date Trent Varner MD PCP - General Family Medicine 12/17/20 documented as of this encounter
--- OUTSIDE RECORDS SUMMARY | 2024-03-25 15:51 | XMS_ITS | Encounter Summary ---
Author Organization [facility] Address [address] [place] [address] Care Team Providers Care Strategic Analyst Name Role Phone Joseph Chantel Joselyn MIDWIFE PRACTITIONER Primary Care Provider [phone] Encounter Details Date Type Department Care Team (Late st Contact Info) Description 11/21/2020 Lab Requisition [facility] Pathology & Laboratory Medicine - [facility] [address] [place] [address] Andria Marlow MD [address] [place] [phone] Encounter for other general examination Social History [...] management options, if applicable. 11/27/2020 14:30 EDT [facility] Final Diagnosis A. ENDOMETRIUM, PROCEDURE NOT SPECIFIED: - Endometrial polyp with focal complex atypical hyperplasia. See comment. - Endocervical tissue with microglandular hyperplasia. 11/27/2020 14:30 [facility] Diagnosis Comment Deeper sections of (A1)-(A5) have been examined. Brickmason Apprentice slides of this case were reviewed at the intradepartmental consultation conference. Immunostaining for PAX-2 (EP235, Cell Xiang) shows reduced expression in the crowded atypical glandular foci (block A3). The atypical endometrial cells on the Pap test ([id number]) show cytologic features similar to the atypical [...] performance characteristics have been determined by [facility] and/or by the referring laboratory. The [...] high complexity clinical laboratory testing.? 11/27/2020 14:30 [facility] Attestation By the signature below, the attending physician certifies that they have 1) personally conducted a gross and/or microscopic examination of the described specimen(s), and/or personally interpreted the results of laboratory testing of the described specimen(s), and 2) personally rendered or confirmed the above diagnosis. 11/27/2020 14:30 [facility] at 1430 Clinical History Atypical endometrial cells on PAP 11/27/2020 14:30 [facility] Gross Description A. Received in formalin labelled with proper patient identification (initials M, C) and endometrium is an aggregate of herrera-brown opaque mucus and dark brown blood clot (4.1 x 2.1 x 0.6 cm). The specimen is submitted entirely in A1 to A5. HALIMA CASPER(ASCP) 11/21/2020 9:03 11/27/2020 14:30 EDT [facility] Performing Lab [facility] 11/27/2020 14:30 EDT [facility] Scanned Images 11/27/2020 14:30 EDT [facility] Tissue ENTIRE ENDOMETRIUM / Unknown 11/20/2020 12:10 EDT 11/21/2020 8:27 EDT us Andria Marlow MD PATHOLOGY ORDERABLES Final R esult [facility] [address] [place] [address] documented in this encounter Visit Diagnoses Diagnosis Encounter for other general examination documented in this encounter Care Teams Strategic Analyst Relationship Specialty Start Date End Date Chantel Ruiz, MIDWIFE PRACTITIONER [address] [place] [address] PCP - General 07/31/20 documented as of this encounter
--- OUTSIDE RECORDS SUMMARY | 2024-03-25 15:51 | XMS_ITS | Encounter Summary ---
Author Organization [facility] Address [facility] [place] [address] Care Team Providers Care Nail Making Machine Setter Name Role Phone Trent Varner MD Primary Care Provider [phone] Encounter Details Date Type Department Care Team (Late st Contact Info) Description 05/17/2021 Notes Only [place] [address] Jemima Woods MD [facility] [place] [address] Social History Tobacco Use Types Packs/Day Years [...] on filedocumented in this encounter Care Teams Nail Making Machine Setter Relationship Specialty Start Date End Date Trent Varner MD PCP - General Family Medicine 12/17/20 documented as of this encounter
--- OUTSIDE RECORDS SUMMARY | 2024-03-25 15:51 | XMS_ITS | Referral Summary ---
Author Organization [facility] Address [address] [place] [address] Care Team Providers Care Hides Soaker Name Role Phone Joseph Chantel Alves CAGE TENDER Primary Care Provider [phone] Social History Tobacco Use Types Packs/Day Years [...] C Antibody Negative Negative 08/13/2020 9:58 EDT [facility] Blood VENOUS BLOOD / Unknown 08/10/2020 17:00 EDT 08/12/2020 15:57 EDT us Provider Outr Resulting Lab CHEMISTRY & BLOOD GA S ORDERABLES Final Result [facility] [address] [place] [address] from Last 3 Months or Most Recently Relevant to Health Maintenance Insurance MEDICAID [place] Care Teams Hides Soaker Relationship Specialty Start Date End Date Chantel Riuz NP [address] [place] [address] PCP - General 07/31/20
--- OUTSIDE RECORDS SUMMARY | 2024-03-25 15:51 | XMS_ITS | Encounter Summary ---
Author Organization [facility] [place] [address] Care Team Providers Care Enterprise Sales Person Name Role Phone Trent Varner MD Primary Care Provider [phone] Encounter Details Date Type Department Care Team (Late st Contact Info) Description 04/23/2021 Notes Only Radiation Oncology at [address] [phone] America Wise, [facility] OFFICE OF CARE MANAGEMENT Social History Tobacco [...] today to introduce myself and role of sr. social media & mobile manager to assess/address barriers to getting to and throughtreatments; address support needs and connect with community services and resources as needed. Family/Social Supports: Pt identified her of 21 years as her primary support. She has 2 sons. One lives in [place] and the other lives in [place]. Pt also identified her mother in law as a support. Living Situation/Daily Activities/Transportation:Pt lives with her and dog. She lives localto this facility. Pt manages her daily chores and activities. [place] [facility] [place] She does not expect any issues with transportation. 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 Will follow to assess/address psychosocial needs. ALVIN Cui, PARIMUTUEL CLERK, OSW-C Metal Roaster [facility] documented in this encounter Plan of Treatment Not on file documented as of this encounter Visit Diagnoses Not on filedocumented in this encounter Care Teams Enterprise Sales Person Relationship Specialty Start Date End Date Trent Varner MD PCP - General Family Medicine 12/17/20 documented as of this encounter
--- OUTSIDE RECORDS SUMMARY | 2024-03-25 15:51 | XMS_ITS | Encounter Summary ---
Author Organization [facility] Address [facility] [place] [address] Care Team Providers Care Case Liner Name Role Phone Trent Varner MD Primary Care Provider [phone] Reason for Visit * Reason Comments Procedure Encounter Details Date Type Department Care Team (Late st Contact Info) Description 05/17/2021 12:30 PM EDT Procedure [place] [address] Lopez Singh MD [facility] [address] Endometrial ca Social History Tobacco Use Types [...] For details, see electronic film record in [facility]. Changes in Medical Condition: None. Denies [...] allergies, medications & procedure to be performed. Jueolduqme87 mm universal stump cylinder then inserted into [...] & we discussed plan for followup @ [facility] after brachytherapy completion. She was given printout [...] isthmus documented in this encounter Care Teams Case Liner Relationship Specialty Start Date End Date Trent Varner MD PCP - General Family Medicine 12/17/20 documented as of this encounter
--- OUTSIDE RECORDS SUMMARY | 2024-03-25 15:51 | XMS_ITS | Encounter Summary ---
Author Organization [facility] Address [address] [place] [address] Care Team Providers Care Straight Cutter Name Role Phone Unavailable Primary Care Provider Unavailabl e Encounter Details Date Type Department Care Team (Late st Contact Info) Description 11/01/2003 Results Only [facility] - Maple conversion [address] [place] [address] Mariana Yoon, TIMI [address] [place] [address],[address] [address] Social History Tobacco Use Types [...] ? DEEPAK MUNGUIAA ? Accession #: ? [id number] : ? 1965 (Age: 38) ??F ?Collect Date: ? 11/01/2003 Location: ? [facility] ? Receive Date: ? 11/03/2003 Provider: ?MARIANA YOON COLLEGE COACH Copy to: ? Specimen/Source: ?ThinPrep Pap Test, [...] ORDERABLES Final R esult [facility] [address] [place] [address] documented in this encounter Visit Diagnoses Not on filedocumented in this encounter
--- OUTSIDE RECORDS SUMMARY | 2024-03-25 15:51 | XMS_ITS | Encounter Summary ---
Author Organization [facility] Address [facility] [place] [address] Care Team Providers Care Tool Polisher Name Role Phone Trent Varner MD Primary Care Provider [phone] Reason for Visit * Consultation (Routine) - Closed Specialty Diagnoses / Procedures Referred By Efrain mims Referred To Contact Radiation Oncology Diagnoses Endometrial ca Procedures Simulation for Radiation Therapy Planning Jemima Woods MD [facility] [place] [address] [facility] Rad Onc Office [address] [place] [id number] Referral ID Status Reason Start Date Expiration Date V isits Requested Visits Authorized [id number] Closed Consult, Test & Treat 04/08/2021 04/08/2022 1 1 Encounter Details Date Type Department Care Team (Latest Contact Info) Description 04/23/2021 8:00 AM EST Ancillary Appointment Radiation Oncology at [address] [address] Jemima Woods MD [facility] [place] [address] Endometrial ca Social History Tobacco Use Types [...] shell to help manage the side effects. Full Roll Inspector - They take the doctors radiation prescription [...] a well balanced diet is recommended. The supervisor wheel shop and nurse will inform you of any [...] - Thursday 8 AM to 5 PM [facility] phone# [phone] [facility] If you have questions about your radiation [...] in injury A Radiation Oncology doctor is nutrition club ambassador after our normal hours and on weekends. To call for urgent medical issues from radiation treatments that can not wait until normal business hours, please call for either location and have the tier lift operator page the Radiation Oncologist nutrition club ambassador. documented in this encounter Progress Notes * [...] isthmus documented in this encounter Care Teams Tool Polisher Relationship Specialty Start Date End Date Trent Varner MD PCP - General Family Medicine 12/17/20 documented as of this encounter
--- OUTSIDE RECORDS SUMMARY | 2024-03-25 15:51 | XMS_ITS | Encounter Summary ---
Author Organization [facility] [place] [address] Care Team Providers Care Gas Welder Apprentice Name Role Phone Trent Varner MD Primary Care Provider [phone] Reason for Visit * Reason Comments Follow-up Encounter Details Date Type Department Care Team (Late st Contact Info) Description 08/12/2021 4:00 PM EDT Office Visit Radiation Oncology at [address] [phone] Jemima Woods MD [facility] [place] [address] S/P radiotherapy Social History Tobacco Use Types [...] but can also lead to less elastic, alarm service technician, tender tissues in the vagina. This can [...] 2.5) performed by Nimisha Prado MD at [facility] MAIN OR ??? PRO LAP, PELVIC LYMPHADENECTOMY/BX N/A 03/05/2021 LAPAROSCOPY,W\BILATERAL TOTAL PELVIC LYMPHADENECTOMY, PERIAORTIC LYMPH NODE SAMPLING, ROBOTIC (WRVU15.6) performed by Nimisha Prado MD at [facility] MAIN OR ? ? PRO LAPAROSCOPY W TOT HYSTERECTUTERUS <=250 GRAM W TUBE/OVARY N/A 03/05/2021 LAPAROSCOPY,TOTAL HYST, UTERUS<250GM, REM TUBE &/OR OVARY, ROBOTIC ASSIST (WRVU 15) performed by Nimisha Prado MD at [facility] MAIN OR Your Medications Accurate as [...] well s/p xrt. P: Vag dilator given ([place] small & med); explained rationale for use & gave instructions. Rtc 6 mos. documented in this encounter Plan of Treatment Not on file documented as of this encounter Visit Diagnoses Diagnosis S/P radiotherapy Convalescence following radiotherapy documented in this encounter Care Teams Gas Welder Apprentice Relationship Specialty Start Date End Date Trent Varner MD PCP - General Family Medicine 12/17/20 documented as of this encounter
--- OUTSIDE RECORDS SUMMARY | 2024-03-25 15:51 | XMS_ITS | Encounter Summary ---
Author Organization [facility] Address [address] [place] [address] Care Team Providers Care Pattern Chain Builder Name Role Phone Unavailable Primary Care Provider Unavailabl e Encounter Details Date Type Department Care Team (Late st Contact Info) Description 04/28/2012 Results Only [facility] Laboratory Services - [facility] ([facility]) [address] [place], [place] [address] Mariana Yoon, TIMI [address] [facility],[address] [address] Social History Tobacco Use Types [...] ? EZRA BECKY ? Accession #: ? [id number] : ? 1965 (Age: 46) ??F ?Collect Date: ? 04/28/2012 Location: ? [facility] ? Receive Date: ? 04/29/2012 Provider: ?MARIANA YOON DIRECTOR OF REVENUE CYCLE MANAGEMENT Copy to: ? Specimen/Source: ?Pap Test, Cervix/Endocervix, [...] types 16,18,31,33,35, 39,45,51,52,56,58, 59,66, and 68 by executive director of marketing mediated amplification. Comments Document reviewed and electronically [...] Final R esult [facility] [address] [place] [address] documented in this encounter Visit Diagnoses Not on filedocumented in this encounter
--- OUTSIDE RECORDS SUMMARY | 2024-03-25 15:51 | XMS_ITS | Clinical Summary ---
Author Organization [facility] Address [address] [place] [address] Care Team Providers Care Entry Level Assistant Manager Name Role Phone Joseph Chantel Joselyn MONTESSORI TODDLER TEACHER Primary Care Provider [phone] Social History Tobacco Use Types Packs/Day Years [...] C Antibody Negative Negative 08/13/2020 9:58 EDT [facility] Blood VENOUS BLOOD / Unknown 08/10/2020 17:00 EDT 08/12/2020 15:57 EDT us Provider Outr Resulting Lab CHEMISTRY & BLOOD GA S ORDERABLES Final Result [facility] [address] [place] [address] from Last 3 Months or Most Recently Relevant to Health Maintenance Insurance MEDICAID [place] Care Teams Entry Level Assistant Manager Relationship Specialty Start Date End Date Chantel Ruiz, TIMI [address] [place] [address] PCP - General 07/31/20
--- OUTSIDE RECORDS SUMMARY | 2024-03-25 15:51 | XMS_ITS | Encounter Summary ---
Author Organization [facility] Address [address] [place] [address] Care Team Providers Care Traffic Signal Repairer Name Role Phone Joseph Chantel Joselyn INSURANCE SALESMAN Primary Care Provider [phone] Encounter Details Date Type Department Care Team (Latest Contact Info) Description 08/14/2020 Lab Requisition [facility] Pathology & Laboratory Medicine - [facility] [address] [place] [address] Trent Varner MD [address] [place], [place] [address] Encounter for general adult medical examination without [...] PCR Negative Negative 08/24/2020 14:40 EDT [facility] Comment:No E6 or E7 mRNA is detected from HPV types 16,18,31,33,35,39,45,51,52,56,58,59,66, and 68 by mutuel clerk mediated amplification. Papanicolaou smear specimen (specimen) CERVIX UTERI STRUCTURE / Unknown 08/10/2020 17:30 EDT 08/23/2020 14:14 EDT Trent Varner MD MICROBIOLOGY - GENERAL ORDERABLE S Final Result [facility] [address] [place] [address] * PAP TEST (08/10/2020 17:30 EDT) Specimens A. Cervix and/or Endocervix , ThinPrep Imaging System with Manual Evaluation 08/24/2020 14:40 EDT [facility] Specimen Adequacy Satisfactory for Evaluation - transformation zone component present Scant squamous epithelial component 08/24/2020 14:40 EDT [facility] General Categorization Epithelial Cell Abnormality 08/24/2020 14:40 EDT [facility] Descriptive Diagnosis Glandular Cell Abnormality - Atypical endometrial cells. 08/24/2020 14:40 T [facility] Educational Comments [facility] recommends following ASCCP's 2012 Updated Consensus Guidelines for the Management of Abnormal Cervical Cancer Screening Tests and Cancer Precursors (JLGTD, 2013; 17(5):S1-S27). Consensus guidelines are available online at www.asccp.org. 08/24/2020 14:40 [facility] Attestation By the signature below, the attending physician certifies that they have personally conducted a gross and/or microscopic examination of the described specimens and rendered or confirmed the above diagnosis. 08/24/2020 14:[facility] 1440 Clinical History See below 08/25/19 14:40 EDT [facility] HPV The result for the Human Papillomavirus (HPV) Detection-High Risk Types is Negative. No E6 or E7 mRNA is detected from HPV types 16,18,31,33,35,3 9,45,51,52,56,58 ,59,66, and 68 by mutuel clerk mediated amplification.Te sting was performed on specimen [id number] and was resulted on 08/24/2020 1435 EDT by GABE, LAB INSTRUMENT RESULTS IN 08/24/2020 14:40 EDT [facility] Performing Lab [facility] 08/24/2020 14:40 EDT [facility] Scanned Images 08/24/2020 14:40 EDT [facility] Papanicolaou smear specimen (specimen) CERVIX UTERI STRUCTURE / Unknown 08/10/2020 17:30 EDT 08/14/2020 15:06 EDT us Trent Varner MD PATHOLOGY ORDERABLES Final Resul t [facility] [address] [place] [address] documented in this encounter Visit Diagnoses Diagnosis Encounter for general adult medical examination without abnormal findings Unspecified general medical examination Encounter for screening for malignant neoplasm of cervix Screening for malignant neoplasm of the cervix Encounter for screening for human papillomavirus (HPV) Special screening examination for human papillomavirus (HPV) documented in this encounter Care Teams Traffic Signal Repairer Relationship Specialty Start Date End Date Chantel Ruiz NP [address] [place] [address] PCP - General 07/31/20 documented as of this encounter
--- OUTSIDE RECORDS SUMMARY | 2024-03-25 15:51 | XMS_ITS | Encounter Summary ---
Author Organization [facility] Address [address] [place] [address] Care Team Providers Care Vice President Mission Integration Name Role Phone Unavailable Primary Care Provider Unavailabl e Encounter Details Date Type Department Care Team (Late st Contact Info) Description 11/23/2002 Results Only [facility] - Maple conversion [address] [place] [address] Mariana Yoon, TIMI [address] [place] [address],[address] [address] Social History Tobacco Use Types [...] ? DEEPAK MUNGUIAA ? Accession #: ? [id number] : ? 1965 (Age: 37) ??F ?Collect Date: ? 11/23/2002 Location: ? [facility] ? Receive Date: ? 11/25/2002 Provider: ?MARIANA YOON PROPOSAL SPECIALIST Copy to: ? Specimen/Source: ?ThinPrep Pap [...] Final R esult [facility] [address] [place] [address] documented in this encounter Visit Diagnoses Not on filedocumented in this encounter
--- OUTSIDE RECORDS SUMMARY | 2024-03-25 15:52 | XMS_ITS | Encounter Summary ---
[place] [address] Care Team Providers Care Steno Pool Supervisor Name Role Phone Trent Varner MD Primary Care Provider [phone] Encounter Details Date Type Department Care Team (Late st Contact Info) Description 01/29/2021 Notes Only [place] [phone] Freda Foster, ENTRY LEVEL MARKETING REPRESENTATIVE Social History Tobacco Use Types Packs/Day Years [...] on filedocumented in this encounter Care Teams Steno Pool Supervisor Relationship Specialty Start Date End Date Trent Varner MD PCP - General Family Medicine 12/17/20 documented as of this encounter
--- OUTSIDE RECORDS SUMMARY | 2024-03-25 15:52 | XMS_ITS | Encounter Summary ---
Author Organization [facility] [place] [address] Care Team Providers Care Set Up Person Name Role Phone Trent Varner MD Primary Care Provider [phone] Encounter Details Date Type Department Care Team (Late st Contact Info) Description 03/01/2021 Telephone Obstetrics [place] [phone] Juani Daly MD Social History Tobacco Use [...] on filedocumented in this encounter Care Teams Set Up Person Relationship Specialty Start Date End Date Trent Varner MD PCP - General Family Medicine 12/17/20 documented as of this encounter
--- OUTSIDE RECORDS SUMMARY | 2024-03-25 15:52 | XMS_ITS | Encounter Summary ---
[place] [address] Care Team Providers Care Line Leader Name Role Phone Trent Varner MD Primary Care Provider [phone] Reason for Visit * Reason Comments Establish Care endometrial intraepi thelial neoplasia * Consultation (Routine) - Closed Specialty Diagnoses / Procedures Referred By Contac t Referred To Contact Gynecology Oncology Diagnoses Endometrial intraepithelial neoplasia (EIN) Andria Marlow MD [address] [place] [address] [facility] [address] [place] [address] Referral ID Status Reason Start Date Expiration Date V isits Requested Visits Authorized [id number] Closed Consult, Test & Treat Connection [facility] PCP Updated and/or Approved 12/12/2020 12/12/2021 6 6 Encounter Details Date Type Department Care Team (Late st Contact Info) Description 01/04/2021 10:00 AM EDT Office Visit [place] [address] Nimisha Prado MD Endometrial hyperplasia [...] Division of Gynecologic Oncology Liana Sanabria MD [facility] Nimisha Prado MD [facility] [place] [address] Tesha Hawk MD New Outpatient Visit: Reason for Visit: Lynn King is a 55 y.o. female is being seen in the clinic today at the request of Andria Marlow MD [address] [place] [address] [place] [address] for the evaluation of endometrial intraepithelial neoplasia. [...] intraepithelial neoplasia. Lynn receives her care at [facility]. A routine pap smear on 08/10/20 [...] cephalosporin. 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 The pathology was reviewed here at [facility] and is inagreement with the outside pathology. [...] you for referring this serge patient to [facility] for her care. I will keep you [...] EDT) Creatinine 0.76 0.70 - 1.20 mg/dL [facility] Est Glomerular Filtration Rate 90 >=60 mL/min/1. 73 m?? [facility] Comment: This patient? s [...] In Lab Nimisha Prado MD CHEMI[place] [address] documented in this encounter Visit Diagnoses Diagnosis Endometrial hyperplasia with atypia- Primary documented in this encounter Care Teams Line Leader Relationship Specialty Start Date End Date Trent Varner MD PCP - General Family Medicine 12/17/20 documented as of this encounter
--- OUTSIDE RECORDS SUMMARY | 2024-03-25 15:52 | XMS_ITS | Encounter Summary ---
[place] [address] Care Team Providers Care French Drawer Name Role Phone Trent Varner MD Primary Care Provider Encounter Details Date Type Department Care Team (Late st Contact Info) Description 01/07/2021 Orders Only [place] [address] Freda Foster, ROLL SHOP SUPERVISOR Type 2 diabetes mellitus with diabetic neuropathy, [...] insulin documented in this encounter Care Teams French Drawer Relationship Specialty Start Date End Date Trent Varner MD PCP - General Family Medicine 12/17/20 documented as of this encounter
--- OUTSIDE RECORDS SUMMARY | 2024-03-25 15:52 | XMS_ITS | Encounter Summary ---
Author Organization [facility] [place] [address] Care Team Providers Care Hand Molder Name Role Phone Trent Varner MD Primary Care Provider [phone] Encounter Details Date Type Department Care Team (Latest Contact Info) Description 03/14/2021 Multidisciplinary Ca re Committee [place] [phone] Ibis Loya RN Social History Tobacco Use [...] filedocumented in this encounter Care Teams Hand Molder Relationship Specialty Start Date End Date Trent Varner MD PCP - General Family Medicine 12/17/20 documented as of this encounter
--- OUTSIDE RECORDS SUMMARY | 2024-03-25 15:52 | XMS_ITS | Encounter Summary ---
Author Organization [facility] [place] [address] Care Team Providers Care Porter Used Car Lot Name Role Phone Trent Varner MD Primary Care Provider [phone] Encounter Details Date Type Department Care Team (Latest Contact Info) Description 12/19/2020 11:20 AM EDT - 12/19/2020 11:59 PM EDT [place] [phone] Discharge Disposition: Home Social History Tobacco Use [...] Report (12/19/2020 11:20 AM EDT) Final Diagnosis [id number] ? Location: [facility] The signing pathologist has (i) examined the relevant preparation(s) for the specimen(s) and (ii) rendered or confirmed the diagnosis(es). . ?Surgical Pathology DIAGNOSIS CONSULTATION CASE Outside slides labeled [id number], collection date 11/20/2020. A - Endometrium (procedure not specified): ??- Fragments of endometrial polyp(s) with focal complex atypical ?hyperplasia. ??- Endocervical mucosa with microglandular hyperplasia. Electronically signed by: ?Vy ARAYA, Francia Diehl Verified: ??12/25/2020 9:25 ?? Pathologist Performed at: ??-[facility] Dept. of Pathology, [place], [place] SPECIMEN(S) SUBMITTED CONSULTATION CASE A - 12 slides labeled [id number], collection date 11/20/2020. [id number] Report to: [facility] Surgical Pathology Department [facility], [facility], 2nd Floor [address] [place], [place] ??[address] CLINICAL INFORMATION Atypical endometrial cells on PAP SPECIMEN PROCESSING [facility] ([facility]) pathology slide(s) are reviewed. ??Refer to Diagnosis and Specimen Submitted for specific case information. For the full text of the [facility] report(s) please refer to Non- Documentation Pathology in the electronic health record ( ?? eDH). 12/25/2020 9:25 AM EDT [facility] Consult Case 12/19/2020 11:2 0 AM EDT 12/19/2020 11:20 AM EDT Tayo Blanco MD PATHOLOGY/CYTOLOGY O RDERABLES [facility] [place] [address] documented in this encounter Visit Diagnoses Not on filedocumented in this encounter Care Teams Porter Used Car Lot Relationship Specialty Start Date End Date Trent Varner MD PCP - General Family Medicine 12/17/20 documented as of this encounter
--- OUTSIDE RECORDS SUMMARY | 2024-03-25 15:52 | XMS_ITS | Encounter Summary ---
Author [facility] [place] [address] Care Team Providers Care Commercial Sales Consultant Name Role Phone Trent Varner MD Primary Care Provider [phone] Encounter Details Date Type Department Care Team (Late st Contact Info) Description 01/04/2021 11:30 AM EDT Clinical [place] [phone] Social History Tobacco Use Types Packs/Day Years [...] Special medication instructions: None Procedure date: 02-05 [facility] Penicillin Allergy Risk Assessment 01/04/2021: Low risk penicillin allergy. OK to receive full dose of cefazolin, cefuroxime, or any 3rd or 4th+ generation cephalosporin. documented in this encounter Plan of Treatment Not on file documented as of this encounter Visit Diagnoses Not on filedocumented in this encounter Care Teams Commercial Sales Consultant Relationship Specialty Start Date End Date Trent Varner MD PCP - General Family Medicine 12/17/20 documented as of this encounter
--- OUTSIDE RECORDS SUMMARY | 2024-03-25 15:52 | XMS_ITS | Encounter Summary ---
[place] [address] Care Team Providers Care Radiotelephone Technical Operator Name Role Phone Trent Varner MD Primary Care Provider [phone] Encounter Details Date Type Department Care Team (Latest Contact Info) Description 03/07/2021 11:00 AM EST Clinical Support [place] [phone] Paid Search Analyst, Onc Nurse Encounter for Lundberg catheter [...] device documented in this encounter Care Teams Radiotelephone Technical Operator Relationship Specialty Start Date End Date Trent Varner MD PCP - General Family Medicine 12/17/20 documented as of this encounter
--- OUTSIDE RECORDS SUMMARY | 2024-03-25 15:52 | XMS_ITS | Encounter Summary ---
[place] [address] Care Team Providers Care Food Preservation Scientist Name Role Phone Trent Varner MD Primary Care Provider [phone] Encounter Details Date Type Department Care Team (Late st Contact Info) Description 01/07/2021 Notes Only [place] [address] Freda Fosetr, JEN Social History Tobacco Use Types Packs/Day [...] 10:25 AM EST Division [place] [address] This telegraphic typewriter installer received a message from one of our physician residents requesting that a hemoglobin A1cbe ordered at the end of December. also advised if the result is greater than 8 to please reach out to Dr. Nimisha Prado. This telegraphic typewriter installer placed a call to the patient and there was no answer. This telegraphic typewriter installer left a detailed message stating I was placing an order for the hemoglobin A1c to be drawn at [facility], and asked that she ideally have this done on 01/28/2021, so there is time for it to be resulted and received in this office with further action if indicated. Freda Foster APRN documented in this encounter Plan of Treatment Not on file documented as of this encounter Visit Diagnoses Not on filedocumented in this encounter Care Teams Food Preservation Scientist Relationship Specialty Start Date End Date Trent Varner MD PCP - General Family Medicine 12/17/20 documented as of this encounter
--- OUTSIDE RECORDS SUMMARY | 2024-03-25 15:52 | XMS_ITS | Encounter Summary ---
[place] [address] Care Team Providers Care Inkjet Operator Name Role Phone Trent Varner MD Primary Care Provider [phone] Encounter Details Date Type Department Care Team (Latest Contact Info) Description 01/04/2021 12:15 PM EDT Laboratory Appointment Lab [address] [place] [phone] Endometrial hyperplasia with atypia Social History Tobacco [...] MD CHEMISTRY ORDERABLES [facility] [place] [address] documented in this encounter Visit Diagnoses Diagnosis Endometrial hyperplasia with atypia documented in this encounter Care Teams Inkjet Operator Relationship Specialty Start Date End Date Trent Varner MD PCP - General Family Medicine 12/17/20 documented as of this encounter
--- OUTSIDE RECORDS SUMMARY | 2024-03-25 15:52 | XMS_ITS | Encounter Summary ---
[place] [address] Care Team Providers Care Level Vial Inspector Name Role Phone Trent Varner MD Primary Care Provider [phone] Reason for Visit * Auth/Cert Specialty Diagnoses [...] Expiration Date Visits Re quested Visits Authorized [id number] 1 1 Encounter Details Date Type Department Care Team (Late st Contact Info) Description 03/05/2021 11:10 AM EST - 03/05/2021 2:29 PM EST Surgery [place] [phone] Maribell Cowan MD ROBOTIC LAPAROSCOPY,TOTAL HYST, UTERUS<250GM, [...] PATIENT DISCHARGE INSTRUCTIONS Gynecologic Oncology phone number: [phone]. After hours and on weekends please call hospital mixer lever operator at [phone] and ask for Gynecologic Oncologist firefighter type one. Call your doctor if you develop: --A [...] Center 03/28/2021 9:00 AM Maribell Cowan MD [facility] [place] REGISTERED TRAVEL NURSE 3[place] [facility] [place] level: Let your body guide [...] Cowan MD - 03/05/2021 10:17 AM EST REGISTERED TRAVEL NURSE H&P Patient Active Problem List Diagnosis Code [...] Cowan MD - 03/05/2021 11:54 AM EST [facility] [place] Note Patient Name: Lynn King : [id number] MR#: [id number] Case Date: 03/05/2021 Surgeon: Surgeon(s) and Role: * Maribell Cowan MD - Primary * Juani Daly MD - Resident Registered Nurse Amusement Ride Operator: Kriss Harper RN Preoperative diagnosis: Endometrial intraepithelial [...] y.o. female with a preoperative biopsy in [facility] of postmenopausal bleeding which revealed endometrial [...] trocars and an 8-mm right upper quadrant reading assistant port were placed in the usual [...] attending physician, was present for the entire procedure.[facility] Sharp and sponge counts were correct x two. No surgical instrument counts were performed as per [facility] [place]. Complications: None. DVT Prophylaxis: [...] XI 03/05/2021 11:12 AM EST EIN Intraop [place] Lymph Id W/Dye Injection ([id number]) 03/05/2021 11:12 AM EST EIN Lap, Pelvic Lymphadenectomy/Bx (54699) 03/05/2021 11:12 AM EST EIN Laparoscopy W Tot Hysterectuterus <=250 Gram W Tube/Ovary (28082) 03/05/2021 11:12 AM EST EIN POCT GLUCOSE Routine 03/05/2021 10:35 AM EST documented in this encounter Results * POCT Glucose (03/05/2021 2:22 PM EST) Glucose, POC 120 65 - 199 mg/dL [facility] Comment: Supplemental ranges: <140 mg/dL before meals <180 mg/dL all other times of the day Blood 03/05/2021 2:22 PM EST 03/05/2021 2:22 PM EST Maribell Cowan MD POINT OF CARE TEST O RDERABLES Performing Organization Address City/State/[facility] de Phone Number [facility] [place] [address] * Specimen to Pathology (03/05/2021 12:59 PM EST) AP Specimen 03/05/2021 12:5 9 PM EST 03/05/2021 12:59 PM EST Narrative [facility] - 03/05/2021 12:59 PM EST Specimen requisition ordered. ??Separate Pathology report to follow Maribell Cowan MD PATHOLOGY/CYTOLOGY O LEONEL Performing Organization Address [facility] [place] [address] * Specimen to Pathology (03/05/2021 12:59 PM EST) AP Specimen 03/05/2021 12:5 9 PM EST 03/05/2021 12:59 PM EST Narrative [facility] - 03/05/2021 12:59 PM EST Specimen requisition ordered. ??Separate Pathology report to follow Maribell Cowan MD PATHOLOGY/CYTOLOGY O LEONEL Performing Organization Address [facility] [place] [address] * Surgical Pathology Report (03/05/2021 12:42 PM EST) Final Diagnosis [id number] ? Location: [facility]; [facility]; The signing pathologist has (i) examined the relevant preparation(s) for the specimen(s) and (ii) rendered or confirmed the diagnosis(es). . ? Immunohistochemistry DIAGNOSIS Endometrial carcinoma with intact nuclear staining for ??MLH1, MSH2, MSH6, and PMS2 in tumor cells. Electronically signed by: ?Michael ARAYABryan Verified: ??03/12/2021 12:34 ??Pathologist Performed at: ??-[facility] [place]. [place], [place], [place] INTERPRETATION Block ? Antibody ? Result [...] The assay was performed according to the timber management professor's intructions using anti-MLH-1 (ES05), anti-MSH-2 ([id number]), anti-MSH-6 (44), and anti-PMS-2 (MRQ-28) antibodies. ?Surgical [...] Cobb Verified: ??03/12/2021 12:34 ??Pathologist Performed at: ??-[facility] [place]. [place], [place], [place] SYNOPTIC Specimen ? Procedure: ??Total hysterectomy [...] Pelvic Nodes Examined: ??5 ?Number of Pelvic [place] Nodes Examined: ??5 ?Total Number of Para-aortic [...] lymph node protocol as outlined [facility] study (referenced below) was followed for each of the lymph node tissue blocks that lacked metastatic tumor on routine H&E sections. Alondra CH, Melly RA, et al. Pathologic Ultrastaging Improves Micrometastasis Detection in [place] Lymph Nodes During Endometrial Cancer Staging. ?Int J Gynecol Cancer 2013;23: 964-970. Scanned slides: [id number] . DISCUSSION [id number] ADDITIONAL STUDIES IHC [place] Lymph Node Protocol For Endometrial Carcinoma: Formalin-fixed, [...] B-11 ? ER ? Positive B-11 ? VT ? Positive IHC studies provide the pathologist [...] Fallopian Tube: 3.1 x 0.4 cm, fimbriated. Emergency Medical Service Coordinator sections in 68 cassettes as follows: ?B1: Anterior cervix, blue endometrial side ?B2-B4: Anterior lower uterine segment, blue cervical side ?B5-B15: Anterior endomyometrium, full thickness sections in B5-B7 ?B16: Posterior cervix, blue ink endometrial sign ?B17-B20: Posterior lower uterine segment, blue ink cervical side ?B21-B35: Posterior endomyometrium including full-thickness sections and B21-B23 ?B36-B39: Circumscribed masses, posterior wall ?B40: Emergency Medical Service Coordinator right ovary ?B41-B43: Right fallopian tube ?B44: Emergency Medical Service Coordinator left ovary ?B45-B46: Left fallopian tube ?B47-B51: Remaining myometrium from LEONARDO, cervical aspect inked red ?B52-B68: Remaining myometrium C - Labeled/Fixative: Right pelvic sentinel lymph node, fresh. Quantity/Size: Single, 6.1 x 3.4 x 1.1 cm. Tissue Description: Adipose tissue with three lymph nodes, up to 3.8 cm. The jose e tissue is totally submitted. Emergency Medical Service Coordinator sections in 6 cassettes as follows: ?C1: Single node ?C2: Single node ?C3-C6: Largest node pps 03/12/2021 12:34 PM EST [facility] SENTINEL LYMPH NODE / Unknown 03/05/2021 12:42 PM EST 03/05/2021 12:42 PM EST Uterine Corpus 03/05/2021 12 :42 PM EST 03/05/2021 12:42 PM EST SENTINEL LYMPH NODE / Unknown 03/05/2021 12:42 PM EST 03/05/2021 12:42 PM EST Maribell Cowan MD PATHOLOGY/CYTOLOGY O RDERABLES Performing Organization Address [facility] Co de Phone Number [facility] [place] [address] * Specimen to Pathology (03/05/2021 12:42 PM EST) AP Specimen 03/05/2021 12:4 2 PM EST 03/05/2021 12:42 PM EST Narrative [facility] - 03/05/2021 12:42 PM EST Specimen requisition ordered. ??Separate Pathology report to follow Maribell Cowan MD PATHOLOGY/CYTOLOGY O LEONEL Performing Organization Address [facility] Co de Phone Number [facility] [place] [address] * POCT Glucose (03/05/2021 10:35 AM EST) Glucose, POC 99 65 - 199 mg/dL [facility] Comment: Supplemental ranges: <140 mg/dL before meals <180 mg/dL all other times of the day Blood 03/05/2021 10:3 5 AM EST 03/05/2021 10:35 AM EST Maribell Cowan MD POINT OF CARE TEST O RDAMALIA Performing Organization Address [facility] Co de Phone Number [facility] [place] [address] documented in this encounter Visit Diagnoses Not [...] Thu03/05/21 at 1100, Administer over 30 Minutes, Cryogenics Repairer to OR Infuse over 30 minutes., Day [...] Thu03/05/21 at 1100, Administer over 30 Minutes, Cryogenics Repairer to OR Infuse over 30 minutes., Day [...] Thu03/05/21 at 1100, Administer over 30 Minutes, Cryogenics Repairer to OR Infuse over 30 minutes., Day of Surgery (Day of Procedure), Indication for (Active or Suspected): Prophylaxis And metroNIDAZOLE (Flagyl) 500 mg in sodium chloride 0.9% 100 mL infusion (COMPLETED)Jump to med 500 mg, Intravenous, ONCE, 1 dose, On Thu03/05/21 at 1100, Administer over 30 Minutes, Cryogenics Repairer to OR Infuse over 30 minutes., Day of Surgery (Day of Procedure), Indication for (Active or Suspected): Prophylaxis documented in this encounter Care Teams Level Vial Inspector Relationship Specialty Start Date End Date Trent Varner MD PCP - General Family Medicine 12/17/20 documented as of this encounter
--- OUTSIDE RECORDS SUMMARY | 2024-03-25 15:52 | XMS_ITS | Encounter Summary ---
Author Organization [facility] [place] [address] Care Team Providers Care Hide Dyer Name Role Phone Trent Varner MD Primary Care Provider [phone] Reason for Visit * Auth/Cert Specialty Diagnoses [...] Expiration Date Visits Re quested Visits Authorized [id number] 1 1 Encounter Details Date Type Department Care Team (Late st Contact Info) Description 03/05/2021 11:13 AM EST Anesthesia Event [place] [address] Melida Sultana MD [facility] [place] [address] Anesthesia Record Procedure Summary Procedure Name Responsible [...] 1109; median vein (underside of arm), left; prna-qfi-pqracq catheter system; Anatomical Landmarks; US Not Used; [...] dorsal arch vein (top of hand), right; hfnc-jos-upapjd catheter system; Anatomical Landmarks; 18 gauge; Dr. [...] EST Department of Anesthesiology Post-procedure Note Patient: yLnn King Procedure Summary Date: 03/05/21 Room / Location: [facility] OR [facility] MAIN OR Anesthesia Start: 1113 Anesthesia [...] All Anesthesia Providers: Anesthesiologist: Melida Sultana MD CONDENSER CLEANER: Blessing Dennis CRNA Vitals Value Taken Time BP 157/91 03/05/21 1615 Temp Pulse 58 03/05/21 1629 Resp 11 03/05/21 1629 SpO2 100 % 03/05/21 1629 Pain Level 0 03/05/21 1439 Vitals shown include unvalidated device data. Patient Location: PACU/[facility] Level of Consciousness: Conscious but Sleepy Pain [...] pound weight loss. 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 Plan discussed with CONDENSER CLEANER. Anesthesia Screening documented in this encounter Plan [...] Thu03/05/21 at 1100, Administer over 30 Minutes, Foamite Mixer to OR Infuse over 30 minutes., Day [...] Thu03/05/21 at 1100, Administer over 30 Minutes, Foamite Mixer to OR Infuse over 30 minutes., Day [...] mg documented in this encounter Care Teams Hide Dyer Relationship Specialty Start Date End Date Trent Varner MD PCP - General Family Medicine 12/17/20 documented as of this encounter
--- OUTSIDE RECORDS SUMMARY | 2024-03-25 15:52 | XMS_ITS | Encounter Summary ---
[place] [address] Care Team Providers Care Ornamental Metalwork Designer Name Role Phone Trent Varner MD Primary Care Provider [phone] Reason for Visit * Auth/Cert Specialty Diagnoses [...] Expiration Date Visits Re quested Visits Authorized [id number] 1 1 Encounter Details Date Type Department Care Team (Latest Contact Info) Description 03/05/2021 8:27 AM EST - 03/05/2021 6:38 PM [facility] Hospital En[place] [id number] Maribell Cowan MD Endometrial intraepithelial neoplasia (EIN) Discharge Disposition: [...] PATIENT DISCHARGE INSTRUCTIONS Gynecologic Oncology phone number: [phone]. After hours and on weekends please call hospital winch derrick operator at [phone] and ask for Gynecologic Oncologist material control specialist. Call your doctor if you develop: --A [...] Center 03/28/2021 9:00 AM Maribell Cowan MD [facility] GPS NAVIGATION INSTALLER 3K [facility] Activity level: Let your body guide you- [...] Cowan MD - 03/05/2021 10:17 AM EST GPS NAVIGATION INSTALLER H&P Patient Active Problem List Diagnosis Code [...] Cowan MD - 03/05/2021 11:54 AM EST [facility] Operative Note Patient Name: Lynn King : [id number] MR#: [id number] Case Date: 03/05/2021 Surgeon: Surgeon(s) and Role: * Maribell Cowan MD - Primary * Juani Daly MD - Resident Registered Nurse Job Boss: Kriss Harper RN Preoperative diagnosis: Endometrial intraepithelial [...] y.o. female with a preoperative [facility] of post[facility] bleeding which revealed endometrial intraepithelial [...] into the substance of the cervix. A Cross Pixel Media[employer] uterine manipulator was placed without perforation. An 8-mm transverse incision was made at the umbilicus, through which a Veress needle was inserted and the abdomen was insufflated to tympany with carbon dioxide gas. An 8mm trocar was then inserted and the camera was placed, verifying a successful atraumatic entry. 3 additional 8-mm trocars and an 8-mm right upper quadrant timber management assistant port were placed in the usual [...] attending physician, was present for the entire procedure.[facility] Sharp and sponge counts were correct x two. No surgical instrument counts were performed as per [facility] [place] policy. Complications: None. DVT Prophylaxis: 5000 [...] XI 03/05/2021 11:12 AM EST EIN Intraop [place] Lymph Id W/Dye Injection ([id number]) 03/05/2021 11:12 AM EST EIN Lap, Pelvic Lymphadenectomy/Bx (32732) 03/05/2021 11:12 AM EST EIN Laparoscopy W Tot Hysterectuterus <=250 Gram W Tube/Ovary ([id number]) 03/05/2021 11:12 AM EST EIN POCT GLUCOSE [...] MD POINT [place] [address] * Specimen to Pathology (03/05/2021 12:59 PM EST) AP Specimen 03/05/2021 12:5 9 PM EST 03/05/2021 12:59 PM EST Narrative [facility] - 03/05/2021 12:59 PM EST Specimen requisition ordered. ??Separate Pathology report to follow Maribell Cowan MD PATHOLOGY/CYTOLOGY O LEONEL Performing Organization Address [facility] [place] [address] * Specimen to Pathology (03/05/2021 12:59 PM EST) AP Specimen 03/05/2021 12:5 9 PM EST 03/05/2021 12:59 PM EST Narrative [facility] - 03/05/2021 12:59 PM EST Specimen requisition ordered. ??Separate Pathology report to follow Maribell Cowan MD PATHOLOGY/CYTOLOGY O LEONEL Performing Organization Address [facility] [place] [address] * Surgical Pathology Report (03/05/2021 12:42 PM EST) Pathologist [facility] Final Diagnosis [id number] ? Location: [facility]; [facility] [place]; A The signing pathologist has (i) examined the relevant preparation(s) for the specimen(s) and (ii) rendered or confirmed the diagnosis(es). . ? Immunohistochemistry DIAGNOSIS Endometrial carcinoma with intact nuclear staining for ??MLH1, MSH2, MSH6, and PMS2 in tumor cells. Electronically signed by: ?Michael ARAYA, Bryan Cobb Verified: ??03/12/2021 12:34 ??Pathologist Performed at: ??-[facility] Dept. of Pathology, [place], [place] INTERPRETATION Block ? Antibody ? Result [...] The assay was performed according to the bodywork therapist's intructions using anti-MLH-1 (ES05), anti-MSH-2 ([id number]), anti-MSH-6 (44), and anti-PMS-2 (MRQ-28) antibodies. ?Surgical [...] Cobb Verified: ??03/12/2021 12:34 ??Pathologist Performed at: ??-[facility] Dept. of Pathology, [place], [place] SYNOPTIC Specimen ? Procedure: ??Total hysterectomy [...] Pelvic Nodes Examined: ??5 ?Number of Pelvic [place] Nodes Examined: ??5 ?Total Number of Para-aortic [...] lymph node protocol as outlined in the [facility] study (referenced below) was followed for each of the lymph node tissue blocks that lacked metastatic tumor on routine H&E sections. Alondra CH, Melly RA, et al. Pathologic Ultrastaging Improves Micrometastasis Detection in [place] Lymph Nodes During Endometrial Cancer Staging. ?Int J Gynecol Cancer 2013;23: 964-970. Scanned slides: [id number] [id number] . DISCUSSION [id number] [id number] [id number] [id number] B62-1 ADDITIONAL STUDIES IHC [place] Lymph Node Protocol For Endometrial Carcinoma: Formalin-fixed, [...] Fallopian Tube: 3.1 x 0.4 cm, fimbriated. Clothes Shaker sections in 68 cassettes as follows: ?B1: Anterior cervix, blue endometrial side ?B2-B4: Anterior lower uterine segment, blue cervical side ?B5-B15: Anterior endomyometrium, full thickness sections in B5-B7 ?B16: Posterior cervix, blue ink endometrial sign ?B17-B20: Posterior lower uterine segment, blue ink cervical side ?B21-B35: Posterior endomyometrium including full-thickness sections and B21-B23 ?B36-B39: Circumscribed masses, posterior wall ?B40: Clothes Shaker right ovary ?B41-B43: Right fallopian tube ?B44: Clothes Shaker left ovary ?B45-B46: Left fallopian tube ?B47-B51: Remaining myometrium from LEONARDO, cervical aspect inked red ?B52-B68: Remaining myometrium C - Labeled/Fixative: Right pelvic sentinel lymph node, fresh. Quantity/Size: Single, 6.1 x 3.4 x 1.1 cm. Tissue Description: Adipose tissue with three lymph nodes, up to 3.8 cm. The jose e tissue is totally submitted. Clothes Shaker sections in 6 cassettes as follows: ?C1: [...] EST Maribell Cowan MD PATHOLOGY/CYTOLOGY O RDERABLES [facility] [place] [address] * Specimen to Pathology (03/05/2021 12:42 PM EST) AP Specimen 03/05/2021 12:4 2 PM EST 03/05/2021 12:42 PM EST Narrative [facility] - 03/05/2021 12:42 PM EST Specimen requisition ordered. ??Separate Pathology report to follow Maribell Cowan MD PATHOLOGY/CYTOLOGY O LEONEL Performing Organization Address City/[facility]/ZIP Co de Phone Number [facility] [place] [address] * POCT Glucose (03/05/2021 10:35 AM EST) Glucose, POC 99 65 - 199 mg/dL [facility] Comment: Supplemental ranges: <140 mg/dL before meals <180 mg/dL all other times of the day Blood 03/05/2021 10:3 5 AM EST 03/05/2021 10:35 AM EST Maribell Cowan MD POINT OF CARE TEST O LEONEL Performing Organization Address [facility] Co de Phone Number [facility] [place] [address] documented in this encounter Visit Diagnoses Diagnosis [...] Thu03/05/21 at 1100, Administer over 30 Minutes, Router Machine Operator to OR Infuse over 30 minutes., Day [...] Thu03/05/21 at 1100, Administer over 30 Minutes, Router Machine Operator to OR Infuse over 30 minutes., Day [...] Thu03/05/21 at 1100, Administer over 30 Minutes, Router Machine Operator to OR Infuse over 30 minutes., Day of Surgery (Day of Procedure), Indication for (Active or Suspected): Prophylaxis And metroNIDAZOLE (Flagyl) 500 mg in sodium chloride 0.9% 100 mL infusion (COMPLETED)Jump to med 500 mg, Intravenous, ONCE, 1 dose, On Thu03/05/21 at 1100, Administer over 30 Minutes, Router Machine Operator to OR Infuse over 30 minutes., Day of Surgery (Day of Procedure), Indication for (Active or Suspected): Prophylaxis documented in this encounter Care Teams Ornamental Metalwork Designer Relationship Specialty Start Date End Date Trent Varner MD PCP - General Family Medicine 12/17/20 documented as of this encounter
[2024-03-25 18:36] LABS: Abs Immature Grans 0.02 10^3/uL (0.0-0.06); HCT 37.8 % (36.0-46.0); HGB 11.6 g/dL (11.2-15.7); MCH 26.4 pg (27.0-33.0); MCHC 30.7 % (32.0-36.0); MCV 86 fL (80-95); MPV 10.4 fL (8.0-11.0); Platelet Count 233 10^3/uL (130-400); RDW 14.7 % (11.7-14.6); RDW-SD 46.8 fL; WBC 6.12 10^3/uL (4.4-10.8)
[2024-03-25 18:48] LABS: Absolute Eosinophil Count 0.37 10^3/uL (0.0-0.7); Absolute Lymphocyte Count 1.65 10^3/uL (1.2-3.4); Absolute Monocyte Count 0.61 10^3/uL (0.1-0.8); Absolute Neutrophil Count 3.49 10^3/uL (1.2-6.7); Atypical Lymphocytes % 3 %; Diff Comment Manual Differential; RBC Morphology Normal
[2024-03-25 19:03] LABS: ALT 51 U/L (14-59); AST 26 U/L (15-37); Albumin 3.4 g/dL (3.4-5.0); Alkaline Phosphatase 75 U/L (46-116); Anion Gap 6.4 mmol/L (3-11); BUN 16 mg/dL (7-18); Bilirubin, Total 0.22 mg/dL (0.2-1.0); CO2 28.6 mmol/L (21.0-32.0); CREATININE 0.7 mg/dL (0.55-1.02); Calcium 8.5 mg/dL (8.5-10.1); Chloride 109 mmol/L (98-107); Estimated GFR 101.44 (mL/min/1.73m2); Glucose 104 mg/dL (74-106); Potassium 3.9 mmol/L (3.5-5.1); Sodium 144 mmol/L (136-145); Total Protein 6.9 g/dL (6.4-8.2)
== END 2024-03-25 15:47 | disposition home or self-care (01) ==
LOC: NCHCN 15:46
PROVIDERS: PCP Student in an Organized Health Care Education/Training Program; Visit Provider Student in an Organized Health Care Education/Training Program
DX: R05.1 Acute cough (principal)
CPT/HCPCS: 80053; 85025

== ENCOUNTER 2024-10-26 15:39 | Outpatient (REF) | payer MEDICAID, SELFPAY ==
[2024-10-26 15:55] LABS: COMMENT (LAB VIEW ONLY) 164.26 mg/dL; Microalb ug/mg Crea 5.8 ug/mg Cr
== END 2024-10-26 15:40 | disposition home or self-care (01) ==
LOC: NCHCN 15:39
PROVIDERS: PCP Student in an Organized Health Care Education/Training Program; Visit Provider Student in an Organized Health Care Education/Training Program
DX: E11.9 Type 2 diabetes mellitus without complications (principal)
CPT/HCPCS: 82043; 82570